=== PATIENT | male | born 1960 | race Caucasian/White ===

== ENCOUNTER 2016-10-30 | Emergency (ER) | payer MEDICARE ==
--- NOTE | 2016-10-30 12:47 | ED ---
General Adult HPI - General Chief complaint: Recheck/Abnormal Lab/Rx Stated complaint: med refill Time Seen by Provider: 10/30/16 12:31 Source: patient, RN notes reviewed Mode of arrival: ambulatory Limitations: no limitations - History of Present Illness Initial comments: 56-year-old male presents emergency department for medication refill. Patient states that he is out of his Valium 2 mg and which she takes one to 2 times daily sometimes not. Patient states that his prescribed this by Dr. Painter in which he was admitted here last year in July for psychiatric problems. He states at the time he was depressed and suicidal. Patient states she has no suicidal or homicidal thoughts. Patient states his anxiety is very high. He states he struggled from anxiety and depression most of his life and knees in a support group in which his best friend here is with him. Patient states that he is scheduled to 14 days for [facility] evaluation. Patient states that he ran out of his Valium and which she was prescribed. Patient states that just ran out because he was in [facility] up until recent. Patient states he was receiving medication in [facility]. - Related Data Home Medications Medication Instructions Recorded Confirmed Metoprolol Tartrate [Lopressor] 12.5 mg PO BID 10/30/16 10/30/16 Previous Rx's Medication Instructions Recorded DULoxetine HCL [Cymbalta] 60 mg PO DAILY #30 capsule. 08/05/16 Diazepam [Valium] 2 mg PO BID PRN #10 tab 08/05/16 Diazepam [Valium] 2 mg PO ONCE PRN #14 tab 10/30/16 Allergies Allergy/AdvReac Type Severity Reaction Status Date / Time No Known Allergies Allergy Verified 10/30/16 12:31 Review of Systems ROS Statement: Those systems with pertinent positive or pertinent negative responses have been documented in the HPI. ROS Other: All systems not noted in ROS Statement are negative. Past Medical History Past Medical History: Hypertension History of Any Multi-Drug Resistant Organisms: None Reported Past Surgical History: No Surgical Hx Reported Past Anesthesia/Blood Transfusion Reactions: No Reported Reaction Past Psychological History: Anxiety, Depression Smoking Status: Current some day smoker Past Alcohol Use History: None Reported Additional Past Alcohol Use History / Comment(s): Tesha Araiza is a lifelong nonsmoker. He denies any medical marijuana, marijuana, street drug use. He has been drinking a half a pint every other day and up to half of a fifth. He denies any home oxygen, CPAP or nebulizer. Patient is . He does not have any children. Past Drug Use History: None Reported - Past Family History Father Additional Family Medical History / Comment(s): Father is alive at age 86 with current pacemaker, carotid surgery and scoliosis. Mother Family Medical History: Pneumonia Additional Family Medical History / Comment(s): Mother at age 84 with history of Alzheimer's and Parkinson's. Brother(s) Additional Family Medical History / Comment(s): Patient does not have any brothers or sisters. He does not have any children. General Exam Limitations: no limitations General appearance: alert, in no apparent distress, anxious Head exam: Present: atraumatic, normocephalic, normal inspection Eye exam: Present: normal appearance, PERRL, EOMI. Absent: scleral icterus, conjunctival injection, periorbital swelling ENT exam: Present: normal exam, normal oropharynx, mucous membranes moist Neck exam: Present: normal inspection. Absent: tenderness, meningismus, lymphadenopathy Respiratory exam: Present: normal lung sounds bilaterally. Absent: respiratory distress, wheezes, rales, rhonchi, stridor Cardiovascular Exam: Present: regular rate, normal rhythm, normal heart sounds. Absent: systolic murmur, diastolic murmur, rubs, gallop, clicks Neurological exam: Present: alert, oriented X3, CN II-XII intact Psychiatric exam: Present: anxious. Absent: homicidal ideation, suicidal ideation Skin exam: Present: warm, dry, intact, normal color. Absent: rash Course Vital Signs 10/30/16 12:12 Temperature 98.5 F Pulse Rate 71 Respiratory 20 Rate Blood Pressure 172/98 O2 Sat by Pulse 98 Oximetry Medical Decision Making - Medical Decision Making 56-year-old male presented for medication refill. Patient was given 14 tablets of his Valium advised to use only once daily only if needed and that he needs follow up with [facility] for further medication. Disposition Clinical Impression: Anxiety, Encounter for medication refill Disposition: HOME SELF-CARE Condition: Stable Instructions: Anxiety (ED) Additional Instructions: Please return to the Emergency Department if symptoms worsen or any other concerns. Prescriptions: Diazepam [Valium] 2 mg PO ONCE PRN #14 tab PRN Reason: Anxiety Referrals: None,Stated [Primary Care Provider] - 1-2 days Time of Disposition: 12:52
== END 2016-10-30 13:01 | disposition home or self-care (01) ==
CPT/HCPCS: 99281

== ENCOUNTER 2017-04-08 19:21 | Inpatient (IN) | payer MEDICARE ==
--- NOTE | 2017-04-08 19:37 | ED ---
General Adult HPI - General Chief complaint: Psychiatric Symptoms Stated complaint: suicidal Time Seen by Provider: 04/08/17 19:34 Source: patient, RN notes reviewed, old records reviewed Mode of arrival: ambulatory Limitations: no limitations - History of Present Illness Initial comments: This is a 56-year-old now to the ER for evaluation. Face patient presents for evaluation of psychiatric disease and mental health evaluation. - Related Data Home Medications Medication Instructions Recorded Confirmed hydrOXYzine PAMOATE [hydrOXYzine 25 mg PO DAILY 04/09/17 04/09/17 PAMOATE] Previous Rx's Medication Instructions Recorded DULoxetine HCL [Cymbalta] 60 mg PO DAILY #30 capsule. 08/05/16 Allergies Allergy/AdvReac Type Severity Reaction Status Date / Time No Known Allergies Allergy Verified 04/09/17 06:01 Review of Systems ROS Statement: Those systems with pertinent positive or pertinent negative responses have been documented in the HPI. ROS Other: All systems not noted in ROS Statement are negative. Past Medical History Past Medical History: Hypertension History of Any Multi-Drug Resistant Organisms: None Reported Past Surgical History: No Surgical Hx Reported Past Anesthesia/Blood Transfusion Reactions: No Reported Reaction Past Psychological History: Anxiety, Depression Smoking Status: Current some day smoker Past Alcohol Use History: None Reported Past Drug Use History: None Reported - Past Family History Father Additional Family Medical History / Comment(s): Father is alive at age 86 with current pacemaker, carotid surgery and scoliosis. Mother Family Medical History: Pneumonia Additional Family Medical History / Comment(s): Mother at age 84 with history of Alzheimer's and Parkinson's. Brother(s) Additional Family Medical History / Comment(s): Patient does not have any brothers or sisters. He does not have any children. General Exam Limitations: no limitations General appearance: alert, in no apparent distress Head exam: Present: atraumatic, normocephalic, normal inspection Eye exam: Present: normal appearance, PERRL, EOMI. Absent: scleral icterus, conjunctival injection, periorbital swelling ENT exam: Present: normal exam, mucous membranes moist Neck exam: Present: normal inspection. Absent: tenderness, meningismus, lymphadenopathy Respiratory exam: Present: normal lung sounds bilaterally. Absent: respiratory distress, wheezes, rales, rhonchi, stridor Cardiovascular Exam: Present: regular rate, normal rhythm, normal heart sounds. Absent: systolic murmur, diastolic murmur, rubs, gallop, clicks GI/Abdominal exam: Present: soft, normal bowel sounds. Absent: distended, tenderness, guarding, rebound, rigid Extremities exam: Present: normal inspection, full ROM, normal capillary refill. Absent: tenderness, pedal edema, joint swelling, calf tenderness Back exam: Present: normal inspection Neurological exam: Present: alert, oriented X3, CN II-XII intact Psychiatric exam: Present: normal affect, normal mood Skin exam: Present: warm, dry, intact, normal color. Absent: rash Course Vital Signs 04/08/17 04/09/17 04/09/17 19:26 05:00 06:04 Temperature 99.2 F 97.8 F Pulse Rate 120 H 94 96 Respiratory 18 16 16 Rate Blood Pressure 156/112 166/111 163/103 O2 Sat by Pulse 95 97 Oximetry - Reevaluation(s) Reevaluation #1: 04/08/17 19:43 Medically clear for psychiatric evaluation Medical Decision Making - Medical Decision Making 56 male seen and evaluated with psychiatry, patient be admitted for psychiatric evaluation and treatment - Lab Data Result diagrams: 04/09/17 07:18 04/09/17 07:18 Lab Results 04/09/17 04/09/17 Range/Units 04:56 04:56 Urine Color Yellow Urine Appearance Clear (Clear) Urine pH 5.5 (5.0-8.0) Ur Specific [place] 1.011 (1.001-1.035) Urine Protein 1+ H (Negative) Urine Glucose (UA) Negative (Negative) Urine Ketones Negative (Negative) Urine Blood Small H (Negative) Urine Nitrite Negative (Negative) Urine Bilirubin Negative (Negative) Urine Urobilinogen <2.0 (<2.0) mg/dL Ur Leukocyte Esterase Negative (Negative) Urine RBC 1 (0-5) /hpf Urine WBC 2 (0-5) /hpf Granular Casts 43 (0) /lpf Urine Opiates Screen Not Detected (NotDetected) Ur Oxycodone Screen Not Detected (NotDetected) Urine Methadone Screen Not Detected (NotDetected) Ur Propoxyphene Screen Not Detected (NotDetected) Ur Barbiturates Screen Not Detected (NotDetected) U Tricyclic Antidepress Not Detected (NotDetected) Ur Phencyclidine Scrn Not Detected (NotDetected) Ur Amphetamines Screen Not Detected (NotDetected) U Methamphetamines Scrn Not Detected (NotDetected) U Benzodiazepines Scrn Not Detected (NotDetected) Urine Cocaine Screen Not Detected (NotDetected) U Marijuana (THC) Screen Not Detected (NotDetected) Disposition Clinical Impression: Depression, Major depressive disorder, recurrent, Suicidal ideation Disposition: TRANSFER TO PSYCH HOSP/UNIT Condition: Fair
[2017-04-08] MEDS ORDERED: ONDANSETRON ODT 4 MG TAB PO STA (23:14)
[2017-04-09] MEDS ORDERED: ONDANSETRON ODT 4 MG TAB PO STA (02:37)
[2017-04-09] MEDS ORDERED: chlordiazePOXIDE 25 MG CAP PO STA (05:23)
[2017-04-09] MEDS ORDERED: MAG HYDROX/AL HYDROX/SIMETH 30 ML CUP PO PRN (05:50)
[2017-04-09] MEDS ORDERED: MAGNESIUM HYDROXIDE 2,400 MG/10 ML CUP PO PRN (05:50)
[2017-04-09] MEDS ORDERED: hydrOXYzine PAMOATE 25 MG CAP PO PRN (05:52)
[2017-04-09] MEDS ORDERED: LORazepam 2 MG/ML SYRINGE IM PRN (05:53)
[2017-04-09 06:04] LABS: Appearance,Urine Clear (Clear); Bilirubin,Urine Negative (Negative); Glucose,Urine (UA) Negative (Negative); Granular Casts,Urine 43 /lpf (0); Ketones,Urine Negative (Negative); Leukocyte Esterase,Urine Negative (Negative); Nitrite,Urine Negative (Negative); PH, Urine 5.5 (5.0-8.0); Particle Count 1566; Protein,Urine 1+ (Negative); RBC,Urine 1 /hpf (0-5); Specific Gravity,Urine 1.011 (1.001-1.035); UA Billing (MACRO vs. MICRO) MICRO; Urobilinogen,Urine <2.0 mg/dL (<2.0); WBC,Urine 2 /hpf (0-5)
[2017-04-09 06:31] VITALS: BMI 25.4
[2017-04-09 07:45] LABS: Basophils % (A) 0 %; CH 33.3; Eosinophils % (A) 0 %; HCT 45.9 % (39.0-53.0); HDW 2.71; HGB 15.9 gm/dL (13.0-17.5); Luc # (Auto) 0.14; Luc % (Auto) 1; Lymphocytes # (A) 1.4 k/uL (1.0-4.8); Lymphocytes % (A) 9 %; MCH 32.2 pg (25.0-35.0); MCHC 34.7 g/dL (31.0-37.0); Mean Platelet Volume 7.8; Monocytes # (A) 0.9 k/uL (0-1.0); Monocytes % (A) 6 %; Neutrophils # (A) 12.5 k/uL (1.3-7.7); Neutrophils % (A) 84 %; RBC 4.94 m/uL (4.30-5.90); RDW 13.1 % (11.5-15.5); WBC (Perox) 15.28
[2017-04-09 07:58] LABS: ALT 38 U/L (21-72); AST 33 U/L (17-59); Alkaline Phosphatase 88 U/L (38-126); Anion Gap 18 mmol/L; Blood Urea Nitrogen 31 mg/dL (9-20); Calcium 10.6 mg/dL (8.4-10.2); Carbon Dioxide 32 mmol/L (22-30); Chloride 89 mmol/L (98-107); Glucose 137 mg/dL (74-99); Non-African American GFR(MDRD) 54 (>60 ml/min/1.73 sqM); Potassium 3.7 mmol/L (3.5-5.1); Sodium 139 mmol/L (137-145); Total Bilirubin 1.3 mg/dL (0.2-1.3); Total Protein 8.2 g/dL (6.3-8.2)
--- NOTE | 2017-04-09 09:16 | P.HP ---
Psychiatric H&P - . H&P Date: 04/09/17 History & Physical: DATE OF SERVICE: 04/09/2017 IDENTIFYING DATA: This patient is a 56-year-old male who was admitted to the mental health unit through emergency room and he presented requesting admission for suicidal ideation.. HISTORY OF PRESENT ILLNESS: The patient presents with depressed mood stating "I just couldn't deal with reality". Patient reports that his father is in the hospital and that he is not doing well, he weighs 70 pounds and although mentally he is alert and wanting to live for some reason he is unable to thrive. Patient also states that some issues with a friend occurred. And so when he came back from visiting his father in [place] last week he began to drink heavy. And continued to drink until he came to the hospital. He had a blood alcohol of 212. He reports that he was compliant with his treatment taking his medication seeing his counselor, but just something after seeing his father was overwhelming. Patient states that he grew up as an only child in a [place] family and that emotions were not on display, and views this as being part of the problem today "not knowing how to manage this type of an issue". Patient does state that he stopped taking his medicines, was not quite clear when, was unable to give any amount of alcohol that he was drinking. He states that he had a 6 month sobriety and that he drank 3-4 days and got back on the wagon for about 2 months, and then just had this relapse. Patient states that he takes Depakote from a friend who had a large supply. Asked why and patient said he has a tremor patient denies having seizure disorder. He then states it is a mood stabilizer and that he was diagnosed with bipolar disorder. In discussing the symptoms that he has patient could not identify/endorse any manic symptoms or hypomanic. There happens to be a very manic person on the unit today and patient states that he has never been like that. Nor does he have any history of risk-taking behavior, spending money that he didn't have, promiscuity. When he was here the last time he also denied any symptoms consistent with misael or hypomania. PAST PSYCHIATRIC HISTORY: This is the patient's fourth inpatient psychiatric admission, his last was approximately 3 years ago. No history of suicide attempts. He is a limited historian in terms of recalling which psychotropic medications he was on and what their affects were. He has been seeing Dr Doe. He has been on Prozac Paxil Zoloft Remeron Celexa Depakote Klonopin Ativan Cymbalta. PAST MEDICAL HISTORY: Hypertension ALLERGIES: No known drug allergies. CHEMICAL DEPENDENCY HISTORY: Patient reports that he had a 6 month period of sobriety and drank for 2-3 days stop for 2 months and then drank these last 4-5 days.. Prior to this admission according to discharge summary he was consuming a fifth of alcohol approximately every 2 days for the 2 weeks prior to admission He is consuming a fifth of alcohol every 2 days for the last 2 weeks, he states he's done this throughout his adult life whenever he becomes more depressed. He reports he drinks less when he is stabilized with medication. No use of marijuana or other illicit drugs he's never been placed in residential treatment for chemical dependency reasons. His urine drug screen was positive for opiates but he states he does not take them and last used and opiate while in long term due to a infection of his wrist. FAMILY PSYCHIATRIC HISTORY:.His mother was known to have depression, 2 maternal uncles committed suicide FAMILY CHEMICAL DEPENDENCY HISTORY: Denies. LEGAL HISTORY: Denies. SOCIAL HISTORY: The patient is he has no children he lives alone in his own home in [place]. He is retired from [employer] after over 20 years of service. No history of service. He graduated high school and earned an associates degree. He has no siblings. It appears he has very limited social support. MENTAL STATUS EXAM: Patient alert and oriented 3, good eye contact, disheveled , appearing older than stated age, in hospital attire. Speech normal volume, rate and production. Coherent, logical and goal directed thought process. No YANI, no FOI. [No TB/TW/ TI] Denied auditory and visual hallucinations. Denied paranoid ideation, delusions or IOR. Memory grossly intact Cognition average Mood dysphoric, affect constricted, congruent with mood. Denies suicidal ideation, denies homicidal ideation. Insight limited; Judgment grossly intact for treatment purposes STRENGTHS: Income and housing. WEAKNESSES: Alcohol use disorder, it did support system. IMPRESSIONS: 56-year-old male presents to the emergency room on his own reporting severe depression and suicidal ideation. History of depression along with alcohol use and noncompliance with medication appears to be a chronic issue for Mr. Davis. Patient stopped his medications a few days prior to admission and began heavy drinking due to being overwhelmed by his father's physical condition and possible . Patient is no longer suicidal, but remains dysphoric and anxious. 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 Suicide precautions 15 minute safety checks. Appreciate hospitalist and there input regarding his physical needs. CIWA for prevention of DTs, Ativan when necessary as needed. Once alcohol withdrawal has past we'll begin to taper off his standing dose of Ativan. Begin Effexor for both depression and anxiety. D/C Cymbalta Recommended that he not take Depakote when he goes back home. Trial of gabapentin for purported aid in alcohol abstinence, and it's anxiolytic properties. Milieu therapy Allergy/AdvReac Type Severity Reaction Status Date / Time No Known Allergies Allergy Verified 04/09/17 06:01 Vital Signs Temp 98.5 F 04/09/17 06:23 Pulse 128 H 04/09/17 06:23 Resp 20 04/09/17 06:23 BP 146/103 04/09/17 06:23 Pulse Ox 95 04/09/17 06:23 Intake & Output 04/08/17 04/09/17 04/09/17 18:59 06:59 18:59 Weight 71.469 kg Laboratory Last Values WBC 15.0 k/uL (3.8-10.6) H 04/09/17 07:18 RBC 4.94 m/uL (4.30-5.90) 04/09/17 07:18 Hgb 15.9 gm/dL (13.0-17.5) 04/09/17 07:18 Hct 45.9 % (39.0-53.0) 04/09/17 07:18 MCV 93.0 fL (80.0-100.0) 04/09/17 07:18 MCH 32.2 pg (25.0-35.0) 04/09/17 07:18 MCHC 34.7 g/dL (31.0-37.0) 04/09/17 07:18 RDW 13.1 % (11.5-15.5) 04/09/17 07:18 Plt Count 231 k/uL (150-450) 04/09/17 07:18 Neutrophils % 84 % 04/09/17 07:18 Lymphocytes % 9 % 04/09/17 07:18 Monocytes % 6 % 04/09/17 07:18 Eosinophils % 0 % 04/09/17 07:18 Basophils % 0 % 04/09/17 07:18 Neutrophils # 12.5 k/uL (1.3-7.7) H 04/09/17 07:18 Lymphocytes # 1.4 k/uL (1.0-4.8) 04/09/17 07:18 Monocytes # 0.9 k/uL (0-1.0) 04/09/17 07:18 Eosinophils # 0.0 k/uL (0-0.7) 04/09/17 07:18 Basophils # 0.0 k/uL (0-0.2) 04/09/17 07:18 Sodium 139 mmol/L (137-145) 04/09/17 07:18 Potassium 3.7 mmol/L (3.5-5.1) 04/09/17 07:18 Chloride 89 mmol/L (98-107) L 04/09/17 07:18 Carbon Dioxide 32 mmol/L (22-30) H 04/09/17 07:18 Anion Gap 18 mmol/L 04/09/17 07:18 BUN 31 mg/dL (9-20) H 04/09/17 07:18 Creatinine 1.37 mg/dL (0.66-1.25) H 04/09/17 07:18 Est GFR (MDRD) Af Amer >60 (>60 ml/min/1.73 sqM) 04/09/17 07:18 Est GFR (MDRD) Non-Af 54 (>60 ml/min/1.73 sqM) 04/09/17 07:18 Glucose 137 mg/dL (74-99) H 04/09/17 07:18 Calcium 10.6 mg/dL (8.4-10.2) H 04/09/17 07:18 Total Bilirubin 1.3 mg/dL (0.2-1.3) 04/09/17 07:18 AST 33 U/L (17-59) 04/09/17 07:18 ALT 38 U/L (21-72) 04/09/17 07:18 Alkaline Phosphatase 88 U/L (38-126) 04/09/17 07:18 Total Protein 8.2 g/dL (6.3-8.2) 04/09/17 07:18 Albumin 4.7 g/dL (3.5-5.0) 04/09/17 07:18 TSH 4.180 mIU/L (0.465-4.680) 04/09/17 07:18 Urine Color Yellow 04/09/17 04:56 Urine Appearance Clear (Clear) 04/09/17 04:56 Urine pH 5.5 (5.0-8.0) 04/09/17 04:56 Ur Specific [place] 1.011 (1.001-1.035) 04/09/17 04:56 Urine Protein 1+ (Negative) H 04/09/17 04:56 Urine Glucose (UA) Negative (Negative) 04/09/17 04:56 Urine Ketones Negative (Negative) 04/09/17 04:56 Urine Blood Small (Negative) H 04/09/17 04:56 Urine Nitrite Negative (Negative) 04/09/17 04:56 Urine Bilirubin Negative (Negative) 04/09/17 04:56 Urine Urobilinogen <2.0 mg/dL (<2.0) 04/09/17 04:56 Ur Leukocyte Esterase Negative (Negative) 04/09/17 04:56 Urine RBC 1 /hpf (0-5) 04/09/17 04:56 Urine WBC 2 /hpf (0-5) 04/09/17 04:56 Granular Casts 43 /lpf (0) 04/09/17 04:56 Urine Opiates Screen Not Detected (NotDetected) 04/09/17 04:56 Ur Oxycodone Screen Not Detected (NotDetected) 04/09/17 04:56 Urine Methadone Screen Not Detected (NotDetected) 04/09/17 04:56 Ur Propoxyphene Screen Not Detected (NotDetected) 04/09/17 04:56 Ur Barbiturates Screen Not Detected (NotDetected) 04/09/17 04:56 U Tricyclic Antidepress Not Detected (NotDetected) 04/09/17 04:56 Ur Phencyclidine Scrn Not Detected (NotDetected) 04/09/17 04:56 Ur Amphetamines Screen Not Detected (NotDetected) 04/09/17 04:56 U Methamphetamines Scrn Not Detected (NotDetected) 04/09/17 04:56 U Benzodiazepines Scrn Not Detected (NotDetected) 04/09/17 04:56 Urine Cocaine Screen Not Detected (NotDetected) 04/09/17 04:56 U Marijuana (THC) Screen Not Detected (NotDetected) 04/09/17 04:56 04/09/17 09:16 04/09/17 09:17 04/09/17 10:46 04/09/17 13:30 04/09/17 13:50
[2017-04-09] MEDS: DULoxetine HCL 60 MG CAPSULE.DR PO SCH ×3 (09:18→11:08)
[2017-04-09] MEDS: LORazepam 1 MG TAB PO SCH ×3 (09:19→21:44)
[2017-04-09] MEDS ORDERED: ONDANSETRON ODT 4 MG TAB PO PRN (09:48)
[2017-04-09] MEDS ORDERED: LOPERAMIDE 2 MG CAP PO PRN (09:49)
[2017-04-09] MEDS ORDERED: cloNIDine HCL 0.1 MG TAB PO PRN (09:50)
[2017-04-09] MEDS ORDERED: METOPROLOL TARTRATE 25 MG TAB PO PRN (10:52)
[2017-04-09] MEDS: LORazepam 1 MG TAB PO PRN ×2 (11:10→13:31)
[2017-04-09] MEDS: GABAPENTIN 100 MG CAP PO SCH ×3 (11:50→21:43)
--- NOTE | 2017-04-09 13:02 | P.MDCNMH ---
History of Present Illness H&P Date: 04/09/17 This is a 56-year-old male with no primary care physician and past medical history of hypertension, anxiety, depression. He does have history of alcohol abuse and was last hospitalized here in July 2016. Patient gives history that he was clean for 6 and half months and then had a relapse for couple of days because he he felt suicidal. He then was clean for another 2 months and relapsed for the past 3 days. He states he's been drinking a fifth of vodka every day. He came into [facility] emergency center for evaluation and was subsequently admitted to the mental health unit. WBC was 15, BUN 31 and creatinine 1.37. Random blood sugar was elevated. TSH normal. Urine drug screen was negative. Valproic acid less than 10. EKG showed a sinus tachycardia 109 with no QT prolongation. Patient does complain of vomiting today. He denies any abdominal pain. His blood pressure has been elevated and he is not normally on blood pressure medication. Review of Systems All systems: negative Constitutional: Denies chills, Denies fever Eyes: denies blurred vision, denies pain Ears, nose, mouth and throat: Denies headache, Denies sore throat Cardiovascular: Denies chest pain, Denies edema, Denies irregular heart beat, Denies leg edema, Denies lightheadedness, Denies palpitations, Denies paroxysmal nocturnal dyspnea, Denies shortness of breath Respiratory: Denies cough Gastrointestinal: Reports vomiting, Denies abdominal pain, Denies diarrhea, Denies nausea Musculoskeletal: Denies myalgias Integumentary: Denies pruritus, Denies rash Neurological: Denies numbness, Denies weakness Psychiatric: Reports depression, Reports hopelessness, Reports suicidal ideation , Denies anxiety Endocrine: Denies fatigue, Denies weight change Past Medical History Past Medical History: Hypertension History of Any Multi-Drug Resistant Organisms: None Reported Past Surgical History: No Surgical Hx Reported Past Anesthesia/Blood Transfusion Reactions: No Reported Reaction Past Psychological History: Anxiety, Depression Smoking Status: Current some day smoker Past Alcohol Use History: Abuse, Heavy Additional Past Alcohol Use History / Comment(s): Patient is a lifelong nonsmoker. He denies any medical marijuana, marijuana or street drug use. He has been drinking a fifth of vodka for the past 3 days. No home O2, CPAP or nebulizer. Patient is . He does not have any children. Past Drug Use History: None Reported - Past Family History Father Additional Family Medical History / Comment(s): Father is alive at age 86 with current pacemaker, carotid surgery and scoliosis. Mother Family Medical History: Pneumonia Additional Family Medical History / Comment(s): Mother at age 84 with history of Alzheimer's and Parkinson's. Brother(s) Additional Family Medical History / Comment(s): Patient does not have any brothers or sisters. He does not have any children. Medications and Allergies Home Medications Medication Instructions Recorded Confirmed Type hydrOXYzine PAMOATE [hydrOXYzine 25 mg PO DAILY 04/09/17 04/09/17 History PAMOATE] Allergies Allergy/AdvReac Type Severity Reaction Status Date / Time No Known Allergies Allergy Verified 04/09/17 06:01 Physical Exam Vitals: Vital Signs Temp Pulse Pulse Pulse Resp BP BP 04/09/17 09:19 140 H 20 156/109 04/09/17 06:23 98.5 F 128 H 20 04/09/17 06:04 96 16 163/103 04/09/17 05:00 97.8 F 94 16 166/111 04/08/17 19:26 99.2 F 120 H 18 156/112 BP Pulse Ox 04/09/17 09:19 04/09/17 06:23 146/103 95 04/09/17 06:04 04/09/17 05:00 97 04/08/17 19:26 95 Intake and Output 04/08/17 04/09/17 04/09/17 22:59 06:59 14:59 Other: Weight 72.575 kg 71.469 kg Gen: This is a 56-year-old disheveled male. He is cooperative. HEENT: Head is atraumatic, normocephalic. Pupils equal, round. Sclerae is anicteric. NECK: Supple. No JVD. No lymphadenopathy. No thyromegaly. LUNGS: Clear to auscultation. No wheezes or rhonchi. No intercostal retractions. HEART: Regular rate and rhythm. No murmur. ABDOMEN: Soft. Bowel sounds are present. No masses. No tenderness. EXTREMITIES: No pedal edema. No calf tenderness. NEUROLOGICAL: Patient is awake, alert and oriented x3. Cranial nerves 2 through 12 are grossly intact. Cranial Nerve Examination - Cranial Nerves Cranial Nerve II- Optic: Intact Cranial Nerve III- Oculomotor: Intact Cranial Nerve IV- Trochlear: Intact Cranial Nerve V- Trigeminal: Intact Cranial Nerve - Abducens: Intact Cranial Nerve VII- Facial: Intact Cranial Nerve VIII- Auditory: Intact Cranial Nerve IX- Glossopharyngeal: Intact Cranial Nerve X- Vagus: Intact Cranial Nerve XI- Accessory: Intact Cranial Nerve XII- Hypoglossal: Intact Results CBC & Chem 7: 04/09/17 07:18 04/09/17 07:18 Labs: Abnormal Lab Results - Last 24 Hours (Table) 04/09/17 04/09/17 04/09/17 Range/Units 04:56 07:18 07:18 WBC 15.0 H (3.8-10.6) k/uL Neutrophils # 12.5 H (1.3-7.7) k/uL Chloride 89 L (98-107) mmol/L Carbon Dioxide 32 H (22-30) mmol/L BUN 31 H (9-20) mg/dL Creatinine 1.37 H (0.66-1.25) mg/dL Glucose 137 H (74-99) mg/dL Calcium 10.6 H (8.4-10.2) mg/dL Urine Protein 1+ H (Negative) Urine Blood Small H (Negative) Assessment and Plan Plan: 1. Recurrent depression. Patient admitted to the mental health unit. Continue current plan of care. 2. Alcohol abuse. Continue as in #1. 3. Alcohol withdrawal. Continue Ativan, clonidine, Zofran. 4. Chronic kidney disease stage III, avoid nephrotoxic agents, nonsteroidal anti-inflammatories. 5. Hypertension and sinus tachycardia most likely secondary to withdrawal. Metoprolol added as needed. Impression and plan of care have been directed as dictated by the signing physician. Janet Olmedo nurse practitioner acting as scribe for signing physician.
[2017-04-09] MEDS: VENLAFAXINE HCL 25 MG TAB PO SCH ×2 (13:16→21:44)
[2017-04-09] MEDS: ACETAMINOPHEN TAB 325 MG TAB PO PRN (14:00)
[2017-04-09] MEDS ORDERED: hydrALAZINE HCL 25 MG TAB PO STA (14:01)
[2017-04-09] MEDS ORDERED: hydrALAZINE HCL 25 MG TAB PO PRN (14:02)
[2017-04-09] MEDS ORDERED: SUCRALFATE 1 GM TAB PO STA (14:04)
[2017-04-09] MEDS: PANTOPRAZOLE 40 MG TABLET PO SCH ×2 (14:13→17:28)
[2017-04-10] MEDS: PANTOPRAZOLE 40 MG TABLET PO SCH ×2 (08:09→17:31)
[2017-04-10] MEDS: DULoxetine HCL 30 MG CAPSULE.DR PO SCH (08:09)
[2017-04-10] MEDS: GABAPENTIN 100 MG CAP PO SCH ×3 (08:09→20:51)
[2017-04-10] MEDS: VENLAFAXINE HCL 25 MG TAB PO SCH (08:10)
[2017-04-10] MEDS: LORazepam 1 MG TAB PO SCH (08:10)
--- NOTE | 2017-04-10 09:26 | P.PN ---
Progress Note - Text INTERVERAL HISTORY: Patient discussed at team treatment meeting, review of chart , met with patient. Patient was found lying on several chairs outside my office. Asked why he was there stated that he was told he could not go further than here if he still wanted to drink his tea. Reports he just felt like lying down nothing was wrong , states he is feeling okay today no chest pain no significant anxiety, and no tremor. Reports his sleep was good, stating "it's better here than at home due to the cats". MENTAL STATUS EXAM:Patient alert and oriented 3, good eye contact, disheveled, appearing older than stated age, in hospital attire. Speech normal volume, rate and production. Coherent, logical and goal directed thought process. No YANI, no FOI. [No TB/TW/ TI] Denied auditory and visual hallucinations. Denied paranoid ideation, delusions or IOR. Memory grossly intact Cognition average Mood dysphoric, affect constricted, congruent with mood. Denies suicidal ideation, denies homicidal ideation. IMPRESSIONS: 56-year-old male presents to the emergency room on his own reporting severe depression and suicidal ideation. History of depression along with alcohol use and noncompliance with medication appears to be a chronic issue for Mr. Davis. Patient stopped his medications a few days prior to admission and began heavy drinking due to being overwhelmed by his father's physical condition and possible . Patient is no longer suicidal, but remains dysphoric and anxious. 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 Suicide precautions 15 minute safety checks. A ppreciate hospitalist and there input regarding his physical needs. No chest pain reported area CIWA for prevention of DTs, Ativan when necessary as needed. One more day using CIWA. Once alcohol withdrawal has past we'll begin to taper off his standing dose of Ativan. Increase Effexor for both depression and anxiety. Recommended that he not take Depakote when he goes back home. Trial of gabapentin for purported aid in alcohol abstinence, and it's anxiolytic properties. Milieu therapy
[2017-04-10] MEDS: ACETAMINOPHEN TAB 325 MG TAB PO PRN ×2 (10:52→20:52)
[2017-04-10] MEDS: LORazepam 0.5 MG TAB PO SCH ×2 (16:15→20:52)
[2017-04-10] MEDS: VENLAFAXINE HCL 50 MG TAB PO SCH (20:51)
[2017-04-11] MEDS: DULoxetine HCL 30 MG CAPSULE.DR PO SCH (08:00)
[2017-04-11] MEDS: LORazepam 0.5 MG TAB PO SCH ×3 (08:00→21:22)
[2017-04-11] MEDS: GABAPENTIN 100 MG CAP PO SCH ×3 (08:00→21:22)
[2017-04-11] MEDS: PANTOPRAZOLE 40 MG TABLET PO SCH ×2 (08:00→17:50)
[2017-04-11] MEDS: VENLAFAXINE HCL 50 MG TAB PO SCH ×2 (08:01→21:22)
[2017-04-11] MEDS: ACETAMINOPHEN TAB 325 MG TAB PO PRN (11:50)
[2017-04-11] MEDS: ETODOLAC 400 MG TAB PO SCH (13:05)
--- NOTE | 2017-04-11 13:19 | P.PN ---
Progress Note - Text INTERVERAL HISTORY: Patient discussed with nursing staff, review of chart, met with patient. Deaf reports that patient has complained about a sore finger, left index finger , that he has a history of gout. Patient reports that other than his finger hurting he is okay. States "I have that ward feeling" he also states that he hopes he doesn't fall into that trap and gets down regarding his father. Says he has plans to contact his cousins to help him not go down. Complains that he doesn't have anyone here to talk with reviewed that groups are a good place to get support and learn new coping skills. Patient is doing well with respect to alcohol withdrawal, no evidence of it occurring. We discussed medication changes again, patient is agreeable he understands that Ativan is a medication that is not a good choice in general but in particularly for persons with difficulty with alcohol. He has tolerated a reduction now taking 0.5 mg 3 times a day. CIWA 0 x2 days MENTAL STATUS EXAM:Patient alert and oriented 3, good eye contact, disheveled, appearing older than stated age, in hospital attire. Speech normal volume, rate and production. Coherent, logical and goal directed thought process. No YANI, no FOI. [No TB/TW/ TI] Denied auditory and visual hallucinations. Denied paranoid ideation, delusions or IOR. Memory grossly intact Cognition average Mood neutral, affect full range, decreased intensity congruent with mood. Denies suicidal ideation, denies homicidal ideation. IMPRESSIONS: 56-year-old male presents to the emergency room on his own reporting severe depression and suicidal ideation. History of depression along with alcohol use and noncompliance with medication appears to be a chronic issue for Mr. Davis. Patient stopped his medications a few days prior to admission and began heavy drinking due to being overwhelmed by his father's physical condition and possible . Patient is no longer suicidal, he is doing well with respect to alcohol withdrawal, no evidence. His mood is improved neutral and at times euthymic. No suicidal ideation. 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 Suicide precautions 15 minute safety checks. A ppreciate hospitalist and there input regarding his physical needs. No chest pain reported area D/C CIWA Ativan 0.5mg tid x 1 more day, then reduce to BID. With goal to D/C.. Increase Effexor 75mg BID, for both depression and anxiety. Recommended that he not take Depakote when he goes back home. Gabapentin for purported aid in alcohol abstinence, and it's anxiolytic properties. Milieu therapy
[2017-04-12] MEDS: ETODOLAC 400 MG TAB PO SCH (07:52)
[2017-04-12] MEDS: GABAPENTIN 100 MG CAP PO SCH ×3 (07:53→21:05)
[2017-04-12] MEDS: PANTOPRAZOLE 40 MG TABLET PO SCH ×2 (07:53→17:46)
[2017-04-12] MEDS: LORazepam 0.5 MG TAB PO SCH ×2 (07:53→21:05)
[2017-04-12] MEDS: VENLAFAXINE HCL 50 MG TAB PO SCH (07:54)
[2017-04-12] MEDS ORDERED: VENLAFAXINE HCL 75 MG TAB PO SCH (09:00)
--- NOTE | 2017-04-12 11:07 | P.PN ---
Progress Note - Text INTERVERAL HISTORY: Patient discussed with nursing staff, review of chart, met with patient. Patient reports finger is improved, left index finger, but staff says it is looking worse, inflamed at base, consulted yesterday but no report. Patient reports that since his finger is better he is feeling better. No side effects with reduction of Ativan or increase of Effexor. No evidence of ETOH withdrawal. Patient reported that a friend he did not want to know he was here was told and she called him. He discovered from her that he had driven her home and he could not recall this. Wonders how this could happen. Suggested this is due to black outs, he thought a black out only occured while drinking, explained that they can occur when no etoh has been ingested. We discussed medication changes again, patient is agreeable he understands that Ativan is a medication that is not a good choice in general but in particularly for persons with difficulty with alcohol. He has tolerated a reduction now taking 0.5 mg 3 times a day. CIWA 0 x3 days MENTAL STATUS EXAM:Patient alert and oriented 3, good eye contact, disheveled, appearing older than stated age, in hospital attire. Speech normal volume, rate and production. Coherent, logical and goal directed thought process. No YANI, no FOI. [No TB/TW/ TI] Denied auditory and visual hallucinations. Denied paranoid ideation, delusions or IOR. Memory grossly intact Cognition average Mood neutral, affect full range, decreased intensity congruent with mood. Denies suicidal ideation, denies homicidal ideation. IMPRESSIONS: 56-year-old male presents to the emergency room on his own reporting severe depression and suicidal ideation. History of depression along with alcohol use and noncompliance with medication appears to be a chronic issue for Mr. Davis. Patient stopped his medications a few days prior to admission and began heavy drinking due to being overwhelmed by his father's physical condition and possible . Patient is no longer suicidal, he is doing well with respect to alcohol withdrawal, no evidence. His mood is improved neutral and at times euthymic. No suicidal ideation. 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 Suicide precautions 15 minute safety checks. Appreciate hospitalist and there input regarding his physical needs. No chest pain reported area Ativan 0.5mg BID today and tomorrow then QD. With goal to D/C.. Increase Effexor XR 225mg, for both depression and anxiety. Recommended that he not take Depakote when he goes back home. Gabapentin for purported aid in alcohol abstinence, and it's anxiolytic properties. Milieu therapy
[2017-04-12] MEDS: ACETAMINOPHEN TAB 325 MG TAB PO PRN ×2 (15:08→21:06)
[2017-04-13] MEDS: PANTOPRAZOLE 40 MG TABLET PO SCH ×2 (07:50→17:08)
[2017-04-13] MEDS: ETODOLAC 400 MG TAB PO SCH (09:07)
[2017-04-13] MEDS: VENLAFAXINE HCL ER 75 MG CAP PO SCH (09:08)
[2017-04-13] MEDS: GABAPENTIN 100 MG CAP PO SCH ×3 (09:08→21:45)
[2017-04-13] MEDS: LORazepam 0.5 MG TAB PO SCH (09:09)
--- NOTE | 2017-04-13 16:01 | P.PN ---
Progress Note - Text INTERVERAL HISTORY: Patient discussed with nursing staff, review of chart, met with patient. Patient reports finger is about the same, however it looks a little less inflamed and swollen today. No side effects with reduction of Ativan or increase of Effexor. No evidence of ETOH withdrawal. We discussed medication changes again, patient is agreeable he understands that Ativan is a medication that is not a good choice in general but in particularly for persons with difficulty with alcohol. He has tolerated a reduction now taking 0.5 mg 2 times a day. MENTAL STATUS EXAM:Patient alert and oriented 3, good eye contact, disheveled, appearing older than stated age, in hospital attire. Speech normal volume, rate and production. Coherent, logical and goal directed thought process. No YANI, no FOI. [No TB/TW/ TI] Denied auditory and visual hallucinations. Denied paranoid ideation, delusions or IOR. Memory grossly intact Cognition average Mood euthymic, affect full range, decreased intensity congruent with mood. Denies suicidal ideation, denies homicidal ideation. IMPRESSIONS: 56-year-old male presents to the emergency room on his own reporting severe depression and suicidal ideation. History of depression along with alcohol use and noncompliance with medication appears to be a chronic issue for Mr. Davis. Patient stopped his medications a few days prior to admission and began heavy drinking due to being overwhelmed by his father's physical condition and possible . Patient is no longer suicidal, he is doing well with respect to alcohol withdrawal, no evidence. His mood is improved, euthymic. No suicidal ideation. 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 Suicide precautions 15 minute safety checks. Appreciate hospitalist and there input regarding his physical needs. No chest pain reported area Ativan 0.5mg BID today and tomorrow then QD. With goal to D/C.. Continue Effexor XR 225mg, for both depression and anxiety. Recommended that he not take Depakote when he goes back home. Gabapentin for purported aid in alcohol abstinence, and it's anxiolytic properties. Milieu therapy
[2017-04-13] MEDS ORDERED: LORazepam 0.5 MG TAB PO SCH (21:00)
[2017-04-13] MEDS: ACETAMINOPHEN TAB 325 MG TAB PO PRN (23:11)
[2017-04-14] MEDS: PANTOPRAZOLE 40 MG TABLET PO SCH ×2 (09:13→17:11)
[2017-04-14] MEDS: ETODOLAC 400 MG TAB PO SCH (09:13)
[2017-04-14] MEDS: VENLAFAXINE HCL ER 75 MG CAP PO SCH (09:14)
[2017-04-14] MEDS: GABAPENTIN 100 MG CAP PO SCH ×3 (09:14→21:25)
--- NOTE | 2017-04-14 16:04 | P.PN ---
Progress Note - Text INTERVERAL HISTORY: Patient discussed with nursing staff, review of chart, met with patient. Patient was in bed denies that he was sleeping just didn't want to go to group. Patient had requested the social media specialist if he could be discharged today. Says he was getting tired of listening to people complain Patient reports finger is about the same. No side effects with reduction of Ativan or increase of Effexor. No evidence of ETOH withdrawal. MENTAL STATUS EXAM:Patient alert and oriented 3, good eye contact, disheveled, appearing older than stated age, in hospital attire. Speech normal volume, rate and production. Coherent, logical and goal directed thought process. No YANI, no FOI. [No TB/TW/ TI] Denied auditory and visual hallucinations. Denied paranoid ideation, delusions or IOR. Memory grossly intact Cognition average Mood euthymic, affect full range, decreased intensity congruent with mood. Denies suicidal ideation, denies homicidal ideation. IMPRESSIONS: 56-year-old male presents to the emergency room on his own reporting severe depression and suicidal ideation. History of depression along with alcohol use and noncompliance with medication appears to be a chronic issue for Mr. Medeiros. Patient stopped his medications a few days prior to admission and began heavy drinking due to being overwhelmed by his father's physical condition and possible . Patient is no longer suicidal, he is doing well with respect to alcohol withdrawal, no evidence. His mood is improved, euthymic. No suicidal ideation. 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 Suicide precautions 15 minute safety checks. D/C Ativan Continue Effexor XR 225mg, for both depression and anxiety. Recommended that he not take Depakote when he goes back home. Gabapentin for purported aid in alcohol abstinence, and it's anxiolytic properties. Milieu therapy
[2017-04-14] MEDS: ACETAMINOPHEN TAB 325 MG TAB PO PRN (19:42)
[2017-04-15 06:53] VITALS: BP 128/87; PULSE 86; RESP 14; TEMP 97.7
[2017-04-15] MEDS: PANTOPRAZOLE 40 MG TABLET PO SCH (08:31)
[2017-04-15] MEDS: VENLAFAXINE HCL ER 75 MG CAP PO SCH (08:31)
[2017-04-15] MEDS: ETODOLAC 400 MG TAB PO SCH (08:31)
[2017-04-15] MEDS: GABAPENTIN 100 MG CAP PO SCH (08:31)
--- NOTE | 2017-04-15 08:53 | P.DS ---
Providers Date of admission: 04/09/17 05:45 Expected date of discharge: 04/15/17 Attending physician: Hetal Diaz MD Consults: 04/09/17 05:50 Consult Physician Routine Consulting Provider: Carly Williamson Consult Reason/Comments: For H & P for Medical Follow Up Do you want consulting provider notified?: Yes, Notify in am 04/11/17 08:12 Consult Physician Routine Consulting Provider: Carly Williamson Consult Reason/Comments: Painful,swollen left index finger. Per the patient he has a history of gout Do you want consulting provider notified?: Yes Primary care physician: Stated None Hospital Course: BRIEF ADMISSION HISTORY: Patient brought himself to the emergency room due to depression and suicidal ideation, he signed a voluntary form. Patient reports that he became overwhelmed with his father's declining health, felt hopeless stopped taking his medicines, and then started to drink heavy. HOSPITAL COURSE: Patient was put on CIWA to avoid alcohol withdrawal. He was also taking Ativan at home on a regular schedule. Although patient had stopped his medicines he felt that they had not been working, so we agreed to change. Added Effexor XL are areas Patient reported anxiety as being one of his major problems with the previous medication, so we added gabapentin 100 mg 3 times a day in part for anxiety but also for the purported efficacy towards abstinence from alcohol. Effexor was also chosen for its dual receptor and for both antidepressant and anti-anxiety effects. Patient gradually detoxed no withdrawals. He adjusted well to the change in his medicines without any side effects reported including no anxiety. A few nights he had difficulty with sleep but in part that was due to the unit was very acute with noise. But he was also noted sleeping soundly for several hours during the day and we reminded him that if he slept during the day he would not sleep at night, he grudgingly accepted this. He attended most of the groups. He reported he was going to begin to attend AA meetings again. By the end of hospitalization he was feeling hopeful no longer depressed no longer suicidal. He believes that his father was doing better and that he had more skills to cope with his eventual . MENTAL STATUS EXAM:Patient alert and oriented 3, good eye contact, disheveled, appearing older than stated age, in hospital attire. Speech normal volume, rate and production. Coherent, logical and goal directed thought process. No YANI, no FOI. [No TB/TW/ TI] Denied auditory and visual hallucinations. Denied paranoid ideation, delusions or IOR. Memory grossly intact Cognition average Mood euthymic, affect full range, decreased intensity congruent with mood. Denies suicidal ideation, denies homicidal ideation. IMPRESSIONS: 56-year-old male presents to the emergency room on his own reporting severe depression and suicidal ideation. History of depression along with alcohol use and noncompliance with medication appears to be a chronic issue for Mr. Medeiros. Patient stopped his medications a few days prior to admission and began heavy drinking due to being overwhelmed by his father's physical condition and possible . Patient is no longer suicidal, he is doing well with respect to alcohol withdrawal, no evidence. His mood is improved, euthymic. No suicidal ideation. 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 hydrOXYzine PAMOATE [hydrOXYzine PAMOATE] 25 mg PO DAILY Discharge Medication List DULoxetine HCL [Cymbalta] 60 mg PO DAILY #30 capsule. 08/05/16 [Rx] hydrOXYzine PAMOATE [hydrOXYzine PAMOATE] 25 mg PO DAILY 04/09/17 [History] Follow up Appointment(s)/Referral(s): None,Stated [Primary Care Provider] - 1-2 days
== END 2017-04-15 10:39 | disposition home or self-care (01) | DRG 885 ==
LOC: EC 19:21 → 3MHU 04-09 05:45
PROVIDERS: ADMIT Psychiatry & Neurology Addiction Medicine; ATTEND Psychiatry & Neurology Addiction Medicine
DX: F33.1 Major depressive disorder, recurrent, moderate (principal); R45.851 Suicidal ideations; Z91.14 Patient's other noncompliance with medication regimen; F10.239 Alcohol dependence with withdrawal, unspecified; I10 Essential (primary) hypertension; F17.200 Nicotine dependence, unspecified, uncomplicated; F41.9 Anxiety disorder, unspecified; M10.9 Gout, unspecified; Y90.7 Blood alcohol level of 200-239 mg/100 ml; Z81.8 Family history of other mental and behavioral disorders; Z82.0 Family history of epilepsy and other diseases of the nervous system
CPT/HCPCS: 80053; 80164; 80306; 81001; 82075; 83690; 84443; 85025; 93005; 99285

== ENCOUNTER 2017-11-17 17:24 | Observation (INO) | payer MEDICARE ==
[2017-11-17 18:21] LABS: Basophils # (A) 0.3 k/uL (0-0.2); Basophils % (A) 2 %; Eosinophils # (A) 0.1 k/uL (0-0.7); Eosinophils % (A) 1 %; HCT 46.5 % (39.0-53.0); Lymphocytes % (A) 25 %; MCH 31.4 pg (25.0-35.0); MCHC 33.9 g/dL (31.0-37.0); MCV 92.6 fL (80.0-100.0); Mean Platelet Volume 6.4; Monocytes # (A) 0.6 k/uL (0-1.0); Monocytes % (A) 5 %; Neutrophils # (A) 7.8 k/uL (1.3-7.7); Neutrophils % (A) 65 %; RBC 5.03 m/uL (4.30-5.90); RDW 14.6 % (11.5-15.5); WBC 11.9 k/uL (3.8-10.6)
[2017-11-17 18:22] LABS: Amphetamine Screen,Urine Not Detected (NotDetected); Barbiturate Screen,Urine Not Detected (NotDetected); Benzodiazepines Screen,Urine Not Detected (NotDetected); Cocaine Screen,Urine Not Detected (NotDetected); Methadone Screen, Urine Not Detected (NotDetected); Opiate Screen,Urine Not Detected (NotDetected); Oxycodone Screen, Urine Not Detected (NotDetected); Phencyclidine Screen,Urine Not Detected (NotDetected); Tricyclic Antidepressant,Urine Not Detected (NotDetected); Urn Cannabinoid Scrn Not Detected (NotDetected)
[2017-11-17 18:25] LABS: HGB 15.8 gm/dL (13.0-17.5); Platelet Count 539 k/uL (150-450)
[2017-11-17 18:31] LABS: ALT 83 U/L (21-72); AST 56 U/L (17-59); Acetaminophen <10.0 ug/mL; Albumin 4.6 g/dL (3.5-5.0); Alkaline Phosphatase 93 U/L (38-126); Anion Gap 19 mmol/L; Blood Urea Nitrogen 18 mg/dL (9-20); Calcium 9.3 mg/dL (8.4-10.2); Carbon Dioxide 23 mmol/L (22-30); Chloride 103 mmol/L (98-107); Glucose 178 mg/dL (74-99); Magnesium 1.8 mg/dL (1.6-2.3); Potassium 3.8 mmol/L (3.5-5.1); Salicylate <1.0 mg/dL; Sodium 145 mmol/L (137-145); Total Bilirubin 0.3 mg/dL (0.2-1.3); Total Protein 8.1 g/dL (6.3-8.2)
[2017-11-17] MEDS ORDERED: SODIUM CHLORIDE 0.9% 1,000 ML IV STA (18:41)
[2017-11-17 18:43] LABS: Alcohol 362 mg/dL
[2017-11-17 18:56] LABS: Creatine Kinase MB 0.6 ng/mL (0.0-2.4)
--- NOTE | 2017-11-17 21:45 | ED ---
Psych HPI - General Chief Complaint: Psychiatric Symptoms Stated Complaint: Suicidal Time Seen by Provider: 11/17/17 17:24 Source: patient, EMS, RN notes reviewed Mode of arrival: EMS - History of Present Illness Initial Comments: This is a 57-year-old male who was just recently hospitalized for evaluation of cardiac issues who was seen by a visiting nurse today and he was found to be depressed and suicidal additionally he admitted to drinking alcohol today. Is unclear whether he had a plan specifically to hurt himself. No homicidal thoughts or ideation. MD Complaint: suicidal ideation, feels depressed, other - Related Data Home Medications Medication Instructions Recorded Confirmed Venlafaxine HCl [Effexor XR] 150 mg PO DAILY@0800 11/02/17 11/17/17 amLODIPine [Norvasc] 5 mg PO DAILY 11/02/17 11/17/17 hydrOXYzine PAMOATE 50 mg PO HS 11/02/17 11/17/17 Metoprolol Tartrate [Lopressor] 25 mg PO AC-BID 11/17/17 11/17/17 Omeprazole [PriLOSEC] 20 mg PO AC-BRKFST 11/17/17 11/17/17 Previous Rx's Medication Instructions Recorded Gabapentin [Neurontin] 100 mg PO TID #90 cap 04/15/17 Allergies Allergy/AdvReac Type Severity Reaction Status Date / Time No Known Allergies Allergy Verified 11/17/17 18:16 Review of Systems ROS Statement: Those systems with pertinent positive or pertinent negative responses have been documented in the HPI. ROS Other: All systems not noted in ROS Statement are negative. Past Medical History Past Medical History: Hypertension, Myocardial Infarction (OK) Additional Past Medical History / Comment(s): ETOH History of Any Multi-Drug Resistant Organisms: None Reported Past Surgical History: No Surgical Hx Reported Past Anesthesia/Blood Transfusion Reactions: No Reported Reaction Past Psychological History: Anxiety, Depression Smoking Status: Current some day smoker Past Alcohol Use History: Abuse, Heavy Past Drug Use History: None Reported - Past Family History Father Additional Family Medical History / Comment(s): Father is alive at age 86 with current pacemaker, carotid surgery and scoliosis. Mother Family Medical History: Pneumonia Additional Family Medical History / Comment(s): Mother at age 84 with history of Alzheimer's and Parkinson's. Brother(s) Additional Family Medical History / Comment(s): Patient does not have any brothers or sisters. He does not have any children. General Exam - General Exam Comments Initial Comments: This is a well-developed well-nourished awake but lethargic male he does have the smell of alcohol conjoiners on his breath Limitations: altered mental status General appearance: alert, in no apparent distress Head exam: Present: atraumatic, normocephalic, normal inspection Eye exam: Present: normal appearance, PERRL, EOMI. Absent: scleral icterus, conjunctival injection, periorbital swelling ENT exam: Present: normal exam, mucous membranes moist Neck exam: Present: normal inspection. Absent: tenderness, meningismus, lymphadenopathy Respiratory exam: Present: normal lung sounds bilaterally. Absent: respiratory distress, wheezes, rales, rhonchi, stridor Cardiovascular Exam: Present: normal rhythm, tachycardia, normal heart sounds. Absent: systolic murmur, diastolic murmur, rubs, gallop, clicks GI/Abdominal exam: Present: soft, normal bowel sounds. Absent: distended, tenderness, guarding, rebound, rigid Extremities exam: Present: normal inspection, full ROM, normal capillary refill. Absent: tenderness, pedal edema, joint swelling, calf tenderness Back exam: Present: normal inspection Neurological exam: Present: alert, oriented X3, CN II-XII intact Psychiatric exam: Present: normal affect, normal mood Skin exam: Present: warm, dry, intact, normal color. Absent: rash Course Vital Signs 11/17/17 11/17/17 11/17/17 18:09 20:06 20:56 Temperature 98.3 F 98.1 F Pulse Rate 127 H 110 H 116 H Respiratory 18 18 18 Rate Blood Pressure 161/103 138/89 O2 Sat by Pulse 95 99 Oximetry Medical Decision Making - Medical Decision Making I did discuss findings with Dr. Tabor who is had the patient on his service very recently patient will be admitted for evaluation by psychiatry once he is sober. - Lab Data Result diagrams: 11/17/17 18:03 11/17/17 18:03 Lab Results 11/17/17 11/17/17 11/17/17 Range/Units 18:03 18:03 18:03 WBC 11.9 H (3.8-10.6) k/uL RBC 5.03 (4.30-5.90) m/uL Hgb 15.8 D (13.0-17.5) gm/dL Hct 46.5 (39.0-53.0) % MCV 92.6 (80.0-100.0) fL MCH 31.4 (25.0-35.0) pg MCHC 33.9 (31.0-37.0) g/dL RDW 14.6 (11.5-15.5) % Plt Count 539 H D (150-450) k/uL Neutrophils % 65 % Lymphocytes % 25 % Monocytes % 5 % Eosinophils % 1 % Basophils % 2 % Neutrophils # 7.8 H (1.3-7.7) k/uL Lymphocytes # 3.0 (1.0-4.8) k/uL Monocytes # 0.6 (0-1.0) k/uL Eosinophils # 0.1 (0-0.7) k/uL Basophils # 0.3 H (0-0.2) k/uL Sodium 145 (137-145) mmol/L Potassium 3.8 (3.5-5.1) mmol/L Chloride 103 (98-107) mmol/L Carbon Dioxide 23 (22-30) mmol/L Anion Gap 19 mmol/L BUN 18 (9-20) mg/dL Creatinine 1.22 (0.66-1.25) mg/dL Est GFR (MDRD) Af Amer >60 (>60 ml/min/1.73 sqM) Est GFR (MDRD) Non-Af >60 (>60 ml/min/1.73 sqM) Glucose 178 H (74-99) mg/dL Calcium 9.3 (8.4-10.2) mg/dL Magnesium 1.8 (1.6-2.3) mg/dL Total Bilirubin 0.3 (0.2-1.3) mg/dL AST 56 (17-59) U/L ALT 83 H (21-72) U/L Alkaline Phosphatase 93 (38-126) U/L Total Creatine Kinase (55-170) U/L CK-MB (CK-2) (0.0-2.4) ng/mL CK-MB (CK-2) Rel Index Total Protein 8.1 (6.3-8.2) g/dL Albumin 4.6 (3.5-5.0) g/dL Salicylates <1.0 mg/dL Urine Opiates Screen Not Detected (NotDetected) Ur Oxycodone Screen Not Detected (NotDetected) Urine Methadone Screen Not Detected (NotDetected) Ur Propoxyphene Screen Not Detected (NotDetected) Acetaminophen <10.0 ug/mL Ur Barbiturates Screen Not Detected (NotDetected) U Tricyclic Antidepress Not Detected (NotDetected) Ur Phencyclidine Scrn Not Detected (NotDetected) Ur Amphetamines Screen Not Detected (NotDetected) U Methamphetamines Scrn Not Detected (NotDetected) U Benzodiazepines Scrn Not Detected (NotDetected) Urine Cocaine Screen Not Detected (NotDetected) U Marijuana (THC) Screen Not Detected (NotDetected) Serum Alcohol 362 mg/dL 11/17/17 Range/Units 18:03 WBC (3.8-10.6) k/uL RBC (4.30-5.90) m/uL Hgb (13.0-17.5) gm/dL Hct (39.0-53.0) % MCV (80.0-100.0) fL MCH (25.0-35.0) pg MCHC (31.0-37.0) g/dL RDW (11.5-15.5) % Plt Count (150-450) k/uL Neutrophils % % Lymphocytes % % Monocytes % % Eosinophils % % Basophils % % Neutrophils # (1.3-7.7) k/uL Lymphocytes # (1.0-4.8) k/uL Monocytes # (0-1.0) k/uL Eosinophils # (0-0.7) k/uL Basophils # (0-0.2) k/uL Sodium (137-145) mmol/L Potassium (3.5-5.1) mmol/L Chloride (98-107) mmol/L Carbon Dioxide (22-30) mmol/L Anion Gap mmol/L BUN (9-20) mg/dL Creatinine (0.66-1.25) mg/dL Est GFR (MDRD) Af Amer (>60 ml/min/1.73 sqM) Est GFR (MDRD) Non-Af (>60 ml/min/1.73 sqM) Glucose (74-99) mg/dL Calcium (8.4-10.2) mg/dL Magnesium (1.6-2.3) mg/dL Total Bilirubin (0.2-1.3) mg/dL AST (17-59) U/L ALT (21-72) U/L Alkaline Phosphatase (38-126) U/L Total Creatine Kinase 76 (55-170) U/L CK-MB (CK-2) 0.6 (0.0-2.4) ng/mL CK-MB (CK-2) Rel Index 0.8 Total Protein (6.3-8.2) g/dL Albumin (3.5-5.0) g/dL Salicylates mg/dL Urine Opiates Screen (NotDetected) Ur Oxycodone Screen (NotDetected) Urine Methadone Screen (NotDetected) Ur Propoxyphene Screen (NotDetected) Acetaminophen ug/mL Ur Barbiturates Screen (NotDetected) U Tricyclic Antidepress (NotDetected) Ur Phencyclidine Scrn (NotDetected) Ur Amphetamines Screen (NotDetected) U Methamphetamines Scrn (NotDetected) U Benzodiazepines Scrn (NotDetected) Urine Cocaine Screen (NotDetected) U Marijuana (THC) Screen (NotDetected) Serum Alcohol mg/dL - EKG Data -: EKG Interpreted by Me EKG shows normal: sinus rhythm (Sinus tachycardia rate 117. We'll 170 QRS duration 84 QT since QTC of 322/449 st-t wave changes) Disposition Clinical Impression: Depression, Suicidal ideation, Alcohol intoxication Disposition: ADMITTED IP TO THIS [facility] Condition: Stable Referrals: Christopher Doe MD [Primary Care Provider] - 1-2 days
[2017-11-17] MEDS ORDERED: NALOXONE 0.4 MG/ML 1 ML VIAL IV PRN (22:32)
[2017-11-18] MEDS: METOPROLOL TARTRATE 25 MG TAB PO SCH ×2 (07:52→17:03)
[2017-11-18] MEDS: PANTOPRAZOLE 40 MG TABLET PO SCH (07:52)
[2017-11-18] MEDS ORDERED: PROCHLORPERAZINE 5 MG TAB PO PRN (08:11)
[2017-11-18] MEDS ORDERED: LORazepam 2 MG/ML INJ IV PRN ×3 (08:17)
[2017-11-18] MEDS: SODIUM CHLORIDE 0.9% 1,000 ML IV SCH ×2 (08:23→13:35)
[2017-11-18] MEDS: GABAPENTIN 100 MG CAP PO SCH ×3 (09:38→22:27)
[2017-11-18] MEDS: VENLAFAXINE HCL ER 150 MG CAP PO SCH (10:46)
--- NOTE | 2017-11-18 13:39 | P.HPIM ---
History of Present Illness H&P Date: 11/18/17 Chief Complaint: Alcohol intoxication Patient is a 57-year-old male who was recently discharged from [facility] who was evaluated by his visiting nurse and was found to be alcohol intoxicated he was also depressed and having suicidal thoughts he was sent to [facility] emergency room, serum alcohol level was 362 patient was having tachycardia he was admitted to observation he was started on IV fluid and the CIWA protocol, psychiatry consultation was requested. Past Medical History Past Medical History: Chest Pain / Angina, Hypertension, Renal Disease Additional Past Medical History / Comment(s): Pt recently admitted to [facility] on with thought viral gastroenteritis, chest pain, echo showing EF at 60-65% , CKD stage III. Other hx: ETOH abuse, past finger fractures bilateral hands and R elbow fx. History of Any Multi-Drug Resistant Organisms: None Reported Past Surgical History: No Surgical Hx Reported Past Anesthesia/Blood Transfusion Reactions: No Reported Reaction Smoking Status: Light tobacco smoker - Past Family History Father Additional Family Medical History / Comment(s): Father is deceasedd at age 87. He had a pacemaker, carotid surgery and scoliosis. Mother Family Medical History: Dementia, Musculoskeletal Disorder, Neurologic Disorder , Pneumonia Additional Family Medical History / Comment(s): Mother at age 84 with history of Alzheimer's and Parkinson's. Brother(s) Additional Family Medical History / Comment(s): Patient does not have any brothers or sisters. He does not have any children. Medications and Allergies Home Medications Medication Instructions Recorded Confirmed Type Gabapentin [Neurontin] 100 mg PO TID #90 cap 04/15/17 11/17/17 Rx Venlafaxine HCl [Effexor XR] 150 mg PO DAILY@0800 11/02/17 11/17/17 History amLODIPine [Norvasc] 5 mg PO DAILY 11/02/17 11/17/17 History hydrOXYzine PAMOATE 50 mg PO HS 11/02/17 11/17/17 History Metoprolol Tartrate [Lopressor] 25 mg PO AC-BID 11/17/17 11/17/17 History Omeprazole [PriLOSEC] 20 mg PO AC-BRKFST 11/17/17 11/17/17 History Allergies Allergy/AdvReac Type Severity Reaction Status Date / Time No Known Allergies Allergy Verified 11/17/17 18:16 Physical Exam Vitals: Vital Signs Temp Pulse Resp BP Pulse Ox 11/18/17 11:28 103 H 17 161/97 96 11/18/17 07:54 128 H 18 166/107 95 11/18/17 05:03 120 H 18 170/94 94 L 11/17/17 23:04 98.8 F 117 H 18 160/98 95 11/17/17 20:56 98.1 F 116 H 18 138/89 99 11/17/17 20:06 110 H 18 11/17/17 18:09 98.3 F 127 H 18 161/103 95 Intake and Output 11/17/17 11/18/17 11/18/17 22:59 06:59 14:59 Other: Weight 74.843 kg In general patient is alert and oriented 3 in no apparent distress HEENT head normocephalic and atraumatic Neck is supple no JVD no goiter no lymphadenopathy Chest exam reveals a few scattered rhonchi no wheezing Cardiac exam reveals regular heart sounds S1 and S2 no gallops no murmurs with significant tachycardia at rest heart rate around 115 Abdomen is soft nontender no organomegaly with normal bowel sounds Extremity exam reveals no edema no cyanosis or clubbing Results CBC & Chem 7: 11/17/17 18:03 11/17/17 18:03 Labs: Abnormal Lab Results - Last 24 Hours (Table) 11/17/17 11/17/17 Range/Units 18:03 18:03 WBC 11.9 H (3.8-10.6) k/uL Plt Count 539 H D (150-450) k/uL Neutrophils # 7.8 H (1.3-7.7) k/uL Basophils # 0.3 H (0-0.2) k/uL Glucose 178 H (74-99) mg/dL ALT 83 H (21-72) U/L Thrombosis Risk Factor Assmnt - Choose All That Apply Any of the Below Risk Factors Present?: Yes Each Factor Represents 1 point: Age 41-60 years, Obesity (BMI >25) Other Risk Factors: No Other congenital or acquired thrombophilia - If yes, enter type in comment: No Thrombosis Risk Factor Assessment Total Risk Factor Score: 2 Thrombosis Risk Factor Assessment Level: Low Risk Assessment and Plan Assessment: #1 alcohol intoxication #2 dehydration with mild renal insufficiency creatinine 1.22 #3 underlying history of hypertension #4 underlying history of coronary artery disease with previous history of myocardial infarction in the past #5 underlying history of depression with anxiety disorder #6 underlying history of tobacco abuse #7 underlying history of alcohol abuse #8 depression with suicidal ideation her visiting nurse. At this time continue with IV fluid continue with CIWA protocol When heart rate improves he will be clear to be evaluated for possible psychiatry unit admission
[2017-11-18] MEDS: amLODIPine 5 MG TAB PO SCH (13:41)
[2017-11-18] MEDS ORDERED: hydrOXYzine PAMOATE 25 MG CAP PO SCH (21:00)
[2017-11-19] MEDS: SODIUM CHLORIDE 0.9% 1,000 ML IV SCH ×2 (06:01→14:24)
[2017-11-19 08:17] VITALS: RESP 16
[2017-11-19] MEDS: amLODIPine 5 MG TAB PO SCH (08:33)
[2017-11-19] MEDS: PANTOPRAZOLE 40 MG TABLET PO SCH (08:33)
[2017-11-19] MEDS: GABAPENTIN 100 MG CAP PO SCH ×2 (08:33→17:07)
[2017-11-19] MEDS: METOPROLOL TARTRATE 25 MG TAB PO SCH ×2 (08:33→17:07)
[2017-11-19] MEDS: VENLAFAXINE HCL ER 150 MG CAP PO SCH (08:33)
[2017-11-19 09:14] LABS: Basophils # (A) 0.1 k/uL (0-0.2); Basophils % (A) 2 %; Eosinophils # (A) 0.1 k/uL (0-0.7); Eosinophils % (A) 1 %; HCT 44.6 % (39.0-53.0); HGB 14.7 gm/dL (13.0-17.5); Lymphocytes # (A) 2.7 k/uL (1.0-4.8); Lymphocytes % (A) 31 %; MCH 30.8 pg (25.0-35.0); MCHC 32.9 g/dL (31.0-37.0); MCV 93.7 fL (80.0-100.0); Mean Platelet Volume 7.4; Monocytes # (A) 0.4 k/uL (0-1.0); Monocytes % (A) 5 %; Neutrophils # (A) 5.3 k/uL (1.3-7.7); Neutrophils % (A) 61 %; Platelet Count 355 k/uL (150-450); RBC 4.76 m/uL (4.30-5.90); RDW 14.4 % (11.5-15.5); WBC 8.8 k/uL (3.8-10.6)
[2017-11-19 09:27] LABS: ALT 51 U/L (21-72); AST 36 U/L (17-59); Albumin 4.2 g/dL (3.5-5.0); Alkaline Phosphatase 80 U/L (38-126); Anion Gap 16 mmol/L; Blood Urea Nitrogen 13 mg/dL (9-20); Calcium 9.5 mg/dL (8.4-10.2); Carbon Dioxide 22 mmol/L (22-30); Chloride 106 mmol/L (98-107); Glucose 146 mg/dL (74-99); Potassium 3.4 mmol/L (3.5-5.1); Sodium 144 mmol/L (137-145); Total Bilirubin 0.8 mg/dL (0.2-1.3); Total Protein 7.3 g/dL (6.3-8.2)
[2017-11-19 11:40] VITALS: BP 147/97; PULSE 94; TEMP 98
[2017-11-19] MEDS ORDERED: POTASSIUM CHLORIDE ER 20 MEQ TAB.ER PO STA (14:19)
--- NOTE | 2017-11-19 14:28 | P.DS ---
Providers Date of admission: 11/17/17 22:38 Expected date of discharge: 11/19/17 Attending physician: Medina Tabor Consults: 11/18/17 17:57 Consult Physician Routine Consulting Provider: Samantha Holman Consult Reason/Comments: Suicidal statements when intoxicated Do you want consulting provider notified?: Yes Primary care physician: Christopher Doe Hospital Course: Discharge diagnosis #1 alcohol intoxication #2 dehydration with mild renal insufficiency creatinine 1.22. Improved with IV fluids. Creatinine down to 1.06 #3 underlying history of hypertension #4 underlying history of coronary artery disease with previous history of myocardial infarction in the past #5 underlying history of depression with anxiety disorder #6 underlying history of tobacco abuse #7 underlying history of alcohol abuse #8 depression with suicidal ideation her visiting nurse. Evaluated by psychiatry. Patient does not require inpatient psychiatric hospitalization #9. Hypokalemia. Potassium 3.4. Patient receiving K-dur 20meq prior to discharge Hospital course Patient is a 57-year-old male who was recently discharged from [facility] who was evaluated by his visiting nurse and was found to be alcohol intoxicated he was also depressed and having suicidal thoughts he was sent to [facility] emergency room, serum alcohol level was 362 patient was having tachycardia he was admitted to observation he was started on IV fluid and the CIWA protocol, psychiatry consultation was requested. Patient is feeling better today. He received IV fluids. Kidney functions have shown improvement. Also was seen by psychiatry. The patient is denying any suicidal thoughts. Psychiatry recommended to continue with his home medications. And follow-up with [facility] on which is his scheduled appointment. He is also to follow-up at [facility]. Patient has been educated to refrain from any alcohol use. Multivitamin and folic acid and thiamine prescription have been given. Patient's tachycardia improved with the IV fluids and Ativan. Patient has not required any Ativan since yesterday. He is medically stable for discharge. And his been cleared by psychiatry for discharge with psychiatric follow-up outpatient. Psychiatry did not feel the patient needed inpatient psychiatric care. Patient is medically stable for discharge. Please refer to chart for any further details. I performed an examination of the patient and discussed their management with the physician Filtration Supervisor. I have reviewed the Physician Filtration Supervisor's notes and agree with the documented findings and plan of care Patient Condition at Discharge: Stable Plan - Discharge Summary Discharge Rx Participant: No New Discharge Prescriptions: New Folic Acid 1 mg PO DAILY #30 tablet Multivitamins, Thera [Multivitamin (formulary)] 1 tab PO DAILY #30 tablet Thiamine [Vitamin B-1] 100 mg PO DAILY #30 tablet Continue Gabapentin [Neurontin] 100 mg PO TID #90 cap amLODIPine [Norvasc] 5 mg PO DAILY hydrOXYzine PAMOATE 50 mg PO HS Venlafaxine HCl [Effexor XR] 150 mg PO DAILY@0800 Omeprazole [PriLOSEC] 20 mg PO AC-BRKFST Metoprolol Tartrate [Lopressor] 25 mg PO AC-BID Discharge Medication List Gabapentin [Neurontin] 100 mg PO TID #90 cap 04/15/17 [Rx] Venlafaxine HCl [Effexor XR] 150 mg PO DAILY@0800 11/02/17 [History] amLODIPine [Norvasc] 5 mg PO DAILY 11/02/17 [History] hydrOXYzine PAMOATE 50 mg PO HS 11/02/17 [History] Metoprolol Tartrate [Lopressor] 25 mg PO AC-BID 11/17/17 [History] Omeprazole [PriLOSEC] 20 mg PO AC-BRKFST 11/17/17 [History] Folic Acid 1 mg PO DAILY #30 tablet 11/19/17 [Rx] Multivitamins, Thera [Multivitamin (formulary)] 1 tab PO DAILY #30 tablet [Rx] Thiamine [Vitamin B-1] 100 mg PO DAILY #30 tablet 11/19/17 [Rx] Follow up Appointment(s)/Referral(s): Christopher Doe MD [Primary Care Provider] - 1 Week Activity/Diet/Wound Care/Special Instructions: Diet: cardiac Activity: as tolerated No ETOH Follow up with psychiatrist at [facility] on Follow up at [facility] Discharge Disposition: HOME SELF-CARE
--- NOTE | 2017-11-19 15:15 | P.CN ---
Psychiatric Consult - . Consult date: 11/19/17 Consult:: 11/19/17 15:05 Identification: Patient is a 57-year-old male who presented to the emergency room intoxicated with suicidal ideation. Reason for Consult: Consult was requested to evaluate for suicidal ideation. History of Present Illness: Patient presented to the emergency room intoxicated and reported that he was having suicidal thoughts. Patient's blood alcohol level on admission was 362. Patient states that a visiting nurse came to the house and he didn't like strangers coming to his house and so he began drinking alcohol and then states that last month after the holidays he had been drinking about a pint every several days at least several times a week. Patient was last admitted to the inpatient psychiatric unit in April 2017 and discharged on Effexor IR 50 mg extended release with follow-up at [facility] and the patient states he was seen 2 months ago at [facility] and has an appointment next there. Patient states that he doesn't recall saying he was suicidal when he was admitted and denies any current suicidal ideation and states that he has never made a suicide attempt. Patient states that the Effexor has been quite effective for his depression and anxiety as he is having an increased level of energy has been eating and sleeping well. He states that his anxiety is much better on the Effexor. He reports that he has been consistently taking his Effexor. At this time patient had no other concerns or complaints. Patient does not endorse a history of misael, psychosis but does endorse a history of depression and anxiety he states since his 20s for which he has been treated with multiple medications. Past Psychiatric History: Patient states he has had 3 psychiatric admissions his last one being here in April 2017 and 2 prior psychiatric admissions at [facility] in 2014. He is unclear about which medications he has been tried on in the past and is currently on Effexor 150 mg extended release. Past Medical/Surgical History: Patient has a medical history of hypertension denies any surgeries and had fractured his elbow in the past. Family History: Patient's mother was treated for depression and anxiety, he has 2 maternal uncles who completed suicide and his father was an alcohol abuser. Social History: Patient's father in April 2017 and his mother 10 years ago. Patient has no siblings completed high school and one onto some college. He states he's been and and has no children. Patient was working in [employer] for [employer] but they retired him and tried to put him on a disability for his depression. Patient is currently on Social Security disability for depression. Patient denies any abuse history. Substance Use History: Patient states he began using alcohol in his teens and his longest sobriety has been for 2-3 years. He states that he has never had any inpatient or outpatient rehab treatment. Patient states that his heaviest he was drinking 2 pints a day 2-3 times a week for several months in the last 2 years. Patient states that since the he has been drinking a pint every several days several times a week. Patient denies any prior drug use and denies any current tobacco use. Legal History: Patient states he was charged with leaving the scene of an accident Mental status: Appearance/Attitude: Patient is sitting up in a hospital bed in no acute distress, makes good eye contact and is cooperative. Behavior: Patient does not exhibit any psychomotor agitation or retardation. Speech/Language: Patient's speech is spontaneous and of normal volume and rhythm and he is coherent. Thought Process: Patient is goal-directed with no evidence of loose association or flight of ideas Thought Content: Patient denies any auditory or visual hallucinations no delusions or paranoid ideation were elicited. Patient reports that he does not recall stating that he was suicidal last night and came in with a blood alcohol level of 362. Patient states he's been taking his medications and his anxiety is improved and his depression has also improved. He reports sleeping and eating well at home. He states that he has been drinking since the . Suicidal/Homicidal Ideation: Patient denies any current suicidal or homicidal ideation. Sensorium/Cognition: Patient is alert and oriented to person, place, time and his recent and remote memory were grossly intact. Mood/Affect: Patient's mood is pleasant and his affect is appropriate Insight/Judgment: Patient's insight and judgment are fair. Assessment: Patient states that he has been drinking alcohol since the s and is well drank more prior to admission after a visiting nurse visited the home as he does not like strangers coming into his house. He states that he does not recall stating he was suicidal when he was admitted and under the influence of alcohol. Patient states he has been taking his medications and they have been effective in treating his depression as well as his anxiety. Patient is followed up at [facility] and was seen there 2 months ago and has an appointment next . Patient denied that he was feeling depressed and denied any symptoms of anxiety and stated he was not feeling suicidal at this time. Diagnosis: Alcohol intoxication with use disorder, moderate; depressive disorder not otherwise specified, anxiety disorder not otherwise specified Plan: Patient does not meet criteria for an inpatient admission, he is not expressing any suicidal ideation at this time and has no evidence of a psychotic process or manic process. Patient should continue on his Effexor 150 mg extended release in the morning and continue with his appointment next at [facility]. Patient was also given information to contact [facility] to set up an intake for their outpatient day program and patient stated that he intended to do this. Patient was encouraged to avoid all alcohol and follow-up with the recommendations that were given to him.
== END 2017-11-19 19:35 | disposition home health service (06) ==
LOC: EC 17:24 → 3OBS 22:38
PROVIDERS: ADMIT Internal Medicine; ATTEND Internal Medicine
DX: F10.129 Alcohol abuse with intoxication, unspecified (principal); Y90.8 Blood alcohol level of 240 mg/100 ml or more; E86.0 Dehydration; I12.9 Hypertensive chronic kidney disease with stage 1 through stage 4 chronic kidney disease, or unspecified chronic kidney disease; N18.3 Chronic kidney disease, stage 3 (moderate); F32.9 Major depressive disorder, single episode, unspecified; R45.851 Suicidal ideations; F41.9 Anxiety disorder, unspecified; E87.6 Hypokalemia; I25.10 Atherosclerotic heart disease of native coronary artery without angina pectoris; Z79.899 Other long term (current) drug therapy; I25.2 Old myocardial infarction; F17.200 Nicotine dependence, unspecified, uncomplicated
CPT/HCPCS: 99285 ×2; 96361 ×3; 96374; 96376; 82075; 36415; 93005; 80053 ×2; 82550; 82553; 83735; 85025 ×2; 80306; 83520 ×2; 80320; G0378 ×3; J2060

== ENCOUNTER 2018-04-04 11:39 | Emergency (ER) | payer MEDICARE ==
[2018-04-04 11:53] VITALS: BP 169/110; PULSE 109; RESP 20; TEMP 98.1
[2018-04-04] MEDS ORDERED: LORazepam 2 MG/ML INJ IV STA (12:17)
[2018-04-04] MEDS ORDERED: ONDANSETRON 4 MG TAB PO STA (12:17)
[2018-04-04] MEDS ORDERED: LORazepam 2 MG/ML INJ IM STA (12:50)
--- NOTE | 2018-04-04 13:32 | ED ---
General Adult HPI - General Chief complaint: Psychiatric Symptoms Stated complaint: sweating Time Seen by Provider: 04/04/18 12:08 Source: patient, RN notes reviewed, old records reviewed Mode of arrival: ambulatory Limitations: no limitations - History of Present Illness Initial comments: This is a 57-year-old male the ER for evaluation. This man is presenting for evaluation regards to regards to alcoholism, psychiatric illness thinking of committing suicide. Patient states he needs help. Patient states he is well- known to this facility for evaluation by psychiatry before - Related Data Home Medications Medication Instructions Recorded Confirmed Venlafaxine HCl [Effexor XR] 150 mg PO BID 11/02/17 12/16/17 amLODIPine [Norvasc] 5 mg PO DAILY 11/02/17 12/16/17 Metoprolol Tartrate [Lopressor] 25 mg PO BID 11/17/17 12/16/17 Mirtazapine [Remeron] 30 mg PO HS 12/16/17 12/16/17 Naltrexone HCl [Revia] 50 mg PO DAILY 12/16/17 12/16/17 Allergies Allergy/AdvReac Type Severity Reaction Status Date / Time No Known Allergies Allergy Verified 04/04/18 11:52 Review of Systems ROS Statement: Those systems with pertinent positive or pertinent negative responses have been documented in the HPI. ROS Other: All systems not noted in ROS Statement are negative. Past Medical History Past Medical History: Chest Pain / Angina, Hypertension, Renal Disease Additional Past Medical History / Comment(s): CKD stage III,(PT STATES HE IS UNAWARE OF KIDNEY DISEASE.)., past finger fractures bilateral hands and R elbow fx., ALCOHOL ABUSE., HOSPITALIZED 11/17/17 TO 11/19/17 AT [facility] WITH ELEVATED ALCOHOL LEVEL., PT STATES HX OF BLOOD INFECTION 3 YEARS AGO AND ALMOST ([facility])., STATES PAST HX OF BLOOD IN STOOL. History of Any Multi-Drug Resistant Organisms: None Reported Past Surgical History: No Surgical Hx Reported Past Anesthesia/Blood Transfusion Reactions: No Reported Reaction Additional Past Anesthesia/Blood Transfusion Reaction / Comment(s): NO ANESTHESIA HX. PT STATES TOOTH PULLED AT [facility]. Past Psychological History: Anxiety, Depression Smoking Status: Light tobacco smoker Past Alcohol Use History: Abuse, Heavy Past Drug Use History: None Reported - Past Family History Father Family Medical History: Cancer Additional Family Medical History / Comment(s): Father is deceasedd at age 87. He had a pacemaker, carotid surgery and scoliosis. Mother Family Medical History: Dementia, Musculoskeletal Disorder, Neurologic Disorder , Pneumonia Additional Family Medical History / Comment(s): Mother at age 84 with history of Alzheimer's and Parkinson's. Brother(s) Additional Family Medical History / Comment(s): Patient does not have any brothers or sisters. He does not have any children. General Exam Limitations: no limitations General appearance: alert, in no apparent distress, appears intoxicated Head exam: Present: atraumatic, normocephalic, normal inspection Eye exam: Present: normal appearance, PERRL, EOMI. Absent: scleral icterus, conjunctival injection, periorbital swelling ENT exam: Present: normal exam, mucous membranes moist Neck exam: Present: normal inspection. Absent: tenderness, meningismus, lymphadenopathy Respiratory exam: Present: normal lung sounds bilaterally. Absent: respiratory distress, wheezes, rales, rhonchi, stridor Cardiovascular Exam: Present: regular rate, normal rhythm, normal heart sounds. Absent: systolic murmur, diastolic murmur, rubs, gallop, clicks GI/Abdominal exam: Present: soft, normal bowel sounds. Absent: distended, tenderness, guarding, rebound, rigid Extremities exam: Present: normal inspection, full ROM, normal capillary refill. Absent: tenderness, pedal edema, joint swelling, calf tenderness Back exam: Present: normal inspection Neurological exam: Present: alert, oriented X3, CN II-XII intact Psychiatric exam: Present: normal affect, normal mood Skin exam: Present: warm, dry, intact, normal color. Absent: rash Course Vital Signs 04/04/18 11:48 Temperature 98.1 F Pulse Rate 109 H Respiratory 20 Rate Blood Pressure 169/110 O2 Sat by Pulse 98 Oximetry Medical Decision Making - Medical Decision Making 57 male seen evaluated with psychiatry, patient deemed stable for discharge. Patient can be discharged home. Disposition Clinical Impression: History of ETOH abuse, Alcohol intoxication Disposition: HOME SELF-CARE Condition: Good Instructions: Alcohol Dependence (ED), Alcohol Use Disorder (ED) Is patient prescribed a controlled substance at d/c from ED?: No Referrals: Shantel Yin MD [Primary Care Provider] - 1-2 days
== END 2018-04-04 19:50 | disposition home or self-care (01) ==
LOC: EC 11:39
DX: F10.129 Alcohol abuse with intoxication, unspecified (principal); I12.9 Hypertensive chronic kidney disease with stage 1 through stage 4 chronic kidney disease, or unspecified chronic kidney disease; N18.3 Chronic kidney disease, stage 3 (moderate); F32.9 Major depressive disorder, single episode, unspecified; F41.9 Anxiety disorder, unspecified; F17.200 Nicotine dependence, unspecified, uncomplicated; Z79.899 Other long term (current) drug therapy; Z53.8 Procedure and treatment not carried out for other reasons
CPT/HCPCS: 82075; 99284; 96372; J2060

== ENCOUNTER 2018-06-03 13:31 | Inpatient (IN) | payer MEDICARE ==
[2018-06-03] MEDS ORDERED: SODIUM CHLORIDE 0.9% 1,000 ML IV STA ×2 (14:19)
[2018-06-03 14:37] LABS: Basophils # (A) 0.1 k/uL (0-0.2); Basophils % (A) 1 %; Eosinophils % (A) 0 %; HCT 48.7 % (39.0-53.0); HGB 15.3 gm/dL (13.0-17.5); Lymphocytes # (A) 2.3 k/uL (1.0-4.8); Lymphocytes % (A) 17 %; MCH 29.6 pg (25.0-35.0); MCHC 31.5 g/dL (31.0-37.0); MCV 93.8 fL (80.0-100.0); Monocytes # (A) 0.7 k/uL (0-1.0); Monocytes % (A) 5 %; Neutrophils # (A) 10.4 k/uL (1.3-7.7); Neutrophils % (A) 76 %; Platelet Count 501 k/uL (150-450); RBC 5.18 m/uL (4.30-5.90); RDW 15.6 % (11.5-15.5); WBC 13.7 k/uL (3.8-10.6)
[2018-06-03] MEDS ORDERED: IBUPROFEN 600 MG TAB PO STA (14:37)
[2018-06-03 14:42] LABS: INR 1.1 (<1.2); Prothrombin Time 10.8 sec (9.0-12.0)
--- NOTE | 2018-06-03 14:54 | ED ---
Alcohol HPI - General Chief Complaint: Alcohol Stated Complaint: mental health Time Seen by Provider: 06/03/18 13:54 Source: patient, EMS, RN notes reviewed, old records reviewed Mode of arrival: EMS Limitations: no limitations - History of Present Illness Initial Comments: [id number] male presents emergency department today with his friend. Patient's friend went to visit him today she has not heard from him since Thursday. She found four half gallons of vodka around the house that are empty. Patient reports his last drink was just prior to arrival. Patient apparently was covered in his own urine and feces. He has not been taking care of himself. His evidence extremely depressed. Patient's crying. Patient reports that he has been taking his blood pressure medication however it is likely doubtful. He arrives to the emergency department hypertensive at 180/79. Patient denies any falls or trauma. - Related Data Home Medications Medication Instructions Recorded Confirmed amLODIPine [Norvasc] 5 mg PO DAILY 11/02/17 06/03/18 Metoprolol Tartrate [Lopressor] 25 mg PO BID 11/17/17 06/03/18 Calcium Carbonate [Tums] 500 mg PO QID PRN 06/03/18 06/03/18 Ibuprofen [Motrin Ib] 600 mg PO Q6H PRN 06/03/18 06/03/18 Allergies Allergy/AdvReac Type Severity Reaction Status Date / Time No Known Allergies Allergy Verified 06/03/18 13:50 Review of Systems ROS Statement: Those systems with pertinent positive or pertinent negative responses have been documented in the HPI. ROS Other: All systems not noted in ROS Statement are negative. Past Medical History Past Medical History: Chest Pain / Angina, Hypertension, Renal Disease Additional Past Medical History / Comment(s): CKD stage III,(PT STATES HE IS UNAWARE OF KIDNEY DISEASE.)., past finger fractures bilateral hands and R elbow fx., ALCOHOL ABUSE., HOSPITALIZED 11/17/17 TO 11/19/17 AT [facility] WITH ELEVATED ALCOHOL LEVEL., PT STATES HX OF BLOOD INFECTION 3 YEARS AGO AND ALMOST ([facility])., STATES PAST HX OF BLOOD IN STOOL. History of Any Multi-Drug Resistant Organisms: None Reported Past Surgical History: No Surgical Hx Reported Past Anesthesia/Blood Transfusion Reactions: No Reported Reaction Additional Past Anesthesia/Blood Transfusion Reaction / Comment(s): NO ANESTHESIA HX. PT STATES TOOTH PULLED AT [facility]. Past Psychological History: Anxiety, Depression Smoking Status: Light tobacco smoker Past Alcohol Use History: Abuse, Heavy Past Drug Use History: None Reported - Past Family History Father Family Medical History: Cancer Additional Family Medical History / Comment(s): Father is deceasedd at age 87. He had a pacemaker, carotid surgery and scoliosis. Mother Family Medical History: Dementia, Musculoskeletal Disorder, Neurologic Disorder , Pneumonia Additional Family Medical History / Comment(s): Mother at age 84 with history of Alzheimer's and Parkinson's. Brother(s) Additional Family Medical History / Comment(s): Patient does not have any brothers or sisters. He does not have any children. General Exam - General Exam Comments Initial Comments: 57-year-old male. Patient is crying. Limitations: no limitations General appearance: alert, appears intoxicated Head exam: Present: atraumatic, normocephalic, normal inspection Eye exam: Present: normal appearance, PERRL, EOMI. Absent: scleral icterus, conjunctival injection, periorbital swelling ENT exam: Present: normal exam, mucous membranes moist Neck exam: Present: normal inspection. Absent: tenderness, meningismus, lymphadenopathy Respiratory exam: Present: normal lung sounds bilaterally. Absent: respiratory distress, wheezes, rales, rhonchi, stridor Cardiovascular Exam: Present: regular rate, normal rhythm, normal heart sounds. Absent: systolic murmur, diastolic murmur, rubs, gallop, clicks GI/Abdominal exam: Present: soft, normal bowel sounds. Absent: distended, tenderness, guarding, rebound, rigid Extremities exam: Present: normal inspection, full ROM, normal capillary refill. Absent: tenderness, pedal edema, joint swelling, calf tenderness Back exam: Present: normal inspection Neurological exam: Present: alert, oriented X3, CN II-XII intact Psychiatric exam: Present: normal affect, normal mood Skin exam: Present: warm, dry, intact, normal color. Absent: rash Course Vital Signs 06/03/18 06/03/18 06/03/18 13:50 14:55 15:15 Temperature 100.2 F H Pulse Rate 119 H 92 121 H Respiratory 20 20 22 Rate Blood Pressure 177/115 185/122 161/111 O2 Sat by Pulse 94 L 95 94 L Oximetry 06/03/18 06/03/1806/03/18 15:35 16:00 16:29 Temperature Pulse Rate 98 104 H 103 H Respiratory 20 22 20 Rate Blood Pressure 160/120 163/88 156/91 O2 Sat by Pulse 95 95 94 L Oximetry 06/03/18 16:33 Temperature 98.9 F Pulse Rate Respiratory Rate Blood Pressure O2 Sat by Pulse Oximetry - Reevaluation(s) Reevaluation #1: 06/03/18 15:28 Patient's a level is 350. Reevaluation #2: 06/03/18 16:19 Patient is quite intoxicated. States he wants to be transferred to [facility]. Discussed transfer Patient with clinic for alcohol intoxication. Patient is here with his friend. The friend is quite particular about his care , and demanding of staff. Medical Decision Making - Medical Decision Making 57-year-old male presents emergency department today with alcohol intoxication. Friend is concerned Return for Severe Depression. He Denies Any Suicidal Ideations at This Time. Patient Alcohol Level Is 350. Patient Was Started on Fluids. He Arrives to Emergency Department Hypertensive. He States He Has Been Taking His Blood Pressure Medication but Does Not Work according to him. Blood Pressure Is 180/110. He Is Given 20 Mg of Labetalol. Patient denies any chest pain, shortness of breath. He denies any complaints at this time. While telling Patient he would be admitted,=consult to psych for depression, Patient states he wants to be transferred to [facility]. He's never been seen by [facility]. He was informed of no medical necessity to transfer to the [facility] at this time. He did arrive to have a mild temperature when he came into the emergency department. We did obtain a blood culture. Patient's chest x-ray is negative for pneumonia. As showing evidence of chronic rib fractures. Patient will be admitted for severe alcohol intoxication, given fluids, consult to psychiatry when he is sober. - Lab Data Result diagrams: 06/03/18 13:00 06/03/18 13:00 Lab Results 06/03/18 06/03/18 06/03/18 Range/Units 13:00 13:00 13:00 WBC 13.7 H (3.8-10.6) k/uL RBC 5.18 (4.30-5.90) m/uL Hgb 15.3 (13.0-17.5) gm/dL Hct 48.7 (39.0-53.0) % MCV 93.8 (80.0-100.0) fL MCH 29.6 (25.0-35.0) pg MCHC 31.5 (31.0-37.0) g/dL RDW 15.6 H (11.5-15.5) % Plt Count 501 H (150-450) k/uL Neutrophils % 76 % Lymphocytes % 17 % Monocytes % 5 % Eosinophils % 0 % Basophils % 1 % Neutrophils # 10.4 H (1.3-7.7) k/uL Lymphocytes # 2.3 (1.0-4.8) k/uL Monocytes # 0.7 (0-1.0) k/uL Eosinophils # 0.0 (0-0.7) k/uL Basophils # 0.1 (0-0.2) k/uL PT 10.8 (9.0-12.0) sec INR 1.1 (<1.2) Sodium 145 (137-145) mmol/L Potassium 3.9 (3.5-5.1) mmol/L Chloride 96 L (98-107) mmol/L Carbon Dioxide 29 (22-30) mmol/L Anion Gap 20 mmol/L BUN 13 (9-20) mg/dL Creatinine 1.05 (0.66-1.25) mg/dL Est GFR (CKD-EPI)AfAm >90 (>60 ml/min/1.73 sqM) Est GFR (CKD-EPI)NonAf 80 (>60 ml/min/1.73 sqM) Glucose 123 H (74-99) mg/dL Calcium 10.4 H (8.4-10.2) mg/dL Magnesium 1.4 L (1.6-2.3) mg/dL Total Bilirubin 0.4 (0.2-1.3) mg/dL AST 38 (17-59) U/L ALT 69 (21-72) U/L Alkaline Phosphatase 90 (38-126) U/L Total Protein 8.3 H (6.3-8.2) g/dL Albumin 4.6 (3.5-5.0) g/dL Amylase 96 (30-110) U/L Lipase 153 (23-300) U/L Urine Color Urine Appearance (Clear) Urine pH (5.0-8.0) Ur Specific Merrill (1.001-1.035) Urine Protein (Negative) Urine Glucose (UA) (Negative) Urine Ketones (Negative) Urine Blood (Negative) Urine Nitrite (Negative) Urine Bilirubin (Negative) Urine Urobilinogen (<2.0) mg/dL Ur Leukocyte Esterase (Negative) Urine RBC (0-5) /hpf Urine WBC (0-5) /hpf Urine Opiates Screen (NotDetected) Ur Oxycodone Screen (NotDetected) Urine Methadone Screen (NotDetected) Ur Propoxyphene Screen (NotDetected) Ur Barbiturates Screen (NotDetected) U Tricyclic Antidepress (NotDetected) Ur Phencyclidine Scrn (NotDetected) Ur Amphetamines Screen (NotDetected) U Methamphetamines Scrn (NotDetected) U Benzodiazepines Scrn (NotDetected) Urine Cocaine Screen (NotDetected) U Marijuana (THC) Screen (NotDetected) Serum Alcohol 351 mg/dL 06/03/18 Range/Units 15:15 WBC (3.8-10.6) k/uL RBC (4.30-5.90) m/uL Hgb (13.0-17.5) gm/dL Hct (39.0-53.0) % MCV (80.0-100.0) fL MCH (25.0-35.0) pg MCHC (31.0-37.0) g/dL RDW (11.5-15.5) % Plt Count (150-450) k/uL Neutrophils % % Lymphocytes % % Monocytes % % Eosinophils % % Basophils % % Neutrophils # (1.3-7.7) k/uL Lymphocytes # (1.0-4.8) k/uL Monocytes # (0-1.0) k/uL Eosinophils # (0-0.7) k/uL Basophils # (0-0.2) k/uL PT (9.0-12.0) sec INR (<1.2) Sodium (137-145) mmol/L Potassium (3.5-5.1) mmol/L Chloride (98-107) mmol/L Carbon Dioxide (22-30) mmol/L Anion Gap mmol/L BUN (9-20) mg/dL Creatinine (0.66-1.25) mg/dL Est GFR (CKD-EPI)AfAm (>60 ml/min/1.73 sqM) Est GFR (CKD-EPI)NonAf (>60 ml/min/1.73 sqM) Glucose (74-99) mg/dL Calcium (8.4-10.2) mg/dL Magnesium (1.6-2.3) mg/dL Total Bilirubin (0.2-1.3) mg/dL AST (17-59) U/L ALT (21-72) U/L Alkaline Phosphatase (38-126) U/L Total Protein (6.3-8.2) g/dL Albumin (3.5-5.0) g/dL Amylase (30-110) U/L Lipase (23-300) U/L Urine Color Light Yellow Urine Appearance Clear (Clear) Urine pH 7.0 (5.0-8.0) Ur Specific Merrill 1.006 (1.001-1.035) Urine Protein 1+ H (Negative) Urine Glucose (UA) Negative (Negative) Urine Ketones Negative (Negative) Urine Blood Small H (Negative) Urine Nitrite Negative (Negative) Urine Bilirubin Negative (Negative) Urine Urobilinogen <2.0 (<2.0) mg/dL Ur Leukocyte Esterase Negative (Negative) Urine RBC 1 (0-5) /hpf Urine WBC <1 (0-5) /hpf Urine Opiates Screen Not Detected (NotDetected) Ur Oxycodone Screen Not Detected (NotDetected) Urine Methadone Screen Not Detected (NotDetected) Ur Propoxyphene Screen Not Detected (NotDetected) Ur Barbiturates Screen Not Detected (NotDetected) U Tricyclic Antidepress Not Detected (NotDetected) Ur Phencyclidine Scrn Not Detected (NotDetected) Ur Amphetamines Screen Not Detected (NotDetected) U Methamphetamines Scrn Not Detected (NotDetected) U Benzodiazepines Scrn Not Detected (NotDetected) Urine Cocaine Screen Not Detected (NotDetected) U Marijuana (THC) Screen Not Detected (NotDetected) Serum Alcohol mg/dL 06/03/18 16:20 EKG performed at 1513 just sinus tachycardia otherwise normal EKG. Ventricular rate of 113 bpm. It was 150 ms. QRS ration 82. QTQTC 332/455 ms. - Radiology Data Radiology results: report reviewed Mild acute croup primary process. Multiple left-sided rib fracture deformities age-indeterminate but suspected chronic. Chronic clinically. Disposition Clinical Impression: ETOH abuse, Hypertension, Deficit in activities of daily living (ADL), Hypomagnesemia Disposition: [facility] Condition: Stable Referrals: Shantel Yin MD [Primary Care Provider] - 1-2 days Time of Disposition: 16:27
[2018-06-03] MEDS ORDERED: SODIUM CHLORIDE 0.9% 1,000 ML with MVI, ADULT NO.4 WITH VIT K 10 ML, THIAMINE 100 MG, F... IV ONE ×4 (15:00)
[2018-06-03] MEDS ORDERED: LABETALOL 5 MG/ML VIAL MDV IVP STA (15:03)
[2018-06-03 15:05] LABS: ALT 69 U/L (21-72); AST 38 U/L (17-59); Albumin 4.6 g/dL (3.5-5.0); Alkaline Phosphatase 90 U/L (38-126); Amylase 96 U/L (30-110); Anion Gap 20 mmol/L; Blood Urea Nitrogen 13 mg/dL (9-20); Calcium 10.4 mg/dL (8.4-10.2); Carbon Dioxide 29 mmol/L (22-30); Chloride 96 mmol/L (98-107); Glucose 123 mg/dL (74-99); Lipase 153 U/L (23-300); Magnesium 1.4 mg/dL (1.6-2.3); Potassium 3.9 mmol/L (3.5-5.1); Sodium 145 mmol/L (137-145); Total Bilirubin 0.4 mg/dL (0.2-1.3); Total Protein 8.3 g/dL (6.3-8.2)
[2018-06-03 15:07] LABS: Alcohol 351 mg/dL
[2018-06-03 15:47] LABS: Appearance,Urine Clear (Clear); Bilirubin,Urine Negative (Negative); Blood,Urine Small (Negative); Color,Urine Light Yellow; Glucose,Urine (UA) Negative (Negative); Ketones,Urine Negative (Negative); Leukocyte Esterase,Urine Negative (Negative); Nitrite,Urine Negative (Negative); Protein,Urine 1+ (Negative); RBC,Urine 1 /hpf (0-5); Specific Gravity,Urine 1.006 (1.001-1.035); Urobilinogen,Urine <2.0 mg/dL (<2.0); WBC,Urine <1 /hpf (0-5)
--- NOTE | 2018-06-03 16:01 | XR ---
EXAMINATION TYPE: XR chest 2V DATE OF EXAM: 06/03/2018 COMPARISON: None HISTORY: 57-year-old male with pain TECHNIQUE: PA and lateral views FINDINGS: Heart normal size. Aorta and pulmonary vasculature within normal limits. No consolidation or pleural effusion. Multiple left-sided rib fracture deformities, age indeterminate but suspected chronic. IMPRESSION: No acute cardiopulmonary process. Multiple left-sided rib fracture deformities, age indeterminate but suspected chronic. Clinically correlate.
[2018-06-03 16:27] LABS: Amphetamine Screen,Urine Not Detected (NotDetected); Barbiturate Screen,Urine Not Detected (NotDetected); Benzodiazepines Screen,Urine Not Detected (NotDetected); Cocaine Screen,Urine Not Detected (NotDetected); Methadone Screen, Urine Not Detected (NotDetected); Opiate Screen,Urine Not Detected (NotDetected); Oxycodone Screen, Urine Not Detected (NotDetected); Phencyclidine Screen,Urine Not Detected (NotDetected); Tricyclic Antidepressant,Urine Not Detected (NotDetected); Urn Cannabinoid Scrn Not Detected (NotDetected)
[2018-06-03] MEDS ORDERED: NALOXONE 0.4 MG/ML 1 ML VIAL IV PRN ×2 (16:27→17:01)
[2018-06-03] MEDS ORDERED: IBUPROFEN 400 MG TAB PO PRN (16:27)
[2018-06-03] MEDS ORDERED: MORPHINE SULFATE 4 MG/ML SYRINGE IV PRN (16:27)
[2018-06-03] MEDS ORDERED: LORazepam 2 MG/ML INJ IV PRN (16:29)
[2018-06-03] MEDS ORDERED: THIAMINE 100 MG/ML 2 ML VIAL IM STA (16:29)
[2018-06-03] MEDS ORDERED: SODIUM CHLORIDE 0.9% 1,000 ML IV SCH (16:30)
[2018-06-03] MEDS ORDERED: MAGNESIUM OXIDE 400 MG TAB PO STA (17:00)
[2018-06-03] MEDS ORDERED: SODIUM CHLORIDE 0.9% 1,000 ML IV ONE (17:16)
[2018-06-03] MEDS ORDERED: cefTRIAXone IN SWFI 1,000 MG/10 ML SYRINGE IVP STA (17:16)
[2018-06-03] MEDS ORDERED: cefTRIAXone IN SWFI 2,000 MG/20 ML SYRINGE IVP STA (17:17)
[2018-06-03] MEDS: LOPERAMIDE 2 MG CAP PO ONE (17:41)
[2018-06-03] MEDS: LORazepam 2 MG/ML INJ IV PRN ×3 (18:13→22:02)
--- NOTE | 2018-06-03 18:15 | CT ---
EXAMINATION TYPE: CT brain wo con DATE OF EXAM: 06/03/2018 COMPARISON: HISTORY: Altered mental status CT DLP: 1216 mGycm Automated exposure control for dose reduction was used. FINDINGS: Altered mental status IMPRESSION: VENTRICLES HAVE NORMAL SIZE. THERE IS NO MASS EFFECT NOR MIDLINE SHIFT. THERE IS NO SIGN OF INTRACRAN IAL HEMORRHAGE. THE CALVARIUM APPEARS INTACT. IMPRESSION: NEGATIVE CT SCAN OF THE BRAIN.
[2018-06-03 21:19] VITALS: BMI 31.6
[2018-06-03] MEDS: THIAMINE 100 MG TAB PO SCH (21:38)
[2018-06-04] MEDS: LORazepam 2 MG/ML INJ IV PRN ×3 (02:03→21:34)
[2018-06-04] MEDS ORDERED: MORPHINE ORAL SOLN 10 MG/5 ML CUP PO PRN (06:33)
[2018-06-04] MEDS ORDERED: PANTOPRAZOLE 40 MG/10 ML VIAL IV SCH (09:00)
[2018-06-04] MEDS: THIAMINE 100 MG TAB PO SCH ×2 (11:05→16:27)
[2018-06-04] MEDS ORDERED: CALCIUM CARBONATE 500 MG CHEWABLE PO PRN (12:13)
[2018-06-04] MEDS ORDERED: Magnesium Replacement Protocol 1 EACH MISC MISCELLANE PRN (12:20)
[2018-06-04] MEDS: METOPROLOL TARTRATE 25 MG TAB PO SCH ×2 (13:07→21:28)
[2018-06-04] MEDS: MAGNESIUM SULFATE-D5W PMX 1 GM in DEXTROSE/WATER 1 100ML.BAG IVPB SCH ×3 (13:07→15:24)
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
[2018-06-04] MEDS: traMADol 50 MG TAB PO PRN (14:13)
--- NOTE | 2018-06-04 16:00 | P.HPIM ---
History of Present Illness H&P Date: 06/04/18 Chief Complaint: Alcohol intoxication Patient is a 57-year-old male with a known history of anxiety/depression, CK D stage III, hypertension currently not on any medications at home and alcohol abuse came to ER with alcohol intoxication. Patient's friend went to visit him today she has not heard from him since Thursday. She found four half gallons of vodka around the house that are empty. Patient reports his last drink was just prior to arrival. Patient apparently was covered in his own urine and feces. He has not been taking care of himself. His evidence extremely depressed. Patient's crying. Patient reports that he has not been taking his blood pressure medication. Patient is on Norvasc and metoprolol at home.. He arrives to the emergency department hypertensive at 180/79. Patient denies any falls or trauma. Denied any recent illnesses. No fever no chills. Patient is not also taking his psychiatric medications. Patient is more awake and oriented today. Chest x-ray showed no acute cardiopulmonary process. Multiple left-sided rib fracture deformities, age indeterminate but suspected chronic. Likely correlate. EKG showed sinus tachycardia. CT head is negative for any acute intracranial process. EtOH level greater than 300 Lactic acidosis 7.0 on admission. Review of Systems Constitutional: Patient denies any fever or chills . No generalized weakness or weight loss. Abdomen: Patient denied nausea vomiting and diarrhea and abdominal pain. Cardiovascular: Patient denies any chest pain or short of breath no palpitations. Respiratory: patient denied any cough is from production. No shortness of breath Neurologic: Patient denied any numbness or tingling headache. Musculoskeletal: Patient denies any complaints of joint swelling or deformity. Skin: Negative Psychiatric: Negative Endocrine: No heat or cold intolerance. No recent weight gain. Genitourinary: No dysuria or hematuria. All other 14 point ROS negative except the above Past Medical History Past Medical History: Chest Pain / Angina, Hypertension, Renal Disease Additional Past Medical History / Comment(s): CKD stage III,(PT STATES HE IS UNAWARE OF KIDNEY DISEASE.)., past finger fractures bilateral hands and R elbow fx., ALCOHOL ABUSE., HOSPITALIZED 11/17/17 TO 11/19/17 AT [facility] WITH ELEVATED ALCOHOL LEVEL., PT STATES HX OF BLOOD INFECTION 3 YEARS AGO AND ALMOST ([facility])., STATES PAST HX OF BLOOD IN STOOL. History of Any Multi-Drug Resistant Organisms: None Reported Past Surgical History: No Surgical Hx Reported Past Anesthesia/Blood Transfusion Reactions: No Reported Reaction Additional Past Anesthesia/Blood Transfusion Reaction / Comment(s): NO ANESTHESIA HX. PT STATES TOOTH PULLED AT [facility]. Past Psychological History: Anxiety, Depression Additional Psychological History / Comment(s): . Smoking Status: Light tobacco smoker Past Alcohol Use History: Abuse, Heavy Additional Past Alcohol Use History / Comment(s): Pt states he will smoke a cigar once in a great while and occasionally vaps. He denies any medical marijuana, marijuana or street drug use. Pt states a 5th of vodka per day. Pt friend, Jolanta, found open gallon of vodka at house Past Drug Use History: None Reported - Past Family History Father Family Medical History: Cancer Additional Family Medical History / Comment(s): Father is deceasedd at age 87. He had a pacemaker, carotid surgery and scoliosis. Mother Family Medical History: Dementia, Musculoskeletal Disorder, Neurologic Disorder , Pneumonia Additional Family Medical History / Comment(s): Mother at age 84 with history of Alzheimer's and Parkinson's. Brother(s) Additional Family Medical History / Comment(s): Patient does not have any brothers or sisters. He does not have any children. Medications and Allergies Home Medications Medication Instructions Recorded Confirmed Type amLODIPine [Norvasc] 5 mg PO DAILY 11/02/17 06/03/18 History Metoprolol Tartrate [Lopressor] 25 mg PO BID 11/17/17 06/03/18 History Calcium Carbonate [Tums] 500 mg PO QID PRN 06/03/18 06/03/18 History Ibuprofen [Motrin Ib] 600 mg PO Q6H PRN 06/03/18 06/03/18 History Allergies Allergy/AdvReac Type Severity Reaction Status Date / Time No Known Allergies Allergy Verified 06/03/18 13:50 Physical Exam Vitals: Vital Signs Temp Pulse Pulse Resp BP BP Pulse Ox 06/04/18 04:00 97.3 F L 93 17 139/91 96 06/04/18 00:00 98.1 F 98 17 132/87 94 L 06/03/18 19:58 98.9 F 107 H 20 160/88 94 L 06/03/18 19:00 98.9 F 103 H 20 165/90 95 06/03/18 18:00 104 H 20 163/105 95 06/03/18 17:30 98.5 F 100 20 163/100 95 06/03/18 16:33 98.9 F 06/03/18 16:29 103 H 20 156/91 94 L 06/03/18 16:27 98.8 F 102 H 17 150/91 95 06/03/18 16:00 104 H 22 163/88 95 06/03/18 15:35 98 20 160/120 95 06/03/18 15:15 121 H 22 161/111 94 L 06/03/18 14:55 92 20 185/122 95 06/03/18 13:50 100.2 F H 119 H 20 177/115 94 L Intake and Output 06/03/18 06/04/18 06/04/18 22:59 06:59 14:59 Intake Total 1000 90 Output Total 250 400 Balance -250 600 90 Intake: Intake, IV Titration 1000 Amount Sodium Chloride 0.9% 1, 1000 000 ml @ 100 mls/hr IV . Q10H7M ONE with Mvi, Adult No.4 with Vit K 10 ml with Thiamine 100 mg with Folic Acid 1 mg Rx#: [id number] Oral 90 Output: Urine 250 400 Other: Voiding Method Urinal Urinal # Voids 1 1 Weight 78.5 kg 78.5 kg PHYSICAL EXAMINATION: Patient is lying in the bed comfortably, no acute distress, awake alert and oriented.. HEENT: Normocephalic. Neck is supple. Pupils reactive. Nostrils clear. Oral cavity is moist. Ears reveal no drainage. Neck reveals no JVD, carotid bruits, or thyromegaly. CHEST EXAMINATION: Trachea is central. Symmetrical expansion. Lung linares clear to auscultation and percussion. CARDIAC: Normal S1, S2 with no gallops. No murmurs ABDOMEN: Soft. Bowel sounds normal. No organomegaly. No abdominal bruits. Extremities: reveal no edema. No clubbing or cyanosis Neurologically awake, alert, oriented x3 with well-coordinated movements. No focal deficits noted Skin: No rash or skin lesions. Psychiatric: Coperative. Seems depressed Musculoskeletal: No joint swelling or deformity. Normal range of motion. Results CBC & Chem 7: 06/03/18 13:00 06/03/18 13:00 Labs: Abnormal Lab Results - Last 24 Hours (Table) 06/03/18 06/03/18 06/03/18 Range/Units 13:00 13:00 13:00 WBC 13.7 H (3.8-10.6) k/uL RDW 15.6 H (11.5-15.5) % Plt Count 501 H (150-450) k/uL Neutrophils # 10.4 H (1.3-7.7) k/uL Chloride 96 L (98-107) mmol/L Glucose 123 H (74-99) mg/dL Plasma Lactic Acid Sergey 7.0 H* (0.7-2.0) mmol/L Calcium 10.4 H (8.4-10.2) mg/dL Magnesium 1.4 L (1.6-2.3) mg/dL Total Protein 8.3 H (6.3-8.2) g/dL Urine Protein (Negative) Urine Blood (Negative) 06/03/18 06/03/18 06/03/18 Range/Units 15:15 17:25 21:02 WBC (3.8-10.6) k/uL RDW (11.5-15.5) % Plt Count (150-450) k/uL Neutrophils # (1.3-7.7) k/uL Chloride (98-107) mmol/L Glucose (74-99) mg/dL Plasma Lactic Acid Sergey 5.8 H* 4.9 H* (0.7-2.0) mmol/L Calcium (8.4-10.2) mg/dL Magnesium (1.6-2.3) mg/dL Total Protein (6.3-8.2) g/dL Urine Protein 1+ H (Negative) Urine Blood Small H (Negative) Thrombosis Risk Factor Assmnt - DVT/VTE Prophylaxis DVT/VTE Prophylaxis: Pharmacologic Prophylaxis ordered - Choose All That Apply Any of the Below Risk Factors Present?: Yes Each Factor Represents 1 point: Age 41-60 years Other Risk Factors: No Thrombosis Risk Factor Assessment Total Risk Factor Score: 1 Thrombosis Risk Factor Assessment Level: Low Risk Assessment and Plan Assessment: Acute alcohol intoxication Severe lactic acidosis due to volume depletion. Improved now Alcohol abuse and unable to take care of himself at home Hypomagnesemia Depression Medication noncompliance Hypertension uncontrolled on admission Chronic kidney disease stage III DVT prophylaxis Plan: Patient will be continued on IV fluids and replace magnesium. Patient was given a dose of ceftriaxone while in the ER with T-max 100.2 on admission. Currently patient is afebrile. Chest x-ray and UA is negative. No signs of infection noted this time. Will hold antibiotics otherwise. Psychiatric was consulted for depression. Patient was counseled extensively area did we'll start back on home blood pressure medications including Norvasc and metoprolol. GI and DVT prophylaxis. Further recommendations based on the clinical course. Anticipate discharge next 24 hours with more clinical improvement. Time with Patient: Greater than 30
[2018-06-04] MEDS: HEPARIN SODIUM,PORCINE 5,000 UNIT/ML 1 ML VIAL SQ SCH ×2 (16:27→23:51)
[2018-06-04] MEDS: ACETAMINOPHEN TAB 325 MG TAB PO PRN ×2 (19:11→21:56)
[2018-06-04] MEDS: LOPERAMIDE 2 MG CAP PO ONE (21:18)
[2018-06-04] MEDS ORDERED: hydrALAZINE HCL 10 MG TAB PO SCH (23:00)
[2018-06-04] MEDS: hydrALAZINE HCL 10 MG TAB PO PRN (23:51)
[2018-06-05 06:17] LABS: Basophils # (A) 0.1 k/uL (0-0.2); Basophils % (A) 1 %; Eosinophils % (A) 0 %; HCT 42.8 % (39.0-53.0); HGB 13.5 gm/dL (13.0-17.5); Lymphocytes # (A) 1.5 k/uL (1.0-4.8); Lymphocytes % (A) 11 %; MCH 29.8 pg (25.0-35.0); MCHC 31.5 g/dL (31.0-37.0); MCV 94.6 fL (80.0-100.0); Mean Platelet Volume 6.9; Monocytes # (A) 0.5 k/uL (0-1.0); Monocytes % (A) 4 %; Neutrophils # (A) 12.1 k/uL (1.3-7.7); Neutrophils % (A) 85 %; Platelet Count 241 k/uL (150-450); RBC 4.53 m/uL (4.30-5.90); RDW 15.6 % (11.5-15.5); WBC 14.2 k/uL (3.8-10.6)
[2018-06-05 06:29] LABS: ALT 48 U/L (21-72); AST 21 U/L (17-59); Albumin 3.5 g/dL (3.5-5.0); Alkaline Phosphatase 74 U/L (38-126); Anion Gap 11 mmol/L; Blood Urea Nitrogen 8 mg/dL (9-20); Calcium 8.3 mg/dL (8.4-10.2); Carbon Dioxide 24 mmol/L (22-30); Chloride 100 mmol/L (98-107); Glucose 108 mg/dL (74-99); Magnesium 1.7 mg/dL (1.6-2.3); Potassium 3.6 mmol/L (3.5-5.1); Sodium 135 mmol/L (137-145); Total Protein 6.6 g/dL (6.3-8.2)
[2018-06-05] MEDS: traMADol 50 MG TAB PO PRN ×2 (06:30→15:59)
[2018-06-05] MEDS: PANTOPRAZOLE 40 MG TABLET PO SCH (06:31)
[2018-06-05] MEDS: HEPARIN SODIUM,PORCINE 5,000 UNIT/ML 1 ML VIAL SQ SCH ×3 (08:11→23:58)
[2018-06-05] MEDS: VENLAFAXINE HCL ER 37.5 MG CAP PO SCH (08:12)
[2018-06-05] MEDS: THIAMINE 100 MG TAB PO SCH ×2 (08:12→16:00)
[2018-06-05] MEDS: METOPROLOL TARTRATE 25 MG TAB PO SCH ×2 (08:12→20:48)
[2018-06-05] MEDS: amLODIPine 5 MG TAB PO SCH (08:12)
--- NOTE | 2018-06-05 18:06 | PN ---
PROGRESS NOTE DATE OF SERVICE: 06/05/2018 This 57-year-old gentleman who was admitted with acute alcohol intoxication also had lactic acidosis on admission. The patient has been closely monitored. No chest pain. No palpitations. No fever. PHYSICAL EXAM: Alert, oriented x3. Pulse 130, blood pressure 131/98, respiration 18, temperature 98.4, pulse ox 94 percent on room air. HEENT: Conjunctivae normal. Oral mucosa moist. NECK: No jugular venous distention. No carotid bruit. No lymph node enlargement. CARDIOVASCULAR: S1, S2. RESPIRATORY: Breath sounds diminished in the bases. A few scattered rhonchi and crackles. Expiratory wheezing. ABDOMEN: Soft, nontender. LEGS: No edema. NERVOUS SYSTEM: No focal deficits. LAB STUDIES: WBC 14, hemoglobin 13.5. ASSESSMENT: 1. Acute alcohol intoxication. 2. Severe lactic acidosis due to volume depletion. 3. Alcohol abuse. 4. Hypomagnesemia. 5. Depression. 6. Medication noncompliance. 7. Hypertension, uncontrolled. 8. Chronic kidney disease stage III. 9. DVT prophylaxis. RECOMMENDATIONS AND DISCUSSION: I recommend to continue current management and symptomatic treatment. CIWA protocol. Continue to monitor. Repeat labs. Monitor for delirium. Guarded prognosis. Further recommendations to follow. See orders for details. MMODL / IJN: [id number] /
[2018-06-05] MEDS: LORazepam 2 MG/ML INJ IV PRN (20:48)
[2018-06-05] MEDS: hydrALAZINE HCL 10 MG TAB PO PRN (21:16)
[2018-06-06] MEDS: LORazepam 2 MG/ML INJ IV PRN ×3 (05:29→20:10)
[2018-06-06] MEDS: traMADol 50 MG TAB PO PRN ×2 (05:39→17:21)
[2018-06-06 05:49] LABS: Appearance,Urine Clear (Clear); Bilirubin,Urine 1+ (Negative); Blood,Urine Small (Negative); Color,Urine Yellow; Glucose,Urine (UA) Negative (Negative); Ketones,Urine 2+ (Negative); Leukocyte Esterase,Urine Negative (Negative); Mucus,Urine Rare /hpf; Nitrite,Urine Negative (Negative); PH, Urine 5.5 (5.0-8.0); Protein,Urine 1+ (Negative); RBC,Urine 3 /hpf (0-5); Specific Gravity,Urine 1.016 (1.001-1.035); Squamous Epithelial Cell,Urine <1 /hpf (0-4); WBC,Urine 1 /hpf (0-5)
[2018-06-06] MEDS: PANTOPRAZOLE 40 MG TABLET PO SCH (06:27)
[2018-06-06] MEDS: ACETAMINOPHEN TAB 325 MG TAB PO PRN ×2 (09:11→22:12)
[2018-06-06] MEDS: VENLAFAXINE HCL ER 37.5 MG CAP PO SCH (09:12)
[2018-06-06] MEDS: amLODIPine 5 MG TAB PO SCH (09:12)
[2018-06-06] MEDS: METOPROLOL TARTRATE 25 MG TAB PO SCH ×2 (09:12→21:20)
[2018-06-06] MEDS: HEPARIN SODIUM,PORCINE 5,000 UNIT/ML 1 ML VIAL SQ SCH ×2 (09:13→17:22)
[2018-06-06] MEDS: THIAMINE 100 MG TAB PO SCH ×2 (11:36→17:22)
[2018-06-06] MEDS ORDERED: TEMAZEPAM 15 MG CAP PO PRN (15:57)
--- NOTE | 2018-06-06 17:17 | XR ---
EXAMINATION TYPE: XR femur bilateral DATE OF EXAM: 06/06/2018 COMPARISON: NONE HISTORY: Leg pain TECHNIQUE: 8 views. 4 views each femur FINDINGS: Knee and hip joints appear intact. I see no fracture nor dislocation. Joint spaces are fair ly well-maintained. There are bilateral knee joint effusions. IMPRESSION: Bilateral knee joint effusions. No fracture seen.
--- NOTE | 2018-06-06 17:22 | XR ---
EXAMINATION TYPE: XR pelvis AP view DATE OF EXAM: 06/06/2018 COMPARISON: NONE HISTORY: Pelvic pain TECHNIQUE: Single view FINDINGS: Pelvic ring is intact. Proximal femurs and hip joints appear normal. Sacroiliac joints appe ar normal. IMPRESSION: Normal pelvis
--- NOTE | 2018-06-06 19:07 | PN ---
PROGRESS NOTE DATE OF SERVICE: 06/06/2018. INTERVAL HISTORY: This 57-year-old gentleman was admitted with acute alcoholic intoxication also had severe lactic acidosis secondary to fluid depletion. The patient is complaining of weakness and some pain on the right leg. Patient closely monitored. No chest pain. No palpitations. No fever. PHYSICAL EXAM: Alert and oriented x3. Pulse is 103. Blood pressure 137/80, respirations 16, temperature 98.4, pulse ox 94% on room air. HEENT: Conjunctivae normal. Oral mucosa moist. Neck is no jugular venous distention. No carotid bruit. No lymph nodes palpable. Cardiovascular systems: S1, S2. Respiration: Breath sounds diminished in the bases. No rhonchi. No crackles. ABDOMEN: Soft, nontender. Legs: Right leg some pain and tenderness present. Nervous system: No focal deficits. LABS: WBC 14.3, hemoglobin 13.4. Sodium 135. ASSESSMENT: 1. Acute alcohol intoxication. 2. Severe lactic acidosis secondary to low volume depletion. 3. Right leg pain and weakness. 4. Gait dysfunction. 5. History of alcohol abuse. 6. History of hypomagnesemia. 7. Anxiety, depression. 8. Medication noncompliance. 9. Hypertension, uncontrolled. 10.Chronic kidney disease stage 3. 11.Deep vein thrombosis prophylaxis. RECOMMENDATIONS AND DISCUSSION: Recommend to continue current medications, management and PT/OT evaluation. X-rays. Otherwise continue to monitor. Guarded prognosis. See orders for further details. Continue the CIWA protocol. Discussed with the patient's friend at the bedside. MMODL / IJN: [id number] /
[2018-06-07] MEDS: HEPARIN SODIUM,PORCINE 5,000 UNIT/ML 1 ML VIAL SQ SCH ×3 (00:09→17:20)
[2018-06-07] MEDS: traMADol 50 MG TAB PO PRN ×3 (02:12→20:16)
[2018-06-07 07:15] LABS: Basophils % (A) 0 %; Eosinophils # (A) 0.1 k/uL (0-0.7); Eosinophils % (A) 1 %; HGB 11.2 gm/dL (13.0-17.5); Lymphocytes # (A) 1.1 k/uL (1.0-4.8); Lymphocytes % (A) 5 %; MCH 29.1 pg (25.0-35.0); Monocytes # (A) 0.9 k/uL (0-1.0); Monocytes % (A) 4 %; Neutrophils # (A) 18.5 k/uL (1.3-7.7); Neutrophils % (A) 89 %; Platelet Count 165 k/uL (150-450); RBC 3.83 m/uL (4.30-5.90); RDW 15.9 % (11.5-15.5); WBC 20.8 k/uL (3.8-10.6)
[2018-06-07 07:30] LABS: Calcium 8.6 mg/dL (8.4-10.2); Magnesium 1.9 mg/dL (1.6-2.3); Potassium 3.4 mmol/L (3.5-5.1)
[2018-06-07] MEDS: VENLAFAXINE HCL ER 37.5 MG CAP PO SCH (08:37)
[2018-06-07] MEDS: PANTOPRAZOLE 40 MG TABLET PO SCH (08:37)
[2018-06-07] MEDS: METOPROLOL TARTRATE 25 MG TAB PO SCH ×2 (08:37→20:17)
[2018-06-07] MEDS: amLODIPine 5 MG TAB PO SCH (08:38)
[2018-06-07 11:58] LABS: Glucose,Whole Blood 115 mg/dL (75-99)
[2018-06-07] MEDS: FOLIC ACID 1 MG TAB PO SCH (13:30)
[2018-06-07] MEDS: methylPREDNISolone SOD SUCCI 40 MG/ML 1 ML VIAL IV SCH ×2 (13:30→17:19)
[2018-06-07] MEDS: MULTIVITAMINS, THERA 1 EACH TAB PO SCH (13:30)
[2018-06-07] MEDS: COLCHICINE 0.6 MG EACH PO SCH ×2 (13:30→20:17)
[2018-06-07] MEDS: THIAMINE 100 MG TAB PO SCH ×2 (13:30→17:20)
[2018-06-07] MEDS: INSULIN ASPART 100 UNIT/ML 1 ML 10 ML VIAL SQ SCH ×3 (13:33→20:34)
[2018-06-07] MEDS ORDERED: POTASSIUM CHLORIDE ER 20 MEQ TAB.ER PO STA (17:08)
[2018-06-07 17:16] LABS: Glucose,Whole Blood 133 mg/dL (75-99)
[2018-06-07 20:31] LABS: Glucose,Whole Blood 177 mg/dL (75-99)
[2018-06-08] MEDS: methylPREDNISolone SOD SUCCI 40 MG/ML 1 ML VIAL IV SCH ×5 (00:16→23:24)
[2018-06-08] MEDS: HEPARIN SODIUM,PORCINE 5,000 UNIT/ML 1 ML VIAL SQ SCH ×4 (00:16→23:23)
--- NOTE | 2018-06-08 06:02 | PN ---
PROGRESS NOTE DATE OF SERVICE: 06/07/2018 This 57-year-old gentleman who was admitted with acute alcoholic intoxication also had severe lactic acidosis. Patient also complained of right leg pain and weakness and swelling also. The patient is closely monitored. X-rays have been noted. Psychiatry also has seen the patient. The patient also has significant gait dysfunction also. PAST MEDICAL HISTORY: Reviewed. REVIEW OF SYSTEMS: CARDIOVASCULAR: No angina. RESPIRATORY: noted GI: No nausea. MUSCULOSKELETAL: Mentioned earlier. CURRENT MEDICATIONS: Reviewed and include: 1. Tylenol 650 q.6 hours. 2. Norvasc 5 mg daily. 3. Tums 500 mg q.i.d. 4. Colchicine. 5. Folic acid. 6. Heparin. 7. Omeprazole. 8. Motrin. 9. Novolin. 10.Ativan. 11.Lopressor. 12.Multivitamins. 13.Protonix. 14.Restoril 50 mg q.h.s. 15.Vitamin B1. 16.Ultram. 17.Effexor XR. PHYSICAL EXAMINATION: Alert and oriented x3. Pulse is 106. Blood pressure 130/84, respiration 18, temperature 98.2, pulse ox 94% on room air. HEENT: Conjunctivae normal. Oral mucosa moist. Neck is no jugular venous distention. No carotid bruit. No lymph node enlargement. CARDIOVASCULAR: S1, S2. RESPIRATORY: Breath sounds diminished in the bases. A few scattered rhonchi. No crackles. ABDOMEN: Soft, nontender. LEGS: The left leg movements are painful, mainly left knee joint effusion. NERVOUS SYSTEM: Higher functions as mentioned earlier. Moves all 4 limbs. No focal motor deficits. LYMPHATIC: No lymphadenopathy in the neck, axillae, groin. SKIN: No ulcer, rash or bleeding. LABS: WBC 22, hemoglobin 11.2, sodium 132, potassium 3.4. UA noted. ASSESSMENT: 1. Acute alcohol intoxication, present on admission. 2. Severe lactic acidosis secondary to volume depletion, present on admission. 3. Right knee effusion, possible acute gout. 4. Gait dysfunction because of pain. 5. History of alcohol abuse. 6. History of hypomagnesemia. 7. Anxiety, depression. 8. Medication noncompliance. 9. Hypertension, uncontrolled. 10.Chronic kidney disease stage III. 11.DVT prophylaxis. RECOMMENDATIONS AND DISCUSSION: I recommend to continue current medications, monitoring and symptomatic treatment. At this time I recommend cultures and IV steroids. Monitor blood sugars closely. Orthopedic evaluation for the evaluation of knee joint and possible aspiration. Potassium supplementation. Repeat labs in the morning. Otherwise continue to monitor. Continue with the CIWA protocol and watch for any alcohol withdrawals or delirium tremens. Employee'S Representative to evaluate the home situation and continue to monitor. Prognosis guarded. Further recommendations to follow. MMODL / IJN: [id number] / MTDD
[2018-06-08 07:34] LABS: Glucose,Whole Blood 142 mg/dL (75-99)
[2018-06-08] MEDS: INSULIN ASPART 100 UNIT/ML 1 ML 10 ML VIAL SQ SCH ×4 (08:09→20:39)
[2018-06-08] MEDS: PANTOPRAZOLE 40 MG TABLET PO SCH (08:09)
[2018-06-08] MEDS: amLODIPine 5 MG TAB PO SCH (08:10)
[2018-06-08] MEDS: METOPROLOL TARTRATE 25 MG TAB PO SCH ×2 (08:10→20:41)
[2018-06-08] MEDS: VENLAFAXINE HCL ER 37.5 MG CAP PO SCH (08:10)
[2018-06-08] MEDS: COLCHICINE 0.6 MG EACH PO SCH ×2 (08:10→20:40)
[2018-06-08 08:35] LABS: Anisocytosis Slight; Basophils % (A) 0 %; Eosinophils # (A) 0.1 k/uL (0-0.7); Eosinophils % (A) 1 %; HCT 40.6 % (39.0-53.0); HGB 12.9 gm/dL (13.0-17.5); Lymphocytes # (A) 0.7 k/uL (1.0-4.8); Lymphocytes % (A) 3 %; MCHC 31.8 g/dL (31.0-37.0); MCV 94.4 fL (80.0-100.0); Mean Platelet Volume 7.2; Monocytes # (A) 0.4 k/uL (0-1.0); Monocytes % (A) 2 %; Neutrophils # (A) 19.9 k/uL (1.3-7.7); Neutrophils % (A) 94 %; Platelet Count 226 k/uL (150-450); WBC 21.1 k/uL (3.8-10.6)
[2018-06-08 08:44] LABS: Anion Gap 15 mmol/L; Blood Urea Nitrogen 30 mg/dL (9-20); Calcium 9.3 mg/dL (8.4-10.2); Carbon Dioxide 23 mmol/L (22-30); Chloride 103 mmol/L (98-107); Glucose 150 mg/dL (74-99); Magnesium 2.2 mg/dL (1.6-2.3); Potassium 4.3 mmol/L (3.5-5.1); Sodium 141 mmol/L (137-145)
--- NOTE | 2018-06-08 10:07 | P.CNOR ---
History of Present Illness - [facility] Consult date: 06/08/18 Requesting physician: Sandor Hall Consult reason: joint pain History of present illness: Patient is seen at bedside this am. He is a 57 yo male with complaints of bilateral knee pain. He states he has had episodes of gout in the past. He states they are improved today. He has been on colchris and corticosteroids. He states he does not take a daily preventive med prior to this admission. He is denying fever, chills, chest pain, SOB, radicular sx, numbness, tingling, weakness, calf pain or other. Review of Systems All systems: negative Constitutional: Denies chills, Denies fever Eyes: denies blurred vision, denies pain Ears, nose, mouth and throat: Denies headache, Denies sore throat Cardiovascular: Denies chest pain, Denies shortness of breath Respiratory: Denies cough Gastrointestinal: Denies abdominal pain, Denies diarrhea, Denies nausea, Denies vomiting Musculoskeletal: Denies myalgias Integumentary: Denies pruritus, Denies rash Neurological: Denies numbness, Denies weakness Psychiatric: Denies anxiety, Denies depression Endocrine: Denies fatigue, Denies weight change Past Medical History Past Medical History: Chest Pain / Angina, Hypertension, Renal Disease Additional Past Medical History / Comment(s): CKD stage III,(PT STATES HE IS UNAWARE OF KIDNEY DISEASE.)., past finger fractures bilateral hands and R elbow fx., ALCOHOL ABUSE., HOSPITALIZED 11/17/17 TO 11/19/17 AT [facility] WITH ELEVATED ALCOHOL LEVEL., PT STATES HX OF BLOOD INFECTION 3 YEARS AGO AND ALMOST ([facility])., STATES PAST HX OF BLOOD IN STOOL. History of Any Multi-Drug Resistant Organisms: None Reported Past Surgical History: No Surgical Hx Reported Past Anesthesia/Blood Transfusion Reactions: No Reported Reaction Additional Past Anesthesia/Blood Transfusion Reaction / Comm: NO ANESTHESIA HX. PT STATES TOOTH PULLED AT [facility]. Past Psychological History: Anxiety, Depression Additional Psychological History / Comment(s): . Smoking Status: Light tobacco smoker Past Alcohol Use History: Abuse, Heavy Additional Past Alcohol Use History / Comment(s): Pt states he will smoke a cigar once in a great while and occasionally vaps. He denies any medical marijuana, marijuana or street drug use. Pt states a 5th of vodka per day. Pt friend, Jolanta, found open gallon of vodka at house Past Drug Use History: None Reported - Past Family History Father Family Medical History: Cancer Additional Family Medical History / Comment(s): Father is deceasedd at age 87. He had a pacemaker, carotid surgery and scoliosis. Mother Family Medical History: Dementia, Musculoskeletal Disorder, Neurologic Disorder , Pneumonia Additional Family Medical History / Comment(s): Mother at age 84 with history of Alzheimer's and Parkinson's. Brother(s) Additional Family Medical History / Comment(s): Patient does not have any brothers or sisters. He does not have any children. Medications and Allergies Home Medications Medication Instructions Recorded Confirmed Type amLODIPine [Norvasc] 5 mg PO DAILY 11/02/17 06/03/18 History Metoprolol Tartrate [Lopressor] 25 mg PO BID 11/17/17 06/03/18 History Calcium Carbonate [Tums] 500 mg PO QID PRN 06/03/18 06/03/18 History Ibuprofen [Motrin Ib] 600 mg PO Q6H PRN 06/03/18 06/03/18 History Allergies Allergy/AdvReac Type Severity Reaction Status Date / Time No Known Allergies Allergy Verified 06/03/18 13:50 Physical Examination Bilateral knees show no erythema or echymosis. There is no deformity. Patellar tracking normal. Global tenderness, mild effusion. Not hot to touch. ROM is full. Ligamentously stable. Walking with full weightbearing ok. Results xrays of knees and femur are negative for fracture dislocation - Labs Labs: Abnormal Lab Results - Last 24 Hours (Table) 06/07/18 06/07/18 06/07/18 Range/Units 06:58 11:56 17:15 WBC (3.8-10.6) k/uL Hgb (13.0-17.5) gm/dL RDW (11.5-15.5) % Neutrophils # (1.3-7.7) k/uL Lymphocytes # (1.0-4.8) k/uL BUN (9-20) mg/dL Glucose (74-99) mg/dL POC Glucose (mg/dL) 115 H 133 H (75-99) mg/dL Uric Acid 9.9 H (3.5-8.5) mg/dL 06/07/18 06/08/18 06/08/18 Range/Units 20:24 07:32 08:18 WBC 21.1 H (3.8-10.6) k/uL Hgb 12.9 L (13.0-17.5) gm/dL RDW 16.0 H (11.5-15.5) % Neutrophils # 19.9 H (1.3-7.7) k/uL Lymphocytes # 0.7 L (1.0-4.8) k/uL BUN (9-20) mg/dL Glucose (74-99) mg/dL POC Glucose (mg/dL) 177 H 142 H (75-99) mg/dL Uric Acid (3.5-8.5) mg/dL 06/08/18 Range/Units 08:18 WBC (3.8-10.6) k/uL Hgb (13.0-17.5) gm/dL RDW (11.5-15.5) % Neutrophils # (1.3-7.7) k/uL Lymphocytes # (1.0-4.8) k/uL BUN 30 H (9-20) mg/dL Glucose 150 H (74-99) mg/dL POC Glucose (mg/dL) (75-99) mg/dL Uric Acid (3.5-8.5) mg/dL Microbiology - Last 24 Hours (Table) 06/03/18 17:25 Blood Culture - Preliminary Blood No Growth after 96 hours H & H 06/03/1818 06/07/18 Range/Units 13:00 05:26 06:58 Hgb 15.3 13.5 11.2 L (13.0-17.5) gm/dL Hct 48.7 42.8 36.0 L (39.0-53.0) % 06/08/18 Range/Units 08:18 Hgb 12.9 L (13.0-17.5) gm/dL Hct 40.6 (39.0-53.0) % Coagulation 06/03/18 Range/Units 13:00 INR 1.1 (<1.2) Result Diagrams: 06/08/18 08:18 06/08/18 08:18 Assessment and Plan (1) Knee pain, bilateral Narrative/Plan: He is improved on colchris and prednisone. Low suspicion for infection or other emergent orthopedic condition. Recommend continued treatment for gout including adding possibly allopurinol. He may follow up with ortho as an out patient. Thank you Current Visit: Yes Status: Acute Priority: Medium Code(s): M25.561 - PAIN IN RIGHT KNEE; M25.562 - PAIN IN LEFT KNEE SNOMED Code(s): 24874132 Time with Patient: Less than 30
[2018-06-08 11:40] LABS: Glucose,Whole Blood 169 mg/dL (75-99)
[2018-06-08 12:39] LABS: Hemoglobin A1C 5.7 % (4.0-6.0)
[2018-06-08] MEDS: FOLIC ACID 1 MG TAB PO SCH (13:03)
[2018-06-08] MEDS: MULTIVITAMINS, THERA 1 EACH TAB PO SCH (13:03)
[2018-06-08] MEDS: THIAMINE 100 MG TAB PO SCH ×2 (13:03→18:09)
[2018-06-08 17:13] LABS: Glucose,Whole Blood 164 mg/dL (75-99)
[2018-06-08 20:11] LABS: Glucose,Whole Blood 175 mg/dL (75-99)
[2018-06-08] MEDS ORDERED: METOPROLOL TARTRATE 25 MG TAB PO STA (21:51)
--- NOTE | 2018-06-08 21:57 | P.PN ---
Subjective Progress Note Date: 06/08/18 Progress note being dictated for Dr. Stanley Interval history:Patient is a 57-year-old male with a known history of anxiety/ depression, CK D stage III, hypertension currently not on any medications at home and alcohol abuse came to ER with alcohol intoxication. Patient's friend went to visit him today she has not heard from him since Thursday. She found four half gallons of vodka around the house that are empty. Patient reports his last drink was just prior to arrival. Patient apparently was covered in his own urine and feces. He has not been taking care of himself. His evidence extremely depressed. Patient's crying. Patient reports that he has not been taking his blood pressure medication. Patient is on Norvasc and metoprolol at home.. He arrives to the emergency department hypertensive at 180/79. Patient denies any falls or trauma. Denied any recent illnesses. No fever no chills. Patient is not also taking his psychiatric medications. Patient is more awake and oriented today. Chest x-ray showed no acute cardiopulmonary process. Multiple left-sided rib fracture deformities, age indeterminate but suspected chronic. Likely correlate. EKG showed sinus tachycardia. CT head is negative for any acute intracranial process. EtOH level greater than 300 Lactic acidosis 7.0 on admission. 06/08/18 significant improvement of knees on colchicine and prednisone. Evaluated by orthopedics with recommendations noted. CIWA scale currently 2, with no Ativan required.Mild tachycardia, Norvasc discontinued, beta kirti increased. Awaiting bed at [facility]. Objective - Vital Signs Vital signs: Vital Signs Temp 98.1 F 06/08/18 14:21 Pulse 104 H 06/08/18 14:21 Resp 20 06/08/18 14:21 BP 147/78 06/08/18 14:21 Pulse Ox 100 06/08/18 14:21 Intake & Output 06/08/18 06/08/18 06/09/18 06:59 18:59 06:59 Intake Total 1120 520 Output Total 400 Balance 720 520 Weight 78.5 kg Intake: Oral 1120 520 Output: Urine 400 Other: Voiding Method Urinal Urinal # Voids 1 2 - Exam Patient is lying in the bed comfortably, no acute distress, awake alert and oriented.. HEENT: Normocephalic. Neck is supple. Pupils reactive. Nostrils clear. Oral cavity is moist. Ears reveal no drainage. Neck reveals no JVD, carotid bruits, or thyromegaly. CHEST EXAMINATION: Trachea is central. Symmetrical expansion. Lung linares clear to auscultation and percussion. CARDIAC: Normal S1, S2 with no gallops. No murmurs ABDOMEN: Soft. Bowel sounds normal. No organomegaly. No abdominal bruits. Extremities: reveal no edema. No clubbing or cyanosis Neurologically awake, alert, oriented x3 with well-coordinated movements. No focal deficits noted - Labs CBC & Chem 7: 06/08/18 08:18 06/08/18 08:18 Labs: Abnormal Lab Results - Last 24 Hours (Table) 06/08/18 06/08/18 06/08/18 Range/Units 07:32 08:18 08:18 WBC 21.1 H (3.8-10.6) k/uL Hgb 12.9 L (13.0-17.5) gm/dL RDW 16.0 H (11.5-15.5) % Neutrophils # 19.9 H (1.3-7.7) k/uL Lymphocytes # 0.7 L (1.0-4.8) k/uL BUN 30 H (9-20) mg/dL Glucose 150 H (74-99) mg/dL POC Glucose (mg/dL) 142 H (75-99) mg/dL 06/08/18 06/08/18 06/08/18 Range/Units 11:39 17:11 20:10 WBC (3.8-10.6) k/uL Hgb (13.0-17.5) gm/dL RDW (11.5-15.5) % Neutrophils # (1.3-7.7) k/uL Lymphocytes # (1.0-4.8) k/uL BUN (9-20) mg/dL Glucose (74-99) mg/dL POC Glucose (mg/dL) 169 H 164 H 175 H (75-99) mg/dL Microbiology - Last 24 Hours (Table) 06/03/18 17:25 Blood Culture - Preliminary Blood No Growth after 120 hours Assessment and Plan Assessment: Acute alcohol intoxication, present on admission Severe lactic acidosis due to volume depletion. Improved now Alcohol abuse and unable to take care of himself at home Right knee effusion, suspect acute gout, improved on colchicine Depression Medication noncompliance Hypertension uncontrolled on admission Chronic kidney disease stage III Plan: Continue current medication regime ,monitoring and symptomatic treatment. Discontinue Norvasc. discontinued, increase beta kirti. Maintain CIWA protocol. Discharge planning in progress for [facility] pending bed availability. The impression and plan of care has been dictated as directed. : I performed a history and examination of this patient, discussed the same with the dictator. I agree with the dictator's note ,documented as a scribe. Any additional findings or plans will be noted.
[2018-06-09] MEDS: methylPREDNISolone SOD SUCCI 40 MG/ML 1 ML VIAL IV SCH ×2 (05:53→12:06)
[2018-06-09 07:22] LABS: Glucose,Whole Blood 168 mg/dL (75-99)
[2018-06-09] MEDS: PANTOPRAZOLE 40 MG TABLET PO SCH (08:05)
[2018-06-09] MEDS: INSULIN ASPART 100 UNIT/ML 1 ML 10 ML VIAL SQ SCH ×2 (08:05→12:07)
[2018-06-09] MEDS: HEPARIN SODIUM,PORCINE 5,000 UNIT/ML 1 ML VIAL SQ SCH (08:06)
[2018-06-09] MEDS: VENLAFAXINE HCL ER 37.5 MG CAP PO SCH (08:08)
[2018-06-09] MEDS ORDERED: COLCHICINE 0.6 MG EACH PO SCH (09:00)
[2018-06-09] MEDS ORDERED: METOPROLOL TARTRATE 25 MG TAB PO SCH (09:00)
[2018-06-09 09:28] LABS: Basophils % (A) 0 %; Calcium 9.1 mg/dL (8.4-10.2); Eosinophils # (A) 0.1 k/uL (0-0.7); Eosinophils % (A) 0 %; HCT 38.2 % (39.0-53.0); HGB 12.4 gm/dL (13.0-17.5); Lymphocytes # (A) 0.9 k/uL (1.0-4.8); Lymphocytes % (A) 4 %; MCH 30.4 pg (25.0-35.0); MCHC 32.4 g/dL (31.0-37.0); MCV 93.8 fL (80.0-100.0); Magnesium 1.9 mg/dL (1.6-2.3); Monocytes # (A) 0.5 k/uL (0-1.0); Monocytes % (A) 3 %; Neutrophils # (A) 18.7 k/uL (1.3-7.7); Neutrophils % (A) 92 %; Platelet Count 280 k/uL (150-450); Potassium 3.7 mmol/L (3.5-5.1); RBC 4.07 m/uL (4.30-5.90); RDW 15.9 % (11.5-15.5); WBC 20.3 k/uL (3.8-10.6)
[2018-06-09 11:15] LABS: Glucose,Whole Blood 199 mg/dL (75-99)
[2018-06-09] MEDS: MULTIVITAMINS, THERA 1 EACH TAB PO SCH (12:08)
[2018-06-09] MEDS: FOLIC ACID 1 MG TAB PO SCH (12:08)
[2018-06-09] MEDS: THIAMINE 100 MG TAB PO SCH (12:08)
[2018-06-09 12:26] VITALS: BP 141/87; PULSE 84; RESP 16; TEMP 98
--- NOTE | 2018-06-09 17:30 | P.DS ---
Providers Date of admission: 06/03/18 16:31 Expected date of discharge: 06/09/18 Attending physician: Kimberlyn Stanley Consults: 06/03/18 17:01 Consult Physician Stat Consulting Provider: Samantha Holman Consult Reason/Comments: depression, etoh abuse Do you want consulting provider notified?: Yes 06/07/18 11:32 Consult Physician Routine Consulting Provider: Sandor Hall Consult Reason/Comments: knee effusion Do you want consulting provider notified?: Yes Primary care physician: [facility] Course: Final Diagnoses: Acute alcohol intoxication, present on admission Severe lactic acidosis due to volume depletion. Improved now Alcohol abuse Right knee effusion, suspect acute gout, improved on colchicine Depression Medication noncompliance Hypertension uncontrolled on admission Chronic kidney disease stage III Hospital course:Patient is a 57-year-old male with a known history of anxiety/ depression, CK D stage III, hypertension currently not on any medications at home and alcohol abuse came to ER with alcohol intoxication. Patient's friend went to visit him today she has not heard from him since Thursday. She found four half gallons of vodka around the house that are empty. Patient reports his last drink was just prior to arrival. Patient apparently was covered in his own urine and feces. He has not been taking care of himself. His evidence extremely depressed. Patient's crying. Patient reports that he has not been taking his blood pressure medication. Patient is on Norvasc and metoprolol at home.. He arrives to the emergency department hypertensive at 180/79. Patient denies any falls or trauma. Denied any recent illnesses. No fever no chills. Patient is not also taking his psychiatric medications. Patient is more awake and oriented today. Chest x-ray showed no acute cardiopulmonary process. Multiple left-sided rib fracture deformities, age indeterminate but suspected chronic. Likely correlate. EKG showed sinus tachycardia. CT head is negative for any acute intracranial process. EtOH level greater than 300 Lactic acidosis 7.0 on admission. significant improvement of knees on colchicine and prednisone. Evaluated by orthopedics and psychotic. Maintained on CIWA Norvasc discontinued, beta kirti increased. Initially Awaiting bed at [facility] for inpatient alcohol rehab. Today informed by child protective services social worker that his insurance will not cover the rehab as he has not had any alcohol in over 48hrs. patient is being discharged home in a stable condition with guarded prognosis. Patient to follow-up with his [facility] therapist within the week. Exam GENERAL: no acute distress, awake alert and oriented X 3.. CHEST EXAMINATION: Lung linares clear to auscultation and percussion. CARDIAC: Normal S1, S2 with no gallops. No murmurs ABDOMEN: Soft. Bowel sounds normal. No organomegaly. No abdominal bruits. Extremities: Neurologically No focal deficits noted The impression and plan of care has been dictated as directed. : I performed a history and examination of this patient, discussed the same with the dictator. I agree with the dictator's note ,documented as a scribe. Any additional findings or plans will be noted. Time taken: 35 minutes Patient Condition at Discharge: Stable Plan - Discharge Summary Discharge Rx Participant: No New Discharge Prescriptions: New Metoprolol Tartrate [Lopressor] 50 mg PO BID #60 tab Acetaminophen Tab [Tylenol] 650 mg PO Q6HR PRN tab PRN Reason: Mild Pain Or Fever > 100.5 Colchicine [Colcrys] 0.6 mg PO DIRECTED #33 each Folic Acid 1 mg PO DAILY@1200 #30 tab Multivitamins, Thera [Multivitamin (formulary)] 1 each PO DAILY@1200 #30 tab Pantoprazole [Protonix] 40 mg PO AC-BRKFST #30 tablet. Thiamine [Vitamin B-1] 100 mg PO DAILY #30 tab Venlafaxine HCl ER [Effexor XR] 37.5 mg PO DAILY #30 cap.er.24h Continue Calcium Carbonate [Tums] 500 mg PO QID PRN PRN Reason: Heartburn Discontinued amLODIPine [Norvasc] 5 mg PO DAILY Metoprolol Tartrate [Lopressor] 25 mg PO BID Ibuprofen [Motrin Ib] 600 mg PO Q6H PRN PRN Reason: Pain Discharge Medication List Calcium Carbonate [Tums] 500 mg PO QID PRN 06/03/18 [History] Acetaminophen Tab [Tylenol] 650 mg PO Q6HR PRN tab 06/08/18 [Rx] Colchicine [Colcrys] 0.6 mg PO DIRECTED #33 each 06/08/18 [Rx] Folic Acid 1 mg PO DAILY@1200 #30 tab 06/08/18 [Rx] Metoprolol Tartrate [Lopressor] 50 mg PO BID #60 tab 06/08/18 [Rx] Multivitamins, Thera [Multivitamin (formulary)] 1 each PO DAILY@1200 #30 tab 01/20 [Rx] Pantoprazole [Protonix] 40 mg PO AC-BRKFST #30 tablet.dr 06/08/18 [Rx] Thiamine [Vitamin B-1] 100 mg PO DAILY #30 tab 06/08/18 [Rx] Venlafaxine HCl ER [Effexor XR] 37.5 mg PO DAILY #30 cap.er.24h 06/09/18 [Rx] Follow up Appointment(s)/Referral(s): [facility] therapist, psychiatry [Other] - 06/14/18 10:00 am Jose Alberto Pedersen PAC [PHYSICIAN SWITCHBOARD MANAGER] - 06/16/18 10:00 am Shantel Yin MD [Primary Care Provider] - 06/18/18 11:00 am Ambulatory/Diagnostic Orders: Complete Blood Count w/diff [LAB.AMB] Time Frame: 3 Days, Location: None Selected Patient Instructions/Handouts: Metoprolol (By mouth), Colchicine (By mouth), Folic Acid (By mouth), Venlafaxine (By mouth), Pantoprazole (By mouth) Activity/Diet/Wound Care/Special Instructions: NO etoh Alcohol Rehab Discharge Disposition: HOME SELF-CARE
== END 2018-06-09 14:50 | disposition home or self-care (01) | DRG 897 ==
LOC: EC 13:31 → 6SEL 16:31 → 5MS5E 06-06 17:58
PROVIDERS: ADMIT Hospitalist; ATTEND Hospitalist
DX: F10.129 Alcohol abuse with intoxication, unspecified (principal); S22.42XA Multiple fractures of ribs, left side, initial encounter for closed fracture; E87.2 Acidosis; E83.42 Hypomagnesemia; E86.9 Volume depletion, unspecified; F17.290 Nicotine dependence, other tobacco product, uncomplicated; F32.9 Major depressive disorder, single episode, unspecified; F41.9 Anxiety disorder, unspecified; I12.9 Hypertensive chronic kidney disease with stage 1 through stage 4 chronic kidney disease, or unspecified chronic kidney disease; N18.3 Chronic kidney disease, stage 3 (moderate); Y90.8 Blood alcohol level of 240 mg/100 ml or more; Z79.899 Other long term (current) drug therapy; Z82.0 Family history of epilepsy and other diseases of the nervous system; Z91.14 Patient's other noncompliance with medication regimen; Z87.81 Personal history of (healed) traumatic fracture; R00.0 Tachycardia, unspecified; M10.9 Gout, unspecified
CPT/HCPCS: 36415; 70450; 71046; 72170; 80048; 80053; 80306; 80320; 81001; 82150; 83036; 83605; 83690; 83735; 84550; 85025; 85610; 87040; 93005; 96361; 96365; 96366; 96372; 96374; 96375; 96376; 99285

== ENCOUNTER 2018-07-27 09:22 | Inpatient (IN) | payer MEDICARE ==
[2018-07-27] MEDS ORDERED: PANTOPRAZOLE 40 MG/10 ML VIAL IVP STA (09:58)
[2018-07-27] MEDS ORDERED: SODIUM CHLORIDE 0.9% 2,000 ML IV STA (09:58)
[2018-07-27] MEDS ORDERED: LORazepam 2 MG/ML INJ IV STA ×2 (10:03→12:29)
--- NOTE | 2018-07-27 10:08 | ED ---
General Adult HPI - General Chief complaint: Nausea/Vomiting/Diarrhea Stated complaint: Weakness NVD Source: patient, EMS, RN notes reviewed Mode of arrival: EMS Limitations: no limitations - History of Present Illness Initial comments: This a 58-year-old male presents emergency department via EMS chief complaint nausea vomiting generalized weakness. Patient states he is an alcoholic his last drink was over 12 hours ago and states that he's been shaking and vomiting this morning. He states that he cannot control it he has vomited all over his self. Patient denies any chest pain or shortness of breath. Patient went of mild epigastric discomfort from the vomiting. He has no dysuria or noted hematuria. Patient states that he does take antiacids daily does take psychiatric medications, thiamine. Patient denies any other associated complaints. - Related Data Home Medications Medication Instructions Recorded Confirmed Folic Acid 1 mg PO DAILY 07/27/18 07/27/18 Naltrexone HCl [Revia] 50 mg PO DAILY 07/27/18 07/27/18 Venlafaxine HCl ER [Effexor Xr] 75 mg PO DAILY 07/27/18 07/27/18 clonazePAM [KlonoPIN] 0.5 mg PO BID 07/27/18 07/27/18 Previous Rx's Medication Instructions Recorded Metoprolol Tartrate [Lopressor] 50 mg PO BID #60 tab 06/08/18 Multivitamins, Thera [Multivitamin 1 each PO DAILY@1200 #30 tab 06/08/18 (formulary)] Pantoprazole [Protonix] 40 mg PO AC-BRKFST #30 tablet. 06/08/18 Allergies Allergy/AdvReac Type Severity Reaction Status Date / Time No Known Allergies Allergy Verified 07/27/18 09:57 Review of Systems ROS Statement: Those systems with pertinent positive or pertinent negative responses have been documented in the HPI. ROS Other: All systems not noted in ROS Statement are negative. Past Medical History Past Medical History: Chest Pain / Angina, Hypertension, Renal Disease Additional Past Medical History / Comment(s): CKD stage III,(PT STATES HE IS UNAWARE OF KIDNEY DISEASE.)., past finger fractures bilateral hands and R elbow fx., ALCOHOL ABUSE., HOSPITALIZED 11/17/17 TO 11/19/17 AT [facility] WITH ELEVATED ALCOHOL LEVEL., PT STATES HX OF BLOOD INFECTION 3 YEARS AGO AND ALMOST ([facility])., STATES PAST HX OF BLOOD IN STOOL. History of Any Multi-Drug Resistant Organisms: None Reported Past Surgical History: No Surgical Hx Reported Past Anesthesia/Blood Transfusion Reactions: No Reported Reaction Additional Past Anesthesia/Blood Transfusion Reaction / Comment(s): NO ANESTHESIA HX. PT STATES TOOTH PULLED AT [facility]. Past Psychological History: Anxiety, Depression Smoking Status: Light tobacco smoker Past Alcohol Use History: Abuse, Heavy Past Drug Use History: None Reported - Past Family History Father Family Medical History: Cancer Additional Family Medical History / Comment(s): Father is deceasedd at age 87. He had a pacemaker, carotid surgery and scoliosis. Mother Family Medical History: Dementia, Musculoskeletal Disorder, Neurologic Disorder , Pneumonia Additional Family Medical History / Comment(s): Mother at age 84 with history of Alzheimer's and Parkinson's. Brother(s) Additional Family Medical History / Comment(s): Patient does not have any brothers or sisters. He does not have any children. General Exam Limitations: no limitations General appearance: alert, in no apparent distress Head exam: Present: atraumatic, normocephalic, normal inspection Respiratory exam: Present: normal lung sounds bilaterally. Absent: respiratory distress, wheezes, rales, rhonchi, stridor Cardiovascular Exam: Present: normal rhythm, tachycardia (Tachycardic at 133), normal heart sounds. Absent: regular rate, systolic murmur, diastolic murmur, rubs, gallop, clicks GI/Abdominal exam: Present: soft, tenderness (Mild epigastric discomfort), normal bowel sounds. Absent: distended, guarding, rebound, rigid Back exam: Absent: CVA tenderness (R), CVA tenderness (L) Course Vital Signs 07/27/18 07/27/18 07/27/18 09:44 10:30 11:00 Temperature 99.4 F Pulse Rate 133 H 129 H 130 H Respiratory 18 23 26 H Rate Blood Pressure 153/101 164/105 149/95 O2 Sat by Pulse 97 92 L Oximetry 07/27/18 07/27/18 11:30 12:00 Temperature Pulse Rate 115 H 104 H Respiratory 22 22 Rate Blood Pressure 165/102 111/73 O2 Sat by Pulse 95 Oximetry EKG Findings - EKG Comments: EKG Findings:: EKG performed at 10:00 sinus tachycardia with a rate of 138 FL 132 QRS 72 QT/QTc 478/421 Medical Decision Making - Lab Data Result diagrams: 07/27/18 09:41 07/27/18 09:41 Lab Results 07/27/18 07/27/18 07/27/18 Range/Units 09:41 09:41 09:41 WBC 25.1 H (3.8-10.6) k/uL RBC 4.68 (4.30-5.90) m/uL Hgb 13.7 (13.0-17.5) gm/dL Hct 42.3 (39.0-53.0) % MCV 90.5 (80.0-100.0) fL MCH 29.2 (25.0-35.0) pg MCHC 32.3 (31.0-37.0) g/dL RDW 16.3 H (11.5-15.5) % Plt Count 278 (150-450) k/uL Neutrophils % 90 % Lymphocytes % 3 % Monocytes % 6 % Eosinophils % 1 % Basophils % 0 % Neutrophils # 22.6 H (1.3-7.7) k/uL Lymphocytes # 0.8 L (1.0-4.8) k/uL Monocytes # 1.5 H (0-1.0) k/uL Eosinophils # 0.1 (0-0.7) k/uL Basophils # 0.0 (0-0.2) k/uL Anisocytosis Slight PT (9.0-12.0) sec INR (<1.2) APTT (22.0-30.0) sec Sodium 142 (137-145) mmol/L Potassium 4.3 (3.5-5.1) mmol/L Chloride 98 (98-107) mmol/L Carbon Dioxide 20 L (22-30) mmol/L Anion Gap 24 mmol/L BUN 46 H (9-20) mg/dL Creatinine 3.13 H (0.66-1.25) mg/dL Est GFR (CKD-EPI)AfAm 24 (>60 ml/min/1.73 sqM) Est GFR (CKD-EPI)NonAf 21 (>60 ml/min/1.73 sqM) Glucose 224 H (74-99) mg/dL Plasma Lactic Acid Sergey (0.7-2.0) mmol/L Calcium 9.5 (8.4-10.2) mg/dL Total Bilirubin 0.6 (0.2-1.3) mg/dL AST 39 (17-59) U/L ALT 25 (21-72) U/L Alkaline Phosphatase 94 (38-126) U/L Total Creatine Kinase 164 (55-170) U/L CK-MB (CK-2) 6.3 H (0.0-2.4) ng/mL CK-MB (CK-2) Rel Index 3.8 Troponin I 0.110 H* (0.000-0.034) ng/mL Total Protein 8.2 (6.3-8.2) g/dL Albumin 4.7 (3.5-5.0) g/dL Amylase 207 H (30-110) U/L Lipase 167 (23-300) U/L Urine Color Urine Appearance (Clear) Urine pH (5.0-8.0) Ur Specific Effie (1.001-1.035) Urine Protein (Negative) Urine Glucose (UA) (Negative) Urine Ketones (Negative) Urine Blood (Negative) Urine Nitrite (Negative) Urine Bilirubin (Negative) Urine Urobilinogen (<2.0) mg/dL Ur Leukocyte Esterase (Negative) Urine RBC (0-5) /hpf Urine WBC (0-5) /hpf Ur Squamous Epith Cells (0-4) /hpf Urine Bacteria (None) /hpf Hyaline Casts (0-2) /lpf Urine Mucus (None) /hpf 07/27/18 07/27/18 07/27/18 Range/Units 09:41 11:02 12:00 WBC (3.8-10.6) k/uL RBC (4.30-5.90) m/uL Hgb (13.0-17.5) gm/dL Hct (39.0-53.0) % MCV (80.0-100.0) fL MCH (25.0-35.0) pg MCHC (31.0-37.0) g/dL RDW (11.5-15.5) % Plt Count (150-450) k/uL Neutrophils % % Lymphocytes % % Monocytes % % Eosinophils % % Basophils % % Neutrophils # (1.3-7.7) k/uL Lymphocytes # (1.0-4.8) k/uL Monocytes # (0-1.0) k/uL Eosinophils # (0-0.7) k/uL Basophils # (0-0.2) k/uL Anisocytosis PT 10.8 (9.0-12.0) sec INR 1.1 (<1.2) APTT 19.1 L (22.0-30.0) sec Sodium (137-145) mmol/L Potassium (3.5-5.1) mmol/L Chloride (98-107) mmol/L Carbon Dioxide (22-30) mmol/L Anion Gap mmol/L BUN (9-20) mg/dL Creatinine (0.66-1.25) mg/dL Est GFR (CKD-EPI)AfAm (>60 ml/min/1.73 sqM) Est GFR (CKD-EPI)NonAf (>60 ml/min/1.73 sqM) Glucose (74-99) mg/dL Plasma Lactic Acid Sergey 1.9 (0.7-2.0) mmol/L Calcium (8.4-10.2) mg/dL Total Bilirubin (0.2-1.3) mg/dL AST (17-59) U/L ALT (21-72) U/L Alkaline Phosphatase (38-126) U/L Total Creatine Kinase (55-170) U/L CK-MB (CK-2) (0.0-2.4) ng/mL CK-MB (CK-2) Rel Index Troponin I (0.000-0.034) ng/mL Total Protein (6.3-8.2) g/dL Albumin (3.5-5.0) g/dL Amylase (30-110) U/L Lipase (23-300) U/L Urine Color Yellow Urine Appearance Clear (Clear) Urine pH 5.0 (5.0-8.0) Ur Specific Effie 1.016 (1.001-1.035) Urine Protein 1+ H (Negative) Urine Glucose (UA) Negative (Negative) Urine Ketones 1+ H (Negative) Urine Blood Small H (Negative) Urine Nitrite Negative (Negative) Urine Bilirubin Negative (Negative) Urine Urobilinogen <2.0 (<2.0) mg/dL Ur Leukocyte Esterase Negative (Negative) Urine RBC 1 (0-5) /hpf Urine WBC 2 (0-5) /hpf Ur Squamous Epith Cells <1 (0-4) /hpf Urine Bacteria Rare H (None) /hpf Hyaline Casts 8 H (0-2) /lpf Urine Mucus Rare H (None) /hpf Disposition Clinical Impression: Alcohol withdrawal, Elevated troponin, Sinus tachycardia, Nausea and vomiting, Dehydration, Acute kidney injury Disposition: ADMITTED IP TO THIS HOSP Condition: Fair Referrals: Shantel Yin MD [Primary Care Provider] - 1-2 days
[2018-07-27 10:19] LABS: Anisocytosis Slight; Basophils % (A) 0 %; Eosinophils # (A) 0.1 k/uL (0-0.7); Eosinophils % (A) 1 %; HCT 42.3 % (39.0-53.0); HGB 13.7 gm/dL (13.0-17.5); Lymphocytes # (A) 0.8 k/uL (1.0-4.8); Lymphocytes % (A) 3 %; MCH 29.2 pg (25.0-35.0); MCHC 32.3 g/dL (31.0-37.0); MCV 90.5 fL (80.0-100.0); Mean Platelet Volume 6.8; Monocytes # (A) 1.5 k/uL (0-1.0); Monocytes % (A) 6 %; Neutrophils # (A) 22.6 k/uL (1.3-7.7); Neutrophils % (A) 90 %; Platelet Count 278 k/uL (150-450); RBC 4.68 m/uL (4.30-5.90); RDW 16.3 % (11.5-15.5); WBC 25.1 k/uL (3.8-10.6)
[2018-07-27 10:27] LABS: INR 1.1 (<1.2); Prothrombin Time 10.8 sec (9.0-12.0)
[2018-07-27 10:35] LABS: Albumin 4.7 g/dL (3.5-5.0); Calcium 9.5 mg/dL (8.4-10.2); Potassium 4.3 mmol/L (3.5-5.1); Total Bilirubin 0.6 mg/dL (0.2-1.3); Total Protein 8.2 g/dL (6.3-8.2)
[2018-07-27 10:36] LABS: Partial Thromboplastin Time 19.1 sec (22.0-30.0)
--- NOTE | 2018-07-27 10:47 | XR ---
EXAMINATION TYPE: XR chest 2V DATE OF EXAM: 07/27/2018 COMPARISON: Prior chest x-ray 32,018 HISTORY: Cough and pain TECHNIQUE: Frontal and lateral views of the chest are obtained. FINDINGS: There is no focal air space opacity, pleural effusion, or pneumothorax seen. The cardiac silhouette size is within normal limits. There are prominent lung volumes. There is bronchial wall t hickening. Multiple left-sided posterior rib fractures are stable. There are overlying cardiac leads. Patient is rotated. Calcification at the level of the greater tuberosity the proximal right humerus could be due to calcific tendinitis. IMPRESSION: Correlate for bronchitis, reactive airways disease, follow-up as indicated
[2018-07-27 10:51] LABS: Creatine Kinase MB 6.3 ng/mL (0.0-2.4)
[2018-07-27 10:57] LABS: Troponin I 0.11 ng/mL (0.000-0.034)
[2018-07-27] MEDS ORDERED: LABETALOL 5 MG/ML VIAL MDV IVP STA (11:08)
[2018-07-27 11:24] LABS: Appearance,Urine Clear (Clear); Bacteria,Urine Rare /hpf; Bilirubin,Urine Negative (Negative); Blood,Urine Small (Negative); Color,Urine Yellow; Glucose,Urine (UA) Negative (Negative); Hyaline Casts,Urine 8 /lpf (0-2); Ketones,Urine 1+ (Negative); Leukocyte Esterase,Urine Negative (Negative); Mucus,Urine Rare /hpf; Nitrite,Urine Negative (Negative); Protein,Urine 1+ (Negative); RBC,Urine 1 /hpf (0-5); Specific Gravity,Urine 1.016 (1.001-1.035); Squamous Epithelial Cell,Urine <1 /hpf (0-4); Urobilinogen,Urine <2.0 mg/dL (<2.0); WBC,Urine 2 /hpf (0-5)
--- NOTE | 2018-07-27 12:25 | CT ---
EXAMINATION TYPE: CT abdomen pelvis wo con DATE OF EXAM: 07/27/2018 COMPARISON: Prior CT abdomen pelvis 11/02/2017 HISTORY: Mid Abdominal pain with nausea and vomiting CT DLP: 451.5 mGycm Automated exposure control for dose reduction was used. TECHNIQUE: Helical acquisition of images from the lung bases through the pelvis. FINDINGS: Lack of contrast could compromise sensitivity. There is a hiatal hernia again noted. LUNG BASES: Stable, some nodularity, probable scarring, findings suggesting old granulomatous disease AORTA: No significant abnormality is appreciated. LIVER/GB: Stable, there is likely hepatic steatosis. Gallbladder is normal. PANCREAS: Stable SPLEEN: No significant abnormality is seen. ADRENALS: No significant abnormality is seen. KIDNEYS: Stable, right kidney is atrophic, lobular contour, there are no renal calcifications or uret eral calcification, circumaortic left renal vein is present. REPRODUCTIVE ORGANS: No significant abnormality is seen. URINARY BLADDER: No significant abnormality is seen. BOWEL: Diverticular changes are present within the colon. No evident bowel obstruction. Appendix is normal. FREE AIR: No Free Air is visible. ASCITES: None visible. PELVIC ADENOPATHY: None visualized. RETROPERITONEAL ADENOPATHY: No Retroperitoneal Adenopathy visible. OSSEOUS STRUCTURES: Stable IMPRESSION: NONCONTRAST EXAM. NO SIGNIFICANT ABNORMALITY OR INTERVAL CHANGE IS EVIDENT. CORRELATE FOR HEPATIC KATIE ATOSIS. HIATAL HERNIA. SUSPECT OLD GRANULOMATOUS DISEASE AT THE LUNG BASES. DIVERTICULOSIS.
[2018-07-27] MEDS ORDERED: LORazepam 2 MG/ML INJ IV PRN (12:33)
[2018-07-27] MEDS ORDERED: SODIUM CHLORIDE 0.9% 1,000 ML with MVI, ADULT NO.4 WITH VIT K 10 ML, THIAMINE 100 MG, F... IV ONE ×4 (12:33)
[2018-07-27] MEDS ORDERED: ACETAMINOPHEN TAB 325 MG TAB PO PRN (13:16)
[2018-07-27] MEDS ORDERED: NALOXONE 0.4 MG/ML 1 ML VIAL IV PRN (13:16)
[2018-07-27] MEDS ORDERED: ONDANSETRON 4 MG/2 ML VIAL IVP PRN (13:16)
[2018-07-27] MEDS: LORazepam 2 MG/ML INJ IV PRN ×3 (14:54→23:20)
[2018-07-27] MEDS ORDERED: DOCUSATE 100 MG CAP PO PRN (15:08)
--- NOTE | 2018-07-27 15:17 | P.HPIM ---
History of Present Illness H&P Date: 07/27/18 Chief Complaint: Alcohol withdrawal 58-year-old male with past medical history of hypertension, stage III CKG, anxiety and depression, and alcohol abuse presents to the ED for abdominal pain and multiple episodes of nausea and vomiting. Patient reports having his last drink greater than 12 hours ago. Starting yesterday, patient has experienced more than 10 episodes of nonbilious , nonbloody nausea and vomiting. The vomiting is associated with abdominal pain. His pain is bilateral and located in the lower abdomen. Pain is 4 out of 10 in severity. Patient describes the pain as constant and "nagging" in nature. There is no radiation of pain. There is no alleviating or aggravating factors. Patient also reports a history of anxiety and depression. He does endorse suicidal ideation with a plan, states that he lives close to the [facility] and has had plans of ending his life. Patient reports going through stressful situations recently, but does not want to speak about it at this time. He denies any headaches, lower extremity edema, fever, cough, chest pain, shortness of breath, palpitations, changes in urination or bowel habits. He does endorse a decreased appetite. Of note, patient reports drinking a fifth of hard liquor daily. He does report withdrawal symptoms when he doesn't drink. He has never had any seizures. In the ED, CBC showed a leukocytosis of 25.1. CMP showed a bicarb of 20, a BUNs of 46, creatinine of 3.13, glucose of 224. Troponin is elevated at 0.110, EKG shows sinus tachycardia. Amylase is 207. Urinalysis shows 1+ protein, 1+ ketones, small blood, rare bacteria with hyaline casts. CT of the abdomen and pelvis shows hepatic steatosis, hiatal hernia, diverticulosis, old granulomatous disease at the lung bases. Chest x-ray correlates for bronchitis or reactive airway disease. Patient is admitted for alcohol withdrawal and suicidal ideation. Review of Systems All systems: negative Past Medical History Past Medical History: Chest Pain / Angina, GERD/Reflux, GI Bleed, Hypertension, Renal Disease Additional Past Medical History / Comment(s): ETOH abuse with withdrawals/ tremors, chronic kidney disease stage III, bacteremia/sepsis 3 yrs ago and treated at [facility], lower GI bleed, History of Any Multi-Drug Resistant Organisms: None Reported Past Surgical History: No Surgical Hx Reported Additional Past Surgical History / Comment(s): Tooth extraction at [facility] Past Anesthesia/Blood Transfusion Reactions: No Reported Reaction Additional Past Anesthesia/Blood Transfusion Reaction / Comment(s): NO ANESTHESIA HX. PT STATES TOOTH PULLED AT [facility]. Smoking Status: Light tobacco smoker - Past Family History Father Family Medical History: Cancer Additional Family Medical History / Comment(s): Father is deceasedd at age 87. He had a pacemaker, carotid surgery and scoliosis. Mother Family Medical History: Dementia, Musculoskeletal Disorder, Neurologic Disorder , Pneumonia Additional Family Medical History / Comment(s): Mother at age 84 with history of Alzheimer's and Parkinson's. Brother(s) Additional Family Medical History / Comment(s): Patient does not have any brothers or sisters. He does not have any children. Medications and Allergies Home Medications Medication Instructions Recorded Confirmed Type Metoprolol Tartrate [Lopressor] 50 mg PO BID #60 tab 06/08/18 07/27/18 Rx Multivitamins, Thera [Multivitamin 1 each PO DAILY@1200 #30 tab 06/08/18 Rx (formulary)] Pantoprazole [Protonix] 40 mg PO AC-BRKFST #30 tablet. 06/08/18 07/27/18 Rx Folic Acid 1 mg PO DAILY 07/27/18 07/27/18 History Naltrexone HCl [Revia] 50 mg PO DAILY 07/27/18 07/27/18 History Venlafaxine HCl ER [Effexor Xr] 75 mg PO DAILY 07/27/18 07/27/18 History clonazePAM [KlonoPIN] 0.5 mg PO BID 07/27/18 07/27/18 History Allergies Allergy/AdvReac Type Severity Reaction Status Date / Time No Known Allergies Allergy Verified 07/27/18 09:57 Physical Exam Vitals: Vital Signs Temp Pulse Resp BP Pulse Ox 07/27/18 13:30 109 H 18 138/95 07/27/18 13:00 112 H 25 H 143/96 07/27/18 12:30 97 35 H 147/100 97 07/27/18 12:00 104 H 22 111/73 95 07/27/18 11:30 115 H 22 165/102 07/27/18 11:00 130 H 26 H 149/95 10/23/18 10:30 129 H 23 164/105 92 L 07/27/18 09:44 99.4 F 133 H 18 153/101 97 Intake and Output 07/26/18 07/27/18 07/27/18 22:59 06:59 14:59 Other: Weight 77.111 kg General: [non toxic], [no distress], [appears at stated age], [dried-up vomit over the face and his lower extremities] Derm: [warm], [dry] Head: [atraumatic], [normocephalic], [symmetric] Eyes: [EOMI], [no lid lag], [anicteric sclera] Mouth: [no lip lesion], [mucus membranes moist] Cardiovascular: [S1S2 reg], [tachycardic], [positive DP pulse bilateral], Lungs: [CTA bilateral], [no rhonchi, no rales] , [no accessory muscle use] Abdominal: [soft], [mild tenderness to palpation of the right and left lower quadrant without rebound], [no guarding], [no appreciable organomegaly] Ext: [no gross muscle atrophy], [no edema], [no contractures] Neuro: [ CN II-XI grossly intact], [no focal neuro deficits] Psych: [Alert], [oriented], [appropriate affect] Results CBC & Chem 7: 07/27/18 09:41 07/27/18 09:41 Labs: Abnormal Lab Results - Last 24 Hours (Table) 07/27/18 07/27/18 07/27/18 Range/Units 09:41 09:41 09:41 WBC 25.1 H (3.8-10.6) k/uL RDW 16.3 H (11.5-15.5) % Neutrophils # 22.6 H (1.3-7.7) k/uL Lymphocytes # 0.8 L (1.0-4.8) k/uL Monocytes # 1.5 H (0-1.0) k/uL APTT (22.0-30.0) sec Carbon Dioxide 20 L (22-30) mmol/L BUN 46 H (9-20) mg/dL Creatinine 3.13 H (0.66-1.25) mg/dL Glucose 224 H (74-99) mg/dL CK-MB (CK-2) 6.3 H (0.0-2.4) ng/mL Troponin I 0.110 H* (0.000-0.034) ng/mL Amylase 207 H (30-110) U/L Urine Protein (Negative) Urine Ketones (Negative) Urine Blood (Negative) Urine Bacteria (None) /hpf Hyaline Casts (0-2) /lpf Urine Mucus (None) /hpf 07/27/18 07/27/18 Range/Units 09:41 11:02 WBC (3.8-10.6) k/uL RDW (11.5-15.5) % Neutrophils # (1.3-7.7) k/uL Lymphocytes # (1.0-4.8) k/uL Monocytes # (0-1.0) k/uL APTT 19.1 L (22.0-30.0) sec Carbon Dioxide (22-30) mmol/L BUN (9-20) mg/dL Creatinine (0.66-1.25) mg/dL Glucose (74-99) mg/dL CK-MB (CK-2) (0.0-2.4) ng/mL Troponin I (0.000-0.034) ng/mL Amylase (30-110) U/L Urine Protein 1+ H (Negative) Urine Ketones 1+ H (Negative) Urine Blood Small H (Negative) Urine Bacteria Rare H (None) /hpf Hyaline Casts 8 H (0-2) /lpf Urine Mucus Rare H (None) /hpf Thrombosis Risk Factor Assmnt - Choose All That Apply Any of the Below Risk Factors Present?: Yes Each Factor Represents 1 point: Age 41-60 years, Obesity (BMI >25) Other Risk Factors: No Other congenital or acquired thrombophilia - If yes, enter type in comment: No Thrombosis Risk Factor Assessment Total Risk Factor Score: 2 Thrombosis Risk Factor Assessment Level: Low Risk Assessment and Plan Assessment: Assessment and Plan 1. Alcohol withdrawal: > 12 H since last drink. High risk for DTs. CIWA protocol. Ativan IV PRN for CIWA > 8. Start Folic acid 1 mg PO QD, MVI 1 tab PO QD, Thiamine 100 mg PO BID. Will start Librium 25 mg PO TID. Zofran 4 mg IV Q8 PRN for N/V. Fall and seizure precautions. Telemetry monitoring. FU Mg 2. Suicidal ideation: Has history of anxiety and depression. Suicidal precautions. Continue Venlafaxine 75 mg PO QD. FU Psychiatry 3. Abdominal pain: Likely related to multiple episodes of vomiting. CTAP shows hepatic steatosis, hiatal hernia and diverticulosis. UA is negative for UTI. Continue Zofran PRN and Protonix IV. Start Docusate 100 mg PO QD PRN for constipation. CLD and advance. 4. Troponemia: Troponin 0.110, EKG shows sinus tachycardia. Likely demand ischemia from EtOH withdrawal. Echocardiogram 10/2017 EF 60-65%. Telemetry monitoring. Trend 2 sets of Trops/EKG to r/o ACS. 5. KENROY on CKD: BUN 46 Cr 3.13 GFR 24. Baseline Cr ~ 1.20. Likely related to dehydration. Continue NS at 100 ml/h. Daily BMP. Avoid nephrotoxins. 6. Leukocytosis: WBC 25.1. Likely reactive from EtOH withdrawal. No fever or signs of infection. UA negative. CXR shows concern for acute bronchitis. Daily CBC. 7. Non AG metabolic acidosis: Bicarbonate 20. Likely secondary to EtOH abuse and dehydration. Continue NS at 100 ml/h. Daily BMP. 8. Hypertension: BP 160/80. Continue Metoprolol 50 mg PO BID. Monitor vitals, adjust medications as necessary. 9. DVT/GI Prophylaxis: Heparin 5000 units SUBCUT BID. Protonix. Patient is being treated for alcohol withdrawal. Plan to rule out ACS. Suicidal precautions in place, psychiatry consult placed.
[2018-07-27] MEDS: THIAMINE 100 MG TAB PO SCH (17:35)
[2018-07-27] MEDS: chlordiazePOXIDE 25 MG CAP PO SCH ×2 (17:35→21:56)
[2018-07-27] MEDS: METOPROLOL TARTRATE 50 MG TAB PO SCH (21:56)
[2018-07-27] MEDS: HEPARIN SODIUM,PORCINE 5,000 UNIT/ML 1 ML VIAL SQ SCH (21:57)
[2018-07-28] MEDS: SODIUM CHLORIDE 0.9% 1,000 ML IV SCH ×3 (01:15→15:01)
[2018-07-28 06:14] LABS: Anisocytosis Slight; Basophils % (A) 0 %; Eosinophils # (A) 0.1 k/uL (0-0.7); Eosinophils % (A) 1 %; HCT 37.5 % (39.0-53.0); HGB 11.8 gm/dL (13.0-17.5); Hypochromasia Slight; Lymphocytes # (A) 2.5 k/uL (1.0-4.8); Lymphocytes % (A) 17 %; MCH 29.5 pg (25.0-35.0); MCHC 31.6 g/dL (31.0-37.0); MCV 93.5 fL (80.0-100.0); Mean Platelet Volume 7.2; Monocytes # (A) 0.7 k/uL (0-1.0); Monocytes % (A) 5 %; Neutrophils # (A) 10.7 k/uL (1.3-7.7); Neutrophils % (A) 76 %; Platelet Count 178 k/uL (150-450); RBC 4.02 m/uL (4.30-5.90); RDW 16.6 % (11.5-15.5); WBC 14.1 k/uL (3.8-10.6)
[2018-07-28 06:24] LABS: Calcium 8.9 mg/dL (8.4-10.2); Magnesium 1.9 mg/dL (1.6-2.3); Phosphorus 2.2 mg/dL (2.5-4.5); Potassium 3.8 mmol/L (3.5-5.1)
[2018-07-28] MEDS ORDERED: PANTOPRAZOLE 40 MG TABLET PO SCH (07:30)
[2018-07-28] MEDS: chlordiazePOXIDE 25 MG CAP PO SCH ×2 (07:52→15:53)
[2018-07-28] MEDS: METOPROLOL TARTRATE 50 MG TAB PO SCH (07:53)
[2018-07-28] MEDS: HEPARIN SODIUM,PORCINE 5,000 UNIT/ML 1 ML VIAL SQ SCH (07:53)
[2018-07-28] MEDS ORDERED: PANTOPRAZOLE 40 MG/10 ML VIAL IV SCH (09:00)
[2018-07-28] MEDS ORDERED: FOLIC ACID 1 MG TAB PO SCH (09:00)
[2018-07-28] MEDS ORDERED: VENLAFAXINE HCL ER 75 MG CAP PO SCH (09:00)
--- NOTE | 2018-07-28 10:33 | P.PN ---
Subjective Progress Note Date: 07/28/18 Principal diagnosis: Alcohol withdrawal Patient was seen and examined. No acute events overnight. Patient reports no vomiting overnight and great improvement in nausea. His abdominal pain has since improved as well. Patient also reports improved mood since waking up this morning. Able to tolerate clear liquid diet. Patient has no other complaints. Objective - Vital Signs Vital signs: Vital Signs Temp 98.3 F 07/28/18 07:43 Pulse 97 07/28/18 07:43 Resp 16 07/28/18 07:43 BP 126/76 07/28/18 07:43 Pulse Ox 93 L 07/28/18 07:43 Intake & Output 07/27/18 07/28/18 07/28/18 18:59 06:59 18:59 Weight 77.111 kg 74.5 kg Other: # Voids 1 - Exam General: [non toxic], [no distress], [appears at stated age] Derm: [warm], [dry] Head: [atraumatic], [normocephalic], [symmetric] Eyes: [EOMI], [no lid lag], [anicteric sclera] Mouth: [no lip lesion], [mucus membranes moist] Cardiovascular: [S1S2 reg], [no murmurs rubs or gallops], [positive DP pulse bilateral], Lungs: [CTA bilateral], [no rhonchi, no rales] , [no accessory muscle use] Abdominal: [soft], [all tenderness right lower quadrant with rebound, improved from yesterday], [no guarding], [no appreciable organomegaly] Ext: [no gross muscle atrophy], [no edema], [no contractures] Neuro: [no focal neuro deficits] Psych: [Alert], [oriented], [appropriate affect] - Labs CBC & Chem 7: 07/28/18 05:56 07/28/18 05:56 Labs: Abnormal Lab Results - Last 24 Hours (Table) 07/27/18 07/27/18 07/27/18 Range/Units 09:41 09:41 09:41 WBC (3.8-10.6) k/uL RBC (4.30-5.90) m/uL Hgb (13.0-17.5) gm/dL Hct (39.0-53.0) % RDW (11.5-15.5) % Neutrophils # (1.3-7.7) k/uL APTT 19.1 L (22.0-30.0) sec Chloride (98-107) mmol/L Carbon Dioxide 20 L (22-30) mmol/L BUN 46 H (9-20) mg/dL Creatinine 3.13 H (0.66-1.25) mg/dL Glucose 224 H (74-99) mg/dL Phosphorus (2.5-4.5) mg/dL CK-MB (CK-2) 6.3 H (0.0-2.4) ng/mL Troponin I 0.110 H* (0.000-0.034) ng/mL Amylase 207 H (30-110) U/L Urine Protein (Negative) Urine Ketones (Negative) Urine Blood (Negative) Urine Bacteria (None) /hpf Hyaline Casts (0-2) /lpf Urine Mucus (None) /hpf 07/27/18 07/27/18 07/28/18 Range/Units 11:02 18:32 00:37 WBC (3.8-10.6) k/uL RBC (4.30-5.90) m/uL Hgb (13.0-17.5) gm/dL Hct (39.0-53.0) % RDW (11.5-15.5) % Neutrophils # (1.3-7.7) k/uL APTT (22.0-30.0) sec Chloride (98-107) mmol/L Carbon Dioxide (22-30) mmol/L BUN (9-20) mg/dL Creatinine (0.66-1.25) mg/dL Glucose (74-99) mg/dL Phosphorus (2.5-4.5) mg/dL CK-MB (CK-2) (0.0-2.4) ng/mL Troponin I 0.155 H* 0.082 H* (0.000-0.034) ng/mL Amylase (30-110) U/L Urine Protein 1+ H (Negative) Urine Ketones 1+ H (Negative) Urine Blood Small H (Negative) Urine Bacteria Rare H (None) /hpf Hyaline Casts 8 H (0-2) /lpf Urine Mucus Rare H (None) /hpf 07/28/18 07/28/18 Range/Units 05:56 05:56 WBC 14.1 H (3.8-10.6) k/uL RBC 4.02 L (4.30-5.90) m/uL Hgb 11.8 L (13.0-17.5) gm/dL Hct 37.5 L (39.0-53.0) % RDW 16.6 H (11.5-15.5) % Neutrophils # 10.7 H (1.3-7.7) k/uL APTT (22.0-30.0) sec Chloride 110 H (98-107) mmol/L Carbon Dioxide (22-30) mmol/L BUN 29 H (9-20) mg/dL Creatinine 1.47 H (0.66-1.25) mg/dL Glucose 119 H (74-99) mg/dL Phosphorus 2.2 L (2.5-4.5) mg/dL CK-MB (CK-2) (0.0-2.4) ng/mL Troponin I (0.000-0.034) ng/mL Amylase (30-110) U/L Urine Protein (Negative) Urine Ketones (Negative) Urine Blood (Negative) Urine Bacteria (None) /hpf Hyaline Casts (0-2) /lpf Urine Mucus (None) /hpf Assessment and Plan Assessment: Assessment and Plan 1. Alcohol withdrawal: > 12 H since last drink. High risk for DTs. CIWA protocol (last CIWA of 6). Ativan IV PRN for CIWA > 8. Continue Folic acid 1 mg PO QD, MVI 1 tab PO QD, Thiamine 100 mg PO BID. Continue Librium 25 mg PO TID. Zofran 4 mg IV Q8 PRN for N/V. Fall and seizure precautions. Telemetry monitoring. 2. Suicidal ideation: Has history of anxiety and depression. Suicidal precautions. Continue Venlafaxine 75 mg PO QD. FU Psychiatry 3. Troponemia: Troponin 0.110, 0.155, 0.082 with EKG shows sinus tachycardia. Likely demand ischemia from EtOH withdrawal. Echocardiogram 10/2017 EF 60-65. Telemetry monitoring. Will trend another Troponin since improvement in HR, anticipate trend down. 4. Abdominal pain: Resolving. Likely related to multiple episodes of vomiting. CTAP shows hepatic steatosis, hiatal hernia and diverticulosis. UA is negative for UTI. Continue Zofran PRN and Protonix IV. Start Docusate 100 mg PO QD PRN for constipation. CLD and advance. 5. KENROY on CKD: BUN 46 to 29 Cr 3.13 to 1.47 GFR 24 to 53. Baseline Cr ~ 1.20. Likely related to dehydration. Continue NS at 100 ml/h. Daily BMP. Avoid nephrotoxins. 6. Leukocytosis: WBC 25.1 to 14.1. Likely reactive from EtOH withdrawal. No fever or signs of infection. UA negative. CXR shows concern for acute bronchitis. Daily CBC. 7. Hypertension: BP 126/76. Continue Metoprolol 50 mg PO BID. Monitor vitals, adjust medications as necessary. 8. DVT/GI Prophylaxis: Heparin 5000 units SUBCUT BID. Protonix. Patient is being treated for alcohol withdrawal. Plan to rule out ACS, will trend 1 more Trop/EKG. Suicidal precautions in place, psychiatry consult pending.
[2018-07-28] MEDS: THIAMINE 100 MG TAB PO SCH ×2 (11:13→15:53)
[2018-07-28] MEDS: LORazepam 2 MG/ML INJ IV PRN (11:14)
[2018-07-28] MEDS ORDERED: MULTIVITAMINS, THERA 1 EACH TAB PO SCH (12:00)
[2018-07-28 13:05] VITALS: BMI 27.3
--- NOTE | 2018-07-28 13:05 | P.CN ---
Psychiatric Consult - . Consult date: 07/28/18 Consult:: 07/28/18 09:15 Alcohol use disorder severe with concomitant suicidal ideation while intoxicated 07/28/18 12:56 Assessment and Plan Assessment: Chief Complaint: Alcohol withdrawal Consult for suicidal ideation while intoxicated 58-year-old male with past medical history of hypertension, stage III CKG, anxiety and depression, and alcohol abuse presents to the ED for abdominal pain and multiple episodes of nausea and vomiting. Patient reports having his last drink greater than 12 hours ago. Starting yesterday, patient has experienced more than 10 episodes of nonbilious , nonbloody nausea and vomiting. The vomiting is associated with abdominal pain. His pain is bilateral and located in the lower abdomen. Pain is 4 out of 10 in severity. Patient describes the pain as constant and "nagging" in nature. There is no radiation of pain. There is no alleviating or aggravating factors. Patient also reports a history of anxiety and depression. He does endorse suicidal ideation with a plan, states that he lives close to the [facility] and has had plans of ending his life. He denies these claims today. Patient reports going through stressful situations recently, but does not want to speak about it at this time. He denies any headaches, lower extremity edema, fever, cough, chest pain, shortness of breath, palpitations, changes in urination or bowel habits. He does endorse a decreased appetite. Of note, patient reports drinking a fifth of hard liquor daily. He does report withdrawal symptoms when he doesn't drink. He has never had any seizures. In the ED, CBC showed a leukocytosis of 25.1. CMP showed a bicarb of 20, a BUNs of 46, creatinine of 3.13, glucose of 224. Troponin is elevated at 0.110, EKG shows sinus tachycardia. Amylase is 207. Urinalysis shows 1+ protein, 1+ ketones, small blood, rare bacteria with hyaline casts. CT of the abdomen and pelvis shows hepatic steatosis, hiatal hernia, diverticulosis, old granulomatous disease at the lung bases. Chest x-ray correlates for bronchitis or reactive airway disease. Patient is admitted for alcohol withdrawal and suicidal ideation. Past Medical History Past Medical History: Chest Pain / Angina, GERD/Reflux, GI Bleed, Hypertension, Renal Disease Additional Past Medical History / Comment(s): ETOH abuse with withdrawals/ tremors, chronic kidney disease stage III, bacteremia/sepsis 3 yrs ago and treated at [facility], lower GI bleed, History of Any Multi-Drug Resistant Organisms: None Reported Past Surgical History: No Surgical Hx Reported Additional Past Surgical History / Comment(s): Tooth extraction at [facility] Past Anesthesia/Blood Transfusion Reactions: No Reported Reaction Additional Past Anesthesia/Blood Transfusion Reaction / Comment(s): NO ANESTHESIA HX. PT STATES TOOTH PULLED AT [facility]. Smoking Status: Light tobacco smoker - Past Family History Father Family Medical History: Cancer Additional Family Medical History / Comment(s): Father is deceasedd at age 87. He had a pacemaker, carotid surgery and scoliosis. Mother Family Medical History: Dementia, Musculoskeletal Disorder, Neurologic Disorder , Pneumonia Additional Family Medical History / Comment(s): Mother at age 84 with history of Alzheimer's and Parkinson's. Brother(s Home Medications Medication Instructions Recorded Confirmed Type Metoprolol Tartrate [Lopressor] 50 mg PO BID #60 tab 06/08/18 07/27/18 Rx Multivitamins, Thera [Multivitamin 1 each PO DAILY@1200 #30 tab 06/08/18 Rx (formulary)] Pantoprazole [Protonix] 40 mg PO AC-COLEKFST #30 tablet. 06/08/18 07/27/18 Rx Folic Acid 1 mg PO DAILY 07/27/18 07/27/18 History Naltrexone HCl [Revia] 50 mg PO DAILY 07/27/18 07/27/18 History Venlafaxine HCl ER [Effexor Xr] 75 mg PO DAILY 07/27/18 07/27/18 History clonazePAM [KlonoPIN] 0.5 mg PO BID 07/27/18 07/27/18 History Allergies Allergy/AdvReac Type Severity Reaction Status Date / Time No Known Allergies Allergy Verified 07/27/18 09:57 Mental Status Examination - this is a 58-year-old male evaluated at bedside who states about this time a year he gets depressed overwhelmed and starts drinking more heavily. He last saw his therapist last and is supposed to see his psychiatrist this week. He does like the parents of the [facility] and the rooms General Appearance: [casual, appears older than stated age] Speech/Language: [slow, rapid, slurred, monotone, soft] Attitude/Behavior: [cooperative] Mood: [ depressed, anxious, fearful, hopelessness] Affect: [ flat, incongruent, blunted constricted] Orientation: [time, person, place situation] Thought Content: [wnl Risk Factors: [He does not have suicidal (ideations, plan), and/or Homicidal ( ideations, plan), other] Perception: [wnl Thought Processes: [concrete, circumstantial, Concentration/Attention Span: [wnl] [Per observation and interview with the patient] Recent Memory: [wnl, impaired] [0, 1, 2 or 3 out of 3 in 3 minutes] Remote Memory: [wnl, impaired] [past events, as related history] Intelligence: [below average] [based on history, based on vocabulary, syntax, grammar, and content] Judgement: [ fair] [per patient's behavior/history of present illness] Insight: [ fair] [understanding severity of illness/history of present illness] Psychiatric diagnostic impression: This 58-year-old male suffers from dual diagnoses of alcohol use disorder severe and major depressive disorder moderate degree of severity. He currently is not suicidal or homicidal and appears more to be of secondary gain than primary. Psychiatric recommendations: Discontinue the sitter, tomorrow increases venlafaxine 250 mg XR by mouth daily at bedtime Thank you so much for the consult Warren Mcarthur D.O. PhD attending psychiatrist Sylvia Dill (1) Alcohol withdrawal Current Visit: Yes Status: Acute Code(s): F10.239 - ALCOHOL DEPENDENCE WITH WITHDRAWAL, UNSPECIFIED SNOMED Code(s): 179025954 (2) Alcohol intoxication Current Visit: No Status: Acute Code(s): F10.929 - ALCOHOL USE, UNSPECIFIED WITH INTOXICATION, UNSPECIFIED SNOMED Code(s): 78621831 (3) Depression Current Visit: No Status: Acute Priority: Medium Code(s): F32.9 - MAJOR DEPRESSIVE DISORDER, SINGLE EPISODE, UNSPECIFIED SNOMED Code(s): 42317066 (4) Suicidal ideation Current Visit: No Status: Acute Priority: Low Code(s): R45.851 - SUICIDAL IDEATIONS SNOMED Code(s): 2836724 Plan: 1. Alcohol withdrawal: > 12 H since last drink. High risk for DTs. CIWA protocol. Ativan IV PRN for CIWA > 8. Start Folic acid 1 mg PO QD, MVI 1 tab PO QD, Thiamine 100 mg PO BID. Will start Librium 25 mg PO TID. Zofran 4 mg IV Q8 PRN for N/V. Fall and seizure precautions. Telemetry monitoring. FU Mg 2. Suicidal ideation: Has history of anxiety and depression. Suicidal precautions. Continue Venlafaxine 75 mg PO QD and increase on 07/29/2018 to 150 mg XR Time with Patient: Greater than 30
[2018-07-28 14:58] VITALS: BP 135/88; PULSE 85; RESP 18; TEMP 98.2
== END 2018-07-28 17:22 | disposition home or self-care (01) | DRG 897 ==
LOC: EC 09:22 → 3SCARD 13:10
PROVIDERS: ADMIT Internal Medicine; ATTEND Internal Medicine
DX: F10.239 Alcohol dependence with withdrawal, unspecified (principal); E87.2 Acidosis; I24.8 Other forms of acute ischemic heart disease; N17.9 Acute kidney failure, unspecified; R45.851 Suicidal ideations; D71 Functional disorders of polymorphonuclear neutrophils; D72.829 Elevated white blood cell count, unspecified; E86.0 Dehydration; F17.290 Nicotine dependence, other tobacco product, uncomplicated; I12.9 Hypertensive chronic kidney disease with stage 1 through stage 4 chronic kidney disease, or unspecified chronic kidney disease; K21.9 Gastro-esophageal reflux disease without esophagitis; K44.9 Diaphragmatic hernia without obstruction or gangrene; K57.90 Diverticulosis of intestine, part unspecified, without perforation or abscess without bleeding; K76.0 Fatty (change of) liver, not elsewhere classified; N18.3 Chronic kidney disease, stage 3 (moderate); F32.9 Major depressive disorder, single episode, unspecified; F41.9 Anxiety disorder, unspecified; Z79.899 Other long term (current) drug therapy; Z82.0 Family history of epilepsy and other diseases of the nervous system; Z80.9 Family history of malignant neoplasm, unspecified; Z82.49 Family history of ischemic heart disease and other diseases of the circulatory system; Z87.39 Personal history of other diseases of the musculoskeletal system and connective tissue
CPT/HCPCS: 36415; 71046; 74176; 80048; 80053; 81001; 82150; 82550; 82553; 83605; 83690; 83735; 84100; 84484; 85025; 85610; 85730; 93005; 96365; 96375; 96376; 99285

== ENCOUNTER 2018-08-04 15:51 | Inpatient (IN) | payer MEDICARE ==
--- NOTE | 2018-08-04 16:10 | ED ---
General Adult HPI - General Chief complaint: Psychiatric Symptoms Stated complaint: SUICIDAL Time Seen by Provider: 08/04/18 16:00 Source: patient, EMS, RN notes reviewed Mode of arrival: EMS Limitations: no limitations - History of Present Illness Initial comments: This is a 58-year-old male who was brought in by EMS for suicidal ideations. Patient has been petitioned inserted by a nurse and his doctor. Patient tells me that he is not suicidal but he has thought about suicide because a psychiatrist brought up to him recently and it makes him think about it even though he has no desire to do it. Patient states if he were to commit suicide he would jump in the leg which is right down the street from him. Patient denies any desire to harm anyone else. Patient states he does drink quite regularly and probably too much per patient denies drug use. Patient denies any physical complaints today. Patient denies headache patient denies chest pain patient denies abdominal pain. Patient denies any difficulty breathing. Patient denies any recent fever chills or cough. Patient denies any nausea vomiting diarrhea. - Related Data Home Medications Medication Instructions Recorded Confirmed Folic Acid 1 mg PO DAILY 07/27/18 08/04/18 Naltrexone HCl [Revia] 50 mg PO DAILY 07/27/18 08/04/18 clonazePAM [KlonoPIN] 0.5 mg PO BID 07/27/18 08/04/18 Allopurinol [Zyloprim] 100 mg PO DAILY 08/04/18 08/04/18 Previous Rx's Medication Instructions Recorded Multivitamins, Thera [Multivitamin 1 each PO DAILY@1200 #30 tab 06/08/18 (formulary)] Metoprolol Tartrate [Lopressor] 50 mg PO BID #60 tab 07/28/18 Pantoprazole [Protonix] 40 mg PO AC-BRKFST #30 tablet.dr 07/28/18 Thiamine [Vitamin B-1] 100 mg PO BID@1200,1700 #60 tab 07/28/18 Venlafaxine HCl ER [Effexor XR] 150 mg PO DAILY #60 cap.er.24h 07/28/18 Allergies Allergy/AdvReac Type Severity Reaction Status Date / Time No Known Allergies Allergy Verified 07/27/18 09:57 Review of Systems ROS Statement: Those systems with pertinent positive or pertinent negative responses have been documented in the HPI. ROS Other: All systems not noted in ROS Statement are negative. Past Medical History Past Medical History: Chest Pain / Angina, GERD/Reflux, GI Bleed, Hypertension, Renal Disease Additional Past Medical History / Comment(s): ETOH abuse with withdrawals/ tremors, chronic kidney disease stage III, bacteremia/sepsis 3 yrs ago and treated at [facility], lower GI bleed, History of Any Multi-Drug Resistant Organisms: None Reported Past Surgical History: No Surgical Hx Reported Additional Past Surgical History / Comment(s): Tooth extraction at [facility] Past Anesthesia/Blood Transfusion Reactions: No Reported Reaction Additional Past Anesthesia/Blood Transfusion Reaction / Comment(s): NO ANESTHESIA HX. PT STATES TOOTH PULLED AT [facility]. Past Psychological History: Anxiety, Depression Smoking Status: Light tobacco smoker Past Alcohol Use History: Daily Past Drug Use History: Marijuana - Past Family History Father Family Medical History: Cancer Additional Family Medical History / Comment(s): Father is deceasedd at age 87. He had a pacemaker, carotid surgery and scoliosis. Mother Family Medical History: Dementia, Musculoskeletal Disorder, Neurologic Disorder , Pneumonia Additional Family Medical History / Comment(s): Mother at age 84 with history of Alzheimer's and Parkinson's. Brother(s) Additional Family Medical History / Comment(s): Patient does not have any brothers or sisters. He does not have any children. General Exam - General Exam Comments Initial Comments: GENERAL: Patient is well-developed and well-nourished. Patient is nontoxic and well- hydrated and is in no acute distress. ENT: Neck is soft and supple. No significant lymphadenopathy is noted. Oropharynx is clear. Moist mucous membranes. Neck has full range of motion without eliciting any pain. EYES: The sclera were anicteric and conjunctiva were pink and moist. Extraocular movements were intact and pupils were equal round and reactive to light. Eyelids were unremarkable. PULMONARY: Unlabored respirations. Good breath sounds bilaterally. No audible rales rhonchi or wheezing was noted. CARDIOVASCULAR: There is a regular rate and rhythm without any murmurs gallops or rubs. ABDOMEN: Soft and nontender with normal bowel sounds. No palpable organomegaly was noted. There is no palpable pulsatile mass. SKIN: Skin is clear with no lesions or rashes and otherwise unremarkable. NEUROLOGIC: Patient is alert and oriented x3. Cranial nerves II through XII are grossly intact. Motor and sensory are also intact. Normal speech, volume and content. Symmetrical smile. MUSCULOSKELETAL: Normal extremities with adequate strength and full range of motion. LYMPHATICS: No significant lymphadenopathy is noted PSYCHIATRIC: Patient denies any suicidal ideations but he does admit to having talked about it and mentioning that he had a plan if he was coming to Limitations: no limitations Course Vital Signs 08/04/18 15:59 Temperature 98.5 F Pulse Rate 67 Respiratory 18 Rate Blood Pressure 132/76 O2 Sat by Pulse 100 Oximetry Medical Decision Making - Medical Decision Making EPS evaluated the patient they agreed that the patient needs to be admitted. Disposition Clinical Impression: Suicidal ideation Disposition: ADMITTED IP TO THIS HOSP Referrals: Shantel Yin MD [Primary Care Provider] - 1-2 days Time of Disposition: 18:02
[2018-08-04] MEDS ORDERED: MAG HYDROX/AL HYDROX/SIMETH 30 ML CUP PO PRN (19:10)
[2018-08-04] MEDS ORDERED: MAGNESIUM HYDROXIDE 2,400 MG/10 ML CUP PO PRN (19:10)
[2018-08-04] MEDS ORDERED: ZIPRASIDONE 20 MG VIAL IM PRN (19:10)
[2018-08-04] MEDS ORDERED: ACETAMINOPHEN TAB 325 MG TAB PO PRN (19:10)
[2018-08-04] MEDS ORDERED: LORazepam 1 MG TAB PO PRN (19:10)
[2018-08-04] MEDS: NICOTINE 14MG/24HR PATCH TRANSDERM SCH (20:21)
[2018-08-04] MEDS: METOPROLOL TARTRATE 50 MG TAB PO SCH (20:21)
[2018-08-05] MEDS: ALLOPURINOL 100 MG TAB PO SCH (08:43)
[2018-08-05] MEDS: METOPROLOL TARTRATE 50 MG TAB PO SCH ×2 (08:43→20:14)
[2018-08-05] MEDS: FOLIC ACID 1 MG TAB PO SCH (08:44)
[2018-08-05] MEDS: PANTOPRAZOLE 40 MG TABLET PO SCH (08:44)
[2018-08-05] MEDS: MULTIVITAMINS, THERA 1 EACH TAB PO SCH (08:44)
[2018-08-05] MEDS: THIAMINE 100 MG TAB PO SCH ×2 (08:44→16:34)
[2018-08-05] MEDS: NALTREXONE HCL 50 MG TAB PO SCH (08:44)
[2018-08-05] MEDS: NICOTINE 14MG/24HR PATCH TRANSDERM SCH (08:45)
[2018-08-05] MEDS ORDERED: VENLAFAXINE HCL ER 75 MG CAP PO SCH (09:00)
[2018-08-05 10:11] LABS: Anisocytosis Slight; Basophils % (A) 0 %; Eosinophils # (A) 0.3 k/uL (0-0.7); Eosinophils % (A) 3 %; HCT 40.4 % (39.0-53.0); HGB 13.1 gm/dL (13.0-17.5); Hypochromasia Slight; Lymphocytes # (A) 1.7 k/uL (1.0-4.8); Lymphocytes % (A) 16 %; MCH 29.7 pg (25.0-35.0); MCHC 32.4 g/dL (31.0-37.0); MCV 91.7 fL (80.0-100.0); Mean Platelet Volume 6.8; Monocytes # (A) 0.7 k/uL (0-1.0); Monocytes % (A) 7 %; Neutrophils # (A) 8.3 k/uL (1.3-7.7); Neutrophils % (A) 74 %; RBC 4.41 m/uL (4.30-5.90); RDW 16.2 % (11.5-15.5); WBC 11.2 k/uL (3.8-10.6)
[2018-08-05 10:12] LABS: Platelet Count 423 k/uL (150-450)
[2018-08-05 10:27] LABS: Albumin 3.9 g/dL (3.5-5.0); Calcium 9.9 mg/dL (8.4-10.2); Potassium 4.5 mmol/L (3.5-5.1); Total Bilirubin 0.3 mg/dL (0.2-1.3); Total Protein 7.2 g/dL (6.3-8.2)
--- NOTE | 2018-08-05 13:10 | P.HP ---
Psychiatric H&P - . H&P Date: 08/05/18 History & Physical: Allergies Allergy/AdvReac Type Severity Reaction Status Date / Time No Known Allergies Allergy Verified 07/27/18 09:57 Vital Signs Temp 98.7 F 08/05/18 06:30 Pulse 92 08/05/18 08:48 Resp 18 08/05/18 08:48 BP 142/80 08/05/18 08:48 Pulse Ox 99 08/04/18 19:44 Intake & Output 08/04/18 08/05/18 08/05/18 18:59 06:59 18:59 Weight 77.564 kg Assessment and Plan Assessment: IDENTIFYING DATA: This patient is a 56-year-old male who was admitted to the mental health unit through emergency room and he presented requesting admission for suicidal ideation.. HISTORY OF PRESENT ILLNESS: The patient presents with depressed mood stating "I just couldn't deal with reality". Patient reports that his father is in the hospital and that he is not doing well, he weighs 70 pounds and although mentally he is alert and wanting to live for some reason he is unable to thrive. Patient also states that some issues with a friend occurred. And so when he came back from visiting his father in [place] last week he began to drink heavy. And continued to drink until he came to the hospital. He had a blood alcohol of 212. He reports that he was compliant with his treatment taking his medication seeing his counselor, but just something after seeing his father was overwhelming. Patient states that he grew up as an only child in a [place] family and that emotions were not on display, and views this as being part of the problem today "not knowing how to manage this type of an issue". Patient does state that he stopped taking his medicines, was not quite clear when, was unable to give any amount of alcohol that he was drinking. He states that he had a 6 month sobriety and that he drank 3-4 days and got back on the wagon for about 2 months, and then just had this relapse. Patient states that he takes Depakote from a friend who had a large supply. Asked why and patient said he has a tremor patient denies having seizure disorder. He then states it is a mood stabilizer and that he was diagnosed with bipolar disorder. In discussing the symptoms that he has patient could not identify/endorse any manic symptoms or hypomanic. There happens to be a very manic person on the unit today and patient states that he has never been like that. Nor does he have any history of risk-taking behavior, spending money that he didn't have, promiscuity. When he was here the last time he also denied any symptoms consistent with misael or hypomania. PAST PSYCHIATRIC HISTORY: This is the patient's fifth inpatient psychiatric admission, his last was approximately 3 years ago. No history of suicide attempts. He is a limited historian in terms of recalling which psychotropic medications he was on and what their affects were. He has been seeing Dr Doe. He has been on Prozac Paxil Zoloft Remeron Celexa Depakote Klonopin Ativan Cymbalta. PAST MEDICAL HISTORY: Hypertension ALLERGIES: No known drug allergies. CHEMICAL DEPENDENCY HISTORY: Patient reports that he had a 6 month period of sobriety and drank for 2-3 days stop for 2 months and then drank these last 4-5 days.. Prior to this admission according to discharge summary he was consuming a fifth of alcohol approximately every 2 days for the 2 weeks prior to admission He is consuming a fifth of alcohol every 2 days for the last 2 weeks, he states he's done this throughout his adult life whenever he becomes more depressed. He reports he drinks less when he is stabilized with medication. No use of marijuana or other illicit drugs he's never been placed in residential treatment for chemical dependency reasons. His urine drug screen was positive for opiates but he states he does not take them and last used and opiate while in assisted due to a infection of his wrist. FAMILY PSYCHIATRIC HISTORY:.His mother was known to have depression, 2 maternal uncles committed suicide FAMILY CHEMICAL DEPENDENCY HISTORY: Denies. LEGAL HISTORY: Denies. SOCIAL HISTORY: The patient is he has no children he lives alone in his own home in [place]. He is retired from [employer] after over 20 years of service. No history of service. He graduated high school and earned an associates degree. He has no siblings. It appears he has very limited social support. MENTAL STATUS EXAM: Patient alert and oriented 3, good eye contact, disheveled , appearing older than stated age, in hospital attire. Speech normal volume, rate and production. Coherent, logical and goal directed thought process. No YANI, no FOI. [No TB/TW/ TI] Denied auditory and visual hallucinations. Denied paranoid ideation, delusions or IOR. Memory grossly intact Cognition average Mood dysphoric, affect constricted, congruent with mood. Denies suicidal ideation, denies homicidal ideation. Insight limited; Judgment grossly intact for treatment purposes STRENGTHS: Income and housing. WEAKNESSES: Alcohol use disorder, it did support system. IMPRESSIONS: 56-year-old male presents to the emergency room on his own reporting severe depression and suicidal ideation. History of depression along with alcohol use and noncompliance with medication appears to be a chronic issue for Mr. Davis. Patient stopped his medications a few days prior to admission and began heavy drinking due to being overwhelmed by his father's physical condition and possible . Patient is no longer suicidal, but remains dysphoric and anxious. 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 Suicide precautions 15 minute safety checks. Appreciate hospitalist and there input regarding his physical needs. CIWA for prevention of DTs, Ativan when necessary as needed. Once alcohol withdrawal has past we'll begin to taper off his standing dose of Ativan. Begin Effexor for both depression and anxiety. I will increase effexor 225 mg ER add Wellbutrin 150 mg SR D/C Cymiladis and ROBERT sharma Recommended that he not take Depakote when he goes back home. Trial of gabapentin for purported aid in alcohol abstinence, and it's anxiolytic properties. Milieu therapy (1) Anxiety Current Visit: No Status: Chronic Priority: Medium Code(s): F41.9 - ANXIETY DISORDER, UNSPECIFIED SNOMED Code(s): 49788065 (2) Depression Current Visit: No Status: Chronic Priority: Medium Code(s): F32.9 - MAJOR DEPRESSIVE DISORDER, SINGLE EPISODE, UNSPECIFIED SNOMED Code(s): 77902681 (3) ETOH abuse Current Visit: No Status: Acute Priority: High Code(s): F10.10 - ALCOHOL ABUSE, UNCOMPLICATED SNOMED Code(s): 47515133 (4) History of ETOH abuse Current Visit: No Status: Acute Priority: High Code(s): Z87.898 - PERSONAL HISTORY OF OTHER SPECIFIED CONDITIONS SNOMED Code(s): 534499794 Time with Patient: Less than 30
--- NOTE | 2018-08-05 15:10 | P.CONS ---
History of Present Illness - History of Present Illness This is a pleasant 58 years old male with past medical history of GERD, GI bleed , hypertension, coronary artery disease, alcohol abuse, stage III chronic kidney disease who was admitted for the mental health unit for depression and suicidal ideation. Consulted for medical management. Patient was lying in bed and sitting with no problem. Patient denies chest pain. No dyspnea. No change in urine or bowel habits. No nausea or vomiting. No fever. He says his compliant with his medication. Review of Systems CONSTITUTIONAL: No fever, no malaise, no fatigue. HEENT: No recent visual problems or hearing problems. Denied any sore throat. CARDIOVASCULAR: No orthopnea, PND, no palpitations, no syncope. PULMONARY: No shortness of breath, no cough, no hemoptysis. GASTROINTESTINAL: No diarrhea, no nausea, no vomiting, no abdominal pain. Normoactive bowel sounds. NEUROLOGICAL: No headaches, no weakness, no numbness. HEMATOLOGICAL: Denies any bleeding or petechiae. GENITOURINARY: Denies any burning micturition, frequency, or urgency. MUSCULOSKELETAL/RHEUMATOLOGICAL: Denies any joint pain, swelling, or any muscle pain. ENDOCRINE: Denies any polyuria or polydipsia. Past Medical History Past Medical History: Chest Pain / Angina, GERD/Reflux, GI Bleed, Hypertension, Renal Disease Additional Past Medical History / Comment(s): ETOH abuse with withdrawals/ tremors, chronic kidney disease stage III, bacteremia/sepsis 3 yrs ago and treated at [facility], lower GI bleed, History of Any Multi-Drug Resistant Organisms: None Reported Past Surgical History: No Surgical Hx Reported Additional Past Surgical History / Comment(s): Tooth extraction at [facility] Past Anesthesia/Blood Transfusion Reactions: No Reported Reaction Additional Past Anesthesia/Blood Transfusion Reaction / Comm: NO ANESTHESIA HX. PT STATES TOOTH PULLED AT [facility]. Past Psychological History: Anxiety, Depression Smoking Status: Light tobacco smoker Past Alcohol Use History: Daily Past Drug Use History: Marijuana - Past Family History Father Family Medical History: Cancer Additional Family Medical History / Comment(s): Father is deceasedd at age 87. He had a pacemaker, carotid surgery and scoliosis. Mother Family Medical History: Dementia, Musculoskeletal Disorder, Neurologic Disorder , Pneumonia Additional Family Medical History / Comment(s): Mother at age 84 with history of Alzheimer's and Parkinson's. Brother(s) Additional Family Medical History / Comment(s): Patient does not have any brothers or sisters. He does not have any children. Medications and Allergies Home Medications Medication Instructions Recorded Confirmed Type Multivitamins, Thera [Multivitamin 1 each PO DAILY@1200 #30 tab 06/08/18 Rx (formulary)] Folic Acid 1 mg PO DAILY 07/27/18 08/04/18 History Naltrexone HCl [Revia] 50 mg PO DAILY 07/27/18 08/04/18 History clonazePAM [KlonoPIN] 0.5 mg PO BID 07/27/18 08/04/18 History Metoprolol Tartrate [Lopressor] 50 mg PO BID #60 tab 07/28/18 08/04/18 Rx Pantoprazole [Protonix] 40 mg PO AC-BRKFST #30 tablet.dr 07/28/18 08/04/18 Rx Thiamine [Vitamin B-1] 100 mg PO BID@1200,1700 #60 tab 07/28/18 08/04/18 Rx Venlafaxine HCl ER [Effexor XR] 150 mg PO DAILY #60 cap.er.24h 07/28/18 Rx Allopurinol [Zyloprim] 100 mg PO DAILY 08/04/18 08/04/18 History Allergies Allergy/AdvReac Type Severity Reaction Status Date / Time No Known Allergies Allergy Verified 07/27/18 09:57 Physical Exam Vitals: Vital Signs Temp Pulse Pulse Pulse Resp BP BP 08/05/18 08:48 92 18 142/80 08/05/18 06:30 98.7 F 77 16 08/04/18 22:52 76 08/04/18 19:44 97.9 F 20 08/04/18 15:59 98.5 F 67 18 132/76 BP Pulse Ox 08/05/18 08:48 08/05/18 06:30 145/87 08/04/18 22:52 141/83 08/04/18 19:44 129/95 99 08/04/18 15:59 100 Intake and Output 08/04/18 08/05/18 08/05/18 22:59 06:59 14:59 Other: Weight 77.564 kg GENERAL: The patient is alert and oriented x3, not in any acute distress. Well developed, well nourished. HEENT: Pupils are round and equally reacting to light. EOMI. No scleral icterus. No conjunctival pallor. Normocephalic, atraumatic. No pharyngeal erythema. No thyromegaly. CARDIOVASCULAR: S1 and S2 present. No murmurs, rubs, or gallops. PULMONARY: Chest is clear to auscultation, no wheezing or crackles. ABDOMEN: Soft, nontender, nondistended, normoactive bowel sounds. No palpable organomegaly. MUSCULOSKELETAL: No joint swelling or deformity. EXTREMITIES: No cyanosis, clubbing, or pedal edema. NEUROLOGICAL: Gross neurological examination did not reveal any focal deficits. SKIN: No rashes. Results CBC & Chem 7: 08/05/18 09:30 08/05/18 09:30 Labs: Abnormal Lab Results - Last 24 Hours (Table) 08/05/18 08/05/18 Range/Units 09:30 09:30 WBC 11.2 H (3.8-10.6) k/uL RDW 16.2 H (11.5-15.5) % Neutrophils # 8.3 H (1.3-7.7) k/uL Creatinine 1.32 H (0.66-1.25) mg/dL Glucose 121 H (74-99) mg/dL Assessment and Plan Assessment: Essential hypertension History of GERD History of GI bleed History of chronic kidney disease Leukocytosis, mild Dehydration Alcohol abuse Plan: This is a pleasant 58 years old male who presents for suicidal ideation to the mental health unit [place] been consulted for medical management. Patient looks dehydrated and encourage oral hydration, he has chronic kidney disease however his creatinine is slightly elevated above baseline, patient also have mild leukocytosis. Most likely as reactive as patient has no signs and symptoms of infection and he does not need antibiotics now as risks more than benefits. We're comment encourage oral hydration and to monitor white cell count and creatinine. Continue with multiple vitamins. Monitor for signs and symptoms of alcohol withdrawal. Continue with Protonix. GI and DVT prophylaxis. GI prophylaxis: Protonix DVT prophylaxis: Patient is mobile and is low risk for DVT. No need for heparin We recommend the patient follow up with his primary care doctor within 1 week after discharge Prognosis is guarded Thank you for consulting us, please feel free to contact us for any further clarification or questions.
[2018-08-05 18:08] VITALS: BMI 28.4
[2018-08-05] MEDS: VENLAFAXINE HCL ER 75 MG CAP PO SCH (20:13)
[2018-08-06] MEDS: PANTOPRAZOLE 40 MG TABLET PO SCH (07:45)
[2018-08-06] MEDS: FOLIC ACID 1 MG TAB PO SCH (07:45)
[2018-08-06] MEDS: METOPROLOL TARTRATE 50 MG TAB PO SCH ×2 (07:45→20:15)
[2018-08-06] MEDS: ALLOPURINOL 100 MG TAB PO SCH (07:45)
[2018-08-06] MEDS: buPROPion SR 150 MG TABLET.ER PO SCH (07:45)
[2018-08-06] MEDS: NALTREXONE HCL 50 MG TAB PO SCH (07:45)
[2018-08-06 08:48] LABS: Anisocytosis Slight; Basophils # (A) 0.1 k/uL (0-0.2); Basophils % (A) 1 %; Eosinophils # (A) 0.3 k/uL (0-0.7); Eosinophils % (A) 2 %; HCT 42.1 % (39.0-53.0); HGB 13.1 gm/dL (13.0-17.5); Hypochromasia Slight; Lymphocytes # (A) 2.4 k/uL (1.0-4.8); Lymphocytes % (A) 21 %; MCHC 31.1 g/dL (31.0-37.0); MCV 93.2 fL (80.0-100.0); Mean Platelet Volume 6.6; Monocytes # (A) 0.8 k/uL (0-1.0); Monocytes % (A) 7 %; Neutrophils # (A) 7.9 k/uL (1.3-7.7); Neutrophils % (A) 69 %; Platelet Count 435 k/uL (150-450); RBC 4.51 m/uL (4.30-5.90); RDW 16.5 % (11.5-15.5); WBC 11.5 k/uL (3.8-10.6)
[2018-08-06 09:04] LABS: Albumin 3.8 g/dL (3.5-5.0); Calcium 9.9 mg/dL (8.4-10.2); Potassium 4.4 mmol/L (3.5-5.1); Total Bilirubin 0.3 mg/dL (0.2-1.3)
[2018-08-06 11:39] LABS: Appearance,Urine Clear (Clear); Bilirubin,Urine Negative (Negative); Blood,Urine Negative (Negative); Color,Urine Yellow; Glucose,Urine (UA) Negative (Negative); Ketones,Urine Negative (Negative); Leukocyte Esterase,Urine Negative (Negative); Nitrite,Urine Negative (Negative); PH, Urine 6.5 (5.0-8.0); Protein,Urine Negative (Negative); Specific Gravity,Urine 1.011 (1.001-1.035); Urobilinogen,Urine <2.0 mg/dL (<2.0)
[2018-08-06 11:50] LABS: Amphetamine Screen,Urine Not Detected (NotDetected); Barbiturate Screen,Urine Not Detected (NotDetected); Benzodiazepines Screen,Urine Detected (NotDetected); Cocaine Screen,Urine Not Detected (NotDetected); Methadone Screen, Urine Not Detected (NotDetected); Opiate Screen,Urine Not Detected (NotDetected); Oxycodone Screen, Urine Detected (NotDetected); Phencyclidine Screen,Urine Not Detected (NotDetected); Tricyclic Antidepressant,Urine Not Detected (NotDetected); Urn Cannabinoid Scrn Not Detected (NotDetected)
--- NOTE | 2018-08-06 12:24 | P.PN ---
Subjective Progress Note Date: 08/06/18 Principal diagnosis: major depressive disorder- recurrent He describes that he is fatigued today. She is disruptive and restless in bed. Depressed 03/14, anxiety 02/11. Denies SI/HI. Denies hallucinations. Objective - Vital Signs Vital signs: Vital Signs Temp 97.9 F 08/06/18 06:19 Pulse 80 08/06/18 07:46 Resp 18 08/06/18 07:46 BP 138/93 08/06/18 07:46 Pulse Ox 99 08/04/18 19:44 Intake & Output 08/05/18 08/06/18 08/06/18 18:59 06:59 18:59 Weight 77.5 kg - Labs CBC & Chem 7: 08/06/18 08:16 08/06/18 08:16 Labs: Abnormal Lab Results - Last 24 Hours (Table) 08/06/18 08/06/18 08/06/18 Range/Units 08:16 08:16 11:15 WBC 11.5 H (3.8-10.6) k/uL RDW 16.5 H (11.5-15.5) % Neutrophils # 7.9 H (1.3-7.7) k/uL Creatinine 1.36 H (0.66-1.25) mg/dL Ur Oxycodone Screen Detected H (NotDetected) U Benzodiazepines Scrn Detected H (NotDetected) Assessment and Plan Assessment: IDENTIFYING DATA: This patient is a 56-year-old male who was admitted to the mental health unit through emergency room and he presented requesting admission for suicidal ideation.. HISTORY OF PRESENT ILLNESS: The patient presents with depressed mood stating "I just couldn't deal with reality". Patient reports that his father is in the hospital and that he is not doing well, he weighs 70 pounds and although mentally he is alert and wanting to live for some reason he is unable to thrive. Patient also states that some issues with a friend occurred. And so when he came back from visiting his father in [place] last week he began to drink heavy. And continued to drink until he came to the hospital. He had a blood alcohol of 212. He reports that he was compliant with his treatment taking his medication seeing his counselor, but just something after seeing his father was overwhelming. Patient states that he grew up as an only child in a [place] family and that emotions were not on display, and views this as being part of the problem today "not knowing how to manage this type of an issue". Patient does state that he stopped taking his medicines, was not quite clear when, was unable to give any amount of alcohol that he was drinking. He states that he had a 6 month sobriety and that he drank 3-4 days and got back on the wagon for about 2 months, and then just had this relapse. Patient states that he takes Depakote from a friend who had a large supply. Asked why and patient said he has a tremor patient denies having seizure disorder. He then states it is a mood stabilizer and that he was diagnosed with bipolar disorder. In discussing the symptoms that he has patient could not identify/endorse any manic symptoms or hypomanic. There happens to be a very manic person on the unit today and patient states that he has never been like that. Nor does he have any history of risk-taking behavior, spending money that he didn't have, promiscuity. When he was here the last time he also denied any symptoms consistent with misael or hypomania. PAST PSYCHIATRIC HISTORY: This is the patient's fifth inpatient psychiatric admission, his last was approximately 3 years ago. No history of suicide attempts. He is a limited historian in terms of recalling which psychotropic medications he was on and what their affects were. He has been seeing Dr Doe. He has been on Prozac Paxil Zoloft Remeron Celexa Depakote Klonopin Ativan Cymbalta. PAST MEDICAL HISTORY: Hypertension ALLERGIES: No known drug allergies. CHEMICAL DEPENDENCY HISTORY: Patient reports that he had a 6 month period of sobriety and drank for 2-3 days stop for 2 months and then drank these last 4-5 days.. Prior to this admission according to discharge summary he was consuming a fifth of alcohol approximately every 2 days for the 2 weeks prior to admission He is consuming a fifth of alcohol every 2 days for the last 2 weeks, he states he's done this throughout his adult life whenever he becomes more depressed. He reports he drinks less when he is stabilized with medication. No use of marijuana or other illicit drugs he's never been placed in residential treatment for chemical dependency reasons. His urine drug screen was positive for opiates but he states he does not take them and last used and opiate while in longterm due to a infection of his wrist. FAMILY PSYCHIATRIC HISTORY:.His mother was known to have depression, 2 maternal uncles committed suicide FAMILY CHEMICAL DEPENDENCY HISTORY: Denies. LEGAL HISTORY: Denies. SOCIAL HISTORY: The patient is he has no children he lives alone in his own home in [place]. He is retired from [employer] after over 20 years of service. No history of service. He graduated high school and earned an associates degree. He has no siblings. It appears he has very limited social support. MENTAL STATUS EXAM: Patient alert and oriented 3, good eye contact, disheveled , appearing older than stated age, in hospital attire. Speech normal volume, rate and production. Coherent, logical and goal directed thought process. No YANI, no FOI. [No TB/TW/ TI] Denied auditory and visual hallucinations. Denied paranoid ideation, delusions or IOR. Memory grossly intact Cognition average Mood dysphoric, affect constricted, congruent with mood. Denies suicidal ideation, denies homicidal ideation. Insight limited; Judgment grossly intact for treatment purposes STRENGTHS: Income and housing. WEAKNESSES: Alcohol use disorder, it did support system. IMPRESSIONS: 56-year-old male presents to the emergency room on his own reporting severe depression and suicidal ideation. History of depression along with alcohol use and noncompliance with medication appears to be a chronic issue for Mr. Davis. Patient stopped his medications a few days prior to admission and began heavy drinking due to being overwhelmed by his father's physical condition and possible . Patient is no longer suicidal, but remains dysphoric and anxious. 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 Suicide precautions 15 minute safety checks. Appreciate hospitalist and there input regarding his physical needs. CIWA for prevention of DTs, Ativan when necessary as needed. Once alcohol withdrawal has past we'll begin to taper off his standing dose of Ativan. Begin Effexor for both depression and anxiety. I will increase effexor 225 mg ER add Wellbutrin 150 mg SR D/C Cymbalta and DC klonopin Recommended that he not take Depakote when he goes back home. Trial of gabapentin for purported aid in alcohol abstinence, and it's anxiolytic properties. Milieu therapy (1) Anxiety Current Visit: No Status: Chronic Priority: Medium Code(s): F41.9 - ANXIETY DISORDER, UNSPECIFIED SNOMED Code(s): 46460774 (2) Depression Current Visit: No Status: Chronic Priority: Medium Code(s): F32.9 - MAJOR DEPRESSIVE DISORDER, SINGLE EPISODE, UNSPECIFIED SNOMED Code(s): 31210341 (3) ETOH abuse Current Visit: No Status: Acute Priority: High Code(s): F10.10 - ALCOHOL ABUSE, UNCOMPLICATED SNOMED Code(s): 84700929 (4) History of ETOH abuse Current Visit: No Status: Acute Priority: High Code(s): Z87.898 - PERSONAL HISTORY OF OTHER SPECIFIED CONDITIONS SNOMED Code(s): 312628990 Plan: add Mirapex 0.5 mg po qhs and continue Wellbutrin and effexor 225 mg XR Time with Patient: Less than 30
[2018-08-06] MEDS: MULTIVITAMINS, THERA 1 EACH TAB PO SCH (12:55)
[2018-08-06] MEDS: THIAMINE 100 MG TAB PO SCH ×2 (12:55→16:09)
[2018-08-06] MEDS: PRAMIPEXOLE 0.5 MG TAB PO SCH (20:15)
[2018-08-06] MEDS: VENLAFAXINE HCL ER 75 MG CAP PO SCH (20:15)
--- NOTE | 2018-08-07 08:15 | P.PN ---
Progress Note - Text Progress Note Date: 08/07/18 Interval history: Patient is seen in cross coverage today. He reports that he is feeling better. Feels like he has more awareness of things in his mood is improved. He does not voice any adverse psychotropic medication side effects. Mental status exam: He is alert and cooperative with the interview. His speech is fluent, not rapid or pressured. Thought processes are organized. His mood is improved. He denies any thoughts of harm to self. He does not verbalize any thoughts of harm to others. No evidence of active psychosis or any agitation. Plan: We'll maintain current psychotropic medication regimen. Continue to monitor his ongoing response to treatment monitor for any medication side effects. We'll continue to cover this patient to the weekend.
[2018-08-07] MEDS: PANTOPRAZOLE 40 MG TABLET PO SCH (08:20)
[2018-08-07] MEDS: NALTREXONE HCL 50 MG TAB PO SCH (08:20)
[2018-08-07] MEDS: ALLOPURINOL 100 MG TAB PO SCH (08:20)
[2018-08-07] MEDS: buPROPion SR 150 MG TABLET.ER PO SCH (08:20)
[2018-08-07] MEDS: FOLIC ACID 1 MG TAB PO SCH (08:20)
[2018-08-07] MEDS: METOPROLOL TARTRATE 50 MG TAB PO SCH ×2 (08:21→20:13)
[2018-08-07] MEDS: THIAMINE 100 MG TAB PO SCH ×2 (12:10→16:49)
[2018-08-07] MEDS: MULTIVITAMINS, THERA 1 EACH TAB PO SCH (12:10)
[2018-08-07] MEDS: VENLAFAXINE HCL ER 75 MG CAP PO SCH (20:13)
[2018-08-07] MEDS: PRAMIPEXOLE 0.5 MG TAB PO SCH (20:13)
[2018-08-08] MEDS: ALLOPURINOL 100 MG TAB PO SCH (07:57)
[2018-08-08] MEDS: PANTOPRAZOLE 40 MG TABLET PO SCH (07:57)
[2018-08-08] MEDS: FOLIC ACID 1 MG TAB PO SCH (07:57)
[2018-08-08] MEDS: buPROPion SR 150 MG TABLET.ER PO SCH (07:57)
[2018-08-08] MEDS: METOPROLOL TARTRATE 50 MG TAB PO SCH ×2 (07:57→20:28)
[2018-08-08] MEDS: NALTREXONE HCL 50 MG TAB PO SCH (07:57)
[2018-08-08] MEDS: THIAMINE 100 MG TAB PO SCH ×2 (12:14→16:35)
[2018-08-08] MEDS: MULTIVITAMINS, THERA 1 EACH TAB PO SCH (12:14)
--- NOTE | 2018-08-08 14:20 | P.PN ---
Progress Note - Text Progress Note Date: 08/08/18 Interval history: Patient seen in [facility] today. He reports that he does feel like he started to have more interest in things. His mood is improved. He does describe feeling some tiredness. He does not report any significant anxiety. New Mental status exam: He is alert and cooperative with the interview. His speech is fluent, not rapid or pressured. Thought processes are organized. He denies any thoughts of harm to self or others. He does not show any evidence of psychosis or agitation. Plan: Patient will be maintained on current psychotropic medication regimen. Continue to monitor for any medication side effects and monitor his ongoing response to treatment.
[2018-08-08] MEDS: VENLAFAXINE HCL ER 75 MG CAP PO SCH (20:27)
[2018-08-08] MEDS: PRAMIPEXOLE 0.5 MG TAB PO SCH (20:27)
[2018-08-09] MEDS: ALLOPURINOL 100 MG TAB PO SCH (09:06)
[2018-08-09] MEDS: NALTREXONE HCL 50 MG TAB PO SCH (09:06)
[2018-08-09] MEDS: FOLIC ACID 1 MG TAB PO SCH (09:06)
[2018-08-09] MEDS: buPROPion SR 150 MG TABLET.ER PO SCH (09:06)
[2018-08-09] MEDS: METOPROLOL TARTRATE 50 MG TAB PO SCH ×2 (09:06→21:27)
[2018-08-09] MEDS: PANTOPRAZOLE 40 MG TABLET PO SCH (09:31)
[2018-08-09] MEDS: THIAMINE 100 MG TAB PO SCH ×2 (12:34→16:57)
[2018-08-09] MEDS: MULTIVITAMINS, THERA 1 EACH TAB PO SCH (12:34)
--- NOTE | 2018-08-09 13:09 | P.PN ---
Subjective Progress Note Date: 08/09/18 Principal diagnosis: major depressive disorder- recurrent He describes that he is less fatigued today. He is disruptive and restless in bed. Depressed 01/12, anxiety 11/14. Denies SI/HI. Denies hallucinations. Objective - Vital Signs Vital signs: Vital Signs Temp 98 F 08/09/18 06:30 Pulse 64 08/09/18 06:30 Resp 16 08/09/18 06:30 BP 140/92 08/09/18 06:30 Pulse Ox 99 08/04/18 19:44 Intake & Output 08/08/18 08/09/18 08/09/18 18:59 06:59 18:59 Weight 77 kg - Labs CBC & Chem 7: 08/06/18 08:16 08/06/18 08:16 Assessment and Plan Assessment: IDENTIFYING DATA: This patient is a 56-year-old male who was admitted to the mental health unit through emergency room and he presented requesting admission for suicidal ideation.. HISTORY OF PRESENT ILLNESS: The patient presents with depressed mood stating "I just couldn't deal with reality". Patient reports that his father is in the hospital and that he is not doing well, he weighs 70 pounds and although mentally he is alert and wanting to live for some reason he is unable to thrive. Patient also states that some issues with a friend occurred. And so when he came back from visiting his father in [place] last week he began to drink heavy. And continued to drink until he came to the hospital. He had a blood alcohol of 212. He reports that he was compliant with his treatment taking his medication seeing his counselor, but just something after seeing his father was overwhelming. Patient states that he grew up as an only child in a [place] family and that emotions were not on display, and views this as being part of the problem today "not knowing how to manage this type of an issue". Patient does state that he stopped taking his medicines, was not quite clear when, was unable to give any amount of alcohol that he was drinking. He states that he had a 6 month sobriety and that he drank 3-4 days and got back on the wagon for about 2 months, and then just had this relapse. Patient states that he takes Depakote from a friend who had a large supply. Asked why and patient said he has a tremor patient denies having seizure disorder. He then states it is a mood stabilizer and that he was diagnosed with bipolar disorder. In discussing the symptoms that he has patient could not identify/endorse any manic symptoms or hypomanic. There happens to be a very manic person on the unit today and patient states that he has never been like that. Nor does he have any history of risk-taking behavior, spending money that he didn't have, promiscuity. When he was here the last time he also denied any symptoms consistent with misael or hypomania. PAST PSYCHIATRIC HISTORY: This is the patient's fifth inpatient psychiatric admission, his last was approximately 3 years ago. No history of suicide attempts. He is a limited historian in terms of recalling which psychotropic medications he was on and what their affects were. He has been seeing Dr Doe. He has been on Prozac Paxil Zoloft Remeron Celexa Depakote Klonopin Ativan Cymbalta. PAST MEDICAL HISTORY: Hypertension ALLERGIES: No known drug allergies. CHEMICAL DEPENDENCY HISTORY: Patient reports that he had a 6 month period of sobriety and drank for 2-3 days stop for 2 months and then drank these last 4-5 days.. Prior to this admission according to discharge summary he was consuming a fifth of alcohol approximately every 2 days for the 2 weeks prior to admission He is consuming a fifth of alcohol every 2 days for the last 2 weeks, he states he's done this throughout his adult life whenever he becomes more depressed. He reports he drinks less when he is stabilized with medication. No use of marijuana or other illicit drugs he's never been placed in residential treatment for chemical dependency reasons. His urine drug screen was positive for opiates but he states he does not take them and last used and opiate while in [facility] due to a infection of his wrist. FAMILY PSYCHIATRIC HISTORY:.His mother was known to have depression, 2 maternal uncles committed suicide FAMILY CHEMICAL DEPENDENCY HISTORY: Denies. LEGAL HISTORY: Denies. SOCIAL HISTORY: The patient is he has no children he lives alone in his own home in [place]. He is retired from [employer] after over 20 years of service. No history of service. He graduated high school and earned an associates degree. He has no siblings. It appears he has very limited social support. MENTAL STATUS EXAM: Patient alert and oriented 3, good eye contact, disheveled , appearing older than stated age, in hospital attire. Speech normal volume, rate and production. Coherent, logical and goal directed thought process. No YANI, no FOI. [No TB/TW/ TI] Denied auditory and visual hallucinations. Denied paranoid ideation, delusions or IOR. Memory grossly intact Cognition average Mood less depressed, affect constricted, congruent with mood. Denies suicidal ideation, denies homicidal ideation. Insight limited; Judgment grossly intact for treatment purposes STRENGTHS: Income and housing. WEAKNESSES: Alcohol use disorder, it did support system. IMPRESSIONS: 56-year-old male presents to the emergency room on his own reporting severe depression and suicidal ideation. History of depression along with alcohol use and noncompliance with medication appears to be a chronic issue for Mr. Davis. Patient stopped his medications a few days prior to admission and began heavy drinking due to being overwhelmed by his father's physical condition and possible . Patient is no longer suicidal, but remains dysphoric and anxious. Major depressive disorder recurrent, moderate without psychosis Alcohol use disorder, severe/intermittent Alcohol intoxication, resolved (1) Anxiety Current Visit: No Status: Chronic Priority: Medium Code(s): F41.9 - ANXIETY DISORDER, UNSPECIFIED SNOMED Code(s): 74372697 (2) Depression Current Visit: No Status: Chronic Priority: Medium Code(s): F32.9 - MAJOR DEPRESSIVE DISORDER, SINGLE EPISODE, UNSPECIFIED SNOMED Code(s): 53344139 (3) ETOH abuse Current Visit: No Status: Acute Priority: High Code(s): F10.10 - ALCOHOL ABUSE, UNCOMPLICATED SNOMED Code(s): 53777270 (4) History of ETOH abuse Current Visit: No Status: Acute Priority: High Code(s): Z87.898 - PERSONAL HISTORY OF OTHER SPECIFIED CONDITIONS SNOMED Code(s): 252898114 Plan: PLAN: Continue inpatient psychiatric admission. Suicide precautions 15 minute safety checks. Appreciate hospitalist and there input regarding his physical needs. CIWA for prevention of DTs, Ativan when necessary as needed. Once alcohol withdrawal has past we'll begin to taper off his standing dose of Ativan. Effexor for both depression and anxiety. I will increase effexor 300 mg ER add Wellbutrin 150 mg SR Milieu therapy add Mirapex 1 mg po qhs and continue Wellbutrin and effexor 225 mg XR
[2018-08-09] MEDS ORDERED: VENLAFAXINE HCL ER 150 MG CAP PO SCH (21:00)
[2018-08-09] MEDS ORDERED: PRAMIPEXOLE 1 MG TAB PO SCH (21:00)
[2018-08-09] MEDS ORDERED: NALTREXONE HCL 50 MG TAB PO SCH (21:00)
[2018-08-10 06:29] VITALS: TEMP 97.4
[2018-08-10] MEDS: PANTOPRAZOLE 40 MG TABLET PO SCH (08:31)
[2018-08-10] MEDS: buPROPion SR 150 MG TABLET.ER PO SCH (08:31)
[2018-08-10] MEDS: FOLIC ACID 1 MG TAB PO SCH (08:31)
[2018-08-10] MEDS: METOPROLOL TARTRATE 50 MG TAB PO SCH (08:31)
[2018-08-10] MEDS: ALLOPURINOL 100 MG TAB PO SCH (08:31)
[2018-08-10 08:33] VITALS: BP 128/79; PULSE 82; RESP 20
[2018-08-10] MEDS ORDERED: VENLAFAXINE HCL ER 75 MG CAP PO SCH (09:00)
[2018-08-10 10:01] LABS: Anisocytosis Slight; Basophils # (A) 0.1 k/uL (0-0.2); Basophils % (A) 1 %; Eosinophils # (A) 0.2 k/uL (0-0.7); Eosinophils % (A) 2 %; HCT 40.5 % (39.0-53.0); HGB 12.6 gm/dL (13.0-17.5); Hypochromasia Slight; Lymphocytes # (A) 2.5 k/uL (1.0-4.8); Lymphocytes % (A) 21 %; MCH 28.4 pg (25.0-35.0); MCHC 31.2 g/dL (31.0-37.0); MCV 90.9 fL (80.0-100.0); Mean Platelet Volume 6.4; Monocytes # (A) 0.5 k/uL (0-1.0); Monocytes % (A) 4 %; Neutrophils # (A) 8.8 k/uL (1.3-7.7); Neutrophils % (A) 72 %; Platelet Count 425 k/uL (150-450); RBC 4.46 m/uL (4.30-5.90); RDW 16.9 % (11.5-15.5); WBC 12.2 k/uL (3.8-10.6)
[2018-08-10] MEDS: MULTIVITAMINS, THERA 1 EACH TAB PO SCH (12:24)
[2018-08-10] MEDS: THIAMINE 100 MG TAB PO SCH (12:24)
--- NOTE | 2018-08-10 12:49 | P.DS ---
Providers Date of admission: 08/04/18 19:08 Expected date of discharge: 08/10/18 Attending physician: Warren Mcarthur DO Consults: 08/04/18 19:10 Consult Physician Routine Consulting Provider: Kimberlyn Parker Consult Reason/Comments: H&P, with medical follow up Do you want consulting provider notified?: Yes Primary care physician: Shantel Yin - Discharge Diagnosis(es) (1) Depression IDENTIFYING DATA: This patient is a 56-year-old male who was admitted to the mental health unit through emergency room and he presented requesting admission for suicidal ideation.. HISTORY OF PRESENT ILLNESS: The patient presents with depressed mood stating "I just couldn't deal with reality". Patient reports that his father is in the hospital and that he is not doing well, he weighs 70 pounds and although mentally he is alert and wanting to live for some reason he is unable to thrive. Patient also states that some issues with a friend occurred. And so when he came back from visiting his father in [place] last week he began to drink heavy. And continued to drink until he came to the hospital. He had a blood alcohol of 212. He reports that he was compliant with his treatment taking his medication seeing his counselor, but just something after seeing his father was overwhelming. Patient states that he grew up as an only child in a [place] family and that emotions were not on display, and views this as being part of the problem today "not knowing how to manage this type of an issue". Patient does state that he stopped taking his medicines, was not quite clear when, was unable to give any amount of alcohol that he was drinking. He states that he had a 6 month sobriety and that he drank 3-4 days and got back on the wagon for about 2 months, and then just had this relapse. Patient states that he takes Depakote from a friend who had a large supply. Asked why and patient said he has a tremor patient denies having seizure disorder. He then states it is a mood stabilizer and that he was diagnosed with bipolar disorder. In discussing the symptoms that he has patient could not identify/endorse any manic symptoms or hypomanic. There happens to be a very manic person on the unit today and patient states that he has never been like that. Nor does he have any history of risk-taking behavior, spending money that he didn't have, promiscuity. When he was here the last time he also denied any symptoms consistent with misael or hypomania. PAST PSYCHIATRIC HISTORY: This is the patient's sixth inpatient psychiatric admission, his last was approximately 3 years ago. No history of suicide attempts. He is a limited historian in terms of recalling which psychotropic medications he was on and what their affects were. He has been seeing Dr Doe. He has been on Prozac Paxil Zoloft Remeron Celexa Depakote Klonopin [facility]. Past Medical History Past Medical History: Chest Pain / Angina, GERD/Reflux, GI Bleed, Hypertension, Renal Disease Additional Past Medical History / Comment(s): ETOH abuse with withdrawals/ tremors, chronic kidney disease stage III, bacteremia/sepsis 3 yrs ago and treated at [facility], lower GI bleed, History of Any Multi-Drug Resistant Organisms: None Reported Past Surgical History: No Surgical Hx Reported Additional Past Surgical History / Comment(s): Tooth extraction at [facility] Past Anesthesia/Blood Transfusion Reactions: No Reported Reaction Additional Past Anesthesia/Blood Transfusion Reaction / Comm: NO ANESTHESIA HX. PT STATES TOOTH PULLED AT [facility]. Past Psychological History: Anxiety, Depression Smoking Status: Light tobacco smoker Past Alcohol Use History: Daily Past Drug Use History: Marijuana - Past Family History Father Family Medical History: Cancer Additional Family Medical History / Comment(s): Father is deceasedd at age 87. He had a pacemaker, carotid surgery and scoliosis. Mother Family Medical History: Dementia, Musculoskeletal Disorder, Neurologic Disorder , Pneumonia Additional Family Medical History / Comment(s): Mother at age 84 with history of Alzheimer's and Parkinson's. Brother(s) Additional Family Medical History / Comment(s): Patient does not have any brothers or sisters. He does not have any children. Current Visit: No Status: Chronic Priority: Low Hospital Course: The patient was admitted on a formal voluntary and was adherent to a treatment plan and his medication was titrated to resolution of his anxiety and depression. His Effexor was titrated to 300 mgXR by mouth daily at bedtime with the addition of Mirapex for his restless leg syndrome. He had been drinking prior to his coming in the hospital and talked at fairly great length about alcohol being a cofactor making one suicidal and started him on ReVia 50 mg at bedtime. His cardiovascular meds were evaluated by internal medicine and continued. I did not write for the Klonopin since his outpatient physician had been prescribing for it has some at home The patient presents alert, pleasant, and cooperative. There calmly seated without any agitated behavior. [He] reports that [his] mood is good. Affect is congruent and euthymic. [He] deny having any suicidal or homicidal ideation intent or plan. [He] denies any auditory or visual hallucinations. There is no evidence of any delusional thought content. [His] thought process is linear and goal-directed. [His] speech is fluent and nonpressured. [His] memory and concentration is grossly intact for the purposes of this session. Patient Condition at Discharge: Stable Plan - Discharge Summary Discharge Rx Participant: Yes New Discharge Prescriptions: New buPROPion SR [Wellbutrin SR] 150 mg PO DAILY 30 Days #30 tablet.er Naltrexone HCl [Revia] 50 mg PO 2100 30 Days #30 tab Pramipexole [Mirapex] 1 mg PO 2100 30 Days #30 tab Venlafaxine HCl ER [Effexor XR] 300 mg PO 2100 30 Days #60 cap.er.24h Continue clonazePAM [KlonoPIN] 0.5 mg PO BID Allopurinol [Zyloprim] 100 mg PO DAILY 30 Days #60 tab Metoprolol Tartrate [Lopressor] 50 mg PO BID #60 tab Pantoprazole [Protonix] 40 mg PO AC-BRKFST #30 tablet.dr Discontinued Multivitamins, Thera [Multivitamin (formulary)] 1 each PO DAILY@1200 #30 tab Naltrexone HCl [Revia] 50 mg PO DAILY Folic Acid 1 mg PO DAILY Thiamine [Vitamin B-1] 100 mg PO BID@1200,1700 #60 tab Venlafaxine HCl ER [Effexor XR] 150 mg PO DAILY #60 cap.er.24h Discharge Medication List clonazePAM [KlonoPIN] 0.5 mg PO BID 07/27/18 [History] Allopurinol [Zyloprim] 100 mg PO DAILY 30 Days #60 tab 08/10/18 [Rx] Metoprolol Tartrate [Lopressor] 50 mg PO BID #60 tab 08/10/18 [Rx] Naltrexone HCl [Revia] 50 mg PO 2100 30 Days #30 tab 08/10/18 [Rx] Pantoprazole [Protonix] 40 mg PO AC-BRKFST #30 tablet.dr 08/10/18 [Rx] Pramipexole [Mirapex] 1 mg PO 2100 30 Days #30 tab 08/10/18 [Rx] Venlafaxine HCl ER [Effexor XR] 300 mg PO 2100 30 Days #60 cap.er.24h 08/10/18 [ Rx] buPROPion SR [Wellbutrin SR] 150 mg PO DAILY 30 Days #30 tablet.er 08/10/18 [Rx] Follow up Appointment(s)/Referral(s): Shantel Yin MD [Primary Care Provider] - 1-2 days Discharge Disposition: HOME SELF-CARE
== END 2018-08-10 14:20 | disposition home or self-care (01) | DRG 885 ==
LOC: EC 15:51 → 3MHU 19:08
PROVIDERS: ADMIT Psychiatry & Neurology Psychiatry; ATTEND Psychiatry & Neurology Psychiatry
DX: F33.1 Major depressive disorder, recurrent, moderate (principal); R45.851 Suicidal ideations; D72.829 Elevated white blood cell count, unspecified; E86.0 Dehydration; F10.229 Alcohol dependence with intoxication, unspecified; F41.9 Anxiety disorder, unspecified; G25.81 Restless legs syndrome; I12.9 Hypertensive chronic kidney disease with stage 1 through stage 4 chronic kidney disease, or unspecified chronic kidney disease; I25.10 Atherosclerotic heart disease of native coronary artery without angina pectoris; K21.9 Gastro-esophageal reflux disease without esophagitis; N18.3 Chronic kidney disease, stage 3 (moderate); Y90.7 Blood alcohol level of 200-239 mg/100 ml; Z81.8 Family history of other mental and behavioral disorders; Z82.0 Family history of epilepsy and other diseases of the nervous system; Z80.9 Family history of malignant neoplasm, unspecified; Z82.69 Family history of other diseases of the musculoskeletal system and connective tissue; Z60.8 Other problems related to social environment; Z79.899 Other long term (current) drug therapy
CPT/HCPCS: 80053; 80306; 81003; 82075; 84443; 85025; 99285

== ENCOUNTER 2018-09-01 14:47 | Inpatient (IN) | payer MEDICARE ==
--- NOTE | 2018-09-01 17:22 | ED ---
Psych HPI - General Chief Complaint: Psychiatric Symptoms Stated Complaint: EPS eval Time Seen by Provider: 09/01/18 14:47 Source: patient, EMS, RN notes reviewed Mode of arrival: EMS Limitations: no limitations - History of Present Illness Initial Comments: 58 year old male presents emergency department via EMS for psychiatric evaluation. Patient states he is depressed, hearing voices in possibly seeing things. Patient states that he symptoms started shortly after him having medication adjustments. Patient denies any alcohol use since his last hospital stay here. Patient states that he's had some thoughts of harm himself but not exactly suicidal. Patient denies any drug abuse. Patient denies any physical complaints going chest pain, shortness breath, headache, dizziness, nausea, vomiting. - Related Data Home Medications Medication Instructions Recorded Confirmed clonazePAM [KlonoPIN] 0.5 mg PO BID 07/27/18 09/01/18 Folic Acid 1 mg PO DAILY 09/01/18 09/01/18 Multivitamins, Thera [Multivitamin 1 tab PO DAILY 09/01/18 09/01/18 (formulary)] Naltrexone HCl [Revia] 50 mg PO QAM 09/01/18 09/01/18 Pantoprazole [Protonix] 40 mg PO DAILY 09/01/18 09/01/18 Pramipexole [Mirapex] 1 mg PO HS 09/01/18 09/01/18 Thiamine [Vitamin B-1] 100 mg PO BID 09/01/18 09/01/18 Venlafaxine HCl ER [Effexor XR] 150 mg PO HS 09/01/18 09/01/18 buPROPion SR [Wellbutrin SR] 150 mg PO HS 09/01/18 09/01/18 Previous Rx's Medication Instructions Recorded Allopurinol [Zyloprim] 100 mg PO DAILY 30 Days #60 tab 08/10/18 Metoprolol Tartrate [Lopressor] 50 mg PO BID #60 tab 08/10/18 Allergies Allergy/AdvReac Type Severity Reaction Status Date / Time No Known Allergies Allergy Verified 09/01/18 15:31 Review of Systems ROS Statement: Those systems with pertinent positive or pertinent negative responses have been documented in the HPI. ROS Other: All systems not noted in ROS Statement are negative. Past Medical History Past Medical History: Chest Pain / Angina, GERD/Reflux, GI Bleed, Hypertension, Renal Disease Additional Past Medical History / Comment(s): ETOH abuse with withdrawals/ tremors, chronic kidney disease stage III, bacteremia/sepsis 3 yrs ago and treated at [facility], lower GI bleed, History of Any Multi-Drug Resistant Organisms: None Reported Past Surgical History: No Surgical Hx Reported Additional Past Surgical History / Comment(s): Tooth extraction at [facility] Past Anesthesia/Blood Transfusion Reactions: No Reported Reaction Additional Past Anesthesia/Blood Transfusion Reaction / Comment(s): NO ANESTHESIA HX. PT STATES TOOTH PULLED AT [facility]. Past Psychological History: Anxiety, Depression Smoking Status: Light tobacco smoker Past Alcohol Use History: Daily Past Drug Use History: None Reported - Past Family History Father Family Medical History: Cancer Additional Family Medical History / Comment(s): Father is deceasedd at age 87. He had a pacemaker, carotid surgery and scoliosis. Mother Family Medical History: Dementia, Musculoskeletal Disorder, Neurologic Disorder , Pneumonia Additional Family Medical History / Comment(s): Mother at age 84 with history of Alzheimer's and Parkinson's. Brother(s) Additional Family Medical History / Comment(s): Patient does not have any brothers or sisters. He does not have any children. General Exam Limitations: no limitations General appearance: alert, in no apparent distress Head exam: Present: atraumatic, normocephalic, normal inspection Eye exam: Present: normal appearance, PERRL, EOMI. Absent: scleral icterus, conjunctival injection, periorbital swelling ENT exam: Present: normal exam, normal oropharynx, mucous membranes moist Neck exam: Present: normal inspection, full ROM. Absent: tenderness, meningismus, lymphadenopathy Respiratory exam: Present: normal lung sounds bilaterally. Absent: respiratory distress, wheezes, rales, rhonchi, stridor Cardiovascular Exam: Present: regular rate, normal rhythm, normal heart sounds. Absent: systolic murmur, diastolic murmur, rubs, gallop, clicks GI/Abdominal exam: Present: soft, normal bowel sounds. Absent: distended, tenderness, guarding, rebound, rigid Neurological exam: Present: alert, oriented X3, CN II-XII intact Skin exam: Present: warm, dry, intact, normal color. Absent: rash Course Vital Signs 09/01/18 14:54 Temperature 97.8 F Pulse Rate 102 H Respiratory 18 Rate Blood Pressure 127/99 O2 Sat by Pulse 92 L Oximetry Disposition Clinical Impression: Depression Disposition: ADMITTED IP TO THIS HOSP Condition: Stable Referrals: Shantel Yin MD [Primary Care Provider] - 1-2 days
[2018-09-01] MEDS ORDERED: MAGNESIUM HYDROXIDE 2,400 MG/10 ML CUP PO PRN (20:23)
[2018-09-01] MEDS ORDERED: MAG HYDROX/AL HYDROX/SIMETH 30 ML CUP PO PRN (20:23)
[2018-09-01] MEDS ORDERED: ACETAMINOPHEN TAB 325 MG TAB PO PRN (20:23)
[2018-09-01] MEDS: METOPROLOL TARTRATE 50 MG TAB PO SCH (21:33)
[2018-09-01] MEDS: PRAMIPEXOLE 1 MG TAB PO SCH (21:33)
[2018-09-01] MEDS: NICOTINE 7MG/24HR PATCH TRANSDERM SCH (21:33)
[2018-09-01] MEDS: THIAMINE 100 MG TAB PO SCH (21:33)
[2018-09-01] MEDS: buPROPion SR 150 MG TABLET.ER PO SCH (21:33)
[2018-09-02] MEDS: LORazepam 1 MG TAB PO PRN ×3 (02:40→19:13)
[2018-09-02] MEDS: ZIPRASIDONE 20 MG VIAL IM PRN ×2 (03:51→20:06)
[2018-09-02] MEDS: PANTOPRAZOLE 40 MG TABLET PO SCH (08:55)
[2018-09-02] MEDS: ALLOPURINOL 100 MG TAB PO SCH (08:55)
[2018-09-02] MEDS: THIAMINE 100 MG TAB PO SCH ×2 (08:55→20:06)
[2018-09-02] MEDS: METOPROLOL TARTRATE 50 MG TAB PO SCH ×2 (08:56→20:06)
[2018-09-02] MEDS: NALTREXONE HCL 50 MG TAB PO SCH (08:56)
[2018-09-02] MEDS: NICOTINE 7MG/24HR PATCH TRANSDERM SCH (08:56)
--- NOTE | 2018-09-02 09:55 | P.HP ---
Psychiatric H&P - . H&P Date: 09/02/18 History & Physical: Allergies Allergy/AdvReac Type Severity Reaction Status Date / Time No Known Allergies Allergy Verified 09/01/18 21:07 Vital Signs Temp 97.6 F 09/02/18 00:45 Pulse 76 09/02/18 00:45 Resp 16 09/02/18 00:45 BP 115/74 09/02/18 00:45 Pulse Ox 100 09/01/18 20:44 Intake & Output 09/01/18 09/02/18 09/02/18 18:59 06:59 18:59 Weight 77.111 kg 68.946 kg Assessment and Plan Assessment: HPI: This is a 58 year old male presents emergency department via EMS for psychiatric evaluation. Patient states he is depressed, hearing voices in possibly seeing things. Patient states that he symptoms started shortly after him having medication adjustments. Patient denies any alcohol use since his last hospital stay here. Patient states that he's had some thoughts of harm himself but not exactly suicidal. Patient denies any drug abuse. Patient denies any physical complaints going chest pain, shortness breath, headache, dizziness, nausea, vomiting. He states that over the last 2 weeks been adherent to his medications and has become more increasingly confused and not able to do ADLs. He tends to wander and his neighbors called the police yesterday to bring him in for psychiatric treatment. - Related Data Home Medications Medication Instructions Recorded Confirmed clonazePAM [KlonoPIN] 0.5 mg PO BID 07/27/18 09/01/18 Folic Acid 1 mg PO DAILY 09/01/18 09/01/18 Multivitamins, Thera [Multivitamin 1 tab PO DAILY 09/01/18 09/01/18 (formulary)] Naltrexone HCl [Revia] 50 mg PO QAM 09/01/18 09/01/18 Pantoprazole [Protonix] 40 mg PO DAILY 09/01/18 09/01/18 Pramipexole [Mirapex] 1 mg PO HS 09/01/18 09/01/18 Thiamine [Vitamin B-1] 100 mg PO BID 09/01/18 09/01/18 Venlafaxine HCl ER [Effexor XR] 150 mg PO HS 09/01/18 09/01/18 buPROPion SR [Wellbutrin SR] 150 mg PO HS 09/01/18 09/01/18 Previous Rx's Medication Instructions Recorded Allopurinol [Zyloprim] 100 mg PO DAILY 30 Days #60 tab 08/10/18 Metoprolol Tartrate [Lopressor] 50 mg PO BID #60 tab 08/10/18 Allergies Allergy/AdvReac Type Severity Reaction Status Date / Time No Known Allergies Allergy Verified 09/01/18 15:31 Past Medical History Past Medical History: Chest Pain / Angina, GERD/Reflux, GI Bleed, Hypertension, Renal Disease Additional Past Medical History / Comment(s): ETOH abuse with withdrawals/ tremors, chronic kidney disease stage III, bacteremia/sepsis 3 yrs ago and treated at [facility], lower GI bleed, History of Any Multi-Drug Resistant Organisms: None Reported Past Surgical History: No Surgical Hx Reported Additional Past Surgical History / Comment(s): Tooth extraction at [facility] Past Anesthesia/Blood Transfusion Reactions: No Reported Reaction Additional Past Anesthesia/Blood Transfusion Reaction / Comment(s): NO ANESTHESIA HX. PT STATES TOOTH PULLED AT [facility]. Past Psychological History: Anxiety, Depression Smoking Status: Light tobacco smoker Past Alcohol Use History: Daily Past Drug Use History: None Reported - Past Family History Father Family Medical History: Cancer Additional Family Medical History / Comment(s): Father is deceasedd at age 87. He had a pacemaker, carotid surgery and scoliosis. Mother Family Medical History: Dementia, Musculoskeletal Disorder, Neurologic Disorder , Pneumonia Additional Family Medical History / Comment(s): Mother at age 84 with history of Alzheimer's and Parkinson's. Brother(s) Additional Family Medical History / Comment(s): Patient does not have any brothers or sisters. He does not have any children. PAST PSYCHIATRIC HISTORY: This is the patient's fifth inpatient psychiatric admission, his last was approximately 3 years ago. No history of suicide attempts. He is a limited historian in terms of recalling which psychotropic medications he was on and what their affects were. He has been seeing Dr Doe. He has been on Prozac Paxil Zoloft Remeron Celexa Depakote Klonopin Ativan Cymbalta. PAST MEDICAL HISTORY: Hypertension ALLERGIES: No known drug allergies. CHEMICAL DEPENDENCY HISTORY: Patient reports that he had a 6 month period of sobriety and drank for 2-3 days stop for 2 months and then drank these last 4-5 days.. Prior to this admission according to discharge summary he was consuming a fifth of alcohol approximately every 2 days for the 2 weeks prior to admission He is consuming a fifth of alcohol every 2 days for the last 2 weeks, he states he's done this throughout his adult life whenever he becomes more depressed. He reports he drinks less when he is stabilized with medication. No use of marijuana or other illicit drugs he's never been placed in residential treatment for chemical dependency reasons. His urine drug screen was positive for opiates but he states he does not take them and last used and opiate while in [facility] due to a infection of his wrist. FAMILY PSYCHIATRIC HISTORY:.His mother was known to have depression, 2 maternal uncles committed suicide FAMILY CHEMICAL DEPENDENCY HISTORY: Denies. LEGAL HISTORY: Denies. SOCIAL HISTORY: The patient is he has no children he lives alone in his own home in [place]. He is retired from [employer] after over 20 years of service. No history of service. He graduated high school and earned an associates degree. He has no siblings. It appears he has very limited social support. Discharge Medication List clonazePAM [KlonoPIN] 0.5 mg PO BID 07/27/18 [History] Allopurinol [Zyloprim] 100 mg PO DAILY 30 Days #60 tab 08/10/18 [Rx] Metoprolol Tartrate [Lopressor] 50 mg PO BID #60 tab 08/10/18 [Rx] Naltrexone HCl [Revia] 50 mg PO 2100 30 Days #30 tab 08/10/18 [Rx] Pantoprazole [Protonix] 40 mg PO AC-BRKFSMack #30 tablet.dr 08/10/18 [Rx] Pramipexole [Mirapex] 1 mg PO 2100 30 Days #30 tab 08/10/18 [Rx] Venlafaxine HCl ER [Effexor XR] 300 mg PO 2100 30 Days #60 cap.er.24h 08/10/18 [ Rx] buPROPion SR [Wellbutrin SR] 150 mg PO DAILY 30 Days #30 tablet.er 08/10/18 [Rx] Musculoskeletal Examination - Abnormal/Involuntary Movements: [none] Strength: [greater than antigravity (greater than/equal to 3/5) in all extremities, weakness:] Muscle Tone: [no impairment Gait: [wide-based] Station: [unsteady] Mental Status Examination - General Appearance: [ disheveled, bizarre, appears older than stated age Speech/Language: [ slow, rapid, slurred, rambled, mumbling, hesitant, loud Attitude/Behavior: [ guarded, irritable, withdrawn, indifferent] Mood: [depressed, anxious, irritable, fearful, hopelessness] Affect: [flat, incongruent, labile] Orientation: [time, person, place situation] Thought Content: [ delusions,thinks he is on the alvarez Risk Factors: [he is not suicidal (ideations, plan), and/or Homicidal (ideations , plan), other] Perception: hallucinations (auditory Thought Processes: [concrete, circumstantial, tangential Concentration/Attention Span: [impaired] [Per observation and interview with the patient] Recent Memory: [wnl Remote Memory: [wnl] [past events, as related history] Intelligence: [below average] [based on history, based on vocabulary, syntax, grammar, and content] Judgement: [ poor] [per patient's behavior/history of present illness] Insight: [ poor] [understanding severity of illness/history of present illness] Admitting Diagnosis: [Major depressive with psychotic features and delusional obsessions] Patient Strengths - Housing stability: [x] Able to vocalize needs: x[] Motivation, determination, readiness for change: [x] Patient Limitations: [medication, non-compliance, pathological/unsupported environment, intellectual impairment, lack of social supports] Initial Plan of Care: [He will be admitted formal voluntary on 3 W. behavior health unit and placed on 15 minute checks and usual protocol for behavioral health unit. He'll be evaluated by medicine, psychiatry, nursing staff, social work staff, and recreational therapy. He will be teamed on a daily basis for progress and treatment evaluation and discharge planning will be immediately part of the conversation. He'll be started back on his medications that are listed above since he has not been compliant.] Estimated Length of Stay: [5 days] Initial Discharge Plan: [home, [facility] [address], referred to therapist Prognosis: [guarded] Justification for Inpatient Hospitalization - [Hallucinations, delusions, agitation, anxiety, depression resulting in significant loss of functioning.] [Dangerous to self, others, or property with need for controlled environment.] [Emotional or behavioral conditions and complications requiring 24 hour medical and nursing care.] [Need for special drug therapy, or other therapeutic program requiring continuous hospitalization.] [Failure of social or occupational functioning.] [Inability to meet basic life and health needs.] (1) Depression Current Visit: Yes Status: Chronic Priority: Low Code(s): F32.9 - MAJOR DEPRESSIVE DISORDER, SINGLE EPISODE, UNSPECIFIED SNOMED Code(s): 82896071 Time with Patient: Less than 30
[2018-09-02] MEDS: MULTIVITAMINS, THERA 1 EACH TAB PO SCH (11:37)
[2018-09-02] MEDS: FOLIC ACID 1 MG TAB PO SCH (11:37)
--- NOTE | 2018-09-02 15:40 | P.CONS ---
History of Present Illness - Reason for Consult Medical clearance - History of Present Illness Patient is admitted seconded floor for major depression with psychotic features. Patient is clinically doing well from medical perspective. Patient denied any chest pain nausea vomiting abdominal pain patient is comparing of abnormal gait when I made him walk around it appeared okay for me. Patient denied any fever chills cough chest pain. Patient was bit tachycardic from reflex tachycardia from not taking beta kirti which is better now after he was started back on beta kirti which is being used for hypertension. Review of Systems REVIEW OF SYSTEMS: CONSTITUTIONAL: No fever, no malaise, no fatigue. HEENT: No recent visual problems or hearing problems. Denied any sore throat. CARDIOVASCULAR: No chest pain, orthopnea, PND, no palpitations, no syncope. PULMONARY: No shortness of breath, no cough, no hemoptysis. GASTROINTESTINAL: No diarrhea, no nausea, no vomiting, no abdominal pain. Normoactive bowel sounds. NEUROLOGICAL: No headaches, no weakness, no numbness. HEMATOLOGICAL: Denies any bleeding or petechiae. GENITOURINARY: Denies any burning micturition, frequency, or urgency. MUSCULOSKELETAL/RHEUMATOLOGICAL: Denies any joint pain, swelling, or any muscle pain. ENDOCRINE: Denies any polyuria or polydipsia. The rest of the 14-point review of systems is negative. Past Medical History Past Medical History: Chest Pain / Angina, GERD/Reflux, GI Bleed, Hypertension, Renal Disease Additional Past Medical History / Comment(s): ETOH abuse with withdrawals/ tremors, chronic kidney disease stage III, bacteremia/sepsis 3 yrs ago and treated at [facility], lower GI bleed, History of Any Multi-Drug Resistant Organisms: None Reported Past Surgical History: No Surgical Hx Reported Additional Past Surgical History / Comment(s): Tooth extraction at [facility] Past Anesthesia/Blood Transfusion Reactions: No Reported Reaction Additional Past Anesthesia/Blood Transfusion Reaction / Comm: NO ANESTHESIA HX. PT STATES TOOTH PULLED AT [facility]. Smoking Status: Light tobacco smoker - Past Family History Father Family Medical History: Cancer Additional Family Medical History / Comment(s): Father is deceasedd at age 87. He had a pacemaker, carotid surgery and scoliosis. Mother Family Medical History: Dementia, Musculoskeletal Disorder, Neurologic Disorder , Pneumonia Additional Family Medical History / Comment(s): Mother at age 84 with history of Alzheimer's and Parkinson's. Brother(s) Additional Family Medical History / Comment(s): Patient does not have any brothers or sisters. He does not have any children. Medications and Allergies Home Medications Medication Instructions Recorded Confirmed Type Allopurinol [Zyloprim] 100 mg PO DAILY 30 Days #60 tab 08/10/18 09/01/18 Rx Metoprolol Tartrate [Lopressor] 50 mg PO BID #60 tab 08/10/18 09/01/18 Rx Folic Acid 1 mg PO DAILY 09/01/18 09/01/18 History Multivitamins, Thera [Multivitamin 1 tab PO DAILY 09/01/18 09/01/18 History (formulary)] Naltrexone HCl [Revia] 50 mg PO QAM 09/01/18 09/01/18 History Pantoprazole [Protonix] 40 mg PO DAILY 09/01/18 09/01/18 History Pramipexole [Mirapex] 1 mg PO HS 09/01/18 09/01/18 History Thiamine [Vitamin B-1] 100 mg PO BID 09/01/18 09/01/18 History Venlafaxine HCl ER [Effexor XR] 150 mg PO HS 09/01/18 09/01/18 History buPROPion SR [Wellbutrin SR] 150 mg PO HS 09/01/18 09/01/18 History Allergies Allergy/AdvReac Type Severity Reaction Status Date / Time No Known Allergies Allergy Verified 09/01/18 21:07 Physical Exam Vitals: Vital Signs Temp Pulse Pulse Resp BP BP Pulse Ox 09/02/18 10:59 128 H 104/72 09/02/18 00:45 97.6 F 76 16 115/74 09/01/18 20:44 97.5 F L 118 H 16 129/88 100 09/01/18 20:00 97.1 F L 98 19 122/94 97 PHYSICAL EXAMINATION: GENERAL: The patient is alert and oriented x3, not in any acute distress. Well developed, well nourished. HEENT: Pupils are round and equally reacting to light. EOMI. No scleral icterus. No conjunctival pallor. Normocephalic, atraumatic. No pharyngeal erythema. No thyromegaly. CARDIOVASCULAR: S1 and S2 present. No murmurs, rubs, or gallops. PULMONARY: Chest is clear to auscultation, no wheezing or crackles. ABDOMEN: Soft, nontender, nondistended, normoactive bowel sounds. No palpable organomegaly. MUSCULOSKELETAL: No joint swelling or deformity. EXTREMITIES: No cyanosis, clubbing, or pedal edema. NEUROLOGICAL: Gross neurological examination did not reveal any focal deficits. SKIN: No rashes. Assessment and Plan Plan: -Major depression with psychotic features: Management as per primary service -Gastroesophageal reflux disease patient will be resumed on proton pump inhibitor patient will benefit from H kirti as an outpatient to avoid side effects from long-term use of proton pump inhibitor. -Hypertension -Reflux tachycardia which improved now after starting back on beta kirti -Patient is on Mirapex which as per the patient is for Parkinson's. Patient does have slow stepping gait
[2018-09-02] MEDS ORDERED: ZIPRASIDONE 20 MG VIAL IM ONE (20:04)
[2018-09-02] MEDS ORDERED: WATER FOR INJECTION, STERILE 10 ML IV ONE (20:04)
[2018-09-02] MEDS: buPROPion SR 150 MG TABLET.ER PO SCH (20:06)
[2018-09-02] MEDS: PRAMIPEXOLE 1 MG TAB PO SCH (20:06)
[2018-09-03] MEDS: NICOTINE 7MG/24HR PATCH TRANSDERM SCH ×2 (08:38→09:08)
[2018-09-03] MEDS: PANTOPRAZOLE 40 MG TABLET PO SCH (08:38)
[2018-09-03] MEDS: THIAMINE 100 MG TAB PO SCH ×2 (08:38→20:23)
[2018-09-03] MEDS: METOPROLOL TARTRATE 50 MG TAB PO SCH ×2 (09:00→20:23)
[2018-09-03] MEDS: NALTREXONE HCL 50 MG TAB PO SCH (09:00)
[2018-09-03] MEDS: ALLOPURINOL 100 MG TAB PO SCH (09:01)
[2018-09-03] MEDS: LORazepam 1 MG TAB PO PRN ×2 (09:01→17:31)
[2018-09-03 11:21] LABS: Anisocytosis Slight; Basophils % (A) 0 %; Eosinophils # (A) 0.3 k/uL (0-0.7); Eosinophils % (A) 3 %; HCT 41.6 % (39.0-53.0); HGB 13.2 gm/dL (13.0-17.5); Lymphocytes # (A) 1.6 k/uL (1.0-4.8); Lymphocytes % (A) 16 %; MCH 29.4 pg (25.0-35.0); MCHC 31.8 g/dL (31.0-37.0); MCV 92.4 fL (80.0-100.0); Mean Platelet Volume 7.1; Monocytes # (A) 0.6 k/uL (0-1.0); Monocytes % (A) 6 %; Neutrophils # (A) 7.1 k/uL (1.3-7.7); Neutrophils % (A) 73 %; Platelet Count 265 k/uL (150-450); RBC 4.51 m/uL (4.30-5.90); RDW 16.1 % (11.5-15.5); WBC 9.7 k/uL (3.8-10.6)
[2018-09-03 11:50] LABS: Albumin 3.9 g/dL (3.5-5.0); Calcium 9.6 mg/dL (8.4-10.2); Potassium 4.5 mmol/L (3.5-5.1); Total Bilirubin 0.4 mg/dL (0.2-1.3); Total Protein 7.3 g/dL (6.3-8.2)
[2018-09-03] MEDS: MULTIVITAMINS, THERA 1 EACH TAB PO SCH (11:58)
[2018-09-03] MEDS: FOLIC ACID 1 MG TAB PO SCH (11:58)
--- NOTE | 2018-09-03 12:46 | P.PN ---
Subjective Progress Note Date: 09/03/18 Principal diagnosis: Major depressive disorder severe with psychotic features: History of alcohol use disorder Objective - Vital Signs Vital signs: Vital Signs Temp 97.6 F 09/02/18 00:45 Pulse 100 09/03/18 09:08 Resp 20 09/03/18 09:08 BP 108/72 09/03/18 09:08 Pulse Ox 100 09/01/18 20:44 - Labs CBC & Chem 7: 09/03/18 10:53 09/03/18 10:53 Labs: Abnormal Lab Results - Last 24 Hours (Table) 09/03/18 09/03/18 Range/Units 10:53 10:53 RDW 16.1 H (11.5-15.5) % BUN 56 H (9-20) mg/dL Creatinine 2.58 H (0.66-1.25) mg/dL Assessment and Plan Assessment: HPI: This is a 58 year old male presents emergency department via EMS for psychiatric evaluation. Patient states he is depressed, hearing voices in possibly seeing things. Patient states that he symptoms started shortly after him having medication adjustments. Patient denies any alcohol use since his last hospital stay here. Patient states that he's had some thoughts of harm himself but not exactly suicidal. Patient denies any drug abuse. Patient denies any physical complaints going chest pain, shortness breath, headache, dizziness, nausea, vomiting. He states that over the last 2 weeks been adherent to his medications and has become more increasingly confused and not able to do ADLs. He tends to wander and his neighbors called the police yesterday to bring him in for psychiatric treatment. - Related Data Home Medications Medication Instructions Recorded Confirmed clonazePAM [KlonoPIN] 0.5 mg PO BID 07/27/18 09/01/18 Folic Acid 1 mg PO DAILY 09/01/18 09/01/18 Multivitamins, Thera [Multivitamin 1 tab PO DAILY 09/01/18 09/01/18 (formulary)] Naltrexone HCl [Revia] 50 mg PO QAM 09/01/18 09/01/18 Pantoprazole [Protonix] 40 mg PO DAILY 09/01/18 09/01/18 Pramipexole [Mirapex] 1 mg PO HS 09/01/18 09/01/18 Thiamine [Vitamin B-1] 100 mg PO BID 09/01/18 09/01/18 Venlafaxine HCl ER [Effexor XR] 150 mg PO HS 09/01/18 09/01/18 buPROPion SR [Wellbutrin SR] 150 mg PO HS 09/01/18 09/01/18 Previous Rx's Medication Instructions Recorded Allopurinol [Zyloprim] 100 mg PO DAILY 30 Days #60 tab 08/10/18 Metoprolol Tartrate [Lopressor] 50 mg PO BID #60 tab 08/10/18 Allergies Allergy/AdvReac Type Severity Reaction Status Date / Time No Known Allergies Allergy Verified 09/01/18 15:31 Past Medical History Past Medical History: Chest Pain / Angina, GERD/Reflux, GI Bleed, Hypertension, Renal Disease Additional Past Medical History / Comment(s): ETOH abuse with withdrawals/ tremors, chronic kidney disease stage III, bacteremia/sepsis 3 yrs ago and treated at [facility], lower GI bleed, History of Any Multi-Drug Resistant Organisms: None Reported Past Surgical History: No Surgical Hx Reported Additional Past Surgical History / Comment(s): Tooth extraction at [facility] Past Anesthesia/Blood Transfusion Reactions: No Reported Reaction Additional Past Anesthesia/Blood Transfusion Reaction / Comment(s): NO ANESTHESIA HX. PT STATES TOOTH PULLED AT [facility]. Past Psychological History: Anxiety, Depression Smoking Status: Light tobacco smoker Past Alcohol Use History: Daily Past Drug Use History: None Reported - Past Family History Father Family Medical History: Cancer Additional Family Medical History / Comment(s): Father is deceasedd at age 87. He had a pacemaker, carotid surgery and scoliosis. Mother Family Medical History: Dementia, Musculoskeletal Disorder, Neurologic Disorder , Pneumonia Additional Family Medical History / Comment(s): Mother at age 84 with history of Alzheimer's and Parkinson's. Brother(s) Additional Family Medical History / Comment(s): Patient does not have any brothers or sisters. He does not have any children. PAST PSYCHIATRIC HISTORY: This is the patient's fifth inpatient psychiatric admission, his last was approximately 3 years ago. No history of suicide attempts. He is a limited historian in terms of recalling which psychotropic medications he was on and what their affects were. He has been seeing Dr Doe. He has been on Prozac Paxil Zoloft Remeron Celexa Depakote Klonopin Ativan Monstermer. PAST MEDICAL HISTORY: Hypertension ALLERGIES: No known drug allergies. CHEMICAL DEPENDENCY HISTORY: Patient reports that he had a 6 month period of sobriety and drank for 2-3 days stop for 2 months and then drank these last 4-5 days.. Prior to this admission according to discharge summary he was consuming a fifth of alcohol approximately every 2 days for the 2 weeks prior to admission He is consuming a fifth of alcohol every 2 days for the last 2 weeks, he states he's done this throughout his adult life whenever he becomes more depressed. He reports he drinks less when he is stabilized with medication. No use of marijuana or other illicit drugs he's never been placed in residential treatment for chemical dependency reasons. His urine drug screen was positive for opiates but he states he does not take them and last used and opiate while in intermediate due to a infection of his wrist. FAMILY PSYCHIATRIC HISTORY:.His mother was known to have depression, 2 maternal uncles committed suicide FAMILY CHEMICAL DEPENDENCY HISTORY: Denies. LEGAL HISTORY: Denies. SOCIAL HISTORY: The patient is he has no children he lives alone in his own home in [place]. He is retired from [employer] after over 20 years of service. No history of service. He graduated high school and earned an associates degree. He has no siblings. It appears he has very limited social support. Discharge Medication List clonazePAM [KlonoPIN] 0.5 mg PO BID 07/27/18 [History] Allopurinol [Zyloprim] 100 mg PO DAILY 30 Days #60 tab 08/10/18 [Rx] Metoprolol Tartrate [Lopressor] 50 mg PO BID #60 tab 08/10/18 [Rx] Naltrexone HCl [Revia] 50 mg PO 2100 30 Days #30 tab 08/10/18 [Rx] Pantoprazole [Protonix] 40 mg PO AC-BRKFST #30 tablet. 08/10/18 [Rx] Pramipexole [Mirapex] 1 mg PO 2100 30 Days #30 tab 08/10/18 [Rx] Venlafaxine HCl ER [Effexor XR] 300 mg PO 2100 30 Days #60 cap.er.24h 08/10/18 [ Rx] buPROPion SR [Wellbutrin SR] 150 mg PO DAILY 30 Days #30 tablet.er 08/10/18 [Rx] Musculoskeletal Examination - Abnormal/Involuntary Movements: [none] Strength: [greater than antigravity (greater than/equal to 3/5) in all extremities, weakness:] Muscle Tone: [no impairment Gait: [wide-based] Station: [unsteady] Mental Status Examination - General Appearance: [ disheveled, bizarre, appears older than stated age Speech/Language: [ slow, rapid, slurred, rambled, mumbling, hesitant, loud Attitude/Behavior: [ guarded, irritable, withdrawn, indifferent] Mood: [depressed, anxious, irritable, fearful, hopelessness] Affect: [flat, incongruent, labile] Orientation: [time, person, place situation] Thought Content: [ delusions,thinks he is on the alvarez Risk Factors: [he is not suicidal (ideations, plan), and/or Homicidal (ideations , plan), other] Perception: hallucinations (auditory Thought Processes: [concrete, circumstantial, tangential Concentration/Attention Span: [impaired] [Per observation and interview with the patient] Recent Memory: [wnl Remote Memory: [wnl] [past events, as related history] Intelligence: [below average] [based on history, based on vocabulary, syntax, grammar, and content] Judgement: [ poor] [per patient's behavior/history of present illness] Insight: [ poor] [understanding severity of illness/history of present illness] Admitting Diagnosis: [Major depressive with psychotic features and delusional obsessions] Patient Strengths - Housing stability: [x] Able to vocalize needs: [x] Motivation, determination, readiness for change: [x] Patient Limitations: [medication, non-compliance, pathological/unsupported environment, intellectual impairment, lack of social supports] Initial Plan of Care: [He will be admitted formal voluntary on 3 W. behavior health unit and placed on 15 minute checks and usual protocol for behavioral health unit. He'll be evaluated by medicine, psychiatry, nursing staff, social work staff, and recreational therapy. He will be teamed on a daily basis for progress and treatment evaluation and discharge planning will be immediately part of the conversation. He'll be started back on his medications that are listed above since he has not been compliant.] Estimated Length of Stay: [ days] Initial Discharge Plan: [[place], [facility], referred to therapist Prognosis: [guarded] Justification for Inpatient Hospitalization - [Hallucinations, delusions, agitation, anxiety, depression resulting in significant loss of functioning.] [Dangerous to self, others, or property with need for controlled environment.] [Emotional or behavioral conditions and complications requiring 24 hour medical and nursing care.] [Need for special drug therapy, or other therapeutic program requiring continuous hospitalization.] [Failure of social or occupational functioning.] [Inability to meet basic life and health needs.] (1) Depression Current Visit: Yes Status: Chronic Priority: Low Code(s): F32.9 - MAJOR DEPRESSIVE DISORDER, SINGLE EPISODE, UNSPECIFIED SNOMED Code(s): 54995833 Plan: Plan: Continue his psychiatric medications supportive environment 15 minute checks and adjust medications accordingly Time with Patient: Less than 30
[2018-09-03] MEDS: buPROPion SR 150 MG TABLET.ER PO SCH (20:22)
[2018-09-03] MEDS: PRAMIPEXOLE 1 MG TAB PO SCH (20:23)
[2018-09-03] MEDS: ZIPRASIDONE 20 MG VIAL IM PRN (21:56)
[2018-09-04] MEDS: NICOTINE 7MG/24HR PATCH TRANSDERM SCH (08:30)
[2018-09-04] MEDS: PANTOPRAZOLE 40 MG TABLET PO SCH (08:31)
[2018-09-04] MEDS: ALLOPURINOL 100 MG TAB PO SCH (08:31)
[2018-09-04] MEDS: THIAMINE 100 MG TAB PO SCH ×2 (08:31→21:36)
[2018-09-04] MEDS: NALTREXONE HCL 50 MG TAB PO SCH (08:31)
[2018-09-04] MEDS: METOPROLOL TARTRATE 50 MG TAB PO SCH ×2 (08:31→21:07)
[2018-09-04] MEDS: MULTIVITAMINS, THERA 1 EACH TAB PO SCH (12:13)
[2018-09-04] MEDS: FOLIC ACID 1 MG TAB PO SCH (12:13)
[2018-09-04] MEDS: LORazepam 1 MG TAB PO PRN (15:46)
--- NOTE | 2018-09-04 16:30 | P.PN ---
Progress Note - Text Progress Note Date: 09/04/18 IDENTIFICATION DATA: 58 year old male admitted due to feeling increasingly depressed, confused, hearing voices, seeing things, wandering in neighborhood. INTERVAL HISTORY: He reports being recently discharged from this unit. He thought things were going right for him but has to come back due to his neighbors complaining about his behaviors such as talking to trees. He reports binge drinking heavily. He is unable to tell when his last drink was and appeared confused. Today he reports feeling that the ground underneath him was uneven, thought his feet were moving, but he knows they are not moving. He also reports feeling that the table was folding on itself during his group time, but states he knows its not folding. He reports feeling normal , not excessively depressed. He reports to have slept well after receiving His night medications yesterday. He reports good appetite. Per staff he at times tries to wander into other patients rooms. No other behavioral problems reported. MENTAL STATUS EXAMINATION: He appeared his stated age. He was appropriately dressed. Fair grooming and hygiene. No abnormal movements noted. His mood is reported as normal and affect appropriate. His speech and thought process was goal directed. He denies current auditory or visual hallucinations. He denies paranoia. He is alert and oriented x 4. He denies current suicidal or homicidal ideations. His insight and judgement are improving. ASSESSMENT AND PLAN: Continue current treatment. Monitor for symptoms.
[2018-09-04] MEDS: PRAMIPEXOLE 1 MG TAB PO SCH (21:07)
[2018-09-04] MEDS: buPROPion SR 150 MG TABLET.ER PO SCH (21:07)
[2018-09-05] MEDS: LORazepam 1 MG TAB PO PRN ×2 (00:28→21:51)
[2018-09-05] MEDS: ALLOPURINOL 100 MG TAB PO SCH (08:14)
[2018-09-05] MEDS: NICOTINE 7MG/24HR PATCH TRANSDERM SCH (08:14)
[2018-09-05] MEDS: NALTREXONE HCL 50 MG TAB PO SCH (08:14)
[2018-09-05] MEDS: THIAMINE 100 MG TAB PO SCH ×2 (08:14→20:53)
[2018-09-05] MEDS: PANTOPRAZOLE 40 MG TABLET PO SCH (08:14)
[2018-09-05] MEDS: METOPROLOL TARTRATE 50 MG TAB PO SCH ×2 (08:14→20:53)
[2018-09-05] MEDS: FOLIC ACID 1 MG TAB PO SCH (11:34)
[2018-09-05] MEDS: MULTIVITAMINS, THERA 1 EACH TAB PO SCH (11:34)
[2018-09-05 19:34] LABS: Amphetamine Screen,Urine Not Detected (NotDetected); Barbiturate Screen,Urine Not Detected (NotDetected); Benzodiazepines Screen,Urine Detected (NotDetected); Cocaine Screen,Urine Not Detected (NotDetected); Methadone Screen, Urine Not Detected (NotDetected); Opiate Screen,Urine Not Detected (NotDetected); Oxycodone Screen, Urine Not Detected (NotDetected); Phencyclidine Screen,Urine Not Detected (NotDetected); Tricyclic Antidepressant,Urine Not Detected (NotDetected); Urn Cannabinoid Scrn Not Detected (NotDetected)
[2018-09-05] MEDS: buPROPion SR 150 MG TABLET.ER PO SCH (20:53)
[2018-09-05] MEDS: PRAMIPEXOLE 1 MG TAB PO SCH (20:53)
[2018-09-06] MEDS: ZIPRASIDONE 20 MG VIAL IM PRN (00:38)
[2018-09-06] MEDS: PANTOPRAZOLE 40 MG TABLET PO SCH ×2 (09:25→10:24)
[2018-09-06] MEDS: NALTREXONE HCL 50 MG TAB PO SCH (10:24)
[2018-09-06] MEDS: ALLOPURINOL 100 MG TAB PO SCH (10:24)
[2018-09-06] MEDS: FOLIC ACID 1 MG TAB PO SCH (10:24)
[2018-09-06] MEDS: NICOTINE 7MG/24HR PATCH TRANSDERM SCH (10:24)
[2018-09-06] MEDS: THIAMINE 100 MG TAB PO SCH ×2 (10:24→20:19)
[2018-09-06] MEDS: MULTIVITAMINS, THERA 1 EACH TAB PO SCH (10:25)
[2018-09-06] MEDS: METOPROLOL TARTRATE 50 MG TAB PO SCH ×2 (10:25→20:19)
--- NOTE | 2018-09-06 13:12 | P.PN ---
Subjective Principal diagnosis: Major depressive disorder severe with psychotic features: History of alcohol use disorder I'm so confused what day is it? He reports being recently discharged from this unit. He thought things were going right for him but has to come back due to his neighbors complaining about his behaviors such as talking to trees. He reports binge drinking heavily. He is unable to tell when his last drink was and appeared confused. Today he reports feeling that the ground underneath him was uneven, thought his feet were moving, but he knows they are not moving. He also reports feeling that the table was folding on itself during his group time, but states he knows its not folding. Objective - Vital Signs Vital signs: Vital Signs Temp 97.9 F 09/06/18 00:11 Pulse 101 H 09/06/18 10:26 Resp 20 09/06/18 10:26 BP 134/101 09/06/18 10:26 Pulse Ox 97 09/06/18 01:15 Intake & Output 09/05/18 09/06/18 09/06/18 18:59 06:59 18:59 Weight 71.3 kg - Labs CBC & Chem 7: 09/03/18 10:53 09/04/18 11:46 Labs: Abnormal Lab Results - Last 24 Hours (Table) 09/05/18 Range/Units Unknown U Benzodiazepines Scrn Detected H (NotDetected) Assessment and Plan Assessment: HPI: This is a 58 year old male presents emergency department via EMS for psychiatric evaluation. Patient states he is depressed, hearing voices in possibly seeing things. Patient states that he symptoms started shortly after him having medication adjustments. Patient denies any alcohol use since his last hospital stay here. Patient states that he's had some thoughts of harm himself but not exactly suicidal. Patient denies any drug abuse. Patient denies any physical complaints going chest pain, shortness breath, headache, dizziness, nausea, vomiting. He states that over the last 2 weeks been adherent to his medications and has become more increasingly confused and not able to do ADLs. He tends to wander and his neighbors called the police yesterday to bring him in for psychiatric treatment. - Related Data Home Medications Medication Instructions Recorded Confirmed clonazePAM [KlonoPIN] 0.5 mg PO BID 07/27/18 09/01/18 Folic Acid 1 mg PO DAILY 09/01/18 09/01/18 Multivitamins, Thera [Multivitamin 1 tab PO DAILY 09/01/18 09/01/18 (formulary)] Naltrexone HCl [Revia] 50 mg PO QAM 09/01/18 09/01/18 Pantoprazole [Protonix] 40 mg PO DAILY 09/01/18 09/01/18 Pramipexole [Mirapex] 1 mg PO HS 09/01/18 09/01/18 Thiamine [Vitamin B-1] 100 mg PO BID 09/01/18 09/01/18 Venlafaxine HCl ER [Effexor XR] 150 mg PO HS 09/01/18 09/01/18 buPROPion SR [Wellbutrin SR] 150 mg PO HS 09/01/18 09/01/18 Previous Rx's Medication Instructions Recorded Allopurinol [Zyloprim] 100 mg PO DAILY 30 Days #60 tab 08/10/18 Metoprolol Tartrate [Lopressor] 50 mg PO BID #60 tab 08/10/18 Allergies Allergy/AdvReac Type Severity Reaction Status Date / Time No Known Allergies Allergy Verified 09/01/18 15:31 Past Medical History Past Medical History: Chest Pain / Angina, GERD/Reflux, GI Bleed, Hypertension, Renal Disease Additional Past Medical History / Comment(s): ETOH abuse with withdrawals/ tremors, chronic kidney disease stage III, bacteremia/sepsis 3 yrs ago and treated at [facility], lower GI bleed, History of Any Multi-Drug Resistant Organisms: None Reported Past Surgical History: No Surgical Hx Reported Additional Past Surgical History / Comment(s): Tooth extraction at [facility] Past Anesthesia/Blood Transfusion Reactions: No Reported Reaction Additional Past Anesthesia/Blood Transfusion Reaction / Comment(s): NO ANESTHESIA HX. PT STATES TOOTH PULLED AT [facility]. Past Psychological History: Anxiety, Depression Smoking Status: Light tobacco smoker Past Alcohol Use History: Daily Past Drug Use History: None Reported - Past Family History Father Family Medical History: Cancer Additional Family Medical History / Comment(s): Father is deceasedd at age 87. He had a pacemaker, carotid surgery and scoliosis. Mother Family Medical History: Dementia, Musculoskeletal Disorder, Neurologic Disorder , Pneumonia Additional Family Medical History / Comment(s): Mother at age 84 with history of Alzheimer's and Parkinson's. Brother(s) Additional Family Medical History / Comment(s): Patient does not have any brothers or sisters. He does not have any children. PAST PSYCHIATRIC HISTORY: This is the patient's fifth inpatient psychiatric admission, his last was approximately 3 years ago. No history of suicide attempts. He is a limited historian in terms of recalling which psychotropic medications he was on and what their affects were. He has been seeing Dr Doe. He has been on Prozac Paxil Zoloft Remeron Celexa Depakote Klonopin Ativan Cymbalta. PAST MEDICAL HISTORY: Hypertension ALLERGIES: No known drug allergies. CHEMICAL DEPENDENCY HISTORY: Patient reports that he had a 6 month period of sobriety and drank for 2-3 days stop for 2 months and then drank these last 4-5 days.. Prior to this admission according to discharge summary he was consuming a fifth of alcohol approximately every 2 days for the 2 weeks prior to admission He is consuming a fifth of alcohol every 2 days for the last 2 weeks, he states he's done this throughout his adult life whenever he becomes more depressed. He reports he drinks less when he is stabilized with medication. No use of marijuana or other illicit drugs he's never been placed in residential treatment for chemical dependency reasons. His urine drug screen was positive for opiates but he states he does not take them and [facility] to a infection of his wrist. FAMILY PSYCHIATRIC HISTORY:.His mother was known to have depression, 2 maternal uncles committed suicide FAMILY CHEMICAL DEPENDENCY HISTORY: Denies. LEGAL HISTORY: Denies. SOCIAL HISTORY: The patient is he has no children he lives alone in his own home in [place]. He is retired from [employer] after over 20 years of service. No history of service. He graduated high school and earned an associates degree. He has no siblings. It appears he has very limited social support. Discharge Medication List clonazePAM [KlonoPIN] 0.5 mg PO BID 07/27/18 [History] Allopurinol [Zyloprim] 100 mg PO DAILY 30 Days #60 tab 08/10/18 [Rx] Metoprolol Tartrate [Lopressor] 50 mg PO BID #60 tab 08/10/18 [Rx] Naltrexone HCl [Revia] 50 mg PO 2100 30 Days #30 tab 08/10/18 [Rx] Pantoprazole [Protonix] 40 mg PO AC-BRKFST #30 tablet.dr 08/10/18 [Rx] Pramipexole [Mirapex] 1 mg PO 2099 30 Days #30 tab 08/10/18 [Rx] Venlafaxine HCl ER [Effexor XR] 300 mg PO 2100 30 Days #60 cap.er.24h 08/10/18 [ Rx] buPROPion SR [Wellbutrin SR] 150 mg PO DAILY 30 Days #30 tablet.er 08/10/18 [Rx] Musculoskeletal Examination - Abnormal/Involuntary Movements: [none] Strength: [greater than antigravity (greater than/equal to 3/5) in all extremities, weakness:] Muscle Tone: [no impairment Gait: [wide-based] Station: [unsteady] Mental Status Examination - General Appearance: [ disheveled, bizarre, appears older than stated age Speech/Language: [ slow, rapid, slurred, rambled, mumbling, hesitant, loud Attitude/Behavior: [ guarded, irritable, withdrawn, indifferent] Mood: [depressed, anxious, irritable, fearful, hopelessness] Affect: [flat, incongruent, labile] Orientation: [time, person, place situation] Thought Content: [ delusions,thinks he is on the alvarez Risk Factors: [he is not suicidal (ideations, plan), and/or Homicidal (ideations , plan), other] Perception: hallucinations (auditory Thought Processes: [concrete, circumstantial, tangential Concentration/Attention Span: [impaired] [Per observation and interview with the patient] Recent Memory: [wnl Remote Memory: [wnl] [past events, as related history] Intelligence: [below average] [based on history, based on vocabulary, syntax, grammar, and content] Judgement: [ poor] [per patient's behavior/history of present illness] Insight: [ poor] [understanding severity of illness/history of present illness] Admitting Diagnosis: [Major depressive with psychotic features and delusional obsessions] Patient Strengths - Housing stability: [x] Able to vocalize needs: [x] Motivation, determination, readiness for change: [x] Patient Limitations: [medication, non-compliance, pathological/unsupported environment, intellectual impairment, lack of social supports] Initial Plan of Care: [He will be admitted formal voluntary on 3 W. behavior health unit and placed on 15 minute checks and usual protocol for behavioral health unit. He'll be evaluated by medicine, psychiatry, nursing staff, social work staff, and recreational therapy. He will be teamed on a daily basis for progress and treatment evaluation and discharge planning will be immediately part of the conversation. He'll be started back on his medications that are listed above since he has not been compliant.] Estimated Length of Stay: [ 5 days] Initial Discharge Plan: [home, [facility], referred to therapist Prognosis: [guarded] Justification for Inpatient Hospitalization - [Hallucinations, delusions, agitation, anxiety, depression resulting in significant loss of functioning.] [Dangerous to self, others, or property with need for controlled environment.] [Emotional or behavioral conditions and complications requiring 24 hour medical and nursing care.] [Need for special drug therapy, or other therapeutic program requiring continuous hospitalization.] [Failure of social or occupational functioning.] [Inability to meet basic life and health needs.] (1) Depression Current Visit: Yes Status: Chronic Priority: Low Code(s): F32.9 - MAJOR DEPRESSIVE DISORDER, SINGLE EPISODE, UNSPECIFIED SNOMED Code(s): 10126240 Plan: Plan: Discontinue Wellbutrin ReVia nicotine patch psychiatric medications supportive environment 15 minute checks and adjust medications and Geodon 20 mg twice a day. I'll follow observed current psychiatric symptoms which include delusional psychotic confused and agitated. Time with Patient: Less than 30
[2018-09-06] MEDS: ZIPRASIDONE 20 MG CAP PO SCH (20:19)
[2018-09-07] MEDS: MULTIVITAMINS, THERA 1 EACH TAB PO SCH (08:44)
[2018-09-07] MEDS: METOPROLOL TARTRATE 50 MG TAB PO SCH ×2 (08:44→21:09)
[2018-09-07] MEDS: FOLIC ACID 1 MG TAB PO SCH (08:45)
[2018-09-07] MEDS: THIAMINE 100 MG TAB PO SCH ×2 (08:45→21:07)
[2018-09-07] MEDS: ZIPRASIDONE 20 MG CAP PO SCH ×2 (08:45→21:09)
--- NOTE | 2018-09-07 12:37 | P.PN ---
Subjective Progress Note Date: 09/07/18 Principal diagnosis: Major depressive disorder severe with psychotic features: History of alcohol use disorder I'm so confused what day is it? He reports being recently discharged from this unit. He thought things were going right for him but has to come back due to his neighbors complaining about his behaviors such as talking to trees. He reports binge drinking heavily. He is unable to tell when his last drink was and appeared confused. Today he reports feeling that the ground underneath him was uneven, thought his feet were moving, but he knows they are not moving. He also reports feeling that the table was folding on itself during his group time, but states he knows its not folding. Objective - Vital Signs Vital signs: Vital Signs Temp 97.6 F 09/07/18 06:35 Pulse 76 09/07/18 06:35 Resp 18 09/07/18 06:35 BP 147/88 09/07/18 06:35 Pulse Ox 97 09/06/18 01:15 - Labs CBC & Chem 7: 09/03/18 10:53 09/04/18 11:46 Assessment and Plan Assessment: HPI: This is a 58 year old male presents emergency department via EMS for psychiatric evaluation. Patient states he is depressed, hearing voices in possibly seeing things. Patient states that he symptoms started shortly after him having medication adjustments. Patient denies any alcohol use since his last hospital stay here. Patient states that he's had some thoughts of harm himself but not exactly suicidal. Patient denies any drug abuse. Patient denies any physical complaints going chest pain, shortness breath, headache, dizziness, nausea, vomiting. He states that over the last 2 weeks been adherent to his medications and has become more increasingly confused and not able to do ADLs. He tends to wander and his neighbors called the police yesterday to bring him in for psychiatric treatment. - Related Data Home Medications Medication Instructions Recorded Confirmed clonazePAM [KlonoPIN] 0.5 mg PO BID 07/27/18 09/01/18 Folic Acid 1 mg PO DAILY 09/01/18 09/01/18 Multivitamins, Thera [Multivitamin 1 tab PO DAILY 09/01/18 09/01/18 (formulary)] Naltrexone HCl [Revia] 50 mg PO QAM 09/01/18 09/01/18 Pantoprazole [Protonix] 40 mg PO DAILY 09/01/18 09/01/18 Pramipexole [Mirapex] 1 mg PO HS 09/01/18 09/01/18 Thiamine [Vitamin B-1] 100 mg PO BID 09/01/18 09/01/18 Venlafaxine HCl ER [Effexor XR] 150 mg PO HS 09/01/18 09/01/18 buPROPion SR [Wellbutrin SR] 150 mg PO HS 09/01/18 09/01/18 Previous Rx's Medication Instructions Recorded Allopurinol [Zyloprim] 100 mg PO DAILY 30 Days #60 tab 08/10/18 Metoprolol Tartrate [Lopressor] 50 mg PO BID #60 tab 08/10/18 Allergies Allergy/AdvReac Type Severity Reaction Status Date / Time No Known Allergies Allergy Verified 09/01/18 15:31 Past Medical History Past Medical History: Chest Pain / Angina, GERD/Reflux, GI Bleed, Hypertension, Renal Disease Additional Past Medical History / Comment(s): ETOH abuse with withdrawals/ tremors, chronic kidney disease stage III, bacteremia/sepsis 3 yrs ago and treated at [facility], lower GI bleed, History of Any Multi-Drug Resistant Organisms: None Reported Past Surgical History: No Surgical Hx Reported Additional Past Surgical History / Comment(s): Tooth extraction at [facility] Past Anesthesia/Blood Transfusion Reactions: No Reported Reaction Additional Past Anesthesia/Blood Transfusion Reaction / Comment(s): NO ANESTHESIA HX. PT STATES TOOTH PULLED AT [facility]. Past Psychological History: Anxiety, Depression Smoking Status: Light tobacco smoker Past Alcohol Use History: Daily Past Drug Use History: None Reported - Past Family History Father Family Medical History: Cancer Additional Family Medical History / Comment(s): Father is deceasedd at age 87. He had a pacemaker, carotid surgery and scoliosis. Mother Family Medical History: Dementia, Musculoskeletal Disorder, Neurologic Disorder , Pneumonia Additional Family Medical History / Comment(s): Mother at age 84 with history of Alzheimer's and Parkinson's. Brother(s) Additional Family Medical History / Comment(s): Patient does not have any brothers or sisters. He does not have any children. PAST PSYCHIATRIC HISTORY: This is the patient's fifth inpatient psychiatric admission, his last was approximately 3 years ago. No history of suicide attempts. He is a limited historian in terms of recalling which psychotropic medications he was on and what their affects were. He has been seeing Dr Doe. He has been on Prozac Paxil Zoloft Remeron Celexa Depakote Klonopin Ativan Cymbalta. PAST MEDICAL HISTORY: Hypertension ALLERGIES: No known drug allergies. CHEMICAL DEPENDENCY HISTORY: Patient reports that he had a 6 month period of sobriety and drank for 2-3 days stop for 2 months and then drank these last 4-5 days.. Prior to this admission according to discharge summary he was consuming a fifth of alcohol approximately every 2 days for the 2 weeks prior to admission He is consuming a fifth of alcohol every 2 days for the last 2 weeks, he states he's done this throughout his adult life whenever he becomes more depressed. He reports he drinks less when he is stabilized with medication. No use of marijuana or other illicit drugs he's never been placed in residential treatment for chemical dependency reasons. His urine drug screen was positive for opiates but he states he does not take them and last used and opiate while in [facility] due to a infection of his wrist. FAMILY PSYCHIATRIC HISTORY:.His mother was known to have depression, 2 maternal uncles committed suicide FAMILY CHEMICAL DEPENDENCY HISTORY: Denies. LEGAL HISTORY: Denies. SOCIAL HISTORY: The patient is he has no children he lives alone in his own home in [place]. He is retired from [employer] after over 20 years of service. No history of service. He graduated high school and earned an associates degree. He has no siblings. It appears he has very limited social support. Discharge Medication List clonazePAM [KlonoPIN] 0.5 mg PO BID 07/27/18 [History] Allopurinol [Zyloprim] 100 mg PO DAILY 30 Days #60 tab 08/10/18 [Rx] Metoprolol Tartrate [Lopressor] 50 mg PO BID #60 tab 08/10/18 [Rx] Naltrexone HCl [Revia] 50 mg PO 2100 30 Days #30 tab 08/10/18 [Rx] Pantoprazole [Protonix] 40 mg PO AC-BRKFST #30 tablet. 08/10/18 [Rx] Pramipexole [Mirapex] 1 mg PO 2100 30 Days #30 tab 08/10/18 [Rx] Venlafaxine HCl ER [Effexor XR] 300 mg PO 2100 30 Days #60 cap.er.24h 08/10/18 [ Rx] buPROPion SR [Wellbutrin SR] 150 mg PO DAILY 30 Days #30 tablet.er 08/10/18 [Rx] Musculoskeletal Examination - Abnormal/Involuntary Movements: [none] Strength: [greater than antigravity (greater than/equal to 3/5) in all extremities, weakness:] Muscle Tone: [no impairment Gait: [wide-based] Station: [unsteady] Mental Status Examination - General Appearance: [ disheveled, bizarre, appears older than stated age Speech/Language: [ slow, rapid, slurred, rambled, mumbling, hesitant, loud Attitude/Behavior: [ guarded, irritable, withdrawn, indifferent] Mood: [depressed 09/13, anxious 12/12, fearful, hopelessness] Affect: [flat, incongruent, labile] Orientation: [time, person, place situation] Thought Content: [ delusions,thinks he is on the alvarez Risk Factors: [he is not suicidal (ideations, plan), and/or Homicidal (ideations , plan), other] Perception: hallucinations (auditory Thought Processes: [concrete, circumstantial, tangential Concentration/Attention Span: [impaired] [Per observation and interview with the patient] Recent Memory: [wnl Remote Memory: [wnl] [past events, as related history] Intelligence: [below average] [based on history, based on vocabulary, syntax, grammar, and content] Judgement: [ poor] [per patient's behavior/history of present illness] Insight: [ poor] [understanding severity of illness/history of present illness] Admitting Diagnosis: [Major depressive with psychotic features and delusional obsessions with alcohol detox] Patient Strengths - Housing stability: [x] Able to vocalize needs: [x] Motivation, determination, readiness for change: [x] Patient Limitations: [medication, non-compliance, pathological/unsupported environment, intellectual impairment, lack of social supports, needs transfer to [facility].] Initial Plan of Care: [He will be admitted formal voluntary on 3 W. behavior health unit and placed on 15 minute checks and usual protocol for behavioral health unit. He'll be evaluated by medicine, psychiatry, nursing staff, social work staff, and recreational therapy. He will be teamed on a daily basis for progress and treatment evaluation and discharge planning will be immediately part of the conversation. He'll be started back on his medications that are listed above since he has not been compliant.] Estimated Length of Stay: [ 4 days] Initial Discharge Plan: [home, [facility], referred to therapist Prognosis: [guarded] Justification for Inpatient Hospitalization - [Hallucinations, delusions, agitation, anxiety, depression resulting in significant loss of functioning.] [Dangerous to self, others, or property with need for controlled environment.] [Emotional or behavioral conditions and complications requiring 24 hour medical and nursing care.] [Need for special drug therapy, or other therapeutic program requiring continuous hospitalization.] [Failure of social or occupational functioning.] [Inability to meet basic life and health needs.] (1) Depression Current Visit: Yes Status: Chronic Priority: Low Code(s): F32.9 - MAJOR DEPRESSIVE DISORDER, SINGLE EPISODE, UNSPECIFIED SNOMED Code(s): 34094925 Plan: Plan: Discontinue Wellbutrin ReVia nicotine patch psychiatric medications supportive environment 15 minute checks and adjust medications and Geodon 20 mg twice a day. I'll follow current psychiatric symptoms which include delusional psychotic confused and agitated. Time with Patient: Less than 30
[2018-09-08] MEDS: ZIPRASIDONE 20 MG CAP PO SCH ×2 (08:03→20:33)
[2018-09-08] MEDS: METOPROLOL TARTRATE 50 MG TAB PO SCH ×2 (08:03→20:32)
[2018-09-08] MEDS: THIAMINE 100 MG TAB PO SCH ×2 (08:03→20:32)
[2018-09-08] MEDS: PANTOPRAZOLE 40 MG TABLET PO SCH (08:03)
[2018-09-08] MEDS: MULTIVITAMINS, THERA 1 EACH TAB PO SCH (11:22)
[2018-09-08] MEDS: FOLIC ACID 1 MG TAB PO SCH (11:22)
--- NOTE | 2018-09-08 11:53 | P.PN ---
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 He thought things were going right for him but has to come back due to his neighbors complaining about his behaviors such as talking to trees. He reports binge drinking heavily. He is unable to tell when his last drink was and appeared confused. Today he reports feeling that the ground underneath him was uneven, thought his feet were moving, but he knows they are not moving. He also reports feeling that the table was folding on itself during his group time, but states he knows its not folding. Objective - Vital Signs Vital signs: Vital Signs Temp 98.2 F 09/08/18 06:50 Pulse 79 09/08/18 08:05 Resp 16 09/08/18 06:50 BP 139/91 09/08/18 08:05 Pulse Ox 97 09/06/18 01:15 - Labs CBC & Chem 7: 09/03/18 10:53 09/04/18 11:46 Assessment and Plan Assessment: HPI: This is a 58 year old male presents emergency department via EMS for psychiatric evaluation. Patient states he is depressed, hearing voices in possibly seeing things. Patient states that he symptoms started shortly after him having medication adjustments. Patient denies any alcohol use since his last hospital stay here. Patient states that he's had some thoughts of harm himself but not exactly suicidal. Patient denies any drug abuse. Patient denies any physical complaints going chest pain, shortness breath, headache, dizziness, nausea, vomiting. He states that over the last 2 weeks been adherent to his medications and has become more increasingly confused and not able to do ADLs. He tends to wander and his neighbors called the police yesterday to bring him in for psychiatric treatment. - Related Data Home Medications Medication Instructions Recorded Confirmed clonazePAM [KlonoPIN] 0.5 mg PO BID 07/27/18 09/01/18 Folic Acid 1 mg PO DAILY 09/01/18 09/01/18 Multivitamins, Thera [Multivitamin 1 tab PO DAILY 09/01/18 09/01/18 (formulary)] Naltrexone HCl [Revia] 50 mg PO QAM 09/01/18 09/01/18 Pantoprazole [Protonix] 40 mg PO DAILY 09/01/18 09/01/18 Pramipexole [Mirapex] 1 mg PO HS 09/01/18 09/01/18 Thiamine [Vitamin B-1] 100 mg PO BID 09/01/18 09/01/18 Venlafaxine HCl ER [Effexor XR] 150 mg PO HS 09/01/18 09/01/18 buPROPion SR [Wellbutrin SR] 150 mg PO HS 09/01/18 09/01/18 Previous Rx's Medication Instructions Recorded Allopurinol [Zyloprim] 100 mg PO DAILY 30 Days #60 tab 08/10/18 Metoprolol Tartrate [Lopressor] 50 mg PO BID #60 tab 08/10/18 Allergies Allergy/AdvReac Type Severity Reaction Status Date / Time No Known Allergies Allergy Verified 09/01/18 15:31 Past Medical History Past Medical History: Chest Pain / Angina, GERD/Reflux, GI Bleed, Hypertension, Renal Disease Additional Past Medical History / Comment(s): ETOH abuse with withdrawals/ tremors, chronic kidney disease stage III, bacteremia/sepsis 3 yrs ago and treated at [facility], lower GI bleed, History of Any Multi-Drug Resistant Organisms: None Reported Past Surgical History: No Surgical Hx Reported Additional Past Surgical History / Comment(s): Tooth extraction at [facility] Past Anesthesia/Blood Transfusion Reactions: No Reported Reaction Additional Past Anesthesia/Blood Transfusion Reaction / Comment(s): NO ANESTHESIA HX. PT STATES TOOTH PULLED AT [facility]. Past Psychological History: Anxiety, Depression Smoking Status: Light tobacco smoker Past Alcohol Use History: Daily Past Drug Use History: None Reported - Past Family History Father Family Medical History: Cancer Additional Family Medical History / Comment(s): Father is deceasedd at age 87. He had a pacemaker, carotid surgery and scoliosis. Mother Family Medical History: Dementia, Musculoskeletal Disorder, Neurologic Disorder , Pneumonia Additional Family Medical History / Comment(s): Mother at age 84 with history of Alzheimer's and Parkinson's. Brother(s) Additional Family Medical History / Comment(s): Patient does not have any brothers or sisters. He does not have any children. PAST PSYCHIATRIC HISTORY: This is the patient's fifth inpatient psychiatric admission, his last was approximately 3 years ago. No history of suicide attempts. He is a limited historian in terms of recalling which psychotropic medications he was on and what their affects were. He has been seeing Dr Doe. He has been on Prozac Paxil Zoloft Remeron Celexa Depakote Klonopin Ativan Cymbalta. PAST MEDICAL HISTORY: Hypertension ALLERGIES: No known drug allergies. CHEMICAL DEPENDENCY HISTORY: Patient reports that he had a 6 month period of sobriety and drank for 2-3 days stop for 2 months and then drank these last 4-5 days.. Prior to this admission according to discharge summary he was consuming a fifth of alcohol approximately every 2 days for the 2 weeks prior to admission He is consuming a fifth of alcohol every 2 days for the last 2 weeks, he states he's done this throughout his adult life whenever he becomes more depressed. He reports he drinks less when he is stabilized with medication. No use of marijuana or other illicit drugs he's never been placed in residential treatment for chemical dependency reasons. His urine drug screen was positive for opiates but he states he does not take them and last used and opiate while in nursing home due to a infection of his wrist. FAMILY PSYCHIATRIC HISTORY:.His mother was known to have depression, 2 maternal uncles committed suicide FAMILY CHEMICAL DEPENDENCY HISTORY: Denies. LEGAL HISTORY: Denies. SOCIAL HISTORY: The patient is he has no children he lives alone in his own home in [place]. He is retired from [employer] after over 20 years of service. No history of service. He graduated high school and earned an associates degree. He has no siblings. It appears he has very limited social support. Discharge Medication List clonazePAM [KlonoPIN] 0.5 mg PO BID 07/27/18 [History] Allopurinol [Zyloprim] 100 mg PO DAILY 30 Days #60 tab 08/10/18 [Rx] Metoprolol Tartrate [Lopressor] 50 mg PO BID #60 tab 08/10/18 [Rx] Naltrexone HCl [Revia] 50 mg PO 2100 30 Days #30 tab 08/10/18 [Rx] Pantoprazole [Protonix] 40 mg PO AC-BRKFST #30 tablet. 08/10/18 [Rx] Pramipexole [Mirapex] 1 mg PO 2100 30 Days #30 tab 08/10/18 [Rx] Venlafaxine HCl ER [Effexor XR] 300 mg PO 2100 30 Days #60 cap.er.24h 08/10/18 [ Rx] buPROPion SR [Wellbutrin SR] 150 mg PO DAILY 30 Days #30 tablet.er 08/10/18 [Rx] Musculoskeletal Examination - Abnormal/Involuntary Movements: [none] Strength: [greater than antigravity (greater than/equal to 3/5) in all extremities, weakness:] Muscle Tone: [no impairment Gait: [wide-based] Station: [unsteady] Mental Status Examination - General Appearance: [ disheveled, bizarre, appears older than stated age Speech/Language: [ slow, rapid, slurred, rambled, mumbling, hesitant, loud Attitude/Behavior: [ guarded, irritable, withdrawn, indifferent] Mood: [depressed 8/10, anxious 6/10, fearful, hopelessness] Affect: [flat, incongruent, labile] Orientation: [time, person, place situation] Thought Content: [ delusions,thinks he is on the alvarez but that has resolved but still rambles Risk Factors: [he is not suicidal (ideations, plan), and/or Homicidal (ideations , plan), other] Perception: hallucinations (auditory has less Thought Processes: [concrete, circumstantial, tangential Concentration/Attention Span: [impaired] [Per observation and interview with the patient] Recent Memory: [wnl Remote Memory: [wnl] [past events, as related history] Intelligence: [below average] [based on history, based on vocabulary, syntax, grammar, and content] Judgement: [ fair] [per patient's behavior/history of present illness] Insight: [ fair] [understanding severity of illness/history of present illness] Admitting Diagnosis: [Major depressive with psychotic features and delusional obsessions with alcohol detox alcohol use disorder-severe] Patient Strengths - Housing stability: [x] Able to vocalize needs: [x] Motivation, determination, readiness for change: [x] Patient Limitations: [medication, non-compliance, pathological/unsupported environment, intellectual impairment, lack of social supports, needs transfer to [facility].] Initial Plan of Care: [He will be admitted formal voluntary on 3 W. behavior health unit and placed on 15 minute checks and usual protocol for behavioral health unit. He'll be evaluated by medicine, psychiatry, nursing staff, social work staff, and recreational therapy. He will be teamed on a daily basis for progress and treatment evaluation and discharge planning will be immediately part of the conversation. He'll be started back on his medications that are listed above since he has not been compliant.] Estimated Length of Stay: [ 3 days] Initial Discharge Plan: [home, [facility], referred to therapist but needs alcohol rehab-[facility] Prognosis: [guarded] Justification for Inpatient Hospitalization - [Hallucinations, delusions, agitation, anxiety, depression resulting in significant loss of functioning.] [Dangerous to self, others, or property with need for controlled environment.] [Emotional or behavioral conditions and complications requiring 24 hour medical and nursing care.] [Need for special drug therapy, or other therapeutic program requiring continuous hospitalization.] [Failure of social or occupational functioning.] [Inability to meet basic life and health needs.] (1) Depression Current Visit: Yes Status: Chronic Priority: Low Code(s): F32.9 - MAJOR DEPRESSIVE DISORDER, SINGLE EPISODE, UNSPECIFIED SNOMED Code(s): 44308360 Plan: Plan: Discontinue ReVia nicotine patch psychiatric medications supportive environment 15 minute checks and adjust medications and Geodon 20 mg twice a day. I'll follow current psychiatric symptoms which include delusional psychotic confused and agitated. restart Wellbutrin 150 mg SR Time with Patient: Less than 30
[2018-09-09] MEDS: LORazepam 1 MG TAB PO PRN (01:49)
[2018-09-09] MEDS: METOPROLOL TARTRATE 50 MG TAB PO SCH ×2 (08:39→20:46)
[2018-09-09] MEDS: PANTOPRAZOLE 40 MG TABLET PO SCH (08:39)
[2018-09-09] MEDS: ZIPRASIDONE 20 MG CAP PO SCH ×2 (08:39→20:47)
[2018-09-09] MEDS: MULTIVITAMINS, THERA 1 EACH TAB PO SCH (08:40)
[2018-09-09] MEDS: FOLIC ACID 1 MG TAB PO SCH (08:40)
[2018-09-09] MEDS: THIAMINE 100 MG TAB PO SCH ×2 (08:40→20:47)
[2018-09-09] MEDS ORDERED: buPROPion SR 150 MG TABLET.ER PO SCH (09:00)
--- NOTE | 2018-09-09 15:29 | P.PN ---
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 He thought things were going right for him but has to come back due to his neighbors complaining about his behaviors such as talking to trees. He reports binge drinking heavily. He is unable to tell when his last drink was and appeared confused. Today he reports feeling that he needs inpatient rehab. Remains depressed and anxious and hopeless and still not wanting to be on the planet. Objective - Vital Signs Vital signs: Vital Signs Temp 98.1 F 09/09/18 01:37 Pulse 95 09/09/18 08:48 Resp 20 09/09/18 08:48 BP 130/85 09/09/18 08:48 Pulse Ox 98 09/08/18 22:12 - Labs CBC & Chem 7: 09/03/18 10:53 09/04/18 11:46 Assessment and Plan Assessment: HPI: This is a 58 year old male presents emergency department via EMS for psychiatric evaluation. Patient states he is depressed, hearing voices in possibly seeing things. Patient states that he symptoms started shortly after him having medication adjustments. Patient denies any alcohol use since his last hospital stay here. Patient states that he's had some thoughts of harm himself but not exactly suicidal. Patient denies any drug abuse. Patient denies any physical complaints going chest pain, shortness breath, headache, dizziness, nausea, vomiting. He states that over the last 2 weeks been adherent to his medications and has become more increasingly confused and not able to do ADLs. He tends to wander and his neighbors called the police yesterday to bring him in for psychiatric treatment. - Related Data Home Medications Medication Instructions Recorded Confirmed clonazePAM [KlonoPIN] 0.5 mg PO BID 07/27/18 09/01/18 Folic Acid 1 mg PO DAILY 09/01/18 09/01/18 Multivitamins, Thera [Multivitamin 1 tab PO DAILY 09/01/18 09/01/18 (formulary)] Naltrexone HCl [Revia] 50 mg PO QAM 09/01/18 09/01/18 Pantoprazole [Protonix] 40 mg PO DAILY 09/01/18 09/01/18 Pramipexole [Mirapex] 1 mg PO HS 09/01/18 09/01/18 Thiamine [Vitamin B-1] 100 mg PO BID 09/01/18 09/01/18 Venlafaxine HCl ER [Effexor XR] 150 mg PO HS 09/01/18 09/01/18 buPROPion SR [Wellbutrin SR] 150 mg PO HS 09/01/18 09/01/18 Previous Rx's Medication Instructions Recorded Allopurinol [Zyloprim] 100 mg PO DAILY 30 Days #60 tab 08/10/18 Metoprolol Tartrate [Lopressor] 50 mg PO BID #60 tab 08/10/18 Allergies Allergy/AdvReac Type Severity Reaction Status Date / Time No Known Allergies Allergy Verified 09/01/18 15:31 Past Medical History Past Medical History: Chest Pain / Angina, GERD/Reflux, GI Bleed, Hypertension, Renal Disease Additional Past Medical History / Comment(s): ETOH abuse with withdrawals/ tremors, chronic kidney disease stage III, bacteremia/sepsis 3 yrs ago and treated at [facility], lower GI bleed, History of Any Multi-Drug Resistant Organisms: None Reported Past Surgical History: No Surgical Hx Reported Additional Past Surgical History / Comment(s): Tooth extraction at [facility] Past Anesthesia/Blood Transfusion Reactions: No Reported Reaction Additional Past Anesthesia/Blood Transfusion Reaction / Comment(s): NO ANESTHESIA HX. PT STATES TOOTH PULLED AT [facility]. Past Psychological History: Anxiety, Depression Smoking Status: Light tobacco smoker Past Alcohol Use History: Daily Past Drug Use History: None Reported - Past Family History Father Family Medical History: Cancer Additional Family Medical History / Comment(s): Father is deceasedd at age 87. He had a pacemaker, carotid surgery and scoliosis. Mother Family Medical History: Dementia, Musculoskeletal Disorder, Neurologic Disorder , Pneumonia Additional Family Medical History / Comment(s): Mother at age 84 with history of Alzheimer's and Parkinson's. Brother(s) Additional Family Medical History / Comment(s): Patient does not have any brothers or sisters. He does not have any children. PAST PSYCHIATRIC HISTORY: This is the patient's fifth inpatient psychiatric admission, his last was approximately 3 years ago. No history of suicide attempts. He is a limited historian in terms of recalling which psychotropic medications he was on and what their affects were. He has been seeing Dr Doe. He has been on Prozac Paxil Zoloft Remeron Celexa Depakote Klonopin Ativan Cymbalta. PAST MEDICAL HISTORY: Hypertension ALLERGIES: No known drug allergies. CHEMICAL DEPENDENCY HISTORY: Patient reports that he had a 6 month period of sobriety and drank for 2-3 days stop for 2 months and then drank these last 4-5 days.. Prior to this admission according to discharge summary he was consuming a fifth of alcohol approximately every 2 days for the 2 weeks prior to admission He is consuming a fifth of alcohol every 2 days for the last 2 weeks, he states he's done this throughout his adult life whenever he becomes more depressed. He reports he drinks less when he is stabilized with medication. No use of marijuana or other illicit drugs he's never been placed in residential treatment for chemical dependency reasons. His urine drug screen was positive for opiates but he states he does not take them and last used and opiate while in long-term due to a infection of his wrist. FAMILY PSYCHIATRIC HISTORY:.His mother was known to have depression, 2 maternal uncles committed suicide FAMILY CHEMICAL DEPENDENCY HISTORY: Denies. LEGAL HISTORY: Denies. SOCIAL HISTORY: The patient is he has no children he lives alone in his own home in [place]. He is retired from [employer] after over 20 years of service. No history of service. He graduated high school and earned an associates degree. He has no siblings. It appears he has very limited social support. Discharge Medication List clonazePAM [KlonoPIN] 0.5 mg PO BID 07/27/18 [History] Allopurinol [Zyloprim] 100 mg PO DAILY 30 Days #60 tab 08/10/18 [Rx] Metoprolol Tartrate [Lopressor] 50 mg PO BID #60 tab 08/10/18 [Rx] Naltrexone HCl [Revia] 50 mg PO 2100 30 Days #30 tab 08/10/18 [Rx] Pantoprazole [Protonix] 40 mg PO AC-BRKFST #30 tablet. 08/10/18 [Rx] Pramipexole [Mirapex] 1 mg PO 2100 30 Days #30 tab 08/10/18 [Rx] Venlafaxine HCl ER [Effexor XR] 300 mg PO 2100 30 Days #60 cap.er.24h 08/10/18 [ Rx] buPROPion SR [Wellbutrin SR] 150 mg PO DAILY 30 Days #30 tablet.er 08/10/18 [Rx] Musculoskeletal Examination - Abnormal/Involuntary Movements: [none] Strength: [greater than antigravity (greater than/equal to 3/5) in all extremities, weakness:] Muscle Tone: [no impairment Gait: [wide-based] Station: [unsteady] Mental Status Examination - General Appearance: [ disheveled, bizarre, appears older than stated age Speech/Language: [ slow, rapid, slurred, rambled, mumbling, hesitant, loud Attitude/Behavior: [ guarded, irritable, withdrawn, indifferent] Mood: [depressed 8/10, anxious 6/10, fearful, hopelessness] Affect: [flat, incongruent, labile] Orientation: [time, person, place situation] Thought Content: [ delusions,thinks he is on the lavarez but that has resolved but rambles less Risk Factors: [he is not suicidal (ideations, plan), and/or Homicidal (ideations , plan), other] Perception: hallucinations (auditory has less but still present with depression Thought Processes: [concrete, circumstantial, tangential Concentration/Attention Span: [impaired] [Per observation and interview with the patient] Recent Memory: [wnl Remote Memory: [wnl] [past events, as related history] Intelligence: [below average] [based on history, based on vocabulary, syntax, grammar, and content] Judgement: [ fair] [per patient's behavior/history of present illness] Insight: [ fair] [understanding severity of illness/history of present illness] Admitting Diagnosis: [Major depressive with psychotic features and delusional obsessions with alcohol detox alcohol use disorder-severe] Patient Strengths - Housing stability: [x] Able to vocalize needs: [x] Motivation, determination, readiness for change: [x] Patient Limitations: [medication, non-compliance, pathological/unsupported environment, intellectual impairment, lack of social supports, needs transfer to [facility].] Initial Plan of Care: [He will be admitted formal voluntary on 3 W. behavior health unit and placed on 15 minute checks and usual protocol for behavioral health unit. He'll be evaluated by medicine, psychiatry, nursing staff, social work staff, and recreational therapy. He will be teamed on a daily basis for progress and treatment evaluation and discharge planning will be immediately part of the conversation. He'll be started back on his medications that are listed above since he has not been compliant.] Estimated Length of Stay: [ 3 days] Initial Discharge Plan: [home, [facility], referred to therapist but needs alcohol rehab-[facility] Prognosis: [guarded] Justification for Inpatient Hospitalization - [Hallucinations, delusions, agitation, anxiety, depression resulting in significant loss of functioning.] [Dangerous to self, others, or property with need for controlled environment.] [Emotional or behavioral conditions and complications requiring 24 hour medical and nursing care.] [Need for special drug therapy, or other therapeutic program requiring continuous hospitalization.] [Failure of social or occupational functioning.] [Inability to meet basic life and health needs.] (1) Depression Current Visit: Yes Status: Chronic Priority: Low Code(s): F32.9 - MAJOR DEPRESSIVE DISORDER, SINGLE EPISODE, UNSPECIFIED SNOMED Code(s): 29386252 Plan: Plan: restart ReVia 50 mg po qhs and mirapex 0.5mg for restless leg; no nicotine patch psychiatric medications supportive environment 15 minute checks and adjust medications and Geodon 20 mg twice a day. I'll follow current psychiatric symptoms which include delusional psychotic confused and agitated. restart Wellbutrin 200 mg SR Time with Patient: Less than 30
[2018-09-09] MEDS: NALTREXONE HCL 50 MG TAB PO SCH (20:46)
[2018-09-09] MEDS: PRAMIPEXOLE 0.5 MG TAB PO SCH ×2 (20:47→22:24)
[2018-09-10] MEDS: LORazepam 1 MG TAB PO PRN (03:04)
[2018-09-10] MEDS: buPROPion SR 100 MG TABLET.ER PO SCH (07:56)
[2018-09-10] MEDS: PANTOPRAZOLE 40 MG TABLET PO SCH (07:56)
[2018-09-10] MEDS: ZIPRASIDONE 20 MG CAP PO SCH ×2 (07:56→21:40)
[2018-09-10] MEDS: THIAMINE 100 MG TAB PO SCH ×2 (07:56→21:40)
[2018-09-10] MEDS: METOPROLOL TARTRATE 50 MG TAB PO SCH ×2 (07:57→21:40)
--- NOTE | 2018-09-10 09:41 | P.PN ---
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 I think I need to go to rehab and planning on leaving here and going to rehab for alcohol and I have a primary issue with alcohol which I can't control. His mood is still variable and has difficulty sleeping at night. Sad and overwhelmed hopeless at times. He reports being recently discharged from this unit. He thought things were going right for him but has to come back due to his neighbors complaining about his behaviors such as talking to trees. He reports binge drinking heavily. He is unable to tell when his last drink was and appeared confused. Today he reports feeling that he needs inpatient rehab. Remains depressed and anxious and hopeless and still not wanting to be on the planet. Objective - Vital Signs Vital signs: Vital Signs Temp 97.8 F 09/10/18 03:04 Pulse 69 09/10/18 03:04 Resp 16 09/10/18 03:04 BP 159/98 09/10/18 03:04 Pulse Ox 98 09/08/18 22:12 - Labs CBC & Chem 7: 09/03/18 10:53 09/04/18 11:46 Assessment and Plan Assessment: HPI: This is a 58 year old male presents emergency department via EMS for psychiatric evaluation. Patient states he is depressed, hearing voices in possibly seeing things. Patient states that he symptoms started shortly after him having medication adjustments. Patient denies any alcohol use since his last hospital stay here. Patient states that he's had some thoughts of harm himself but not exactly suicidal. Patient denies any drug abuse. Patient denies any physical complaints going chest pain, shortness breath, headache, dizziness, nausea, vomiting. He states that over the last 2 weeks been adherent to his medications and has become more increasingly confused and not able to do ADLs. He tends to wander and his neighbors called the police yesterday to bring him in for psychiatric treatment. - Related Data Home Medications Medication Instructions Recorded Confirmed clonazePAM [KlonoPIN] 0.5 mg PO BID 07/27/18 09/01/18 Folic Acid 1 mg PO DAILY 09/01/18 09/01/18 Multivitamins, Thera [Multivitamin 1 tab PO DAILY 09/01/18 09/01/18 (formulary)] Naltrexone HCl [Revia] 50 mg PO QAM 09/01/18 09/01/18 Pantoprazole [Protonix] 40 mg PO DAILY 09/01/18 09/01/18 Pramipexole [Mirapex] 1 mg PO HS 09/01/18 09/01/18 Thiamine [Vitamin B-1] 100 mg PO BID 09/01/18 09/01/18 Venlafaxine HCl ER [Effexor XR] 150 mg PO HS 09/01/18 09/01/18 buPROPion SR [Wellbutrin SR] 150 mg PO HS 09/01/18 09/01/18 Previous Rx's Medication Instructions Recorded Allopurinol [Zyloprim] 100 mg PO DAILY 30 Days #60 tab 08/10/18 Metoprolol Tartrate [Lopressor] 50 mg PO BID #60 tab 08/10/18 Allergies Allergy/AdvReac Type Severity Reaction Status Date / Time No Known Allergies Allergy Verified 09/01/18 15:31 Past Medical History Past Medical History: Chest Pain / Angina, GERD/Reflux, GI Bleed, Hypertension, Renal Disease Additional Past Medical History / Comment(s): ETOH abuse with withdrawals/ tremors, chronic kidney disease stage III, bacteremia/sepsis 3 yrs ago and treated at [facility], lower GI bleed, History of Any Multi-Drug Resistant Organisms: None Reported Past Surgical History: No Surgical Hx Reported Additional Past Surgical History / Comment(s): Tooth extraction at [facility] Past Anesthesia/Blood Transfusion Reactions: No Reported Reaction Additional Past Anesthesia/Blood Transfusion Reaction / Comment(s): NO ANESTHESIA HX. PT STATES TOOTH PULLED AT [facility]. Past Psychological History: Anxiety, Depression Smoking Status: Light tobacco smoker Past Alcohol Use History: Daily Past Drug Use History: None Reported - Past Family History Father Family Medical History: Cancer Additional Family Medical History / Comment(s): Father is deceasedd at age 87. He had a pacemaker, carotid surgery and scoliosis. Mother Family Medical History: Dementia, Musculoskeletal Disorder, Neurologic Disorder , Pneumonia Additional Family Medical History / Comment(s): Mother at age 84 with history of Alzheimer's and Parkinson's. Brother(s) Additional Family Medical History / Comment(s): Patient does not have any brothers or sisters. He does not have any children. PAST PSYCHIATRIC HISTORY: This is the patient's fifth inpatient psychiatric admission, his last was approximately 3 years ago. No history of suicide attempts. He is a limited historian in terms of recalling which psychotropic medications he was on and what their affects were. He has been seeing Dr Doe. He has been on Prozac Paxil Zoloft Remeron Celexa Depakote Klonopin Ativan Cymbalta. PAST MEDICAL HISTORY: Hypertension ALLERGIES: No known drug allergies. CHEMICAL DEPENDENCY HISTORY: Patient reports that he had a 6 month period of sobriety and drank for 2-3 days stop for 2 months and then drank these last 4-5 days.. Prior to this admission according to discharge summary he was consuming a fifth of alcohol approximately every 2 days for the 2 weeks prior to admission He is consuming a fifth of alcohol every 2 days for the last 2 weeks, he states he's done this throughout his adult life whenever he becomes more depressed. He reports he drinks less when he is stabilized with medication. No use of marijuana or other illicit drugs he's never been placed in residential treatment for chemical dependency reasons. His urine drug screen was positive for opiates but he states he does not take them and last used and opiate while in senior care due to a infection of his wrist. FAMILY PSYCHIATRIC HISTORY:.His mother was known to have depression, 2 maternal uncles committed suicide FAMILY CHEMICAL DEPENDENCY HISTORY: Denies. LEGAL HISTORY: Denies. SOCIAL HISTORY: The patient is he has no children he lives alone in his own home in [place]. He is retired from [employer] after over 20 years of service. No history of service. He graduated high school and earned an associates degree. He has no siblings. It appears he has very limited social support. Discharge Medication List clonazePAM [KlonoPIN] 0.5 mg PO BID 07/27/18 [History] Allopurinol [Zyloprim] 100 mg PO DAILY 30 Days #60 tab 08/10/18 [Rx] Metoprolol Tartrate [Lopressor] 50 mg PO BID #60 tab 08/10/18 [Rx] Naltrexone HCl [Revia] 50 mg PO 2100 30 Days #30 tab 08/10/18 [Rx] Pantoprazole [Protonix] 40 mg PO AC-BRKFST #30 tablet. 08/10/18 [Rx] Pramipexole [Mirapex] 1 mg PO 2100 30 Days #30 tab 08/10/18 [Rx] Venlafaxine HCl ER [Effexor XR] 300 mg PO 2100 30 Days #60 cap.er.24h 08/10/18 [ Rx] buPROPion SR [Wellbutrin SR] 150 mg PO DAILY 30 Days #30 tablet.er 08/10/18 [Rx] Musculoskeletal Examination - Abnormal/Involuntary Movements: [none] Strength: [greater than antigravity (greater than/equal to 3/5) in all extremities, weakness:] Muscle Tone: [no impairment Gait: [wide-based] Station: [unsteady] Mental Status Examination - General Appearance: [ disheveled, bizarre, appears older than stated age Speech/Language: [ slow, rapid, slurred, rambled, mumbling, hesitant, loud Attitude/Behavior: [ guarded, irritable, withdrawn, indifferent] Mood: [depressed 8/10, anxious 6/10, fearful, hopelessness] Affect: [flat, incongruent, labile] Orientation: [time, person, place situation] Thought Content: [ delusions,thinks he is on the alvarez but that has resolved but rambles less Risk Factors: [he is not suicidal (ideations, plan), and/or Homicidal (ideations , plan), other] Perception: hallucinations (auditory has less but still present with depression Thought Processes: [concrete, circumstantial, tangential Concentration/Attention Span: [impaired] [Per observation and interview with the patient] Recent Memory: [wnl Remote Memory: [wnl] [past events, as related history] Intelligence: [below average] [based on history, based on vocabulary, syntax, grammar, and content] Judgement: [ fair] [per patient's behavior/history of present illness] Insight: [ fair] [understanding severity of illness/history of present illness] Admitting Diagnosis: [Major depressive with psychotic features and delusional obsessions with alcohol detox alcohol use disorder-severe] Patient Strengths - Housing stability: [x] Able to vocalize needs: [x] Motivation, determination, readiness for change: [x] Patient Limitations: [medication, non-compliance, pathological/unsupported environment, intellectual impairment, lack of social supports, needs transfer to [facility].] Initial Plan of Care: [He will be admitted formal voluntary on 3 W. behavior health unit and placed on 15 minute checks and usual protocol for behavioral health unit. He'll be evaluated by medicine, psychiatry, nursing staff, social work staff, and recreational therapy. He will be teamed on a daily basis for progress and treatment evaluation and discharge planning will be immediately part of the conversation. He'll be started back on his medications that are listed above since he has not been compliant.] Estimated Length of Stay: [ 3 days] Initial Discharge Plan: [home, [facility], referred to therapist but needs alcohol rehab-[facility] or [place] or any other appropriate program Prognosis: [guarded] Justification for Inpatient Hospitalization - [Hallucinations, delusions, agitation, anxiety, depression resulting in significant loss of functioning.] [Dangerous to self, others, or property with need for controlled environment.] [Emotional or behavioral conditions and complications requiring 24 hour medical and nursing care.] [Need for special drug therapy, or other therapeutic program requiring continuous hospitalization.] [Failure of social or occupational functioning.] [Inability to meet basic life and health needs.] (1) Depression Current Visit: Yes Status: Chronic Priority: Low Code(s): F32.9 - MAJOR DEPRESSIVE DISORDER, SINGLE EPISODE, UNSPECIFIED SNOMED Code(s): 18849168 Plan: Plan: restart ReVia 50 mg po qhs and mirapex 1 mg for restless leg; no nicotine patch psychiatric medications supportive environment 15 minute checks and adjust medications and Geodon 20 mg twice a day. I'll follow current psychiatric symptoms which include delusional psychotic confused and agitated. restart Wellbutrin 200 mg SR and due to variation in his mood during the daytime will add Lamictal 25 mg by mouth daily at bedtime. Due to his readmission and confusion with evidence of mild neurocognitive disorder will add Aricept at bedtime 5 mg. Time with Patient: Less than 30
[2018-09-10] MEDS: FOLIC ACID 1 MG TAB PO SCH (12:18)
[2018-09-10] MEDS: MULTIVITAMINS, THERA 1 EACH TAB PO SCH (12:18)
[2018-09-10] MEDS: lamoTRIgine 25 MG TAB PO SCH (21:40)
[2018-09-10] MEDS: PRAMIPEXOLE 1 MG TAB PO SCH (21:40)
[2018-09-10] MEDS: DONEPEZIL 5 MG TAB PO SCH (21:40)
[2018-09-10] MEDS: NALTREXONE HCL 50 MG TAB PO SCH (21:40)
[2018-09-11] MEDS: PANTOPRAZOLE 40 MG TABLET PO SCH (09:03)
[2018-09-11] MEDS: METOPROLOL TARTRATE 50 MG TAB PO SCH ×2 (09:03→20:52)
[2018-09-11] MEDS: FOLIC ACID 1 MG TAB PO SCH (09:03)
[2018-09-11] MEDS: MULTIVITAMINS, THERA 1 EACH TAB PO SCH (09:03)
[2018-09-11] MEDS: THIAMINE 100 MG TAB PO SCH ×2 (09:04→20:52)
[2018-09-11] MEDS: buPROPion SR 100 MG TABLET.ER PO SCH (09:04)
[2018-09-11] MEDS: ZIPRASIDONE 20 MG CAP PO SCH ×2 (09:06→20:52)
--- NOTE | 2018-09-11 09:18 | P.PN ---
Progress Note - Text Interval history: The patient is found in the hallway he follows me to an interview room. He was admitted for severe symptoms of depression in the context of alcohol use disorder and cognitive impairment. He states things have improved he is hoping to be discharged Thursday and plans to go to inpatient chemical dependency treatment at [facility]. We reviewed his psychotropic medications he has no questions. He has been selectively attending groups. Appetite stable sleep stable Mental status exam: The patient is alert he is dressed in his own clothing hygiene grooming adequate. Eye contact is appropriate. Speech is fluent spontaneous. He is verbose but easily directed. There is no pressured speech. He reports his mood is improved he is endorsing no hopelessness thinking no suicidal ideation intent or plan. He reports no homicidal ideation intent or plan. He endorses no auditory or visual hallucinations or any specific delusions. He indicates he feels safe. He demonstrates no tangential thinking loose associations or flight of ideas. He can be circumstantial in speech. He does not appear hypomanic or manic. He demonstrates no verbal or physical aggressiveness. Insight and judgment improving. Plan: The patient will continue on his current psychotropic medication. Vital signs reviewed. He is encouraged to participate in the milieu we will continue to monitor him for safety. It appears that he is clinically stabilizing.
[2018-09-11] MEDS: PRAMIPEXOLE 1 MG TAB PO SCH (20:51)
[2018-09-11] MEDS: DONEPEZIL 5 MG TAB PO SCH (20:51)
[2018-09-11] MEDS: NALTREXONE HCL 50 MG TAB PO SCH (20:52)
[2018-09-11] MEDS: lamoTRIgine 25 MG TAB PO SCH (20:52)
[2018-09-12] MEDS: LORazepam 1 MG TAB PO PRN (02:01)
--- NOTE | 2018-09-12 07:34 | P.PN ---
Progress Note - Text Interval history: The patient is found in the hallway he follows me to an interview room. He states he had a difficult family meeting yesterday via phone facilitated by social work. He felt he did not anticipate what was known to be discussed and he felt "smothered" by his friends concern. He describes having concern for his cats although his friend should be caring for them. Due to his frustration related to the meeting he didn't sleep well. He's been compliant with his medication he has no questions regarding those medications. He continues to state that he wants to be discharged tomorrow. Mental status exam: The patient is alert he is pleasant cooperative and easily directable. He is mildly disheveled hygiene is adequate. He is dressed in his own clothing. Speech is fluent spontaneous nonpressured. He is verbose. He describes no acute suicidal or homicidal ideation intent or plan. He is reporting no auditory or visual hallucinations or any specific delusions. He demonstrates no overt evidence of psychosis. There is no tangential thinking loose associations or flight of ideas. He does demonstrate circumstantial thought. He demonstrates no verbal or physical aggressiveness. He continues to be oriented to person place and date. Affect is constricted. Plan: The patient will continue on his current psychotropic medications. We will monitor him for safety and encourage full participation in the milieu. Vital signs reviewed.
[2018-09-12] MEDS: METOPROLOL TARTRATE 50 MG TAB PO SCH ×2 (08:48→21:22)
[2018-09-12] MEDS: PANTOPRAZOLE 40 MG TABLET PO SCH (08:48)
[2018-09-12] MEDS: buPROPion SR 100 MG TABLET.ER PO SCH (09:33)
[2018-09-12] MEDS: ZIPRASIDONE 20 MG CAP PO SCH ×2 (09:34→21:22)
[2018-09-12] MEDS: THIAMINE 100 MG TAB PO SCH ×2 (09:34→22:31)
[2018-09-12] MEDS: MULTIVITAMINS, THERA 1 EACH TAB PO SCH (11:25)
[2018-09-12] MEDS: FOLIC ACID 1 MG TAB PO SCH (11:25)
[2018-09-12] MEDS: NALTREXONE HCL 50 MG TAB PO SCH (21:22)
[2018-09-12] MEDS: lamoTRIgine 25 MG TAB PO SCH (21:22)
[2018-09-12] MEDS: DONEPEZIL 5 MG TAB PO SCH (21:22)
[2018-09-12] MEDS: PRAMIPEXOLE 1 MG TAB PO SCH (22:31)
[2018-09-13] MEDS: ZIPRASIDONE 20 MG CAP PO SCH ×2 (08:01→21:16)
[2018-09-13] MEDS: buPROPion SR 100 MG TABLET.ER PO SCH (08:01)
[2018-09-13] MEDS: PANTOPRAZOLE 40 MG TABLET PO SCH (08:02)
[2018-09-13] MEDS: THIAMINE 100 MG TAB PO SCH ×2 (08:02→21:17)
[2018-09-13] MEDS: METOPROLOL TARTRATE 50 MG TAB PO SCH ×2 (08:02→21:17)
[2018-09-13] MEDS: FOLIC ACID 1 MG TAB PO SCH (11:33)
[2018-09-13] MEDS: MULTIVITAMINS, THERA 1 EACH TAB PO SCH (11:33)
--- NOTE | 2018-09-13 15:48 | P.PN ---
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 I think I need to go to rehab and planning on leaving here and going to rehab for alcohol and I have a primary issue with alcohol which I can't control. His mood is still variable and has difficulty sleeping at night. Sad and overwhelmed hopeless at times. He reports being recently discharged from this unit. He thought things were going right for him but has to come back due to his neighbors complaining about his behaviors such as talking to trees. He reports binge drinking heavily. He is unable to tell when his last drink was and appeared confused. Today he reports feeling that he needs inpatient rehab. Remains depressed and anxious and hopeless and still not wanting to be on the planet. Objective - Vital Signs Vital signs: Vital Signs Temp 97.4 F L 09/13/18 05:55 Pulse 74 09/13/18 08:03 Resp 16 09/13/18 08:03 BP 182/111 09/13/18 08:03 Pulse Ox 98 09/08/18 22:12 Intake & Output 09/12/18 09/13/18 09/13/18 18:59 06:59 18:59 Weight 72.9 kg - Labs CBC & Chem 7: 09/03/18 10:53 09/04/18 11:46 Assessment and Plan Assessment: HPI: This is a 58 year old male presents emergency department via EMS for psychiatric evaluation. Patient states he is depressed, hearing voices in possibly seeing things. Patient states that he symptoms started shortly after him having medication adjustments. Patient denies any alcohol use since his last hospital stay here. Patient states that he's had some thoughts of harm himself but not exactly suicidal. Patient denies any drug abuse. Patient denies any physical complaints going chest pain, shortness breath, headache, dizziness, nausea, vomiting. He states that over the last 2 weeks been adherent to his medications and has become more increasingly confused and not able to do ADLs. He tends to wander and his neighbors called the police yesterday to bring him in for psychiatric treatment. - Related Data Home Medications Medication Instructions Recorded Confirmed clonazePAM [KlonoPIN] 0.5 mg PO BID 07/27/18 09/01/18 Folic Acid 1 mg PO DAILY 09/01/18 09/01/18 Multivitamins, Thera [Multivitamin 1 tab PO DAILY 09/01/18 09/01/18 (formulary)] Naltrexone HCl [Revia] 50 mg PO QAM 09/01/18 09/01/18 Pantoprazole [Protonix] 40 mg PO DAILY 09/01/18 09/01/18 Pramipexole [Mirapex] 1 mg PO HS 09/01/18 09/01/18 Thiamine [Vitamin B-1] 100 mg PO BID 09/01/18 09/01/18 Venlafaxine HCl ER [Effexor XR] 150 mg PO HS 09/01/18 09/01/18 buPROPion SR [Wellbutrin SR] 150 mg PO HS 09/01/18 09/01/18 Previous Rx's Medication Instructions Recorded Allopurinol [Zyloprim] 100 mg PO DAILY 30 Days #60 tab 08/10/18 Metoprolol Tartrate [Lopressor] 50 mg PO BID #60 tab 08/10/18 Allergies Allergy/AdvReac Type Severity Reaction Status Date / Time No Known Allergies Allergy Verified 09/01/18 15:31 Past Medical History Past Medical History: Chest Pain / Angina, GERD/Reflux, GI Bleed, Hypertension, Renal Disease Additional Past Medical History / Comment(s): ETOH abuse with withdrawals/ tremors, chronic kidney disease stage III, bacteremia/sepsis 3 yrs ago and treated at [facility], lower GI bleed, History of Any Multi-Drug Resistant Organisms: None Reported Past Surgical History: No Surgical Hx Reported Additional Past Surgical History / Comment(s): Tooth extraction at [facility] Past Anesthesia/Blood Transfusion Reactions: No Reported Reaction Additional Past Anesthesia/Blood Transfusion Reaction / Comment(s): NO ANESTHESIA HX. PT STATES TOOTH PULLED AT [facility]. Past Psychological History: Anxiety, Depression Smoking Status: Light tobacco smoker Past Alcohol Use History: Daily Past Drug Use History: None Reported - Past Family History Father Family Medical History: Cancer Additional Family Medical History / Comment(s): Father is deceasedd at age 87. He had a pacemaker, carotid surgery and scoliosis. Mother Family Medical History: Dementia, Musculoskeletal Disorder, Neurologic Disorder , Pneumonia Additional Family Medical History / Comment(s): Mother at age 84 with history of Alzheimer's and Parkinson's. Brother(s) Additional Family Medical History / Comment(s): Patient does not have any brothers or sisters. He does not have any children. PAST PSYCHIATRIC HISTORY: This is the patient's fifth inpatient psychiatric admission, his last was approximately 3 years ago. No history of suicide attempts. He is a limited historian in terms of recalling which psychotropic medications he was on and what their affects were. He has been seeing Dr Doe. He has been on Prozac Paxil Zoloft Remeron Celexa Depakote Klonopin Ativan Cymbalta. PAST MEDICAL HISTORY: Hypertension ALLERGIES: No known drug allergies. CHEMICAL DEPENDENCY HISTORY: Patient reports that he had a 6 month period of sobriety and drank for 2-3 days stop for 2 months and then drank these last 4-5 days.. Prior to this admission according to discharge summary he was consuming a fifth of alcohol approximately every 2 days for the 2 weeks prior to admission He is consuming a fifth of alcohol every 2 days for the last 2 weeks, he states he's done this throughout his adult life whenever he becomes more depressed. He reports he drinks less when he is stabilized with medication. No use of marijuana or other illicit drugs he's never been placed in residential treatment for chemical dependency reasons. His urine drug screen was positive for opiates but he states he does not take them and last used and opiate while in group home due to a infection of his wrist. FAMILY PSYCHIATRIC HISTORY:.His mother was known to have depression, 2 maternal uncles committed suicide FAMILY CHEMICAL DEPENDENCY HISTORY: Denies. LEGAL HISTORY: Denies. SOCIAL HISTORY: The patient is he has no children he lives alone in his own home in [place]. He is retired from [employer] after over 20 years of service. No history of service. He graduated high school and earned an associates degree. He has no siblings. It appears he has very limited social support. Discharge Medication List clonazePAM [KlonoPIN] 0.5 mg PO BID 07/27/18 [History] discontinued Allopurinol [Zyloprim] 100 mg PO DAILY 30 Days #60 tab 08/10/18 [Rx] Metoprolol Tartrate [Lopressor] 50 mg PO BID #60 tab 08/10/18 [Rx] Naltrexone HCl [Revia] 50 mg PO 2100 30 Days #30 tab 08/10/18 [Rx] Pantoprazole [Protonix] 40 mg PO AC-BRKFST #30 tablet.dr 08/10/18 [Rx] Pramipexole [Mirapex] 1 mg PO 2100 30 Days #30 tab 08/10/18 [Rx] Venlafaxine HCl ER [Effexor XR] 300 mg PO 2100 30 Days #60 cap.er.24h 08/10/18 [ Rx]'s discontinued buPROPion SR [Wellbutrin SR] 150 mg PO DAILY 30 Days #30 tablet.er 08/10/18 [Rx] Musculoskeletal Examination - Abnormal/Involuntary Movements: [none] Strength: [greater than antigravity (greater than/equal to 3/5) in all extremities, weakness:] Muscle Tone: [no impairment Gait: [wide-based] Station: [unsteady] Mental Status Examination - General Appearance: [ disheveled, bizarre, appears older than stated age Speech/Language: [ slow, rapid, slurred, rambled, mumbling, hesitant, loud Attitude/Behavior: [ guarded, irritable, withdrawn, indifferent] Mood: [depressed 5/10, anxious 4/10, fearful, hopelessness] Affect: [flat, incongruent, labile] Orientation: [time, person, place situation] Thought Content: [ delusions,thinks he is on the alvarez but that has resolved but rambles less and more clearheaded Risk Factors: [he is not suicidal (ideations, plan), and/or Homicidal (ideations , plan), other] Perception: hallucinations (auditory are less but still present with less depression Thought Processes: [concrete, circumstantial, tangential Concentration/Attention Span: [impaired] [Per observation and interview with the patient] Recent Memory: [wnl Remote Memory: [wnl] [past events, as related history] Intelligence: [below average] [based on history, based on vocabulary, syntax, grammar, and content] Judgement: [ Good] [per patient's behavior/history of present illness] Insight: [ Good] [understanding severity of illness/history of present illness] Admitting Diagnosis: [Major depressive with psychotic features and delusional obsessions with alcohol detox alcohol use disorder-severe] Patient Strengths - Housing stability: [x] Able to vocalize needs: [x] Motivation, determination, readiness for change: [x] Patient Limitations: [medication, non-compliance, pathological/unsupported environment, intellectual impairment, lack of social supports, needs transfer to [facility] program.] Initial Plan of Care: [He will be admitted formal voluntary on 3 W. behavior health unit and placed on 15 minute checks and usual protocol for behavioral health unit. He'll be evaluated by medicine, psychiatry, nursing staff, social work staff, and recreational therapy. He will be teamed on a daily basis for progress and treatment evaluation and discharge planning will be immediately part of the conversation. He'll be started back on his medications that are listed above since he has not been compliant.] Estimated Length of Stay: [ 1 days] Initial Discharge Plan: [home, [facility], referred to therapist but needs alcohol rehab-[facility] CDU or [place] or any other appropriate program Prognosis: [guarded] waiting to hear regarding transfer to [facility], there is less to be evaluated tomorrow Justification for Inpatient Hospitalization - [Hallucinations anxiety, depression resulting in significant loss of functioning.] [Dangerous to self, others, or property with need for controlled environment.] [Emotional or behavioral conditions and complications requiring 24 hour medical and nursing care.] [Need for special drug therapy, or other therapeutic program requiring continuous hospitalization. Which should be transferred to a dual diagnoses unit for 30 day treatment] [Failure of social or occupational functioning. He has failed twice and staying sober on an outpatient basis within the last 2 months] [Inability to meet basic life and health needs.] (1) Depression Current Visit: Yes Status: Chronic Priority: Low Code(s): F32.9 - MAJOR DEPRESSIVE DISORDER, SINGLE EPISODE, UNSPECIFIED SNOMED Code(s): 90740471 Plan: Plan: restart ReVia 50 mg po qhs and mirapex 1 mg for restless leg; no nicotine patch psychiatric medications supportive environment 15 minute checks and adjust medications and Geodon 20 mg twice a day. I'll follow current psychiatric symptoms which include delusional psychotic confused and agitated. restart Wellbutrin 200 mg SR and due to variation in his mood during the daytime will add Lamictal 25 mg by mouth daily at bedtime. Due to his readmission and confusion with evidence of mild neurocognitive disorder will add Aricept at bedtime 5 mg. Increase Namenda to 5 mg by mouth twice a day. I'll discharge on 09/14/2018 Time with Patient: Less than 30
[2018-09-13] MEDS: lamoTRIgine 25 MG TAB PO SCH (21:16)
[2018-09-13] MEDS: NALTREXONE HCL 50 MG TAB PO SCH (21:17)
[2018-09-13] MEDS: DONEPEZIL 5 MG TAB PO SCH (21:17)
[2018-09-13] MEDS: PRAMIPEXOLE 1 MG TAB PO SCH (21:21)
[2018-09-14 07:00] VITALS: RESP 18; TEMP 97.5
[2018-09-14] MEDS: THIAMINE 100 MG TAB PO SCH (08:58)
[2018-09-14] MEDS: MULTIVITAMINS, THERA 1 EACH TAB PO SCH (08:58)
[2018-09-14] MEDS: ZIPRASIDONE 20 MG CAP PO SCH (08:58)
[2018-09-14] MEDS: buPROPion SR 100 MG TABLET.ER PO SCH (08:58)
[2018-09-14] MEDS: FOLIC ACID 1 MG TAB PO SCH (08:58)
[2018-09-14] MEDS: PANTOPRAZOLE 40 MG TABLET PO SCH (08:58)
[2018-09-14] MEDS: METOPROLOL TARTRATE 50 MG TAB PO SCH (08:58)
[2018-09-14 09:00] VITALS: BP 130/92; PULSE 82
--- NOTE | 2018-09-14 11:39 | P.DS ---
Providers Date of admission: 09/01/18 20:03 Expected date of discharge: 09/14/18 Attending physician: Warren Mcarthur DO Consults: 09/01/18 20:23 Consult Physician Routine Consulting Provider: Kimberlyn Parker Consult Reason/Comments: H & P and medical care Do you want consulting provider notified?: Yes Primary care physician: Shantel Yin - Discharge Diagnosis(es) (1) Depression HPI: This is a 58 year old male presents emergency department via EMS for psychiatric evaluation. Patient states he is depressed, hearing voices in possibly seeing things. Patient states that he symptoms started shortly after him having medication adjustments. Patient denies any alcohol use since his last hospital stay here. Patient states that he's had some thoughts of harm himself but not exactly suicidal. Patient denies any drug abuse. Patient denies any physical complaints going chest pain, shortness breath, headache, dizziness, nausea, vomiting. He states that over the last 2 weeks been adherent to his medications and has become more increasingly confused and not able to do ADLs. He tends to wander and his neighbors called the police yesterday to bring him in for psychiatric treatment.Past Medical History Past Medical History: Chest Pain / Angina, GERD/Reflux, GI Bleed, Hypertension, Renal Disease Additional Past Medical History / Comment(s): ETOH abuse with withdrawals/ tremors, chronic kidney disease stage III, bacteremia/sepsis 3 yrs ago and treated at [facility], lower GI bleed, History of Any Multi-Drug Resistant Organisms: None Reported Past Surgical History: No Surgical Hx Reported Additional Past Surgical History / Comment(s): Tooth extraction at [facility] Past Anesthesia/Blood Transfusion Reactions: No Reported Reaction Additional Past Anesthesia/Blood Transfusion Reaction / Comment(s): NO ANESTHESIA HX. PT STATES TOOTH PULLED AT [facility]. Past Psychological History: Anxiety, Depression Smoking Status: Light tobacco smoker Past Alcohol Use History: Daily Past Drug Use History: None Reported - Past Family History Father Family Medical History: Cancer Additional Family Medical History / Comment(s): Father is deceasedd at age 87. He had a pacemaker, carotid surgery and scoliosis. Mother Family Medical History: Dementia, Musculoskeletal Disorder, Neurologic Disorder , Pneumonia Additional Family Medical History / Comment(s): Mother at age 84 with history of Alzheimer's and Parkinson's. Brother(s) Additional Family Medical History / Comment(s): Patient does not have any brothers or sisters. He does not have any children. PAST PSYCHIATRIC HISTORY: This is the patient's fifth inpatient psychiatric admission, his last was approximately 3 years ago. No history of suicide attempts. He is a limited historian in terms of recalling which psychotropic medications he was on and what their affects were. He has been seeing Dr Doe. He has been on Prozac Paxil Zoloft Remeron Celexa Depakote Klonopin Ativan Cymbalta. Current Visit: Yes Status: Chronic Priority: Low Hospital Course: He was admitted formal voluntary on 3 W. behavior health unit and placed on 15 minute checks and usual protocol for behavioral health unit. He'll be evaluated by medicine, psychiatry, nursing staff, social work staff, and recreational therapy. He will be teamed on a daily basis for progress and treatment evaluation and discharge planning will be immediately part of the conversation. He'll be started back on his medications that are listed above since he has not been compliant. ] Plan: restart ReVia 50 mg po qhs and mirapex 1 mg for restless leg; no nicotine patch psychiatric medications supportive environment 15 minute checks and adjust medications and Geodon 20 mg twice a day. I'll follow current psychiatric symptoms which include delusional psychotic confused and agitated. restart Wellbutrin 200 mg SR and due to variation in his mood during the daytime will dc Lamictal 25 mg by mouth daily at bedtime. Due to his readmission and confusion with evidence of mild neurocognitive disorder will add Aricept at bedtime 5 mg. Increase Namenda to 5 mg by mouth twice a day. mental status examination time of discharge: The patient presents alert, pleasant, and cooperative. There calmly seated without any agitated behavior. [he] reports that [his] mood is good. Affect is congruent and euthymic. [he] deny having any suicidal or homicidal ideation intent or plan. [he] denies any auditory or visual hallucinations. There is no evidence of any delusional thought content. [his] thought process is linear and goal-directed. [his] speech is fluent and nonpressured. [his] memory and concentration is grossly intact for the purposes of this session. He plans to go to partial substance abuse program either at [facility] or another program which she's been to check into when he leaves. It was emphasized to him that he needs to stop drinking and to take his medications. Patient Condition at Discharge: Stable Plan - Discharge Summary Discharge Rx Participant: Yes New Discharge Prescriptions: New buPROPion SR [Wellbutrin SR] 200 mg PO DAILY 30 Days #60 tablet.er Donepezil [Aricept] 5 mg PO HS 30 Days #30 tab Ziprasidone [Geodon] 20 mg PO BID 30 Days #60 cap Continue Pantoprazole [Protonix] 40 mg PO DAILY Metoprolol Tartrate [Lopressor] 50 mg PO BID 30 Days #60 tab Naltrexone HCl [Revia] 50 mg PO QAM 30 Days #30 tab Discontinued Allopurinol [Zyloprim] 100 mg PO DAILY 30 Days #60 tab Thiamine [Vitamin B-1] 100 mg PO BID Multivitamins, Thera [Multivitamin (formulary)] 1 tab PO DAILY Folic Acid 1 mg PO DAILY buPROPion SR [Wellbutrin SR] 150 mg PO HS Venlafaxine HCl ER [Effexor XR] 150 mg PO HS Pramipexole [Mirapex] 1 mg PO HS Discharge Medication List Pantoprazole [Protonix] 40 mg PO DAILY 09/01/18 [History] Donepezil [Aricept] 5 mg PO HS 30 Days #30 tab 09/14/18 [Rx] Metoprolol Tartrate [Lopressor] 50 mg PO BID 30 Days #60 tab 09/14/18 [Rx] Naltrexone HCl [Revia] 50 mg PO QAM 30 Days #30 tab 09/14/18 [Rx] Ziprasidone [Geodon] 20 mg PO BID 30 Days #60 cap 09/14/18 [Rx] buPROPion SR [Wellbutrin SR] 200 mg PO DAILY 30 Days #60 tablet.er 09/14/18 [Rx] Follow up Appointment(s)/Referral(s): Intake, Intake [Other] - 1-2 Days (Walk In Intake Partial Program Thursday 9-3pm Thursday 9-3pm) Shantel Yin MD [Primary Care Provider] - 1-2 days Discharge Disposition: HOME SELF-CARE
== END 2018-09-14 14:00 | disposition home or self-care (01) | DRG 885 ==
LOC: EC 14:47 → 3MHU 20:03
PROVIDERS: ADMIT Psychiatry & Neurology Psychiatry; ATTEND Psychiatry & Neurology Psychiatry
DX: F32.3 Major depressive disorder, single episode, severe with psychotic features (principal); F10.24 Alcohol dependence with alcohol-induced mood disorder; Z91.128 Patient's intentional underdosing of medication regimen for other reason; N18.3 Chronic kidney disease, stage 3 (moderate); T50.7X6A Underdosing of analeptics and opioid receptor antagonists, initial encounter; T43.216A Underdosing of selective serotonin and norepinephrine reuptake inhibitors, initial encounter; T43.296A Underdosing of other antidepressants, initial encounter; G31.84 Mild cognitive impairment of uncertain or unknown etiology; F41.9 Anxiety disorder, unspecified; G25.81 Restless legs syndrome; K21.9 Gastro-esophageal reflux disease without esophagitis; I12.9 Hypertensive chronic kidney disease with stage 1 through stage 4 chronic kidney disease, or unspecified chronic kidney disease; G47.9 Sleep disorder, unspecified; R00.0 Tachycardia, unspecified; F17.290 Nicotine dependence, other tobacco product, uncomplicated; Z71.6 Tobacco abuse counseling; Z79.899 Other long term (current) drug therapy; Z87.19 Personal history of other diseases of the digestive system; Z82.49 Family history of ischemic heart disease and other diseases of the circulatory system; Z82.69 Family history of other diseases of the musculoskeletal system and connective tissue; Z81.8 Family history of other mental and behavioral disorders; Z83.6 Family history of other diseases of the respiratory system; Z82.0 Family history of epilepsy and other diseases of the nervous system
CPT/HCPCS: 80053; 80306; 82075; 82565; 84520; 85025; 99285

== ENCOUNTER 2018-10-05 16:38 | Emergency (ER) | payer MEDICARE ==
[2018-10-05] MEDS ORDERED: SODIUM CHLORIDE 0.9% 1,000 ML IV STA ×2 (16:48→18:36)
[2018-10-05 16:58] VITALS: RESP 18; TEMP 98.1
--- NOTE | 2018-10-05 17:26 | ED ---
Overdose HPI - General Source: EMS, RN notes reviewed, old records reviewed Mode of arrival: EMS Limitations: no limitations - History of Present Illness MD Complaint: intentional overdose, accidental overdose -: hour(s) Intent: unwilling to say How Overdose Was Discovered: called 911 Context: Intentional Overdose: drug/ETOH problems Context: Accidental Overdose: wanted to get high Associated Symptoms: depression, paranoia, hallucinations Treatments Prior to Arrival: none <Jose R Salinas - Last Filed: 10/05/18 18:38> <Gordon Fowler - Last Filed: 10/06/18 04:23> - General Chief Complaint: Overdose Stated Complaint: altered mental status Time Seen by Provider: 10/05/18 16:47 - History of Present Illness Initial Comments: This is a 58-year-old male presented to ER for evaluation of overdose, patient has long history of psychiatric illness, presented for overdose altered mental status today. Patient states he took a bunch of his psych medications. Patient admits also positive alcohol use today. Denies attempt at suicide. Denies any other complaints. Just feeling confused and altered. (Jose R Salinas) - Related Data Home Medications Medication Instructions Recorded Confirmed Pantoprazole [Protonix] 40 mg PO DAILY 09/01/18 10/05/18 Naltrexone HCl [Revia] 50 mg PO DAILY 10/05/18 10/05/18 amLODIPine [Norvasc] 5 mg PO DAILY 10/05/18 10/05/18 Previous Rx's Medication Instructions Recorded Donepezil [Aricept] 5 mg PO HS 30 Days #30 tab 09/14/18 Metoprolol Tartrate [Lopressor] 50 mg PO BID 30 Days #60 tab 09/14/18 Ziprasidone [Geodon] 20 mg PO BID 30 Days #60 cap 09/14/18 buPROPion SR [Wellbutrin SR] 200 mg PO DAILY 30 Days #60 09/14/18 tablet.er Allergies Allergy/AdvReac Type Severity Reaction Status Date / Time No Known Allergies Allergy Verified 10/05/18 17:24 Review of Systems ROS Other: All systems not noted in ROS Statement are negative. <Jose R Salinas - Last Filed: 10/05/18 18:38> ROS Other: All systems not noted in ROS Statement are negative. <Gordon Fowler - Last Filed: 10/06/18 04:23> ROS Statement: Those systems with pertinent positive or pertinent negative responses have been documented in the HPI. Past Medical History Past Medical History: Chest Pain / Angina, GERD/Reflux, GI Bleed, Hypertension, Renal Disease Additional Past Medical History / Comment(s): ETOH abuse with withdrawals/ tremors, chronic kidney disease stage III, bacteremia/sepsis 3 yrs ago and treated at [facility], lower GI bleed, History of Any Multi-Drug Resistant Organisms: None Reported Past Surgical History: No Surgical Hx Reported Additional Past Surgical History / Comment(s): Tooth extraction at [facility] Past Anesthesia/Blood Transfusion Reactions: No Reported Reaction Additional Past Anesthesia/Blood Transfusion Reaction / Comment(s): NO ANESTHESIA HX. PT STATES TOOTH PULLED AT [facility]. Past Psychological History: Anxiety, Depression Smoking Status: Light tobacco smoker Past Alcohol Use History: Occasional Past Drug Use History: None Reported - Past Family History Father Family Medical History: Cancer Additional Family Medical History / Comment(s): Father is deceasedd at age 87. He had a pacemaker, carotid surgery and scoliosis. Mother Family Medical History: Dementia, Musculoskeletal Disorder, Neurologic Disorder , Pneumonia Additional Family Medical History / Comment(s): Mother at age 84 with history of Alzheimer's and Parkinson's. Brother(s) Additional Family Medical History / Comment(s): Patient does not have any brothers or sisters. He does not have any children. <RitaJose R - Last Filed: 10/05/18 18:38> General Exam Limitations: altered mental status General appearance: alert, in no apparent distress Head exam: Present: atraumatic, normocephalic, normal inspection Eye exam: Present: normal appearance, PERRL, EOMI. Absent: scleral icterus, conjunctival injection, periorbital swelling ENT exam: Present: normal exam, mucous membranes moist Neck exam: Present: normal inspection. Absent: tenderness, meningismus, lymphadenopathy Respiratory exam: Present: normal lung sounds bilaterally. Absent: respiratory distress, wheezes, rales, rhonchi, stridor Cardiovascular Exam: Present: normal rhythm, tachycardia, normal heart sounds. Absent: systolic murmur, diastolic murmur, rubs, gallop, clicks GI/Abdominal exam: Present: soft, normal bowel sounds. Absent: distended, tenderness, guarding, rebound, rigid Extremities exam: Present: normal inspection, full ROM, normal capillary refill. Absent: tenderness, pedal edema, joint swelling, calf tenderness Back exam: Present: normal inspection Neurological exam: Present: alert, oriented X3, CN II-XII intact Psychiatric exam: Present: normal affect, normal mood Skin exam: Present: warm, dry, intact, normal color. Absent: rash <Jose R Salinas - Last Filed: 10/05/18 18:38> Course <Jose R Salinas - Last Filed: 10/05/18 18:38> <Gordon Fowler - Last Filed: 10/06/18 04:23> Vital Signs 10/05/18 16:46 Temperature 98.1 F Pulse Rate 122 H Respiratory 18 Rate Blood Pressure 169/110 O2 Sat by Pulse 96 Oximetry - Reevaluation(s) Reevaluation #1: 10/05/18 18:38 Record is reviewed with history of significant psychiatric illness (Jose R Salinas) Reevaluation #2: 10/05/18 18:39 Patient is requesting psychiatric evaluation although he is significantly intoxicated currently (Jose R Salinas) Reevaluation #3: 10/05/18 18:39 Patient fighting, needs to be chemically sedated (Jsoe R Salinas) Medical Decision Making - Lab Data Result diagrams: 10/05/18 17:30 10/05/18 17:30 - EKG Data -: EKG Interpreted by Me (EKG shows sinus tachycardia rate 170, UT 166, QRS 78, QTc 446) <Jose R Salinas - Last Filed: 10/05/18 18:38> - Lab Data Result diagrams: 10/05/18 17:30 10/05/18 17:30 <Gordon Fowler - Last Filed: 10/06/18 04:23> - Lab Data Lab Results 10/05/18 10/05/18 10/05/18 Range/Units 17:30 17:30 17:30 WBC 13.6 H (3.8-10.6) k/uL RBC 5.30 (4.30-5.90) m/uL Hgb 15.6 (13.0-17.5) gm/dL Hct 47.7 (39.0-53.0) % MCV 90.0 (80.0-100.0) fL MCH 29.4 (25.0-35.0) pg MCHC 32.7 (31.0-37.0) g/dL RDW 15.6 H (11.5-15.5) % Plt Count 258 (150-450) k/uL Neutrophils % 81 % Lymphocytes % 14 % Monocytes % 3 % Eosinophils % 0 % Basophils % 1 % Neutrophils # 11.0 H (1.3-7.7) k/uL Lymphocytes # 1.8 (1.0-4.8) k/uL Monocytes # 0.5 (0-1.0) k/uL Eosinophils # 0.1 (0-0.7) k/uL Basophils # 0.1 (0-0.2) k/uL PT (9.0-12.0) sec INR (<1.2) APTT (22.0-30.0) sec Sodium 145 (137-145) mmol/L Potassium 5.4 H (3.5-5.1) mmol/L Chloride 109 H (98-107) mmol/L Carbon Dioxide 16 L (22-30) mmol/L Anion Gap 20 mmol/L BUN 20 (9-20) mg/dL Creatinine 1.45 H (0.66-1.25) mg/dL Est GFR (CKD-EPI)AfAm 62 (>60 ml/min/1.73 sqM) Est GFR (CKD-EPI)NonAf 53 (>60 ml/min/1.73 sqM) Glucose 186 H (74-99) mg/dL Calcium 9.0 (8.4-10.2) mg/dL Phosphorus 4.2 (2.5-4.5) mg/dL Magnesium 1.6 (1.6-2.3) mg/dL Total Bilirubin 0.5 (0.2-1.3) mg/dL AST 39 (17-59) U/L ALT 11 L (21-72) U/L Alkaline Phosphatase 94 (38-126) U/L Total Creatine Kinase 85 (55-170) U/L CK-MB (CK-2) 0.7 (0.0-2.4) ng/mL CK-MB (CK-2) Rel Index 0.8 Total Protein 8.5 H (6.3-8.2) g/dL Albumin 4.8 (3.5-5.0) g/dL TSH 2.040 (0.465-4.680) mIU/L Urine Color Urine Appearance (Clear) Urine pH (5.0-8.0) Ur Specific [place] (1.001-1.035) Urine Protein (Negative) Urine Glucose (UA) (Negative) Urine Ketones (Negative) Urine Blood (Negative) Urine Nitrite (Negative) Urine Bilirubin (Negative) Urine Urobilinogen (<2.0) mg/dL Ur Leukocyte Esterase (Negative) Urine RBC (0-5) /hpf Urine WBC (0-5) /hpf Urine Bacteria (None) /hpf Hyaline Casts (0-2) /lpf Urine Mucus (None) /hpf Salicylates <1.0 mg/dL Urine Opiates Screen (NotDetected) Ur Oxycodone Screen (NotDetected) Urine Methadone Screen (NotDetected) Ur Propoxyphene Screen (NotDetected) Acetaminophen <10.0 ug/mL Ur Barbiturates Screen (NotDetected) U Tricyclic Antidepress (NotDetected) Ur Phencyclidine Scrn (NotDetected) Ur Amphetamines Screen (NotDetected) U Methamphetamines Scrn (NotDetected) U Benzodiazepines Scrn (NotDetected) Urine Cocaine Screen (NotDetected) U Marijuana (THC) Screen (NotDetected) Serum Alcohol 246 H* mg/dL 10/05/18 10/05/18 Range/Units 17:30 17:30 WBC (3.8-10.6) k/uL RBC (4.30-5.90) m/uL Hgb (13.0-17.5) gm/dL Hct (39.0-53.0) % MCV (80.0-100.0) fL MCH (25.0-35.0) pg MCHC (31.0-37.0) g/dL RDW (11.5-15.5) % Plt Count (150-450) k/uL Neutrophils % % Lymphocytes % % Monocytes % % Eosinophils % % Basophils % % Neutrophils # (1.3-7.7) k/uL Lymphocytes # (1.0-4.8) k/uL Monocytes # (0-1.0) k/uL Eosinophils # (0-0.7) k/uL Basophils # (0-0.2) k/uL PT 10.2 (9.0-12.0) sec INR 0.9 (<1.2) APTT 18.1 L (22.0-30.0) sec Sodium (137-145) mmol/L Potassium (3.5-5.1) mmol/L Chloride (98-107) mmol/L Carbon Dioxide (22-30) mmol/L Anion Gap mmol/L BUN (9-20) mg/dL Creatinine (0.66-1.25) mg/dL Est GFR (CKD-EPI)AfAm (>60 ml/min/1.73 sqM) Est GFR (CKD-EPI)NonAf (>60 ml/min/1.73 sqM) Glucose (74-99) mg/dL Calcium (8.4-10.2) mg/dL Phosphorus (2.5-4.5) mg/dL Magnesium (1.6-2.3) mg/dL Total Bilirubin (0.2-1.3) mg/dL AST (17-59) U/L ALT (21-72) U/L Alkaline Phosphatase (38-126) U/L Total Creatine Kinase (55-170) U/L CK-MB (CK-2) (0.0-2.4) ng/mL CK-MB (CK-2) Rel Index Total Protein (6.3-8.2) g/dL Albumin (3.5-5.0) g/dL TSH (0.465-4.680) mIU/L Urine Color Yellow Urine Appearance Clear (Clear) Urine pH 5.5 (5.0-8.0) Ur Specific [place] 1.018 (1.001-1.035) Urine Protein 2+ H (Negative) Urine Glucose (UA) Negative (Negative) Urine Ketones 2+ H (Negative) Urine Blood Small H (Negative) Urine Nitrite Negative (Negative) Urine Bilirubin Negative (Negative) Urine Urobilinogen <2.0 (<2.0) mg/dL Ur Leukocyte Esterase Negative (Negative) Urine RBC 1 (0-5) /hpf Urine WBC 1 (0-5) /hpf Urine Bacteria Rare H (None) /hpf Hyaline Casts 19 H (0-2) /lpf Urine Mucus Rare H (None) /hpf Salicylates mg/dL Urine Opiates Screen Not Detected (NotDetected) Ur Oxycodone Screen Not Detected (NotDetected) Urine Methadone Screen Not Detected (NotDetected) Ur Propoxyphene Screen Not Detected (NotDetected) Acetaminophen ug/mL Ur Barbiturates Screen Not Detected (NotDetected) U Tricyclic Antidepress Not Detected (NotDetected) Ur Phencyclidine Scrn Not Detected (NotDetected) Ur Amphetamines Screen Not Detected (NotDetected) U Methamphetamines Scrn Not Detected (NotDetected) U Benzodiazepines Scrn Not Detected (NotDetected) Urine Cocaine Screen Not Detected (NotDetected) U Marijuana (THC) Screen Not Detected (NotDetected) Serum Alcohol mg/dL Disposition <Jose R Salinas - Last Filed: 10/05/18 18:38> Is patient prescribed a controlled substance at d/c from ED?: No <Gordon Fowler - Last Filed: 10/06/18 04:23> Clinical Impression: Substance abuse Disposition: HOME SELF-CARE Condition: Fair Instructions: Polysubstance Abuse (ED) Referrals: Shantel Yin MD [Primary Care Provider] - 1-2 days
[2018-10-05 17:49] LABS: Basophils # (A) 0.1 k/uL (0-0.2); Basophils % (A) 1 %; Eosinophils # (A) 0.1 k/uL (0-0.7); Eosinophils % (A) 0 %; HCT 47.7 % (39.0-53.0); HGB 15.6 gm/dL (13.0-17.5); Lymphocytes # (A) 1.8 k/uL (1.0-4.8); Lymphocytes % (A) 14 %; MCH 29.4 pg (25.0-35.0); MCHC 32.7 g/dL (31.0-37.0); Mean Platelet Volume 7.2; Monocytes # (A) 0.5 k/uL (0-1.0); Monocytes % (A) 3 %; Neutrophils % (A) 81 %; Platelet Count 258 k/uL (150-450); RDW 15.6 % (11.5-15.5); WBC 13.6 k/uL (3.8-10.6)
[2018-10-05] MEDS ORDERED: diphenhydrAMINE 50 MG/ML 1 ML VIAL IVP STA ×2 (17:51→17:52)
[2018-10-05] MEDS ORDERED: LORazepam 2 MG/ML INJ IV STA ×2 (17:51→17:52)
[2018-10-05 17:54] LABS: Appearance,Urine Clear (Clear); Bacteria,Urine Rare /hpf; Bilirubin,Urine Negative (Negative); Blood,Urine Small (Negative); Color,Urine Yellow; Glucose,Urine (UA) Negative (Negative); Hyaline Casts,Urine 19 /lpf (0-2); Ketones,Urine 2+ (Negative); Leukocyte Esterase,Urine Negative (Negative); Mucus,Urine Rare /hpf; Nitrite,Urine Negative (Negative); PH, Urine 5.5 (5.0-8.0); Protein,Urine 2+ (Negative); RBC,Urine 1 /hpf (0-5); Specific Gravity,Urine 1.018 (1.001-1.035); Urobilinogen,Urine <2.0 mg/dL (<2.0); WBC,Urine 1 /hpf (0-5)
[2018-10-05 18:03] LABS: Amphetamine Screen,Urine Not Detected (NotDetected); Barbiturate Screen,Urine Not Detected (NotDetected); Benzodiazepines Screen,Urine Not Detected (NotDetected); Cocaine Screen,Urine Not Detected (NotDetected); Methadone Screen, Urine Not Detected (NotDetected); Opiate Screen,Urine Not Detected (NotDetected); Oxycodone Screen, Urine Not Detected (NotDetected); Phencyclidine Screen,Urine Not Detected (NotDetected); Tricyclic Antidepressant,Urine Not Detected (NotDetected); Urn Cannabinoid Scrn Not Detected (NotDetected)
[2018-10-05 18:04] LABS: INR 0.9 (<1.2); Prothrombin Time 10.2 sec (9.0-12.0)
[2018-10-05 18:06] LABS: ALT 11 U/L (21-72); AST 39 U/L (17-59); Acetaminophen <10.0 ug/mL; Albumin 4.8 g/dL (3.5-5.0); Alkaline Phosphatase 94 U/L (38-126); Anion Gap 20 mmol/L; Blood Urea Nitrogen 20 mg/dL (9-20); Carbon Dioxide 16 mmol/L (22-30); Chloride 109 mmol/L (98-107); Glucose 186 mg/dL (74-99); Magnesium 1.6 mg/dL (1.6-2.3); Phosphorus 4.2 mg/dL (2.5-4.5); Salicylate <1.0 mg/dL; Sodium 145 mmol/L (137-145); Total Bilirubin 0.5 mg/dL (0.2-1.3); Total Protein 8.5 g/dL (6.3-8.2)
[2018-10-05 18:08] LABS: Alcohol 246 mg/dL; Potassium 5.4 mmol/L (3.5-5.1)
[2018-10-05 18:09] LABS: Partial Thromboplastin Time 18.1 sec (22.0-30.0)
[2018-10-05 18:28] LABS: Creatine Kinase MB 0.7 ng/mL (0.0-2.4)
[2018-10-05] MEDS ORDERED: SODIUM CHLORIDE 0.9% 500 ML 500 ML IV STA (18:36)
[2018-10-06 04:39] VITALS: BP 174/95; PULSE 109
== END 2018-10-06 04:39 | disposition home or self-care (01) ==
LOC: EC 16:38
DX: F10.10 Alcohol abuse, uncomplicated (principal); F19.10 Other psychoactive substance abuse, uncomplicated; F22 Delusional disorders; F32.9 Major depressive disorder, single episode, unspecified; F41.9 Anxiety disorder, unspecified; K21.9 Gastro-esophageal reflux disease without esophagitis; I12.9 Hypertensive chronic kidney disease with stage 1 through stage 4 chronic kidney disease, or unspecified chronic kidney disease; N18.3 Chronic kidney disease, stage 3 (moderate); F17.200 Nicotine dependence, unspecified, uncomplicated; Z79.899 Other long term (current) drug therapy; Y90.8 Blood alcohol level of 240 mg/100 ml or more
CPT/HCPCS: 36415; 93005; 80053; 82550; 82553; 83735; 84100; 84443; 85025; 85610; 85730; 81001; 80306; 83520 ×2; 87086; 99285; 96374; 96375; G0480; J2060; J1200; 80320

== ENCOUNTER 2018-12-20 11:10 | Emergency (ER) | payer MEDICARE ==
[2018-12-20 11:25] VITALS: TEMP 98.3
[2018-12-20 12:48] LABS: Amphetamine Screen,Urine Not Detected (NotDetected); Barbiturate Screen,Urine Not Detected (NotDetected); Benzodiazepines Screen,Urine Not Detected (NotDetected); Cocaine Screen,Urine Not Detected (NotDetected); Methadone Screen, Urine Not Detected (NotDetected); Opiate Screen,Urine Not Detected (NotDetected); Oxycodone Screen, Urine Not Detected (NotDetected); Phencyclidine Screen,Urine Not Detected (NotDetected); Tricyclic Antidepressant,Urine Not Detected (NotDetected); Urn Cannabinoid Scrn Not Detected (NotDetected)
--- NOTE | 2018-12-20 17:30 | ED ---
Psych HPI - General Chief Complaint: Psychiatric Symptoms Stated Complaint: petition Time Seen by Provider: 12/20/18 11:29 Source: patient, police Mode of arrival: ambulatory - History of Present Illness Initial Comments: This 58-year-old white male presents in custody of police for psychiatric evaluation. He apparently was sending of some texts yesterday and ordered today relating that he may be suicidal. He has been drinking last night and this morning as well. He states that his last drink was at approximately 10 AM today. He states that he had quit drinking previously and has not drank since this past fall until last night. He apparently was somewhat depressed but is denying any suicidal ideations currently. He has no medical complaints. He is a difficult historian. The combatant diver officer did fill out a petition on his behalf. - Related Data Home Medications Medication Instructions Recorded Confirmed Pantoprazole [Protonix] 40 mg PO DAILY 09/01/18 12/20/18 amLODIPine [Norvasc] 5 mg PO DAILY 10/05/18 12/20/18 Allopurinol [Zyloprim] 100 mg PO DAILY 12/20/18 12/20/18 Amoxicillin/Potassium Clav 1 tab PO Q12HR 12/20/18 12/20/18 [Augmentin 875-125 Tablet] Aspirin EC [Ecotrin Low Dose] 81 mg PO BID 12/20/18 12/20/18 Atorvastatin [Lipitor] 20 mg PO DAILY 12/20/18 12/20/18 Divalproex ER [Depakote ER] 1,000 mg PO HS 12/20/18 12/20/18 Propranolol HCl [Inderal Xl] 120 mg PO BID 12/20/18 12/20/18 Allergies Allergy/AdvReac Type Severity Reaction Status Date / Time No Known Allergies Allergy Verified 12/20/18 11:39 Review of Systems ROS Statement: Those systems with pertinent positive or pertinent negative responses have been documented in the HPI. ROS Other: All systems not noted in ROS Statement are negative. Past Medical History Past Medical History: Chest Pain / Angina, GERD/Reflux, GI Bleed, Hypertension, Renal Disease Additional Past Medical History / Comment(s): ETOH abuse with withdrawals/tremors, chronic kidney disease stage III, bacteremia/sepsis 3 yrs ago and treated at [facility], lower GI bleed, History of Any Multi-Drug Resistant Organisms: None Reported Past Surgical History: No Surgical Hx Reported Additional Past Surgical History / Comment(s): Tooth extraction at [facility] Past Anesthesia/Blood Transfusion Reactions: No Reported Reaction Additional Past Anesthesia/Blood Transfusion Reaction / Comment(s): NO ANESTHESIA HX. PT STATES TOOTH PULLED AT [facility]. Past Psychological History: Anxiety, Depression Smoking Status: Current every day smoker Past Alcohol Use History: Occasional Past Drug Use History: None Reported - Past Family History Father Family Medical History: Cancer Additional Family Medical History / Comment(s): Father is deceasedd at age 87. He had a pacemaker, carotid surgery and scoliosis. Mother Family Medical History: Dementia, Musculoskeletal Disorder, Neurologic Disorder, Pneumonia Additional Family Medical History / Comment(s): Mother at age 84 with history of Alzheimer's and Parkinson's. Brother(s) Additional Family Medical History / Comment(s): Patient does not have any brothers or sisters. He does not have any children. General Exam - General Exam Comments Initial Comments: GENERAL: The patient is well nourished and well hydrated. VITAL SIGNS: Heart rate, blood pressure, respiratory rate reviewed as recorded in nurse's notes. EYES: Pupils are round and reactive. Extraocular movements are intact. No conjunctival / lid redness or swelling. ENT: No external evidence of injury, swelling, or ecchymosis. Airway is patent. Throat is clear. NECK: Nontender. No swelling or evidence of injury. No subcutaneous emphysema. Trachea is midline. No thyroid mass. HEART: Regular rate and rhythm. Good peripheral pulses. LUNGS/CHEST: Breath sounds clear and equal bilaterally. No rales, rhonchi, or wheezes. No ecchymosis, subcutaneous emphysema, or tenderness. ABDOMEN: Abdomen soft without tenderness. No palpable masses or organomegaly. No peritoneal signs. No abdominal wall swelling or ecchymosis. EXTREMITIES: No extremity tenderness. Normal muscle tone and function. No thoracolumbar tenderness. NEUROLOGIC: Sensation is grossly intact. Cranial nerve exam reveals face is symmetrical, tongue is midline, speech is clear. SKIN: No abrasions or ecchymosis is noted. No induration or masses noted. PSYCHIATRIC: Alert and oriented. Appears intoxicated. Limitations: no limitations Course Vital Signs 12/20/18 11:21 Temperature 98.3 F Pulse Rate 116 H Respiratory 20 Rate Blood Pressure 130/85 O2 Sat by Pulse 94 L Oximetry Medical Decision Making - Medical Decision Making The patient was seen and examined. The breath alcohol test was mildly elevated. He was watched in the ER for several hours until he sobered up. The psychiatric team did come down and evaluate him in do not feel as though he needs any inpatient treatment. He is not suicidal at this time. He is counseled regarding alcohol abuse in detail and subsequently discharged with recommendations to follow-up with the psychiatric team's recommendations. - Lab Data Lab Results 12/20/18 Range/Units 12:07 Urine Opiates Screen Not Detected (NotDetected) Ur Oxycodone Screen Not Detected (NotDetected) Urine Methadone Screen Not Detected (NotDetected) Ur Propoxyphene Screen Not Detected (NotDetected) Ur Barbiturates Screen Not Detected (NotDetected) U Tricyclic Antidepress Not Detected (NotDetected) Ur Phencyclidine Scrn Not Detected (NotDetected) Ur Amphetamines Screen Not Detected (NotDetected) U Methamphetamines Scrn Not Detected (NotDetected) U Benzodiazepines Scrn Not Detected (NotDetected) Urine Cocaine Screen Not Detected (NotDetected) U Marijuana (THC) Screen Not Detected (NotDetected) Disposition Clinical Impression: Depression, Alcohol intoxication Disposition: HOME SELF-CARE Condition: Good Instructions (If sedation given, give patient instructions): Alcohol I ntoxication (ED), Depression (ED) Is patient prescribed a controlled substance at d/c from ED?: No Referrals: Shantel Yin MD [Primary Care Provider] - 1-2 days Time of Disposition: 17:30
[2018-12-20 17:47] VITALS: BP 144/106; PULSE 105; RESP 18
== END 2018-12-20 17:46 | disposition home or self-care (01) ==
LOC: EC 11:10
DX: F32.9 Major depressive disorder, single episode, unspecified (principal); F10.129 Alcohol abuse with intoxication, unspecified; K21.9 Gastro-esophageal reflux disease without esophagitis; I12.9 Hypertensive chronic kidney disease with stage 1 through stage 4 chronic kidney disease, or unspecified chronic kidney disease; N18.3 Chronic kidney disease, stage 3 (moderate); F17.200 Nicotine dependence, unspecified, uncomplicated; Z79.82 Long term (current) use of aspirin; Z79.899 Other long term (current) drug therapy
CPT/HCPCS: 80306; 82075; 99284

== ENCOUNTER → 2019-01-17 | Outpatient (CLI) | payer MEDICARE ==
[2019-01-17 15:50] LABS: Anisocytosis Slight; Basophils # (A) 0.1 k/uL (0-0.2); Basophils % (A) 1 %; Eosinophils # (A) 0.2 k/uL (0-0.7); Eosinophils % (A) 2 %; HCT 42.3 % (39.0-53.0); Lymphocytes # (A) 2.9 k/uL (1.0-4.8); Lymphocytes % (A) 37 %; MCH 31.2 pg (25.0-35.0); MCHC 33.2 g/dL (31.0-37.0); MCV 93.9 fL (80.0-100.0); Monocytes # (A) 0.5 k/uL (0-1.0); Monocytes % (A) 6 %; Neutrophils # (A) 4.1 k/uL (1.3-7.7); Neutrophils % (A) 51 %; Platelet Count 343 k/uL (150-450); RBC 4.51 m/uL (4.30-5.90); RDW 16.3 % (11.5-15.5)
[2019-01-18 00:34] LABS: Albumin 4.2 g/dL (3.80-4.90); Anion Gap 10.6 mmol/L (4.00-12.00); Calcium 8.9 mg/dL (8.7-10.3); Carbon Dioxide 24.4 mmol/L (21.6-31.8); Globulin 2.1 g/dL (1.6-3.3); Potassium 4.5 mmol/L (3.5-5.5); Total Bilirubin 0.3 mg/dL (0.2-1.2); Total Protein 6.3 g/dL (6.2-8.2)
== END | disposition home or self-care (01) ==
LOC: LABWHC1 15:04
PROVIDERS: ATTEND Family Medicine
DX: E78.2 Mixed hyperlipidemia (principal); I10 Essential (primary) hypertension
CPT/HCPCS: 36415; 80053; 82607; 82728; 82746; 85025

== ENCOUNTER 2019-06-02 00:53 | Inpatient (IN) | payer MEDICARE ==
[2019-06-02] MEDS ORDERED: ASPIRIN 81 MG PO STA (01:47)
[2019-06-02] MEDS ORDERED: SODIUM CHLORIDE 0.9% 1,000 ML IV STA ×2 (01:47)
[2019-06-02] MEDS ORDERED: THIAMINE 100 MG/ML 2 ML VIAL IM STA (01:47)
[2019-06-02] MEDS ORDERED: LORazepam 2 MG/ML INJ IV PRN ×2 (01:47)
[2019-06-02] MEDS ORDERED: ONDANSETRON 4 MG/2 ML VIAL IVP STA (01:54)
[2019-06-02 02:03] LABS: Basophils # (A) 0.1 k/uL (0-0.2); Basophils % (A) 0 %; Eosinophils # (A) 0.1 k/uL (0-0.7); Eosinophils % (A) 0 %; HCT 49.4 % (39.0-53.0); Lymphocytes # (A) 2.2 k/uL (1.0-4.8); Lymphocytes % (A) 13 %; MCH 33.4 pg (25.0-35.0); MCHC 34.3 g/dL (31.0-37.0); MCV 97.3 fL (80.0-100.0); Mean Platelet Volume 6.6; Monocytes # (A) 0.5 k/uL (0-1.0); Monocytes % (A) 3 %; Neutrophils # (A) 13.8 k/uL (1.3-7.7); Neutrophils % (A) 83 %; Platelet Count 412 k/uL (150-450); RBC 5.08 m/uL (4.30-5.90); RDW 15.8 % (11.5-15.5); WBC 16.6 k/uL (3.8-10.6)
[2019-06-02 02:12] LABS: INR 0.9 (<1.2); Prothrombin Time 10.1 sec (9.0-12.0)
[2019-06-02 02:14] LABS: Albumin 5.3 g/dL (3.5-5.0); Magnesium 1.7 mg/dL (1.6-2.3); Potassium 4.5 mmol/L (3.5-5.1); Total Bilirubin 0.4 mg/dL (0.2-1.3); Total Protein 9.2 g/dL (6.3-8.2)
[2019-06-02 02:21] LABS: Partial Thromboplastin Time 21.4 sec (22.0-30.0)
--- NOTE | 2019-06-02 02:34 | XR ---
EXAM: XR Chest, 2 Views CLINICAL HISTORY: ITS.REASON XR Reason: Chest Pain TECHNIQUE: Frontal and lateral views of the chest. COMPARISON: 07/27/18. FINDINGS: Lungs: Mild patchy atelectasis or developing infiltrate. Pleural space: No significant pleural effusion or pneumothorax. Heart: Stable cardiomediastinal silhouette. Mediastinum: See above. Bones/joints: Old left rib fractures. IMPRESSION: Mild patchy atelectasis or developing infiltrate.
[2019-06-02] MEDS ORDERED: cefTRIAXone IN SWFI 1,000 MG/10 ML SYRINGE IVP STA (02:45)
--- NOTE | 2019-06-02 03:12 | ED ---
Chest Pain HPI - General Source: patient, RN notes reviewed, old records reviewed Mode of arrival: wheelchair <Thuy Campa - Last Filed: 06/02/19 04:42> <Jacqueline Oconnor - Last Filed: 06/03/19 22:06> - General Chief Complaint: Chest Pain Stated Complaint: Chest Pain Time Seen by Provider: 06/02/19 01:18 - History of Present Illness Initial Comments: 58 year old male presents today for CC of chest pain, Patient reports chest pain started this evening. He does have history of alcoholism. He reports he drinks possibly pint today. Patient states that he did drink this today. Astra was a few hours ago. He presents shaking. He does report history of withdrawals. Patient states that he has had no nausea or vomiting. He reports occasional coughing. Denies any significant cardiac history or stenting. (Thuy Campa) - Related Data Home Medications Medication Instructions Recorded Confirmed amLODIPine [Norvasc] 5 mg PO DAILY 10/05/18 06/02/19 Allopurinol [Zyloprim] 100 mg PO DAILY 12/20/18 06/02/19 Aspirin EC [Ecotrin Low Dose] 81 mg PO BID 12/20/18 06/02/19 Divalproex ER [Depakote ER] 1,000 mg PO HS 12/20/18 06/02/19 Mirtazapine 45 mg PO HS 06/02/19 06/02/19 Propranolol HCl [Inderal Xl] 120 mg PO BID 06/02/19 06/02/19 QUEtiapine [SEROquel] 50 mg PO DAILY 06/02/19 06/02/19 buPROPion XL [Wellbutrin XL] 150 mg PO DAILY 06/02/19 06/02/19 Previous Rx's Medication Instructions Recorded Thiamine [Vitamin B-1] 100 mg PO BID-W/MEALS #30 tab 06/03/19 Allergies Allergy/AdvReac Type Severity Reaction Status Date / Time No Known Allergies Allergy Verified 06/02/19 07:55 Review of Systems ROS Other: All systems not noted in ROS Statement are negative. <Thuy Campa - Last Filed: 06/02/19 04:42> ROS Other: All systems not noted in ROS Statement are negative. <Jacqueline Oconnor - Last Filed: 06/03/19 22:06> ROS Statement: Those systems with pertinent positive or pertinent negative responses have been documented in the HPI. EKG Findings - EKG Comments: EKG Findings:: EKG performed at 1:16 AM shows sinus tachycardia otherwise normal EKG. Ventricular 113 bpm. VT interval is 160 ms. QRS duration is 84 ms. QT QTc is 320/438 ms. <SydniThuy lindsay - Last Filed: 06/02/19 04:42> Past Medical History Past Medical History: Chest Pain / Angina, GERD/Reflux, GI Bleed, Hypertension, Renal Disease Additional Past Medical History / Comment(s): ETOH abuse with withdrawals/tremors, chronic kidney disease stage III, bacteremia/sepsis 3 yrs ago and treated at [facility], lower GI bleed, History of Any Multi-Drug Resistant Organisms: None Reported Past Surgical History: No Surgical Hx Reported Additional Past Surgical History / Comment(s): Tooth extraction at [facility] Past Anesthesia/Blood Transfusion Reactions: No Reported Reaction Additional Past Anesthesia/Blood Transfusion Reaction / Comment(s): NO ANESTHESIA HX. PT STATES TOOTH PULLED AT [facility]. Past Psychological History: Anxiety, Depression Smoking Status: Current every day smoker Past Alcohol Use History: Occasional Past Drug Use History: None Reported - Past Family History Father Family Medical History: Cancer Additional Family Medical History / Comment(s): Father is deceasedd at age 87. He had a pacemaker, carotid surgery and scoliosis. Mother Family Medical History: Dementia, Musculoskeletal Disorder, Neurologic Disorder, Pneumonia Additional Family Medical History / Comment(s): Mother at age 84 with history of Alzheimer's and Parkinson's. Brother(s) Additional Family Medical History / Comment(s): Patient does not have any brothers or sisters. He does not have any children. <SydniThuy lindsay - Last Filed: 06/02/19 04:42> General Exam General appearance: alert, in no apparent distress Head exam: Present: atraumatic, normocephalic, normal inspection Eye exam: Present: normal appearance, PERRL, EOMI. Absent: scleral icterus, conjunctival injection, periorbital swelling ENT exam: Present: normal exam, mucous membranes moist Neck exam: Present: normal inspection. Absent: tenderness, meningismus, lymphadenopathy Respiratory exam: Present: normal lung sounds bilaterally. Absent: respiratory distress, wheezes, rales, rhonchi, stridor Cardiovascular Exam: Present: regular rate, normal rhythm, normal heart sounds. Absent: systolic murmur, diastolic murmur, rubs, gallop, clicks GI/Abdominal exam: Present: soft, normal bowel sounds. Absent: distended, tenderness, guarding, rebound, rigid Extremities exam: Present: normal inspection, full ROM, normal capillary refill. Absent: tenderness, pedal edema, joint swelling, calf tenderness Back exam: Present: normal inspection Neurological exam: Present: alert, oriented X3, CN II-XII intact Psychiatric exam: Present: normal affect, normal mood Skin exam: Present: warm, dry, intact, normal color. Absent: rash <Thuy Campa - Last Filed: 06/02/19 04:42> - General Exam Comments Initial Comments: 58-year-old male. Alert and oriented. No significant distress. Patient is shaky. Tachycardic at 125 bpm. (Thuy Campa) Course Vital Signs 06/02/19 06/02/19 06/02/19 00:57 01:50 03:10 Temperature 98.7 F Pulse Rate 125 H 133 H Pulse Rate [ 113 H Global Security Architect ] Respiratory 18 18 Rate Blood Pressure 191/138 155/113 O2 Sat by Pulse 91 L 92 L Oximetry 06/02/19 06/02/19 06/02/19 05:01 06:24 07:40 Temperature Pulse Rate 129 H 130 H 131 H Pulse Rate [ Global Security Architect ] Respiratory 18 18 22 Rate Blood Pressure 161/113 166/118 175/114 O2 Sat by Pulse 98 97 94 L Oximetry 06/02/19 06/02/19 06/02/19 09:52 10:30 11:00 Temperature Pulse Rate 112 H 102 H 103 H Pulse Rate [ Global Security Architect ] Respiratory 18 18 Rate Blood Pressure 152/105 156/103 156/103 O2 Sat by Pulse 94 L 92 L 94 L Oximetry 06/02/19 12:00 Temperature Pulse Rate 90 Pulse Rate [ Global Security Architect ] Respiratory Rate Blood Pressure 167/112 O2 Sat by Pulse 94 L Oximetry Chest Pain MDM <Thuy Campa - Last Filed: 06/02/19 04:42> - MDM This is a 38-year-old male history of alcoholism. He presents today with onset of chest pain. He apprised emergency department concern for withdrawals as well. Shaky and tachycardic. He is given Cipro protocol. He continued to be tachycardic despite fluids and Ativan. Patient's troponin test is negative. Blood work showed mild leukocytosis. Chest x-ray question questionable early infiltrate. Patient was started on Rocephin blood cultures were completed. He has no significant wheezing on exam. At this time Patient will be admitted for chest pain, concerns for alcohol withdrawal, and tachycardia, and concern for pneumonia. Patient case discussed with Dr. Oconnor. She discussed this with [facility] hospitalist the morning. Chest x-ray shows mild patchy atelectasis or developing infiltrate. CT JOAQUIN chest shows evaluation for PEs limited due to suboptimal bolus imaging and motion artifact. No large central saddle PE. Mid distal esophageal wall thickening differential could be inflammatory infectious or neoplastic etiologies. Mild patchy bilateral asked atelectasis or pneumonitis. (Thuy Campa) Disposition Is patient prescribed a controlled substance at d/c from ED?: No Time of Disposition: 04:47 <Thuy Campa - Last Filed: 06/02/19 04:42> <Jacqueline Oconnor - Last Filed: 06/03/19 22:06> Clinical Impression: Tachycardia, Pneumonia, Alcohol intoxication, Alcohol withdrawal, Chest pain Disposition: ADMITTED IP TO THIS HOSP Condition: Stable
--- NOTE | 2019-06-02 03:57 | CT ---
EXAM: CT Angiography Chest With Intravenous Contrast CLINICAL HISTORY: elevated D-Dimer ITS.REASON CT Reason: Pain TECHNIQUE: Axial computed tomographic angiography images of the chest with intravenous contrast using pulmonary embolism protocol. CTDI is 9.1 mGy and DLP is 354.6 mGy-cm. This CT exam was performed using one or more of the following dose reduction techniques: automated exposure control, adjustment of the mA and/or kV according to patient size, and/or use of iterative reconstruction technique. MIP reconstructed images were created and reviewed. COMPARISON: No relevant prior studies available. FINDINGS: Pulmonary arteries: Evaluation for PE is limited due to suboptimal bolus timing and motion artifact. No large central saddle PE. Aorta: No aortic aneurysm or dissection. Atherosclerotic disease. Lungs: Mild patchy bilateral atelectasis or pneumonitis. Pleural space: Questionable minimal pleural fluid. Heart: Unremarkable. Mediastinum: Mid-distal esophageal wall thickening. Bones/joints: Remote appearing left rib fractures. Age-indeterminate compression deformities of the T4 and T5 vertebral bodies. Soft tissues: Unremarkable as visualized. Lymph nodes: Small mediastinal lymph nodes. Liver: Possible mild fatty liver. Adrenals: Mild adrenal thickening. Stomach and bowel: Distended fluid-filled stomach. Scattered colonic diverticula. IMPRESSION: 1. Evaluation for PE is limited due to suboptimal bolus timing and motion artifact. No large central saddle PE. 2. Mid-distal esophageal wall thickening. Differential considerations include inflammatory/infectious or neoplastic etiologies. 3. Mild patchy bilateral atelectasis or pneumonitis.
[2019-06-02] MEDS ORDERED: SODIUM CHLORIDE 0.9% 1,000 ML IV ONE ×2 (04:05→04:41)
[2019-06-02] MEDS ORDERED: AZITHROMYCIN 500 MG in SODIUM CHLORIDE 0.9% 250 ML IVPB STA (04:48)
[2019-06-02] MEDS ORDERED: PNEUMONIA PROTOCOL UTILIZED 1 EACH MISC PO PRN (04:48)
[2019-06-02 05:58] LABS: Appearance,Urine Clear (Clear); Bilirubin,Urine Negative (Negative); Blood,Urine Negative (Negative); Color,Urine Light Yellow; Glucose,Urine (UA) Negative (Negative); Ketones,Urine 1+ (Negative); Leukocyte Esterase,Urine Negative (Negative); Nitrite,Urine Negative (Negative); Protein,Urine Negative (Negative); Specific Gravity,Urine 1.031 (1.001-1.035); Urobilinogen,Urine <2.0 mg/dL (<2.0)
[2019-06-02 06:07] LABS: Amphetamine Screen,Urine Not Detected (NotDetected); Barbiturate Screen,Urine Not Detected (NotDetected); Benzodiazepines Screen,Urine Detected (NotDetected); Cocaine Screen,Urine Not Detected (NotDetected); Methadone Screen, Urine Not Detected (NotDetected); Opiate Screen,Urine Not Detected (NotDetected); Oxycodone Screen, Urine Not Detected (NotDetected); Phencyclidine Screen,Urine Not Detected (NotDetected); Tricyclic Antidepressant,Urine Not Detected (NotDetected); Urn Cannabinoid Scrn Not Detected (NotDetected)
[2019-06-02] MEDS ORDERED: cloNIDine HCL 0.1 MG TAB PO STA ×2 (06:22→07:38)
[2019-06-02] MEDS: PANTOPRAZOLE 40 MG TABLET PO SCH (07:36)
[2019-06-02] MEDS: LORazepam 2 MG/ML INJ IV PRN ×2 (07:58→09:57)
[2019-06-02] MEDS: PROPRANOLOL LA 60 MG CAP.SA.24H PO SCH ×2 (08:35→21:53)
[2019-06-02] MEDS: DIVALPROEX ER 500 MG TAB.ER.24H PO SCH ×2 (08:35→20:25)
[2019-06-02] MEDS: amLODIPine 5 MG TAB PO SCH (08:35)
[2019-06-02] MEDS: ATORVASTATIN 20 MG TAB PO SCH (11:17)
[2019-06-02] MEDS: ALLOPURINOL 100 MG TAB PO SCH (11:17)
--- NOTE | 2019-06-02 13:07 | P.HPIM ---
History of Present Illness 58-year-old male came in with complains of chest pressure like sensation which started yesterday evening patient was tachycardic when he came in with heart rate going up to 130s patient does take propranolol at home which may be the reason why which is causing reflex tachycardia patient was started back on propranolol heart rate has come down patient denied any diaphoresis his chest pain is constant mild to moderate severity which improved now. Patient does drink alcohol about 2 pints a day the he initially denied drinking every single day upon further questioning she admits to drinking almost every single day. Patient was admitted to cardiology for and cardiology was consult it. Check patient had a CAT scan of the chest which did not show any pulmonary embolism there is mild atelectasis no evidence of pneumonia or aspiration on the CAT scan will not require any antibiotics at this time. Patient is also taking Protonix. Patient is also on Depakote and bupropion, patient does have history of seizure disorder many bupropion may not be appropriate but I'm not changing this medication as patient is not well-known to me and patient is on a low-dose of this medication. Gave him an option of treating him for alcohol withdrawals but patient is not willing to quit alcohol. If patient is not willing to quit alcohol patient will be discharged later in the day today. Although patient does have elevated lactic acid of 8.4 secondary to severe intravascular depletion without any evidence of infection at this time. Patient was given IV fluids it has come down to 3.4. Will repeat another lactic acid before I can discharge him once it normalizes send if patient is not willing to quit alcohol patient will be discharged later in the day if cleared by cardiology. Review of Systems REVIEW OF SYSTEMS: CONSTITUTIONAL: No fever, no malaise, no fatigue. HEENT: No recent visual problems or hearing problems. Denied any sore throat. CARDIOVASCULAR: No chest pain, orthopnea, PND, no palpitations, no syncope. PULMONARY: No shortness of breath, no cough, no hemoptysis. GASTROINTESTINAL: No diarrhea, no nausea, no vomiting, no abdominal pain. NEUROLOGICAL: No headaches, no weakness, no numbness. HEMATOLOGICAL: Denies any bleeding or petechiae. GENITOURINARY: Denies any burning micturition, frequency, or urgency. MUSCULOSKELETAL/RHEUMATOLOGICAL: Denies any joint pain, swelling, or any muscle pain. ENDOCRINE: Denies any polyuria or polydipsia. The rest of the 14-point review of systems is negative. Past Medical History Past Medical History: Chest Pain / Angina, GERD/Reflux, GI Bleed, Hypertension, Renal Disease, Seizure Disorder Additional Past Medical History / Comment(s): ETOH abuse with withdrawal s/tremors, seizure in 2018 while in partial treatment program, chronic kidney disease stage III, bacteremia/sepsis 4 yrs ago and treated at [facility], lower GI bleed, History of Any Multi-Drug Resistant Organisms: None Reported Past Surgical History: No Surgical Hx Reported Additional Past Surgical History / Comment(s): Tooth extraction at [facility] Past Anesthesia/Blood Transfusion Reactions: No Reported Reaction Additional Past Anesthesia/Blood Transfusion Reaction / Comment(s): NO ANESTHESIA HX. PT STATES TOOTH PULLED AT [facility]. Smoking Status: Light tobacco smoker - Past Family History Father Family Medical History: Cancer Additional Family Medical History / Comment(s): Father is deceasedd at age 87. He had a pacemaker, carotid surgery and scoliosis. Mother Family Medical History: Dementia, Musculoskeletal Disorder, Neurologic Disorder, Pneumonia Additional Family Medical History / Comment(s): Mother at age 84 with history of Alzheimer's and Parkinson's. Brother(s) Additional Family Medical History / Comment(s): Patient does not have any brothers or sisters. He does not have any children. Medications and Allergies Home Medications Medication Instructions Recorded Confirmed Type amLODIPine [Norvasc] 5 mg PO DAILY 10/05/18 06/02/19 History Allopurinol [Zyloprim] 100 mg PO DAILY 12/20/18 06/02/19 History Aspirin EC [Ecotrin Low Dose] 81 mg PO BID 12/20/18 06/02/19 History Divalproex ER [Depakote ER] 1,000 mg PO HS 12/20/18 06/02/19 History Mirtazapine 45 mg PO HS 06/02/19 06/02/19 History Propranolol HCl [Inderal Xl] 120 mg PO BID 06/02/19 06/02/19 History QUEtiapine [SEROquel] 50 mg PO DAILY 06/02/19 06/02/19 History buPROPion XL [Wellbutrin Xl] 150 mg PO DAILY 06/02/19 06/02/19 History Allergies Allergy/AdvReac Type Severity Reaction Status Date / Time No Known Allergies Allergy Verified 06/02/19 07:55 Physical Exam Vitals: Vital Signs Temp Pulse Pulse Resp BP Pulse Ox 06/02/19 12:00 90 167/112 94 L 06/02/19 11:00 103 H 156/103 94 L 06/02/19 10:30 102 H 18 156/103 92 L 06/02/19 09:52 112 H 18 152/105 94 L 06/02/19 07:40 131 H 22 175/114 94 L 06/02/19 06:24 130 H 18 166/118 97 06/02/19 05:01 129 H 18 161/113 98 06/02/19 03:10 133 H 18 155/113 92 L 06/02/19 01:50 113 H 06/02/19 00:57 98.7 F 125 H 18 191/138 91 L Intake and Output 06/01/19 06/02/19 06/02/19 22:59 06:59 14:59 Other: Weight 83.915 kg PHYSICAL EXAMINATION: GENERAL: The patient is alert and oriented x3, not in any acute distress. Well developed, well nourished. HEENT: Pupils are round and equally reacting to light. EOMI. No scleral icterus. No conjunctival pallor. Normocephalic, atraumatic. No pharyngeal erythema. No thyromegaly. CARDIOVASCULAR: S1 and S2 present. No murmurs, rubs, or gallops. PULMONARY: Chest is clear to auscultation, no wheezing or crackles. ABDOMEN: Soft, nontender, nondistended, normoactive bowel sounds. No palpable organomegaly. MUSCULOSKELETAL: No joint swelling or deformity. EXTREMITIES: No cyanosis, clubbing, or pedal edema. NEUROLOGICAL: Gross neurological examination did not reveal any focal deficits. SKIN: No rashes. Results CBC & Chem 7: 06/02/19 01:47 06/02/19 01:47 Labs: Abnormal Lab Results - Last 24 Hours (Table) 06/02/19 06/02/19 06/02/19 Range/Units 01:47 01:47 01:47 WBC 16.6 H (3.8-10.6) k/uL RDW 15.8 H (11.5-15.5) % Neutrophils # 13.8 H (1.3-7.7) k/uL APTT 21.4 L (22.0-30.0) sec D-Dimer (<0.60) mg/L FEU Sodium 147 H (137-145) mmol/L Creatinine 1.42 H (0.66-1.25) mg/dL Glucose 157 H (74-99) mg/dL Plasma Lactic Acid Sergey (0.7-2.0) mmol/L Calcium 12.0 H (8.4-10.2) mg/dL Total Protein 9.2 H (6.3-8.2) g/dL Albumin 5.3 H (3.5-5.0) g/dL Urine Ketones (Negative) U Benzodiazepines Scrn (NotDetected) Serum Alcohol 227 H* mg/dL 06/02/19 06/02/19 06/02/19 Range/Units 01:47 01:47 05:33 WBC (3.8-10.6) k/uL RDW (11.5-15.5) % Neutrophils # (1.3-7.7) k/uL APTT (22.0-30.0) sec D-Dimer 1.10 H (<0.60) mg/L FEU Sodium (137-145) mmol/L Creatinine (0.66-1.25) mg/dL Glucose (74-99) mg/dL Plasma Lactic Acid Sergey 8.4 H* (0.7-2.0) mmol/L Calcium (8.4-10.2) mg/dL Total Protein (6.3-8.2) g/dL Albumin (3.5-5.0) g/dL Urine Ketones 1+ H (Negative) U Benzodiazepines Scrn Detected H (NotDetected) Serum Alcohol mg/dL 06/02/19 Range/Units 08:43 WBC (3.8-10.6) k/uL RDW (11.5-15.5) % Neutrophils # (1.3-7.7) k/uL APTT (22.0-30.0) sec D-Dimer (<0.60) mg/L FEU Sodium (137-145) mmol/L Creatinine (0.66-1.25) mg/dL Glucose (74-99) mg/dL Plasma Lactic Acid Sergey 3.6 H* (0.7-2.0) mmol/L Calcium (8.4-10.2) mg/dL Total Protein (6.3-8.2) g/dL Albumin (3.5-5.0) g/dL Urine Ketones (Negative) U Benzodiazepines Scrn (NotDetected) Serum Alcohol mg/dL Thrombosis Risk Factor Assmnt - Choose All That Apply Any of the Below Risk Factors Present?: Yes Each Factor Represents 1 point: Age 41-60 years, Obesity (BMI >25) Other Risk Factors: No Other congenital or acquired thrombophilia - If yes, enter type in comment: No Thrombosis Risk Factor Assessment Total Risk Factor Score: 2 Thrombosis Risk Factor Assessment Level: Low Risk Assessment and Plan Plan: Chest pain: We will rule out acute coronary syndromes probably related to tachycardia cardia April valid the patient. -Tachycardia secondary to severe intravascular depletion now improved with IV fluids may be reflux tachycardia from propranolol as well patient was started back on propranolol -Alcoholic abuse with possibly of alcohol withdrawal: Patient will be continued on thiamine supplementation if patient is not willing to quit alcohol patient will be discharged later in the day today. -Lactic acidosis secondary to severe intravascular depletion from chronic alcoholism -Hypertension continue with amlodipine and propranolol -Seizure disorder continue with Depakote his Wellbutrin probably will need to be switched to a different medication patient will be continued on Seroquel for his psychiatric issues. -Rule out pulmonary embolism -leukocytosis reactive -Chronic kidney disease stage II probably secondary to hypertensive nephrosclerosis patient baseline creatinine is between 1.2 and 1.4 -Hypomagnesemia magnesium will be supplemented -Alcoholic gastritis for which occurred Protonix will be continued
[2019-06-02] MEDS: SODIUM CHLORIDE 0.9% 1,000 ML IV SCH (15:28)
[2019-06-02] MEDS: THIAMINE 100 MG TAB PO SCH ×2 (17:44→17:45)
[2019-06-02] MEDS: ASPIRIN 81 MG PO SCH (20:25)
[2019-06-02] MEDS ORDERED: QUEtiapine 50 MG TAB PO SCH (20:30)
--- NOTE | 2019-06-02 20:50 | CONS ---
CONSULTATION Mr. Medeiros is a 58-year-old male with known history of hypertension and history of chronic alcoholism who presented with symptoms of chest discomfort and sinus tachycardia. The patient was sitting when he had the discomfort. He is feeling better today. He had multiple admissions in the past related to alcoholism and he drinks quite a bit. He denies any prior cardiac history. He is not very active physically. He has some dyspnea on exertion. No dizziness. No palpitation. He denies any clear PND or orthopnea. He has a history of hypertension, for which he is on propranolol and amlodipine at home. He thinks that he drank more than usual recently. He has no history of smoking. MEDICATIONS: His medications include: 1. Wellbutrin. 2. Norvasc 5 mg daily. 3. Seroquel. 4. Inderal XL 120 mg twice a day. 5. Depakote. 6. Aspirin. 7. Zyloprim. REVIEW OF SYSTEMS: RESPIRATORY SYSTEM: He had dyspnea on exertion. No recent wheezing or cough. GI SYSTEM: No recent GI bleeding. No peptic ulcer disease. SYSTEM: No dysuria or hematuria. NERVOUS SYSTEM: He has a prior history of seizure. PHYSICAL EXAMINATION: A 58-year-old male, alert, oriented, in no apparent distress. Blood pressure running in the 150s to 170s with a heart rate in the 90s. Earlier his heart rate was up in the 130s. HEAD: Normocephalic. EYES: Sclerae anicteric. NECK: Good carotid upstroke. No bruit. No jugular venous distention. LUNGS: Clear to auscultation. HEART: Regular rate and rhythm. S1, S2. No S3. No rub or gallop. ABDOMEN: Soft, nontender. Positive bowel sounds. No organomegaly. EXTREMITIES: No edema. Intact distal pulses. LAB DATA: BUN and creatinine of 16 and 1.42. Troponin less than 0.012 for 2 samples. His plasma lactic acid on presentation was 8.4, down to 3.6 at this point. Potassium 4.5. Hemoglobin of 17. EKG revealed sinus mechanism with a normal axis and intervals with sinus tachycardia. IMPRESSION: 1. Chronic and acute alcoholism. 2. Hypertension. Compliance with medication is unclear. 3. Sinus tachycardia related to the alcoholism. 4. Probable dehydration with lactic acidosis. 5. History of seizure disorder. RECOMMENDATIONS: From the cardiac standpoint, I will continue current therapy. I see no active cardiac issues at this time. The patient can be discharged home and follow up with his primary care physician on his present therapy and may benefit as an outpatient to undergo cardiac workup. I have encouraged him again to stop smoking. Thank you for this consult. LELA / SHEA: [id number] /
[2019-06-02] MEDS ORDERED: MIRTAZAPINE 45 MG TABLET PO SCH (21:00)
[2019-06-03] MEDS: SODIUM CHLORIDE 0.9% 1,000 ML IV SCH ×2 (05:29→15:32)
[2019-06-03] MEDS: THIAMINE 100 MG TAB PO SCH (06:37)
[2019-06-03] MEDS: PANTOPRAZOLE 40 MG TABLET PO SCH (06:37)
[2019-06-03 08:15] VITALS: PULSE 71; RESP 16
--- NOTE | 2019-06-03 08:42 | XR ---
EXAMINATION TYPE: XR chest 2V DATE OF EXAM: 06/03/2019 COMPARISON: 06/02/2019 TECHNIQUE: PA and lateral views submitted. HISTORY: Chest pain FINDINGS: Suggestion of chronic rib cage deformities. Subsegmental linear changes are seen. Heart size normal. No overt failure or pneumothorax. Apical pleural thickening noted. Hypertrophic change of the spine. IMPRESSION: 1. Basilar atelectasis favored over pneumonia.
[2019-06-03] MEDS: ALLOPURINOL 100 MG TAB PO SCH (08:46)
[2019-06-03] MEDS: amLODIPine 5 MG TAB PO SCH (08:46)
[2019-06-03] MEDS: ATORVASTATIN 20 MG TAB PO SCH (08:46)
[2019-06-03] MEDS: PROPRANOLOL LA 60 MG CAP.SA.24H PO SCH (08:46)
[2019-06-03] MEDS ORDERED: buPROPion XL 150 MG TAB.ER.24H PO SCH (09:00)
[2019-06-03] MEDS: MAGNESIUM SULFATE-D5W PMX 1 GM in DEXTROSE/WATER 1 100ML.BAG IVPB SCH ×2 (09:57→11:05)
[2019-06-03 11:00] LABS: Calcium 9.4 mg/dL (8.4-10.2); Potassium 3.7 mmol/L (3.5-5.1)
[2019-06-03 11:23] LABS: HCT 41.3 % (39.0-53.0); HGB 14.1 gm/dL (13.0-17.5); MCH 33.3 pg (25.0-35.0); MCHC 34.1 g/dL (31.0-37.0); MCV 97.7 fL (80.0-100.0); Mean Platelet Volume 7.9; Platelet Count 292 k/uL (150-450); RBC 4.23 m/uL (4.30-5.90); RDW 15.4 % (11.5-15.5); WBC 8.7 k/uL (3.8-10.6)
[2019-06-03 12:32] VITALS: BP 156/93
[2019-06-03] MEDS: ASPIRIN 81 MG PO SCH (12:55)
[2019-06-03 13:10] VITALS: TEMP 98.3
--- NOTE | 2019-06-03 13:15 | P.DS ---
Providers Date of admission: 06/02/19 04:09 Attending physician: Kimberlyn Parker Consults: 06/02/19 13:04 Consult Physician Routine Consulting Provider: Apurva Roger Consult Reason/Comments: htn episode Do you want consulting provider notified?: Yes Primary care physician: [facility] Course: 58-year-old male came in with complains of chest pressure like sensation which started yesterday evening patient was tachycardic when he came in with heart rate going up to 130s patient does take propranolol at home which may be the reason why which is causing reflex tachycardia patient was started back on propranolol heart rate has come down patient denied any diaphoresis his chest pain is constant mild to moderate severity which improved now. Patient does drink alcohol about 2 pints a day the he initially denied drinking every single day upon further questioning she admits to drinking almost every single day. Patient was admitted to cardiology for and cardiology was consult it. Check patient had a CAT scan of the chest which did not show any pulmonary embolism there is mild atelectasis no evidence of pneumonia or aspiration on the CAT scan will not require any antibiotics at this time. Patient is also taking Protonix. Patient is also on Depakote and bupropion, patient does have history of seizure disorder many bupropion may not be appropriate but I'm not changing this medica tion as patient is not well-known to me and patient is on a low-dose of this medication. Gave him an option of treating him for alcohol withdrawals but patient is not willing to quit alcohol. If patient is not willing to quit alcohol patient will be discharged later in the day today. Although patient does have elevated lactic acid of 8.4 secondary to severe intravascular depletion without any evidence of infection at this time. Patient was given IV fluids it has come down to 3.4. Will repeat another lactic acid before I can discharge him once it normalizes send if patient is not willing to quit alcohol patient will be discharged later in the day if cleared by cardiology. 06/03/2019 Patient is clinically doing well had his lactic acid has come down, no alcohol withdrawals at this time. Patient was cleared by cardiology tachycardia improved. Patient the will try to quit alcohol but he was unsure that he can do that. PHYSICAL EXAMINATION: GENERAL: The patient is alert and oriented x3, not in any acute distress. Well developed, well nourished. HEENT: Pupils are round and equally reacting to light. EOMI. No scleral icterus. No conjunctival pallor. Normocephalic, atraumatic. No pharyngeal erythema. No thyromegaly. CARDIOVASCULAR: S1 and S2 present. No murmurs, rubs, or gallops. PULMONARY: Chest is clear to auscultation, no wheezing or crackles. ABDOMEN: Soft, nontender, nondistended, normoactive bowel sounds. No palpable organomegaly. MUSCULOSKELETAL: No joint swelling or deformity. EXTREMITIES: No cyanosis, clubbing, or pedal edema. NEUROLOGICAL: Gross neurological examination did not reveal any focal deficits. SKIN: No rashes. Assessment and Plan Plan: Chest pain: ruled out acute coronary syndromes probably related to tachycardia cardia . -Tachycardia secondary to severe intravascular depletion now improved with IV fluids may be reflux tachycardia from propranolol as well patient was started back on propranolol -Alcoholic abuse with no alcohol withdrawals -Lactic acidosis secondary to severe intravascular depletion from chronic alcoholism -Hypertension continue with amlodipine and propranolol -Seizure disorder continue with Depakote his Wellbutrin probably will need to be switched to a different medication patient will be continued on Seroquel for his psychiatric issues. -Rule out pulmonary embolism -leukocytosis reactive -Chronic kidney disease stage II probably secondary to hypertensive nephrosclerosis patient baseline creatinine is between 1.2 and 1.4 -Hypomagnesemia magnesium will be supplemented -Alcoholic gastritis for which occurred Protonix will be continued Patient Condition at Discharge: Stable Plan - Discharge Summary Discharge Rx Participant: No New Discharge Prescriptions: New Thiamine [Vitamin B-1] 100 mg PO BID-W/MEALS #30 tab Continue amLODIPine [Norvasc] 5 mg PO DAILY Divalproex ER [Depakote ER] 1,000 mg PO HS Aspirin EC [Ecotrin Low Dose] 81 mg PO BID Allopurinol [Zyloprim] 100 mg PO DAILY Propranolol HCl [Inderal Xl] 120 mg PO BID buPROPion XL [Wellbutrin XL] 150 mg PO DAILY QUEtiapine [SEROquel] 50 mg PO DAILY Mirtazapine 45 mg PO HS Discharge Medication List amLODIPine [Norvasc] 5 mg PO DAILY 10/05/18 [History] Allopurinol [Zyloprim] 100 mg PO DAILY 12/20/18 [History] Aspirin EC [Ecotrin Low Dose] 81 mg PO BID 12/20/18 [History] Divalproex ER [Depakote ER] 1,000 mg PO HS 12/20/18 [History] Mirtazapine 45 mg PO HS 06/02/19 [History] Propranolol HCl [Inderal Xl] 120 mg PO BID 06/02/19 [History] QUEtiapine [SEROquel] 50 mg PO DAILY 06/02/19 [History] buPROPion XL [Wellbutrin XL] 150 mg PO DAILY 06/02/19 [History] Thiamine [Vitamin B-1] 100 mg PO BID-W/MEALS #30 tab 06/03/19 [Rx] Follow up Appointment(s)/Referral(s): Shantel Yin MD [Primary Care Provider] - 06/09/19 1:30 pm Patient Instructions/Handouts: How to Stop Smoking (DC), Abuse of Alcohol (DC) Discharge Disposition: HOME SELF-CARE
[2019-06-03] MEDS ORDERED: QUEtiapine 50 MG TAB PO SCH (21:00)
== END 2019-06-03 16:11 | disposition home or self-care (01) | DRG 641 ==
LOC: EC 00:53 → 3NMEDONC 04:09 → 3SCARD 08:37
PROVIDERS: ADMIT Hospitalist; ATTEND Hospitalist
DX: E86.9 Volume depletion, unspecified (principal); J98.11 Atelectasis; F10.239 Alcohol dependence with withdrawal, unspecified; E87.2 Acidosis; R00.0 Tachycardia, unspecified; R07.9 Chest pain, unspecified; F32.9 Major depressive disorder, single episode, unspecified; F41.9 Anxiety disorder, unspecified; I12.9 Hypertensive chronic kidney disease with stage 1 through stage 4 chronic kidney disease, or unspecified chronic kidney disease; N18.2 Chronic kidney disease, stage 2 (mild); F10.229 Alcohol dependence with intoxication, unspecified; K29.20 Alcoholic gastritis without bleeding; G40.909 Epilepsy, unspecified, not intractable, without status epilepticus; E83.42 Hypomagnesemia; K21.9 Gastro-esophageal reflux disease without esophagitis; Y90.7 Blood alcohol level of 200-239 mg/100 ml; F17.200 Nicotine dependence, unspecified, uncomplicated; Z71.6 Tobacco abuse counseling; Z79.82 Long term (current) use of aspirin; Z79.899 Other long term (current) drug therapy; Z87.19 Personal history of other diseases of the digestive system; Z98.890 Other specified postprocedural states; Z86.19 Personal history of other infectious and parasitic diseases; Z82.0 Family history of epilepsy and other diseases of the nervous system; Z83.6 Family history of other diseases of the respiratory system
CPT/HCPCS: 36415; 71046; 71275; 80048; 80053; 80306; 80320; 81003; 83605; 83735; 83880; 84484; 85025; 85027; 85379; 85610; 85730; 87040; 93005; 96361; 96365; 96372; 96375; 96376; 99285

== ENCOUNTER → 2019-11-17 | Outpatient (CLI) | payer MEDICARE ==
[2019-11-17 18:32] LABS: ALT 40 U/L (10-49); AST 24 U/L (14-35); Albumin/Globulin Ratio 1.83 (1.60-3.17); Alkaline Phosphatase 67 U/L (41-126); Bilirubin, Conjugated <0.20 mg/dL (0.20-0.40); Globulin 2.4 g/dL (1.6-3.3); Total Bilirubin 0.4 mg/dL (0.2-1.2); Total Protein 6.8 g/dL (6.2-8.2)
[2019-11-17 18:37] LABS: Valproic Acid (Depakene) 68.7 ug/mL (50.0-100.0)
== END | disposition home or self-care (01) ==
LOC: LABWHC1 13:02
PROVIDERS: ATTEND Physician Assistant
DX: F31.9 Bipolar disorder, unspecified (principal); Z79.899 Other long term (current) drug therapy
CPT/HCPCS: 36415; 80076; 80164